=== PATIENT | female | born 1960 | race Caucasian/White ===

== ENCOUNTER 2024-12-13 09:29 | Outpatient (OUT) | payer BC, SELFPAY ==
[2024-12-13 10:12] LABS: Estimated Average Glucose 117 mg/dL; Glycohemoglobin A1C 5.7 % (4.5-6.2)
[2024-12-13 10:33] LABS: Free T3 2.13 pg/mL (2.18-3.98); Glucose 110 mg/dL (74-106)
[2024-12-13 10:48] LABS: Free T4 1.07 ng/dL (0.76-1.46)
[2024-12-14 04:07] LABS: Estradiol 15.8 pg/mL (0.0-54.7)
[2024-12-14 06:08] LABS: Sex Horm Binding Glob, Serum 18.6 nmol/L (17.3-125.0)
[2024-12-14 08:09] LABS: C-Peptide, Serum 5.4 ng/mL (1.1-4.4); DHEA-Sulfate 75.6 ug/dL (29.4-220.5); Insulin 21.4 uIU/mL (2.6-24.9); Progesterone 0.1 ng/mL (.)
[2024-12-15 09:08] LABS: Thyroglobulin Antibody <1.0 IU/mL (0.0-0.9); Thyroid Peroxidase (TPO) Ab <9 IU/mL (0-34)
[2024-12-15 13:09] LABS: Estrone, Serum 38 pg/mL (0-125)
[2024-12-15 18:10] LABS: Reverse T3, Serum 30.5 ng/dL (9.2-24.1)
[2024-12-15 19:07] LABS: Free Testosterone(Direct) 3.1 pg/mL (0.0-4.2); Testosterone 44 ng/dL (3-67)
[2024-12-17 15:17] LABS: Serotonin, Serum 6 ng/mL (8-217)
[2024-12-18 15:09] LABS: Cortisol, Free Dialysis, LCMS 1.69 ug/dL (.)
[2024-12-19 03:07] LABS: Thyroglobulin (TG-RIA) 3.3 ng/mL (.)
== END 2024-12-13 09:30 | disposition home or self-care (01) ==
PROVIDERS: PCP Nurse Practitioner Family; Visit Provider Obstetrics & Gynecology
DX: E34.9 Endocrine disorder, unspecified (principal)
CPT/HCPCS: 36415; 82306; 82530; 82627; 82670; 82679; 82728; 82947; 83036; 83525; 84144; 84260; 84270; 84402; 84403; 84432; 84436; 84439; 84443; 84481; 84482; 84681; 86376; 86800

== ENCOUNTER 2024-12-27 14:19 | Outpatient (OUT) | payer BC, SELFPAY ==
--- NOTE | 2024-12-27 14:25 | ECG_ITS ---
[facility] Test Date: 2024-12-27 Pat Name: LISA MARTINEZ Department: Room: - Gender: Female [employer]: : 1960 Requested By: HELEN MALLORY Order Number: [id number] Reading MD: DOMINGA GUSTAFSON Measurements Intervals [place] Rate: 68 P: 52 CO: 137 QRS: 24 QRSD: 84 T: 27 QT: 388 QTc: 414 Interpretive Statements SINUS RHYTHM Nonspecific ST/T wave changes Compared to ECG 09/17/2021 13:52:16 Electronically Signed On 12-27-2024 20:22:21 EST by DOMINGA GUSTAFSON
--- OUTSIDE RECORDS SUMMARY | 2024-12-27 14:28 | XMS_ITS | CCD ---
Author Organization [facility] Care Team Providers Care Director Of Technology Name Role Phone Jim Astudillo Primary Care Provider [phone] ОЛЕГ Mcclain Attending Provider [phone] LUIS OWENS Consulting Unavailable [facility], [facility] JONES Primary Care Unavailable WILD MCFARLANE Attending Unavailable WILD MCFARLANE Admitting Unavailable Jim Astudillo MD Primary Care Provider Jim Astudillo MD Primary Care Provider JIM ASTUDILLO Referring Unavailabl e JIM ASTUDILLO Primary Care UnavailBRII Toribio Referring Unavailable BRII BRICENO Primary Care Unavailable Brii Briceno MD Primary Care Provider MD Jim Astudillo Primary Care Provider MD Noe Jolly Attending Provider MD [facility] Provider [phone] JUAN DANIEL Dillard Primary Care Provi bienvenido Mojgan Johnson NP Unavailable Noe Jolly Admitting Unavailab Noe Ku Attending Unavailab Jim Parish Primary Care UnavailEstela Diallo Admitting Unavailable [facility] Attending Unavailable Nelly Dillard Primary Care Unavail able ALEXI CUMMINS Attending Unavailable MOJGAN JOHNSON Attending Unavailable NELLY DILLARD Referring Unavailab NELLY Beal Attending Unavailab eliel DILLARD, NELLY Zamora Attending Unavailab eliel DILLARD, NELLY Zamora Attending Unavailab eliel JOHNSON, MOJGAN Attending Unavailable LIONEL, NELLY Zamora Referring Doug Monique, MOJGAN Attending Rip JOHNSON, MOJGAN Attending Unavailable ALEX, MOJGAN Attending Unavailable Allergies Allergy Classification Reported Allergen(s) Allergy Type Date of Onset Reaction(s) Facility (2 sources) Sulfonamides (Antibiotic) Propensity to adverse reactions to drug 07-09-20 13 Rash [facility] Phone: (3 sources) Fd&C Red #40-Fd&C Yellow #10-Propoxyphene Propensity to adverse reactions to drug 07-09-20 13 [facility] Phone: (3 sources) Eggs Or Egg-Derived Products Propensity to adverse reactions to drug 08-21-20 15 Nausea And Vomiting [facility] Phone: (20 sources) Milk-Related Compounds Propensity to adverse reactions to drug 11-13-20 18 [facility] Phone: (2 sources) Tetracyclines & Related Propensity to adverse reactions to drug 07-09-20 13 Nausea And Vomiting [facility] Phone: (3 sources) Doxycycline; Translations: [DOXYCYCLINE] Drug Allergy 09-17-20 21 Hives [facility] Repository (1 source) Sulfonamides (Antibiotic) Drug allergy (disorder) 09-17-20 21 [facility] (3 sources) Tetracycline; Translations: [TETRACYCLINE] Drug Allergy 09-17-20 21 Hives, vomiting [facility] (20 sources) Sulfonamides (Antibiotic) Propensity to adverse reactions to drug 07-09-20 13 Rash, GI intolerance [facility] [employer] [employer] Phone: (1 source) Tetracycline (class of antibiotic) Propensity to adverse reactions to drug 07-09-20 13 [facility] (20 sources) ALPRAZolam; Translations: [ALPRAZOLAM] Drug Allergy 11-12-20 21 Anxiety [facility] Repository (20 sources) hydrOXYzine; Translations: [HYDROXYZINE] Drug Allergy 11-12-20 21 Anxiety [facility] Rep[facility] (10 sources) Tetracycline Drug Allergy 11-12-20 [facility] (20 sources) Tetracycline (class of antibiotic) Drug Intolerance 07-09-20 13 Nausea And Vomiting, Rash [facility] (20 sources) Egg-Derived Products Drug Intolerance 08-21-20 15 Nausea And Vomiting [facility] (2 sources) Sulfonamides (Antibiotic); Translations: [Sulfa (Sulfonamide Antibiotics)] Allergy to substance 08-29-20 Hives [facility] (20 sources) busPIRone Drug Allergy 10-11-20 Other [facility] (20 sources) Doxycycline Drug Allergy 10-11-20 Rash, GI intolerance [facility] (1 source) Doxycycline Drug Allergy 08-29-20 [facility] Repository (1 source) Tetracycline Drug Allergy 08-29-20 [facility] Repository Medications Current Medications Medication Drug Class(es) Dates Sig (Normalized) Sig (Original) aspirin 81 mg chewable tablet (20 sources) Platelet Aggregation Inhibitor, Nonsteroidal Anti-inflammatory Drug Start: 08-29-2024 take 1 tablet by mouth once daily Aspirin Active 1 TAB PO Daily August 29, 2024 12:00am Start: 05-17-2024 End: 08-18-2024 aspirin (Aspirin Low Dose) 8 1 MG chewable tablet Indications: Morbid (severe) obesity due to excess calories (CMS/HCC) CHEW 1 TABLET (81 MG) IN THE MORNING 90 tablet 1 08/18/2024 Active Start: 08-23-2015 take 1 tablet by mekhi th once daily aspirin 325 MG EC tablet Take 1 tablet by mouth daily 30 tablet 3 08/23/2015 Active atorvastatin 10 mg oral tablet (20 sources) HMG-CoA Reductase Inhibitor Start: 09-14-2024 take 1 tablet by mouth once daily atorvastatin (Lipitor) 10 MG tablet Indications: Mixed hyperlipidemia (CMS/HCC) TAKE 1 TABLET (10 MG) BY MOUTH DAILY. 90 tablet 1 09/14/2024 Active Start: 08-29-2024 take 10 mg by mouth once daily Atorvastatin Active 10 MG PO Daily August 29, 2024 12:00am Start: 03-22-2024 take 1 tablet by mekhi th once daily atorvastatin (Lipitor) 10 MG tablet Indications: Mixed hyperlipidemia (CMS/HCC) TAKE 1 TABLET (10 MG) BY MOUTH DAILY. 90 tablet 1 03/22/2024 Active betamethasone 0.5 mg/ml / clotrimazole 10 mg/ml topical cream (2 sources) Azole Antifungal, Corticosteroid Start: 11-15-2019 clotrimazole-betamethasone (LOTRISONE) 1-0.05 % cream Apply to affected area bid externally x 4 days then daily for 3 days 1 Tube 1 11/15/2019 Active DULoxetine 30 mg delayed release oral capsule (20 sources) Serotonin and Norepinephrine Reuptake Inhibitor Start: 10-17-2024 take 1 capsule by mouth in the morning DULoxetine (Cymbalta) [address] capsule Indications: Generalized anxiety disorder (CMS/HCC) Take 1 capsule (30 mg) by mouth in the morning and 1 capsule (30 mg) before bedtime. 90 capsule 10/17/2024 Active Start: 09-28-2024 End: 10-17-2024 take 2 capsules by mouth once daily DULoxetine (Cymbalta) [address] capsule Indications: Generalized anxiety disorder (CMS/HCC) Take 2 capsules (60 mg) by mouth Daily 90 capsule 09/28/2024 10/17/2024 Discontinued (Dose adjustment) Start: 12-27-2021 End: 08-29-2024 take 60 mg by mouth once daily Duloxetine Discontinued 60 MG PO Daily December 27, 2021 1:00am August 29, 2024 6:30pm Start: 11-19-2021 End: 09-28-2024 take 30 mg by mouth once daily at bedtime Duloxetine Active 30 MG PO Daily at bedtime January 02, 2022 1:00am 12 hr fexofenadine hydrochloride 60 mg / pseudoephedrine hydrochloride 120 mg extended release oral tablet (2 sources) alpha-Adrenergic Agonist, Histamine-1 Receptor Antagonist Start: 02-05-2016 take 60-120 mg by mouth once fexofenadine-pseudoephedrine (ABHISHEK-D) 60-120 MG per tablet Take 1 tablet by mouth 2 times daily 20 tablet 0 02/05/2016 Active gabapentin 100 mg oral capsule (20 sources) Anti-epileptic Agent Start: 10-29-2024 End: 01-03-2025 take 2 capsules by mouth in the morning, then take 2 capsules by mouth in the evening, then take 2 capsules by mouth at bedtime gabapentin (Neurontin) 100 MG capsule Indications: Generalized anxiety disorder (CMS/HCC) , Mood disorder (CMS/HCC) Take 2 capsules (200 mg) by mouth in the morning and 2 capsules (200 mg) in the evening and 2 capsules (200 mg) before bedtime. 180 capsule 12/04/2024 01/03/2025 Active Start: 10-15-2024 End: 10-15-2025 take 1 capsule by mouth every eight hours gabapentin (Neurontin) 100 MG capsule Indications: Generalized anxiety disorder (CMS/HCC) Take 1 capsule (100 mg) by mouth every 8 (eight) hours 90 capsule 10/15/2024 10/29/2024 Discontinued (Dose adjustment) Start: 09-28-2024 End: 10-15-2024 take 3 capsules by mouth three times daily, then take 2 capsules by mouth three times daily, then take 1 capsule by mouth three times daily gabapentin (Neurontin) 100 MG capsule Indications: Generalized anxiety disorder (CMS/HCC) Take 3 capsules (300 mg) by mouth 3 (three) times a day for 5 days, THEN 2 capsules (200 mg) 3 (three) times a day for 5 days, THEN 1 capsule (100 mg) 3 (three) times a day for 5 days. 90 capsule 09/28/2024 10/15/2024 Discontinued Start: 01-02-2022 take 200 mg by mouth three times daily Gabapentin Active 200 MG PO Three times daily 90 January 02, 2022 1:00am Start: 11-19-2021 End: 09-28-2024 take 100 mg by mouth twice daily Gabapentin Discontinu ed 100 MG PO Twice daily December 27, 2021 1:00am January 02, 2022 11:19am 9a, 2p Start: 11-19-2021 End: 01-02-2022 take 200 mg by mouth once daily at bedtime Gabapentin Discontinued 200 MG PO Daily at bedtime 30 November 19, 2021 1:00am January 02, 2022 11:19am meclizine hydrochloride 12.5 mg oral tablet (20 sources) Antiemetic Start: 09-24-2024 End: 12-23-2024 take 1 tablet by mouth three times daily as needed for dizziness meclizine (Antivert) 12.5 MG tablet Indications: Vertigo Take 1 tablet (12.5 mg) by mouth 3 (three) times a day as needed for dizziness 60 tablet 12/23/2024 Active Start: 10-05-2021 End: 12-27-2021 take 25 mg by mouth three times daily Meclizine Discontinued 25 MG PO Three times daily October 05, 2021 1:00am December 27, 2021 6:48pm take 1 tablet by mekhi th once daily meclizine (ANTIVERT) 25 MG tablet Take 25 mg by mouth daily 0 Active mirtazapine 7.5 mg oral tablet (3 sources) Start: 12-13-2024 End: 01-12-2025 take 1 tablet by mouth at bedtime mirtazapine (Remeron) 7.5 MG tablet Indications: Generalized anxiety disorder (CMS/HCC) Take 1 tablet (7.5 mg) by mouth at bedtime 30 tablet 1 12/13/2024 01/12/2025 Active [place]-3 Acid Ethyl Esters (ALF) (1 source) [place]-3 Fatty Ac ids (EQL OMEGA 3 FISH OIL) 1200 MG CAPS Take by mouth 0 Active pantoprazole 40 mg delayed release oral tablet (20 sources) Proton Pump Inhibitor Start: 10-20-2024 take 1 tablet by mouth before mealtime pantoprazole (Protonix) 40 MG EC tablet Indications: Gastroesophageal reflux disease without esophagitis Take 1 tablet (40 mg) by mouth in the morning. Take before meals. Do not crush, chew, or split.. 90 tablet 10/20/2024 Active Start: 10-08-2024 take 1 tablet by mekhi th before mealtime pantoprazole (Protonix) 20 MG EC tablet Indications: Gastroesophageal reflux disease without esophagitis Take 1 tablet (20 mg) by mouth in the morning. Take before meals. Do not crush, chew, or split.. 90 tablet 1 10/08/2024 Active propranolol hydrochloride 20 mg oral tablet (20 sources) beta-Adrenergic Citlali Start: 09-24-2024 End: 03-04-2025 take 1 tablet by mouth in the morning propranolol (Inderal) 20 MG tablet Indications: Generalized anxiety disorder (CMS/HCC) Take 1 tablet (20 mg) by mouth in the morning and 1 tablet (20 mg) before bedtime. 180 tablet 12/04/2024 03/04/2025 Active Start: 08-29-2024 take 10 mg by mouth twice brea y Propranolol Active 10 MG PO Twice daily August 29, 2024 12:00am traZODone hydrochloride 50 mg oral tablet (4 sources) Serotonin Reuptake Inhibitor Start: 01-02-2022 take 50 mg by mouth once daily at bedtime Trazodone Active 50 MG PO Daily at bedtime 30 January 02, 2022 1:00am Start: 12-27-2021 End: 12-27-2021 Trazodone Discontinued MG TA BLET December 27, 2021 1:00am December 27, 2021 6:48pm Start: 10-12-2021 End: 12-27-2021 take 50 mg by mouth once daily at bedtime Trazodone Discontinued 50 MG PO Daily at bedtime November 19, 2021 1:00am December 27, 2021 6:48pm Completed/Discontinued Medications Medication Drug Class(es) Dates Sig (Normalized) Sig (Original) [id number] 200 actuat albuterol 0.09 mg/actuat metered dose inhaler (4 sources) beta2-Adrenergic Agonist Start: 12-23-2023 End: 09-28-2024 take 2 puff(s) by inhalation every four hours for wheezing albuterol HFA 90 mcg/act inhaler Indications: Pneumonia of right lower lobe due to infectious organism INHALE 2 PUFFS EVERY 4 HOURS IF NEEDED FOR WHEEZING. 18 g 12/23/2023 09/28/2024 Discontinued busPIRone hydrochloride 7.5 mg oral tablet (15 sources) Start: 09-28-2024 End: 10-04-2024 take 1 tablet by mouth in the morning busPIRone (Buspar) 7.5 MG tablet Indications: Generalized anxiety disorder (CMS/HCC) Take 1 tablet (7.5 mg) by mouth in the morning and 1 tablet (7.5 mg) before bedtime. 180 tablet 09/28/2024 10/04/2024 Discontinued (Therapy completed) Start: 08-04-2024 End: 09-28-2024 take 1 tablet by mouth every eight hours busPIRone (Buspar) 15 MG tablet Indications: Generalized anxiety disorder (CMS/HCC) TAKE 1 TABLET BY MOUTH EVERY 8 HOURS 270 tablet 08/04/2024 09/28/2024 Discontinued Start: 01-02-2022 End: 08-29-2024 take 5 mg by mouth twice daily Buspirone Discontinued 5 MG PO Twice daily January 02, 2022 1:00am August 29, 2024 6:30pm Start: 12-27-2021 take 10 mg by mouth three times daily Buspirone Active 10 MG PO Three times daily December 27, 2021 1:00am Start: 11-20-2021 End: 12-27-2021 take 10 mg by mouth three times daily Buspirone Discontinued 5 MG PO Three times daily November 20, 2021 1:00am December 27, 2021 6:47pm 10MG ON FRIDAY Start: 10-12-2021 End: 11-20-2021 take 20 mg by mouth three times daily Buspirone Discontinued 20 MG PO Three times daily October 12, 2021 1:00am November 20, 2021 11:51am Start: 10-05-2021 End: 10-05-2021 take 5 mg by mouth three times daily Buspirone Discontinued 5 MG PO Three times daily October 05, 2021 1:00am October 06, 2021 12:24am doxepin hydrochloride 10 mg oral capsule (1 source) Tricyclic Antidepressant Start: 10-12-2021 End: 11-12-2021 take 20 mg by mouth once daily at bedtime Doxepin Discontinued 20 MG PO Daily at bedtime 60 October 12, 2021 1:00am November 12, 2021 7:53pm hydrOXYzine pamoate 50 mg oral capsule (1 source) Antihistamine Start: 11-19-2021 End: 12-08-2021 take 50 mg by mouth every six hours Hydroxyzine Pamoate Discontinued 50 MG PO Q6H 30 November 19, 2021 1:00am December 08, 2021 3:04pm LORazepam 0.5 mg oral tablet (9 sources) Benzodiazepine Start: 12-27-2021 End: 08-29-2024 take 1 mg by mouth every eight hours Lorazepam Discontinued 1 MG PO Q8H December 27, 2021 1:00am August 29, 2024 6:31pm Start: 12-08-2021 End: 09-28-2024 take 0.5-1 tablets by mouth every eight hours as needed Lorazepam (Ativan) 1 mg tablet Discontinued 1 MG PO Q8H 9 3 December 08, 2021 1:00am December 27, 2021 6:47pm You can take half to 1 tablet every 8 hours as needed Start: 11-01-2021 End: 12-08-2021 take 1 mg by mouth twice daily Lorazepam Discontinued 1 MG PO Twice daily November 12, 2021 7:54pm December 08, 2021 3:04pm Start: 10-05-2021 End: 11-01-2021 take 0.5 mg by mouth twice daily Lorazepam Discontinued 0.5 MG PO Twice daily October 05, 2021 1:00am November 01, 2021 4:16am OLANZapine 10 mg oral tablet (7 sources) Atypical Antipsychotic Start: 12-27-2021 End: 08-29-2024 take 5 mg by mouth twice daily Olanzapine Discontinued 5 MG PO Twice daily December 27, 2021 1:00am August 29, 2024 6:31pm Start: 11-20-2021 End: 12-08-2021 take 0.5 tablet by mouth twice daily Olanzapine (Zyprexa) 10 mg Tablet Discontinued 10 MG PO Daily 0.5 November 20, 2021 1:00am December 08, 2021 3:04pm take 0.5 tab BID Start: 11-19-2021 End: 12-27-2021 take 5 mg by mouth twice daily Olanzapine Discontinued 5 MG PO Twice daily 30 November 19, 2021 1:00am December 27, 2021 6:48pm End: 09-28-2024 OLANZapine (ZyPREXA) 2.5 MG tablet Take 2.5 mg by mouth in the morning and 2.5 mg at noon and 2.5 mg in the evening. 09/28/2024 Discontinued (Therapy completed) ondansetron 4 mg oral tablet (6 sources) Serotonin-3 Receptor Antagonist Start: 09-28-2024 End: 10-04-2024 take 1 tablet by mouth every eight hours as needed for nausea and vomiting and nausea and nausea ondansetron (Zofran) 4 MG tablet Indications: Nausea Take 1 tablet (4 mg) by mouth every 8 (eight) hours if needed for nausea or vomiting for up to 7 days 20 tablet 09/28/2024 10/04/2024 Discontinued PARoxetine hydrochloride 20 mg oral tablet (1 source) Serotonin Reuptake Inhibitor Start: 11-12-2021 End: 11-20-2021 take 20 mg by mouth once daily Paroxetine Hcl Discontinued 20 MG PO Daily November 12, 2021 1:00am November 20, 2021 11:51am QUEtiapine 25 mg oral tablet (20 sources) Atypical Antipsychotic Start: 10-27-2024 End: 11-22-2024 QUEtiapine (SEROquel) 25 MG tablet Indications: Generalized anxiety disorder (CMS/HCC) Take 1 tablet (25 mg) in the morning and 1 tablet (25 mg) at night 30 tablet 10/27/2024 11/22/2024 Discontinued (Side effects) Start: 09-24-2024 End: 10-27-2024 QUEtiapine (SEROquel) 25 MG tablet Indications: Generalized anxiety disorder (CMS/HCC) Take 2 tablets (50 mg) in the morning and 1 tablet (25 mg) at night 30 tablet 10/21/2024 10/27/2024 Discontinued (Dose adjustment) rOPINIRole 0.25 mg oral tablet (20 sources) Nonergot Dopamine Agonist Start: 11-22-2024 End: 12-13-2024 rOPINIRole (Requip) 0.25 MG tablet Indications: Restless Leg Syndrome Take 3 tablets (0.75 mg) by mouth at bedtime for 2 days, THEN 2 tablets (0.5 mg) at bedtime for 2 days, THEN 1 tablet (0.25 mg) at bedtime for 2 days. Take 3 tablets (0.75 mg) by mouth at bedtime for 2 days, THEN 2 tablets (0.5 mg) at bedtime for 2 days, THEN 1 tablet (0.25 mg) at bedtime for 2 days, then STOP medication.. 12 tablet 11/22/2024 12/13/2024 Discontinued (Other) Start: 09-24-2024 End: 11-22-2024 take 1 tablet by mouth at bedtime rOPINIRole (Requip) 1 MG tablet Indications: RLS (restless legs syndrome) TAKE 1 TABLET BY MOUTH AT BEDTIME 90 tablet 11/01/2024 11/22/2024 Discontinued Problems Active Problems Problem Classification Problem Date Documented Da te Episodic/Chronic Anxiety disorders (20 sources) Anxiety disorder, unspecified; Translations: [Generalized anxiety disorder] Onset: 09-17-2021 Chronic Conditions associated with dizziness or vertigo (20 sources) Vertigo; Translations: [Dizziness and giddiness] Onset: 10-07-2013 10-07-2013 Episodic Menopausal disorders (2 sources) Postmenopausal bleeding; Translations: [Postmenopausal bleeding] 12-08-2024 Chronic Mood disorders (17 sources) Bipolar I disorder; Translations: [Bipolar disorder, unspecified] 10-04-2024 Chronic Other circulatory disease (20 sources) History of transient ischemic attack; Translations: [Personal history of transient ischemic attack (TIA), and cerebral infarction without residual deficits] Onset: 10-17-2024 10-17-2024 Episodic Other endocrine disorders (4 sources) Disorder of endocrine system; Translations: [Endocrine disorder, unspecified] 12-08-2024 Episodic Other gastrointestinal disorders (20 sources) Irritable bowel syndrome; Translations: [Irritable bowel syndrome without diarrhea] Onset: 10-07-2013 10-07-2013 Chronic Other hereditary and degenerative nervous system conditions (5 sources) Restless legs; Translations: [Restless legs syndrome] 09-28-2024 Chronic Other nervous system disorders (2 sources) Impaired cognition; Translations: [Other symptoms and signs involving cognitive functions and awareness] 09-28-2024 Episodic Other nutritional; endocrine; and metabolic disorders (20 sources) Obesity caused by energy imbalance; Translations: [Morbid (severe) obesity due to excess calories] Onset: 09-25-2023 08-18-2024 Chronic Other screening for suspected conditions (not mental disorders or infectious disease) (2 sources) Patient encounter status; Translations: [Encounter for screening mammogram for malignant neoplasm of breast] Onset: 10-21-2022 Episodic Substance-related disorders (2 sources) Benzodiazepine withdrawal 10-01-2024 Chronic Substance-related disorders (2 sources) Benzodiazepine withdrawal; Translations: [Sedative, hypnotic or anxiolytic use, unspecified with withdrawal, uncomplicated] 09-28-2024 Episodic Unclassified (2 sources) Patient encounter status; Translations: [Visit for screening mammogram] Viral infection (1 source) COVID-19; Translations: [COVID-19] Onset: 09-19-2021 Past or Other Problems Problem Classification Problem Date Documented Da te Episodic/Chronic Allergic reactions (20 sources) Solar degeneration; Translations: [Other skin changes due to chronic exposure to nonionizing radiation] Onset: 10-28-2023 10-28-2023 Episodic Headache; including migraine (3 sources) Migraine; Translations: [Migraine, unspecified, not intractable, without status migrainosus] Onset: 10-07-2013 Resolved: 02-01-2021 02-01-2021 Chronic Melanomas of skin (20 sources) H/O Malignant melanoma; Translations: [Personal history of malignant melanoma of skin] Onset: 04-04-2010 10-28-2023 Episodic Miscellaneous mental health disorders (3 sources) psychosis; 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] Onset: 10-07-2013 Resolved: 02-01-2021 02-01-2021 Episodic Mood disorders (20 sources) Mood disorders Onset: 12-01-2023 Resolved: 11-22-2024 12-01-2023 Nausea and vomiting (4 sources) Nausea; Translations: [Nausea] Onset: 08-29-2024 08-29-2024 Episodic Other and unspecified benign neoplasm (20 sources) Benign neoplasm of skin; Translations: [Other benign neoplasm of skin, unspecified] Onset: 01-08-2012 10-28-2023 Episodic Other and unspecified benign neoplasm (20 sources) Hemangioma; Translations: [Hemangioma unspecified site] Onset: 10-28-2023 10-28-2023 Episodic Other circulatory disease (3 sources) Elevated blood pressure; Translations: [Elevated blood-pressure reading, without diagnosis of hypertension] Onset: 10-07-2013 Resolved: 02-01-2021 02-01-2021 Episodic Other female genital disorders (20 sources) Stenosis of cervix; Translations: [Stricture and stenosis of cervix uteri] Onset: 10-07-2013 10-07-2013 Episodic Other female genital disorders (3 sources) Cervical incompetence; Translations: [Incompetence of cervix uteri] Onset: 10-07-2013 Resolved: 02-01-2021 02-01-2021 Episodic Other liver diseases (20 sources) Jaundice; Translations: [Unspecified jaundice] Onset: 09-25-2023 09-25-2023 Episodic Other skin disorders (20 sources) Acne; Translations: [Acne, unspecified] Onset: 01-08-2012 Resolved: 10-11-2024 10-28-2023 Episodic Other skin disorders (20 sources) Actinic keratosis; Translations: [Actinic keratosis] Onset: 08-16-2013 10-28-2023 Episodic Other skin disorders (20 sources) Folliculitis; Translations: [Follicular disorder, unspecified] Onset: 10-28-2023 10-28-2023 Episodic Residual codes; unclassified (20 sources) Family history of malignant neoplasm of ovary; Translations: [Family history of malignant neoplasm of ovary] Onset: 08-14-2017 08-14-2017 Episodic Transient cerebral ischemia (3 sources) Transient global amnesia; Translations: [Transient global amnesia] Onset: 08-21-2015 Resolved: 02-01-2021 02-01-2021 Chronic Results Test Name Value Interpretation Reference Range Facility [facility] HEMOGLOBIN A1Con 025 Glucose [Mass/Vol] 117 mg/dL [facility] HbA1c (Bld) [Mass fraction] 5.7 % 4.5 - 6.2 % [facility] Comment on above: ADA RECOMMENDED LIMI T 4.0 - 6.0 ADA THERAPEUTIC TARGET < 7.0 ACTION SUGGESTED > 7.0 [facility] Healthcar e CBC W Auto Differential pane l (Bld)on 09-29-2024 Basophils (Bld) [#/Vol] 29 10*3/uL N [facility] Basophils/100 WBC (Bld) 0.6 % N [facility] [place] [facility] Eosinophils (Bld) [#/Vol] 0 10*3/uL Low [facility] Eosinophils/100 WBC (Bld) 0 % [facility] Erythrocyte distribution width (RBC) [Ratio] 13.2 % 11.0 - 15.0 % [facility]) [Volume fraction] 44.2 % 35.0 - 45.0 % [facility] Hemoglobin (Bld) [Mass/Vol] 14.5 g/dL 11.7 - 15.5 g/dL [facility] Lymphocytes (Bld) [#/Vol] 994 10*3/uL [facility] Lymphocytes/100 WBC (Bld) 20.7 % [facility] MCH (RBC) [Entitic mass] 32.2 pg 27. 0 - 33.0 pg [facility] MCHC (RBC) [Mass/Vol] 32.8 g/dL 32.0 - 36.0 g/dL [facility] Comment on above: For adults, a slight decrease in the calculated MCHC value (in the range of 30 to 32 g/dL) is most likely not clinically significant; however, it should be interpreted with caution in correlation with other red cell parameters and the patient's clinical condition. MCV (RBC) [Entitic vol] 98.2 fL 80.0 - 100.0 fL [facility] Monocytes (Bld) [#/Vol] 250 10*3/uL [facility] Monocytes/100 WBC (Bld) 5.2 % [facility] Neutrophils (Bld) [#/Vol] 3528 10*3/uL [facility] Neutrophils/100 WBC (Bld) 73.5 % [facility] Platelet mean volume (Bld) [Entitic vol] 11.1 fL 7.5 - 12.5 [facility]L [facility] [#/Vol] 196 10*3/uL [facility] RBC (Bld) [#/Vol] 4.5 10*6/uL [facility] WBC (Bld) [#/Vol] 4.8 10*3/uL [facility] Laboratory - Chemistry and C hemistry - challengeon 09-29-2024 Albumin [Mass/Vol] 3.9 g/dL 3.6 - 5.1 g/dL [facility] Albumin/Globulin [Mass ratio] 2 {ratio} [facility] ALP [Catalytic activity/Vol] 48 U/L 37 - 153 U/L [facility] ALT [Catalytic activity/Vol] 15 U/L 6 - 29 U/L [facility] AST [Catalytic activity/Vol] 16 U/L 10 - 35 U/L [facility] Bilirubin [Mass/Vol] 1.2 mg/dL 0.2 - 1 .2 mg/dL [facility] Calcium [Mass/Vol] 8.6 mg/dL 8.6 - 10. 4 mg/dL [facility] Chloride [Moles/Vol] 106 mmol/L 98 - 11 0 mmol/L [facility] CO2 [Moles/Vol] 28 mmol/L 20 - 32 mmol/L [facility] Creatinine [Mass/Vol] 0.81 mg/dL 0.50 - 1.05 mg/dL [facility] GFR/1.73 sq M.predicted among non-blacks MDRD (S/P/Bld) [Vol rate/Area] 82 mL/min/{1.73_m2} > OR = 60 mL/min/1.73m2 [facility] Globulin (S) [Mass/Vol] 2 g/dL [facility] Glucose [Mass/Vol] 94 mg/dL 65 - 99 mg/dL [facility] Comment on above: Fasting reference interval Potassium [Moles/Vol] 4 mmol/L 3.5 - 5.3 mmol/L [facility] Protein [Mass/Vol] 5.9 g/dL Low 6.1 - 8.1 g/dL [facility] Sodium [Moles/Vol] 142 mmol/L 135 - 146 mmol/L [facility] Urea nitrogen [Mass/Vol] 7 mg/dL 7 - 25 mg/d L [facility] Urea nitrogen/Creatinine [Mass ratio] SEE NOTE: [facility] Comment on above: Not Reported: BUN an d Creatinine are within reference range. No Panel Informationon 09-29 Interpretation and review of laboratory results Abnormal [facility] Performing Organization Information Site ID: QPT Name: [facility] Address: [address] [place] [address], [address] [place] [id number] Director: Adolph Dave MD [facility] Alanine aminotransferase [En zymatic activity/volume] in Serum or PlasmaOrdered By: Estela Heart on 08-29-2024 ALT [Catalytic activity/Vol] 17 U/L Normal 7-52 [facility] Comment on above: Performed By: #### T SH3, MG, HS TROP, CBC, CMP #### [facility] [address] Albumin [Mass/volume] in Ser um or Plasma by Bromocresol green (BCG) dye binding methoOrdered By: Estela Heart on 08-29-2024 Albumin BCG dye [Mass/Vol] 4.4 g/dL 3.5-5.7 [facility] Alkaline phosphatase [Enzyma tic activity/volume] in Serum or PlasmaOrdered By: Estela Heart on 08-29-2024 ALP [Catalytic activity/Vol] 62 U/L Normal 34-104 [facility] Comment on above: Performed By: #### T SH3, MG, HS TROP, CBC, CMP #### [address] Aspartate aminotransferase [ Enzymatic activity/volume] in Serum or PlasmaOrdered By: Estela Heart on 08-29-2024 AST [Catalytic activity/Vol] 17 U/L Normal 13-39 [facility] Comment on above: Performed By: #### T SH3, MG, HS TROP, CBC, CMP #### [address] Automated basophil %Ordered By: Estela Heart on 08-29-2024 Basophils/100 WBC (Bld) 1.4 % Normal . [facility] Comment on above: Performed By: #### T SH3, MG, HS TROP, CBC, CMP #### [address] Automated basophil countOrde red By: Estela Heart on 08-29-2024 Basophils (Bld) [#/Vol] 0.1 10*3/uL Normal 0.0-0.2 [facility] Comment on above: Result Comment: PERF ORMED BY: [place] [address] PATHOLOGIST DISTRIBUTION MANAGER SOM POWERS M.D. Performed By: #### T SH3, MG, HS TROP, CBC, CMP #### [address] Automated blood monocyte cou ntOrdered By: Estela Heart on 08-29-2024 Monocytes (Bld) [#/Vol] 0.5 10*3/uL Normal 0.0-0.8 [facility] Comment on above: Performed By: #### T SH3, MG, HS TROP, CBC, CMP #### [address] Automated eosinophil %Ordere d By: Estela Heart on 08-29-2024 Eosinophils/100 WBC (Bld) 0.0 % Normal . [facility] Comment on above: Performed By: #### T SH3, MG, HS TROP, CBC, CMP #### [place] [address] [place] Automated eosinophil countOr dered By: Estela Heart on 08-29-2024 Eosinophils (Bld) [#/Vol] 0.0 10*3/uL Normal 0.0-0.45 [facility] Comment on above: Performed By: #### T SH3, MG, HS TROP, CBC, CMP #### [facility] [address] Automated monocyte %Ordered By: Estela Heart on 08-29-2024 Monocytes/100 WBC (Bld) 4.8 % Normal . [facility] Comment on above: Performed By: #### T SH3, MG, HS TROP, CBC, CMP #### [facility] [address] Automated neutrophil %Ordere d By: Estela Heart on 08-29-2024 Neutrophils/100 WBC (Bld) 85.9 % Normal . [facility] Comment on above: Performed By: #### T SH3, MG, HS TROP, CBC, CMP #### [address] Bilirubin Test strip Ql (U)O rdered By: Estela Heart on 08-29-2024 Bilirubin Ql (U) Negative Negative [facility] Bilirubin.total [Mass/volume ] in Serum or PlasmaOrdered By: Estela Heart on 08-29-2024 Bilirubin [Mass/Vol] 2.6 mg/dL High 0.3-1.0 [facility] Comment on above: Samples from patient s who have taken Naproxen have shown spurious elevation in Total Bilirubin levels. A metabolite of Naproxen, O-desmethylnaproxen, has been shown to interfere with the Jendrassik-Grof method for measuring Total Bilirubin. Result Comment: Samp les from patients who have taken Naproxen have shown spurious elevation in Total Bilirubin levels. A metabolite of Naproxen, O-desmethylnaproxen, has been shown to interfere with the Jendrassik-Grof method for measuring Total Bilirubin. Performed By: #### T SH3, MG, HS TROP, CBC, CMP #### [address] Calcium [Mass/volume] in Ser um or PlasmaOrdered By: Estela Heart on 08-29-2024 Calcium [Mass/Vol] 9.0 mg/dL Normal 8.6-10.3 [facility] Comment on above: Performed By: #### T SH3, MG, HS TROP, CBC, CMP #### [address] Carbon dioxide, total [Moles /volume] in Serum or PlasmaOrdered By: Estela Heart on 08-29-2024 CO2 [Moles/Vol] 25.3 mmol/L Normal 21.0-31.0 [facility] Comment on above: Performed By: #### T SH3, MG, HS TROP, CBC, CMP #### [address] Chloride [Moles/volume] in S agnieszka or PlasmaOrdered By: Estela Heart on 08-29-2024 Chloride [Moles/Vol] 103 mmol/L Normal 98-107 [facility] Comment on above: Performed By: #### T SH3, MG, HS TROP, CBC, CMP #### [address] Color of Urine by AutoOrdere d By: Estela Heart on 08-29-2024 Color (U) Yellow Normal Yellow [facility] Comment on above: Order Comment: Name Collection Type:: Clean-Voided Midstream Performed By: #### U A #### [address] Complete Blood Count Auto Di ffon 08-29-2024 Mean Corpuscular HGB Conc 34.4 g/dL Normal 32.0-35.0 [facility] Comment on above: Performed By: #### T SH3, MG, HS TROP, CBC, CMP #### [address] Monocytes/100 WBC (Bld) 19.89 % Normal 0.00-20.00 [facility] Comment on above: Performed By: #### T SH3, MG, HS TROP, CBC, CMP #### [place] [address] [place] NRBC% 0.1 /100{WBC} Normal 0-0.5 [facility] Comment on above: Performed By: #### T SH3, MG, HS TROP, CBC, CMP #### [address] Comprehensive Metabolic Pane terrence 08-29-2024 Albumin [Mass/Vol] 4.4 g/dL Normal 3.5-5.7 [facility] Comment on above: Performed By: #### T SH3, MG, HS TROP, CBC, CMP #### [address] GFR/1.73 sq M.predicted MDRD (S/P/Bld) [Vol rate/Area] mL/min/{1.73_m2} Normal [facility] Comment on above: Performed By: #### T SH3, MG, HS TROP, CBC, CMP #### [address] Creatinine [Mass/volume] in Serum or PlasmaOrdered By: Estela Heart on 08-29-2024 Creatinine [Mass/Vol] 1.00 mg/dL Normal 0.60-1.20 [facility] Comment on above: Performed By: #### T SH3, MG, HS TROP, CBC, CMP #### [address] ECG 12 lead ECGon 08-29-2024 ECG 12 lead ECG [facility] [place] [address] [place] [address] Electrocardiograph Report Signed Patient: Luisana Martinez MR#: [id number] : 1960 Acct:[id number] Age/Sex: 64 / F ADM Date: 08/29/24 Loc: ER Room: Type: [facility] ER Attending Dr: Ordering Provider: Estela Heart MD Date of Service: 08/29/24 ECG/ECG 12 lead ECG: Altered Mental Status Copies to: Test Reason : Blood Pressure : 127/71 mmHG Vent. Rate : 79 BPM Atrial Rate : 79 BPM P-R Int : 134 ms QRS Dur : 72 ms QT Int : 392 ms P-R-T Axes : 74 50 39 degrees QTcB Int : 449 ms Poor data quality, interpretation may be adversely affected Normal sinus rhythm Low voltage QRS Nonspecific ST and T wave abnormality Abnormal ECG When compared with ECG of 01-Nov-2021 02:02, QRS voltage has decreased Nonspecific T wave abnormality no longer evident in Anterior leads Nonspecific T wave abnormality, worse in Lateral leads Confirmed by ESTELA HEART MD ([id number]) on 08/30/2024 1:41:08 AM Referred By: Electronically Signed By: ESTELA HEART MD Transcribed By: MUS Signed By Estela Heart MD 08/17 03/10 0141 Normal [facility] Erythrocyte distribution wid th [Ratio] by Automated countOrdered By: Estela Heart on 08-29-2024 Erythrocyte distribution width (RBC) [Ratio] 13.1 % Normal 11.9-15.3 [facility] Comment on above: Performed By: #### T SH3, MG, HS TROP, CBC, CMP #### [facility] [address] [place] [address] [place] Erythrocytes [#/volume] in B lood by Automated countOrdered By: Estela Heart on 08-29-2024 RBC (Bld) [#/Vol] 4.91 10*6/uL Normal 3.60-5.00 [facility] Comment on above: Performed By: #### T SH3, MG, HS TROP, CBC, CMP #### [facility] [address] Glucose [Mass/volume] in Ser um or PlasmaOrdered By: Estela Heart on 08-29-2024 Glucose [Mass/Vol] 102 mg/dL High 70-100 [facility] Comment on above: ADA recommended refe rence rangeRandom Glucose Reference Range is dependent on time and content of last meal. Glucose of more than 200 mg/dL in a nonstressed, ambulatory subject supports the diagnosis of Diabetes Mellitus. Result Comment: [place] om Glucose Reference Range is dependent on time and content of last meal. Glucose of more than 200 mg/dL in a nonstressed, ambulatory subject supports the diagnosis of Diabetes Mellitus. ADA recommended reference range Performed By: #### T SH3, MG, HS TROP, CBC, CMP #### [facility] [address] [place] [address] [place] Glucose [Mass/volume] in Uri ne by Test stripOrdered By: Estela Heart on 08-29-2024 Glucose Test strip (U) [Mass/Vol] Normal mg/dL Normal [facility] Hematocrit [Volume Fraction] of Blood by Automated countOrdered By: Estela Heart on 08-29-2024 Hematocrit (Bld) [Volume fraction] 45.8 % Normal 34.0-46.4 [facility] Comment on above: Performed By: #### T SH3, MG, HS TROP, CBC, CMP #### [facility] [address] [place] [address] Hemoglobin Test strip Ql (U) Ordered By: Estela Heart on 08-29-2024 Hemoglobin Ql (U) Negative Negative [facility] Hemoglobin [Mass/volume] in BloodOrdered By: Estela Heart on 08-29-2024 Hemoglobin (Bld) [Mass/Vol] 15.7 g/dL High 11.8-15.4 [facility] Comment on above: Performed By: #### T SH3, MG, HS TROP, CBC, CMP #### [facility] [address] [place] [address] [place] Ketones [Presence] in Urine by Test stripOrdered By: Estela Heart on 08-29-2024 Ketones Ql (U) 4+ High Negative [facility] Comment on above: Order Comment: Name Collection Type:: Clean-Voided Midstream Performed By: #### U A #### [facility] [address] [place] [address] [place] Leukocyte esterase [Presence ] in Urine by Test stripOrdered By: Estela Heart on 08-29-2024 Leukocyte esterase Test strip Ql (U) Negative Normal Negative [facility] Comment on above: Order Comment: Name Collection Type:: Clean-Voided Midstream Performed By: #### U A #### [place] [address] [place] Leukocytes [#/volume] correc faiza for nucleated erythrocytes in Blood by Automated counOrdered By: Estela Heart on 08-29-2024 WBC corrected for nucl RBC Auto (Bld) [#/Vol] 9.8 10*3/uL 3.8-11.6 [facility] Leukocytes [#/volume] in Blo od by Automated countOrdered By: Estela Heart on 08-29-2024 WBC (Bld) [#/Vol] 9.8 10*3/uL Normal 3.8-11.6 [facility] Comment on above: Performed By: #### T SH3, MG, HS TROP, CBC, CMP #### [facility] [address] Lymphocytes [#/volume] in Bl ood by Automated countOrdered By: Estela Heart on 08-29-2024 Lymphocytes (Bld) [#/Vol] 0.8 10*3/uL Low 1.00-4.8 [facility] Comment on above: Performed By: #### T SH3, MG, HS TROP, CBC, CMP #### [facility] [address] Lymphocytes/100 leukocytes i n Blood by Automated countOrdered By: Estela Heart on 08-29-2024 Lymphocytes/100 WBC (Bld) 7.9 % Normal . [facility] Comment on above: Performed By: #### T SH3, MG, HS TROP, CBC, CMP #### [facility] [address] [place] [address] MCH [Entitic mass] by Automa faiza countOrdered By: Estela Heart on 08-29-2024 MCH (RBC) [Entitic mass] 32.1 pg Normal 24.7-34.3 [facility] Comment on above: Performed By: #### T SH3, MG, HS TROP, CBC, CMP #### [facility] [address] [place] [address] MCHC Auto (RBC) [Mass/Vol]Or dered By: Estela Heart on 08-29-2024 MCHC (RBC) [Mass/Vol] 34.4 g/dL 32.0-35.0 [facility] MCV [Entitic volume] by Auto mated countOrdered By: Estela Heart on 08-29-2024 MCV (RBC) [Entitic vol] 93.3 fL Normal 80-100 [facility] Comment on above: Performed By: #### T SH3, MG, HS TROP, CBC, CMP #### [facility] [address] Magnesium [Mass/volume] in S agnieszka or PlasmaOrdered By: Estela Heart on 08-29-2024 Magnesium [Mass/Vol] 1.9 mg/dL Normal 1.9-2.7 [facility] Comment on above: Performed By: #### T SH3, MG, HS TROP, CBC, CMP #### [facility] [address] Monocyte distribution width [Entitic volume] in Blood by AutomatedOrdered By: Estela Heart on 08-29-2024 Monocyte distribution width Auto (Bld) [Entitic vol] 19.89 % 0.00-20.00 [facility] Neutrophils [#/volume] in Bl ood by Automated countOrdered By: Estela Heart on 08-29-2024 Neutrophils (Bld) [#/Vol] 8.5 10*3/uL High 1.8-7.7 [facility] Comment on above: Performed By: #### T SH3, MG, HS TROP, CBC, CMP #### [facility] [address] [place] [address] Nitrite Test strip Ql (U)Ord ered By: Estela Heart on 08-29-2024 Nitrite Ql (U) Negative Negative [facility] No Panel InformationOrdered By: Estela Heart on 08-29-2024 Estimated GFR (CKD-EPI) > 60.0 mL/Min [facility] Creatinine Clearance (Chem N/A [facility] Nucleated erythrocytes [Pres ence] in Blood by Automated countOrdered By: Estela Heart on 08-29-2024 Nucleated RBC Auto Ql (Bld) 0.1 /100{WBC} 0-0.5 [facility] Platelet mean volume [Entiti c volume] in Blood by Automated countOrdered By: Estela Heart on 08-29-2024 Platelet mean volume (Bld) [Entitic vol] 8.7 fL Normal 6.3-10.7 [facility] Comment on above: Performed By: #### T SH3, MG, HS TROP, CBC, CMP #### [facility] [address] Platelets [#/volume] in Bloo d by Automated countOrdered By: Estela Heart on 08-29-2024 Platelets (Bld) [#/Vol] 217 10*3/uL Normal 150-450 [facility] Comment on above: Performed By: #### T SH3, MG, HS TROP, CBC, CMP #### [address] Potassium [Moles/volume] in Serum or PlasmaOrdered By: Estela Heart on 08-29-2024 Potassium [Moles/Vol] 4.0 mmol/L Normal 3.5-5.1 [facility] Comment on above: Performed By: #### T SH3, MG, HS TROP, CBC, CMP #### [address] Protein Test strip (U) [Mass /Vol]Ordered By: Estela Heart on 08-29-2024 Protein (U) [Mass/Vol] Negative Negative [facility] Protein [Mass/volume] in Ser um or PlasmaOrdered By: Estela Heart on 08-29-2024 Protein [Mass/Vol] 7.2 g/dL Normal 6.4-8.9 [facility] Comment on above: Performed By: #### T SH3, MG, HS TROP, CBC, CMP #### [address] Serum globulin measurement b y calculation (mass/volume)Ordered By: Estela Heart on 08-29-2024 Globulin (S) [Mass/Vol] 2.8 g/dL Normal [facility] Comment on above: Performed By: #### T SH3, MG, HS TROP, CBC, CMP #### [address] Serum or plasma albumin/glob ulin mass ratioOrdered By: Estela Heart on 08-29-2024 Albumin/Globulin [Mass ratio] 1.6 {ratio} Normal [facility] Comment on above: Performed By: #### T SH3, MG, HS TROP, CBC, CMP #### [facility] [address] Serum or plasma anion gap de terminationOrdered By: Estela Heart on 08-29-2024 Anion gap [Moles/Vol] 15.7 mmol/L High 6.0-15.0 [facility] Comment on above: Performed By: #### T SH3, MG, HS TROP, CBC, CMP #### [place] [address] [place] Sodium [Moles/volume] in Ser um or PlasmaOrdered By: Estela Heart on 08-29-2024 Sodium [Moles/Vol] 140 mmol/L Normal 136-145 [facility] Comment on above: Performed By: #### T SH3, MG, HS TROP, CBC, CMP #### [address] Specific gravity Test strip (U) [Rel density]Ordered By: Estela Heart on 08-29-2024 Specific gravity (U) [Rel density] 1.023 1.001-1.030 [facility] Thyrotropin [Units/volume] i n Serum or PlasmaOrdered By: Estela Heart on 08-29-2024 TSH Qn 1.78 m[IU]/L Normal 0.45-5.33 [facility] Comment on above: Result Comment: PERF ORMED BY: [place] [address] PATHOLOGIST DISTRIBUTION MANAGER SOM POWERS M.D. Performed By: #### T SH3, MG, HS TROP, CBC, CMP #### [place] [address] [place] Troponin I High Sensitivityo n 08-29-2024 Troponin I High Sensitivity 3.5 pg/mL Normal 0.0-15.0 [facility] Comment on above: Result Comment: PERF ORMED BY: [place] [address] PATHOLOGIST DISTRIBUTION MANAGER SOM POWERS M.D. Performed By: #### T SH3, MG, HS TROP, CBC, CMP #### [address] [address] [place] Troponin I.cardiac [Mass/vol ume] in Serum or Plasma by Detection limit <= 0.01 ng/Ordered By: Estela Heart on 08-29-2024 Troponin I.cardiac DL <= 0.01 ng/mL [Mass/Vol] 3.5 pg/mL 0.0-15.0 [facility] Urea nitrogen [Mass/volume] in Serum or PlasmaOrdered By: Estela Heart on 08-29-2024 Urea nitrogen [Mass/Vol] 12 mg/dL Normal - [facility] Comment on above: Performed By: #### T SH3, MG, HS TROP, CBC, CMP #### [facility] [address] [place] [address] Urinalysison 08-29-2024 Bilirubin,Urine Negative Normal Negative [facility] Comment on above: Order Comment: Name Collection Type:: Clean-Voided Midstream Performed By: #### U A #### [address] Glucose Ql (U) Normal Normal Normal [facility] Comment on above: Order Comment: Name Collection Type:: Clean-Voided Midstream Performed By: #### U A #### [address] Nitrite,Urine Negative Normal Negative [facility] Comment on above: Order Comment: Name Collection Type:: Clean-Voided Midstream Performed By: #### U A #### [address] Occult Blood,Urine Negative Normal Negative [facility] Comment on above: Order Comment: Name Collection Type:: Clean-Voided Midstream Result Comment: PERF ORMED BY: [place] [address] PATHOLOGIST DISTRIBUTION MANAGER SOM POWERS M.D. Performed By: #### U A #### [address] Protein,Urine Negative Normal Negative [facility] Comment on above: Order Comment: Name Collection Type:: Clean-Voided Midstream Performed By: #### U A #### [address] Specificy [place],Urine 1.023 Normal 1.001-1.030 [facility] Comment on above: Order Comment: Name Collection Type:: Clean-Voided Midstream Performed By: #### U A #### [address] Urobilinogen,Urine 2 mg/dL High Normal [facility] Comment on above: Order Comment: Name Collection Type:: Clean-Voided Midstream Performed By: #### U A #### [address] Urine appearanceOrdered By: Estela Heart on 08-29-2024 Appearance (U) Clear Normal Clear [facility] Comment on above: Order Comment: Name Collection Type:: Clean-Voided Midstream Performed By: #### U A #### [address] Urobilinogen Test strip (U) [Mass/Vol]Ordered By: Estela Heart on 08-29-2024 Urobilinogen (U) [Mass/Vol] 2 mg/dL High Normal [facility] pH of Urine by Test stripOrd ered By: Estela Heart on 08-29-2024 pH (U) 5.5 [pH] Normal 5.0-9.0 [facility] Comment on above: Order Comment: Name Collection Type:: Clean-Voided Midstream Performed By: #### U A #### [address] BI MAMMOGRAM SCREENING TOMOS YNTHESIS BILATERALon 12-26-2023 BI MAMMOGRAM SCREENING TOMOSYNTHESIS BILATERAL This is a summary report. The complete report is available in the patient's medical record. If you cannot access the medical record, please contact the sending organization for a detailed fax or copy. EXAMINATION: BI MAMMOGRAM SCREENING TOMOSYNTHESIS BILATERAL CLINICAL HISTORY: screening mammogram COMPARISON: Priors dating back to 2015. RESULT: 3-D tomosynthesis imaging of the bilateral breasts was performed. Density: Scattered fibroglandular density [2] There are no suspicious masses or asymmetries, areas of architectural distortion or suspicious areas of microcalcification s. Stable asymmetries. Coarse calcifications. IMPRESSION: BIRADS 2 - Benign Recommended follow-up: Routine Screening Mamm Board Certified Radiologists. Accredited by the ACR and FDA. MAMMOGRAPHY IS VERY IMPORTANT TO YOUR HEALTH. THE [employer] GUIDELINES RECOMMEND THAT WOMEN 40 YEARS OF AGE AND OLDER SHOULD HAVE A MAMMOGRAM EVERY YEAR. A REMINDER LETTER WILL BE SENT AT THE APPROPRIATE TIME. THIS FACILITY UTILIZES A REMINDER SYSTEM TO ENSURE ALL PATIENTS RECEIVE REMINDER NOTIFICATIONS AT THE APPROPRIATE TIME BASED ON THE RECOMMENDATIONS OF THIS EXAM. THIS INCLUDES REMINDERS FOR ROUTINE SCREENING MAMMOGRAMS, DIAGNOSTIC MAMMOGRAMS IN WHICH THE PATIENT IS ASKED TO RETURN FOR ADDITIONAL VIEWS, OR OTHER BREAST IMAGING INTERVENTIONS WHEN APPROPRIATE. THE PATIENT WILL BE PLACED IN THE APPROPRIATE REMINDER SYSTEM INCLUDING A REMINDER AT THE APPROPRIATE TIME FOR ANY PENDING ADDITIONAL VIEWS. ELECTRONICALLY SIGNED BY: Nazario Augustine MD Normal Not Available Comment on above: Order Comment: [facility] JOHAN DIGITAL SCREEN SELF REFERRAL W OR WO CAD BILATERALon 10-21-2022 [facility] JOHAN DIGITAL SCREEN SELF REFERRAL W OR WO CAD BILATERAL EXAMINATION: SCREENING DIGITAL BILATERAL MAMMOGRAM WITH TOMOSYNTHESIS, 10/21/2022 TECHNIQUE: Screening mammography of the bilateral breasts was performed with tomosynthesis. 2D standard and 3D tomosynthesis combination imaging performed through both breasts in the MLO and CC projection. Computer aided detection was utilized in the interpretation of this exam. COMPARISON: Multiple prior studies with the most recent bilateral mammogram dated 02/01/2021. HISTORY: Screening. Annual mammogram. FINDINGS: There are scattered fibroglandular breast density. Right breast: No evidence of suspicious clusters of microcalcification s, dominant mass or architectural distortion. Left breast: No evidence of suspicious clusters of microcalcification s, dominant mass or architectural distortion. IMPRESSION: No mammographic evidence of malignancy. BI-RADS 2 BIRADS: BIRADS - CATEGORY 2 Benign Findings. Normal interval follow-up is recommended in 12 months. OVERALL ASSESSMENT - BENIGN A letter of notification will be sent to the patient regarding the results. [employer] recommends annual mammograms for women 40 years and older. Interpreted by: Raisa Cueva MD Signed by: Raisa Cueva MD 10/21/22 Final result Normal [facility] No mammographic evidence of malignancy. BI-RADS 2 BIRADS: BIRADS - CATEGORY 2 Benign Findings. Normal interval follow-up is recommended in 12 months. OVERALL ASSESSMENT - BENIGN A letter of notification will be sent to the patient regarding the results. [employer] recommends annual mammograms for women 40 years and older. [facility] EXAMINATION: SCREENING DIGITAL BILATERAL MAMMOGRAM WITH TOMOSYNTHESIS, 10/21/2022 TECHNIQUE: Screening mammography of the bilateral breasts was performed with tomosynthesis. 2D standard and 3D tomosynthesis combination imaging performed through both breasts in the MLO and CC projection. Computer aided detection was utilized in the interpretation of this exam. COMPARISON: Multiple prior studies with the most recent bilateral mammogram dated 02/01/2021. HISTORY: Screening. Annual mammogram. FINDINGS: There are scattered fibroglandular breast density. Right breast: No evidence of suspicious clusters of microcalcification s, dominant mass or architectural distortion. Left breast: No evidence of suspicious clusters of microcalcification s, dominant mass or architectural distortion. [facility] Radiology Study observation (narrative) [employer] Work Phone: [facility] [employer] DIGITAL SCREEN SELF REFERRAL W OR WO CAD BILATERALOrdered By: Raisa Cueva on 10-21-2022 [email or web address] Phone: CBC AUTO DIFFon 09-17-2021 BASO # 0.0 103/ul Normal 0.0-0.[address] [facility] Comment on above: Performed By: #### C BC #### [facility] [address] [address] [address] Cj Alford Basophils/100 WBC (Bld) 0.2 % Normal 0.2-2.0 [facility] Comment on above: Performed By: #### C BC #### [facility] [address] [address] [address] Cj Alford EO # 0.0 103/ul Normal 0.0-0.[address] [facility] Comment on above: Performed By: #### C BC #### [facility] [address] [address] [address] Cj Alford Eosinophils/100 WBC (Bld) 0.0 % Critically low 0.9-7.[address] [facility] Comment on above: Performed By: #### C BC #### [facility] [address] [place] [address] Dr. Cj Alford Erythrocyte distribution width (RBC) [Ratio] 13.3 % Normal 11.0-15.[address] [facility] Comment on above: Performed By: #### C BC #### [facility] [address] [place] [address] Dr. Cj Alford Hematocrit (Bld) [Volume fraction] 44.3 % Normal 36.0-48.[address] [facility] Comment on above: Performed By: #### C BC #### [facility] [address] [place] [address] Dr. Cj Alford Hemoglobin (Bld) [Mass/Vol] 14.7 g/dL Normal 12.0-16.[address] [facility] Comment on above: Performed By: #### C BC #### [facility] [address] [place] [address] Dr. Cj Alford IG # 0.01 10e3/ul Normal 0.00-0.[address] [facility] Comment on above: Performed By: #### C BC #### [facility] [address] [place] [address] Dr. Cj Alford IG % 0.2 % Normal 0.0-0.[address] [facility] Comment on above: Performed By: #### C BC #### [facility] [address] [place] [address] Dr. Cj Alford LYMPH # 0.8 103/ul Critically low 1.2-3.8 [facility] Comment on above: Performed By: #### C BC #### [facility] [address] [place] [address] Dr. Cj Alford Lymphocytes/100 WBC (Bld) 19.8 % Critically low 20.5-60.[address] [facility] Comment on above: Performed By: #### C BC #### [facility] [address] [place] [address] Dr. Cj Alford MANUAL DIFF REQ NO Normal [facility] Comment on above: Performed By: #### C BC #### [facility] [address] [place] [address] Dr. Cj Alford MCH (RBC) [Entitic mass] 30.9 pg Normal 26.7-34.[address] [facility] Comment on above: Performed By: #### C BC #### [facility] [address] [place] [address] Dr. Cj Alford MCHC (RBC) [Mass/Vol] 33.2 g/dL Normal 29.9-35.[address] [facility] Comment on above: Performed By: #### C BC #### [facility] [address] [place] [address] Dr. Cj Alford MCV (RBC) [Entitic vol] 93.1 fL Normal 81.0-99.0 [facility] Comment on above: Performed By: #### C BC #### [facility] [address] [place] [address] Dr. Cj Alford MONO # 0.3 103/ul Normal 0.3-0.[address] [facility] Comment on above: Performed By: #### C BC #### [facility] [address] [place] [address] Dr. Cj Alford Monocytes/100 WBC (Bld) 7.3 % Normal 1.7-12.0 [facility] Comment on above: Performed By: #### C BC #### [facility] [address] [place] [address] Dr. Cj Alford NEUT # 3.1 103/ul Normal 1.4-6.[address] [facility] Comment on above: Performed By: #### C BC #### [facility] [address] [place] [address] Dr. Cj Alford Neutrophils/100 WBC (Bld) 72.5 % Normal 43.0-75.[address] [facility] Comment on above: Performed By: #### C BC #### [facility] [address] [place] [address] Dr. Cj Alford Platelet mean volume (Bld) [Entitic vol] 10.2 fL Normal 9.5-13.[address] [facility] Comment on above: Performed By: #### C BC #### [facility] [address] [address] [address] Cj Alford PLT 197 103/ul Normal 150-[address] [facility] Comment on above: Performed By: #### C BC #### [facility] [id number] [address] Cj Alford RBC 4.76 106/ul Normal 4.20-5.40 [facility] Comment on above: Performed By: #### C BC #### [facility] [address] [address] [address] Cj Alford WBC 4.2 103/ul Normal 4.0-11.[address] [facility] Comment on above: Performed By: #### C BC #### [facility] [address] [place] [address] Dr. Cj Alford D-DIMERon 09-17-2021 D-DIMER 0.32 mg/L FEU Normal 0.19-0.50 [facility] Comment on above: Performed By: #### D DIM, PT, PTT #### [facility] [address] [place] [address] Dr. Cj Alford D-DIMER COMMENTS SEE BELOW Normal [facility] Comment on above: Result Comment: Incr eases in D-Dimer concentration observed with thromboembolic events can be variable due to localization, size, and age of the thrombus. Therefore, a thromboembolic event cannot be diagnosed with certainty on the basis of the reference range. D-Dimers may also be elevated for a variety of disorders including: advanced age, , coronary disease, cancer, liver disease, infection, inflammation, hematoma, DIC, trauma, post-surgery, diabetes, thrombolytic or anticoagulant therapy, stress, and generalized hospitalization. Performed By: #### D DIM, PT, PTT #### [facility] [address] [place], [place] [id number] Dr. Cj Alford PROF 14(COMP METB)on 021 Albumin [Mass/Vol] 4.3 g/dL Normal 3.5-5.0 [facility] Comment on above: Performed By: #### H STROPN, CMP, TSH #### [facility] [address] [address] [address] Cj Alford Albumin/Globulin [Mass ratio] 1.2 {ratio} Normal [facility] Comment on above: Performed By: #### H STROPN, CMP, TSH #### [facility] [address] [address] [address] Cj Alford ALP [Catalytic activity/Vol] 75 U/L Normal 38-[address] [facility] Comment on above: Performed By: #### H STROPN, CMP, TSH #### [facility] [address] [address] [address] Cj Alford ALT [Catalytic activity/Vol] 29 U/L Normal 9-[address] [facility] Comment on above: Performed By: #### H STROPN, CMP, TSH #### [facility] [address] [address] [address] Cj Alford Anion gap [Moles/Vol] 15.8 mmol/L Normal [facility] Comment on above: Performed By: #### H STROPN, CMP, TSH #### [facility] [address] [address] [address] Cj Alford AST [Catalytic activity/Vol] 23 U/L Normal 14-[address] [facility] Comment on above: Performed By: #### H STROPN, CMP, TSH #### [facility] [address] [address] [address] Cj Alford Bilirubin [Mass/Vol] 1.0 mg/dL Normal 0.2-1.[address] [facility] Comment on above: Performed By: #### H STROPN, CMP, TSH #### [facility] [address] [address] [address] Cj Alford Calcium [Mass/Vol] 8.7 mg/dL Normal 8.4-10.2 [facility] Comment on above: Performed By: #### H STROPN, CMP, TSH #### [facility] [address] [address] [address] Cj Alford Chloride [Moles/Vol] 101 mmol/L Normal 98-[address] [facility] Comment on above: Performed By: #### H STROPN, CMP, TSH #### [facility] [address] [address] [address] Cj Alford CO2 [Moles/Vol] 22.8 mmol/L Normal 22.0-30.0 [facility] Comment on above: Performed By: #### H STROPN, CMP, TSH #### [facility] [address] [address] [address] Cj Alford Creatinine [Mass/Vol] 0.89 mg/dL Normal 0.52-1.[address] [facility] Comment on above: Performed By: #### H STROPN, CMP, TSH #### [facility] [address] [address] [address] Cj Alford EGFR-AF CHADIAN >60 Normal >=60 [facility] Comment on above: Performed By: #### H STROPN, CMP, TSH #### [facility] [address] [address] [address] Cj Alford EGFR-NON AF CHADIAN >60 Normal >=[address] [facility] Comment on above: Performed By: #### H STROPN, CMP, TSH #### [facility] [address] [address] [address] Cj Alford Globulin (S) [Mass/Vol] 3.6 g/dL Normal [facility] Comment on above: Performed By: #### H STROPN, CMP, TSH #### [facility] [address] [address] [address] Cj Alford Glucose [Mass/Vol] 102 mg/dL Normal 74-106 [facility] Comment on above: Performed By: #### H STROPN, CMP, TSH #### [facility] [address] [address] [address] Cj Alford Potassium [Moles/Vol] 3.6 mmol/L Normal 3.4-5.[address] [facility] Comment on above: Performed By: #### H STROPN, CMP, TSH #### [facility] [address] [address] [address] Cj Alford Protein [Mass/Vol] 7.9 g/dL Normal 6.1-8.2 [facility] Comment on above: Performed By: #### H REGAN RUBY, TSH #### [facility] [address] [place] [address] Dr. Cj Alford Sodium [Moles/Vol] 136 mmol/L Critically low 137-145 [facility] Comment on above: Performed By: #### H REGAN RUBY, TSH #### [facility] [address] [address] [address] Cj Alford Urea nitrogen [Mass/Vol] 7.0 mg/dL Normal 7.0-17.[address] [facility] Comment on above: Performed By: #### H REGAN RUBY, TSH #### [facility] [address] [place] [address] Dr. Cj Alford Urea nitrogen/Creatinine [Mass ratio] 7.9 mg/mg Normal [facility] Comment on above: Performed By: #### H REGAN RUBY, TSH #### [facility] [address] [place] [address] Dr. Cj Alford PROTIMEon 09-17-2021 INR Coag (PPP) [Relative time] 1.01 {INR} Normal [facility] Comment on above: Performed By: #### D DIM, PT, PTT #### [facility] [address] [place] [address] Dr. Cj Alford INR GUIDELINES SEE BELOW Normal [facility] Comment on above: Result Comment: JONATHAN RED INR: 2.0 - 3.0 CONDITIONS NOT LISTED BELOW 2.5 - 3.5 FOR PROSTHETIC HEART VALVE REPLACEMENT 2.5 - 3.5 RECURRENT THROMBOSIS Performed By: #### D DIM, PT, PTT #### [facility] [address] [place] [address] Dr. Cj Alford PT Coag (PPP) [Time] 10.9 s Normal 9.0-11.[address] [facility] Comment on above: Performed By: #### D DIM, PT, PTT #### [facility] [address] [place] [address] Dr. Cj Alford PTTon 09-17-2021 aPTT Coag (Bld) [Time] 29.3 s Normal 22.3-36.2 [facility] Comment on above: Performed By: #### D DIM, PT, PTT #### [facility] [address] [address] [address] Cj Alford TROPONIN, HIGH SENSITIVITYon 09-17-2021 HSTROP 6.1 pg/mL Normal 4.0-35.[address] [facility] Comment on above: Result Comment: CUT- OFF POINTS HAVE BEEN ESTABLISHED BASED ON THE FOURTH UNIVERSAL DEFINITIONS OF MYOCARDIAL INFARCTION. THE UPPER REFERENCE LIMIT (URL) OF TROPONIN, DEFINED THE 99TH PERCENTILE OF cTnI DISTRIBUTION IN A REFERENCE POPULATION, HAS BEEN CONFIRMED THE DECISION THRESHOLD FOR NM DIAGNOSIS. Performed By: #### H STROPN, CMP, TSH #### [facility] [address] [address] [address] Cj Alford TSHon 09-17-2021 TSH 0.945 uIU/mL Normal 0.470-4.680 [facility] Comment on above: Performed By: #### H STROPN, CMP, TSH #### [facility] [address] [address] [address] Cj Alford TSH RANGE SEE BELOW Normal [facility] Comment on above: Result Comment: <0.3 4 UIU/ml HYPERTHYROID 0.34-5.60 UIU/ml EUTHYROID >5.60 UIU/ml HYPOTHYROID Performed By: #### H STROPN, CMP, TSH #### [facility] [address] [address] [address] Cj Alford [facility] JOHAN DIGITAL SCREEN SELF REFERRAL W OR WO CAD BILATERALon 02-01-2021 No evidence of malignancy. Advise annual screening mammography. BI-RADS 1 BIRADS: BIRADS - CATEGORY 1 Negative, no evidence of malignancy in either breast. OVERALL ASSESSMENT - NEGATIVE A letter of notification will be sent to the patient regarding the results. RECOMMENDATION: Routine bilateral annual screening mammography is recommended. Follow-up screening mammogram in 1 year is advised. [employer] Phone: EXAMINATION: SCREENING DIGITAL BILATERAL MAMMOGRAM WITH TOMOSYNTHESIS, 02/01/2021 TECHNIQUE: Screening mammography of the bilateral breasts was performed with tomosynthesis. 2D standard and 3D tomosynthesis combination imaging performed through both breasts in the MLO and CC projection. Computer aided detection was utilized in the interpretation of this exam. COMPARISON: 15 November 2019; 13 November 2018; 13 November 2017 HISTORY: Screening. Negative family history of breast cancer. Negative history of hormonal replacement therapy. Prior left surgical breast biopsy in 2003 with benign histology. FINDINGS: The breasts are composed of scattered fibroglandular density. No skin thickening, nipple contour changes, malignant type microcalcification s, areas of architectural distortion or significant interval changes are noted. [employer] Phone: Renaldo, [facility] Incoming Radiant Results From [employer] - 02/01/2021 6:18 PM EDT EXAMINATION: SCREENING DIGITAL BILATERAL MAMMOGRAM WITH TOMOSYNTHESIS, 02/01/2021 TECHNIQUE: Screening mammography of the bilateral breasts was performed with tomosynthesis. 2D standard and 3D tomosynthesis combination imaging performed through both breasts in the MLO and CC projection. Computer aided detection was utilized in the interpretation of this exam. COMPARISON: 15 November 2019; 13 November 2018; 13 November 2017 HISTORY: Screening. Negative family history of breast cancer. Negative history of hormonal replacement therapy. Prior left surgical breast biopsy in 2004 with benign histology. FINDINGS: The breasts are composed of scattered fibroglandular density. No skin thickening, nipple contour changes, malignant type microcalcification s, areas of architectural distortion or significant interval changes are noted. IMPRESSION: No evidence of malignancy. Advise annual screening mammography. BI-RADS 1 BIRADS: BIRADS - CATEGORY 1 Negative, no evidence of malignancy in either breast. OVERALL ASSESSMENT - NEGATIVE A letter of notification will be sent to the patient regarding the results. RECOMMENDATION: Routine bilateral annual screening mammography is recommended. Follow-up screening mammogram in 1 year is advised. [employer] Phone: [facility] DIGITAL SCREEN SELF REFE RRAL W OR WO CAD BILATERALOrdered By: Sobia Browne on 11-15-2019 No mammographic evidence of malignancy. BI-RADS 1 BIRADS: BIRADS - CATEGORY 1 Negative, no evidence of malignancy. Normal interval follow-up is recommended in 12 months. OVERALL ASSESSMENT - NEGATIVE A letter of notification will be sent to the patient regarding the results. [employer] recommends annual mammograms for women 40 years and older. [employer] Phone: EXAMINATION: BILATERAL DIGITAL SCREENING MAMMOGRAM, 11/15/2019 TECHNIQUE: CC and MLO views of the left and right breasts were obtained. Computer aided detection was utilized in the interpretation of this exam. 3D tomosynthesis images were obtained. COMPARISON: November 13, 2018, November 13, 2017 HISTORY: Screening. FINDINGS: The breasts are composed of scattered fibroglandular tissue. There is no suspicious mass, suspicious microcalcification , or area of architectural distortion. [employer] Phone: Renaldo, Shahriar Incoming Radiant Results From [employer] - 11/15/2019 2:07 PM EST EXAMINATION: BILATERAL DIGITAL SCREENING MAMMOGRAM, 11/15/2019 TECHNIQUE: CC and MLO views of the left and right breasts were obtained. Computer aided detection was utilized in the interpretation of this exam. 3D tomosynthesis images were obtained. COMPARISON: November 13, 2018, November 13, 2017 HISTORY: Screening. FINDINGS: The breasts are composed of scattered fibroglandular tissue. There is no suspicious mass, suspicious microcalcification , or area of architectural distortion. IMPRESSION: No mammographic evidence of malignancy. BI-RADS 1 BIRADS: BIRADS - CATEGORY 1 Negative, no evidence of malignancy. Normal interval follow-up is recommended in 12 months. OVERALL ASSESSMENT - NEGATIVE A letter of notification will be sent to the patient regarding the results. [employer] recommends annual mammograms for women 40 years and older. [employer] Phone: Vital Signs Date Time Vital Sign Value Performing Clinician Facility 12-08-2024 13:11-0500 Body mass index (BMI) [Ratio] 37.01 kg/m2 [employer] Work Phone: [facility] 12-08-2024 13:11-0500 Body weight 100.88 kg [employer] Phone: [facility] 11-22-2024 15:31-0500 Body mass index (BMI) [Ratio] 36.94 kg/m2 [facility] [employer] Work Phone: [facility] 11-22-2024 15:31-0500 Body weight 100.7 kg Mojgan Johnson [employer] Work Phone: [facility] 11-22-2024 15:31-0500 Diastolic blood pressure 84 mm[Hg] Mojgan Johnson [employer] Work Phone: [facility] 11-22-2024 15:31-0500 Heart rate 64 /min Mojgan Johnson [employer] Work Phone: [facility] 11-22-2024 15:31-0500 Systolic blood pressure 128 mm[Hg] Mojgan Johnson [employer] REPA[employer]ER [employer] Work Phone: [facility] 10-11-2024 14:59-0500 Body mass index (BMI) [Ratio] 37.28 kg/m2 Mojgan Johnson [employer]AL [employer] Work Phone: [facility] 10-11-2024 14:59-0500 Body weight 101.61 kg Mojgan Johnson [employer]AL OFFICE REPA[employer]ER SUPER[employer]OR Work Phone: [facility] 10-11-2024 14:59-0500 Diastolic blood pressure 74 mm[Hg] Mojgan Johnson CENTRAL OFFICE REPA[employer]ER [employer]PER[employer]OR Work Phone: [facility] 10-11-2024 14:59-0500 Heart rate 66 /min Mojgan Johnson CENTRAL OFFICE REPAIRER SUPER[employer]OR Work Phone: [facility] 10-11-2024 14:59-0500 Systolic blood pressure 108 mm[Hg] Mojgan Johnson CENTRAL OFFICE REPAIRER SUPER[employer]OR Work Phone: [facility] 10-04-2024 13:59-0500 Body height 165.1 cm Nelly Hackenburg CENTRAL OFFICE REPAIRER SUPERVISOR Work Phone: [facility] 10-04-2024 13:59-0500 Body mass index (BMI) [Ratio] 38.14 kg/m2 Nelly Hackenburg CENTRAL OFFICE REPAIRER SUPER[employer]OR Work Phone: [facility] 10-04-2024 13:59-0500 Body weight 103.96 kg Nelly Hackenburg CENTRAL OFFICE REPAIRER SUPERVISOR Work Phone: [facility] 10-04-2024 13:59-0500 Diastolic blood pressure 72 mm[Hg] Nelly Hadebbyenburg CENTRAL OFFICE REPAIRER SUPERVISOR Work Phone: [facility] 10-04-2024 13:59-0500 Heart rate 74 /min Nelly Gordoenburg CENTRAL OFFICE REPAIRER SUPERVISOR Work Phone: [facility] 10-04-2024 13:59-0500 SaO2% (BldA) [Mass fraction] 94 % Nelly Gordoenburg CENTRAL OFFICE REPAIRER SUPER[employer]OR Work Phone: [facility] 10-04-2024 13:59-0500 Systolic blood pressure 110 mm[Hg] Nelly Hadebbyenburg CENTRAL OFFICE REPAIRER SUPER[employer]OR Work Phone: [facility] 09-28-2024 11:23-0500 Body height 165.1 cm Nelly Castellanosburg CENTRAL OFFICE REPAIRER SUPERVISOR Work Phone: [facility] 09-28-2024 11:23-0500 Body mass index (BMI) [Ratio] 38.27 kg/m2 Nelly Watkinsenburg CENTRAL OFFICE REPAIRER SUPERVISOR Work Phone: [facility] 09-28-2024 11:23-0500 Body temperature 96.91 [degF] Nelly Watkinsenburg CENTRAL OFFICE REPAIRER SUPERVISOR Work Phone: [facility] 09-28-2024 11:23-0500 Body weight 104.33 kg Nelly Castellanos[place] CENTRAL OFFICE REPAIRER SUPERVISOR Work Phone: [facility] 09-28-2024 11:23-0500 Diastolic blood pressure 78 mm[Hg] Nelly Hadebbyenburg CENTRAL OFFICE REPAIRER SUPERVISOR Work Phone: [facility] 09-28-2024 11:23-0500 Heart rate 68 /min Nelly Gordoenburg CENTRAL OFFICE REPAIRER SUPERVISOR Work Phone: [facility] 09-28-2024 11:23-0500 SaO2% (BldA) [Mass fraction] 95 % Nelly Gordoenburg CENTRAL OFFICE REPAIRER SUPER[employer]OR Work Phone: [facility] 09-28-2024 11:23-0500 Systolic blood pressure 118 mm[Hg] Nelly Hackenburg CENTRAL OFFICE REPAIRER SUPERVISOR Work Phone: [facility] 08-29-2024 19:13-0400 Body temperature 98.7 [degF] MD Jim Astduillo Work Phone: [facility] 08-29-2024 19:13-0400 Diastolic blood pressure 89 mm[Hg] MD Jim Astudillo Work Phone: [facility] 08-29-2024 19:13-0400 Heart rate 85 /min MD Jim Astudillo Work Phone: [facility] 08-29-2024 19:13-0400 Respiratory rate 18 /min MD Jim Astudillo Work Phone: [facility] 08-29-2024 19:13-0400 SaO2% (BldA) [Mass fraction] 96 % MD Jim Astudillo Work Phone: [facility] 08-29-2024 19:13-0400 Systolic blood pressure 160 mm[Hg] MD Jim Astudillo Work Phone: [facility] Encounters Encounter Date Encounter Type Care Provider Facility Start: 12-23-2024 End: 12-23-2024 Claraill Brii Briceno MD Work Phone: [facility] Comment on above: Vertigo Start: 12-13-2024 End: 12-13-2024 Clinisync Result Encounter Generic External Data Provider [facility] External Department Unsolicited Start: 12-13-2024 End: 12-13-2024 Clinisync Result Encounter Generic External Data Provider [facility] External Department Unsolicited Start: 12-13-2024 End: 12-13-2024 Office outpatient visit 40 minutes Mojgan Johnson CENTRAL OFFICE REPAIRER SUPERVISOR Work Phone: [facility] Comment on above: Generalized anxiety disorder (CMS/HCC); Mood disorder (CMS/HCC) Start: 12-13-2024 End: 12-13-2024 ambulatory MOJGAN JOHNSON Not Available Start: 12-08-2024 End: 12-08-2024 Bamboo flowsheet Alexi Placido DO Work Phone: [facility] Start: 12-08-2024 End: 12-08-2024 Bamboo flowsheet Alexi Placido DO Work Phone: [facility] Start: 12-08-2024 End: 12-08-2024 flow sheet Alexi Placido DO Work Phone: [facility] Comment on above: Hormone imbalance; Postmenopausal bleeding; Hormone disorder Start: 12-08-2024 End: 12-08-2024 ambulatory ALEXI PLACIDO Not Available Start: 12-04-2024 End: 12-06-2024 Orders Only Brii Briceno MD Work Phone: [facility] Comment on above: Generalized anxiety disorder (CMS/HCC); Mood disorder (CMS/HCC); Vertigo Start: 11-22-2024 End: 11-22-2024 Office outpatient visit 25 minutes Mojgan Johnson CENTRAL OFFICE REPAIRER SUPERVISOR Work Phone: [facility] Comment on above: Generalized anxiety disorder (CMS/HCC); Mood disorder (CMS/HCC); Restless leg syndrome Start: 11-22-2024 End: 11-22-2024 ambulatory MOJGAN JOHNSON Not Available Start: 11-22-2024 End: 11-22-2024 Bamboo flowsheet Mojgan Johnson CENTRAL OFFICE REPAIRER SUPERVISOR Work Phone: [facility] Start: 11-22-2024 End: 11-22-2024 Bamboo flowsheet Mojgan Johnson CENTRAL OFFICE REPAIRER SUPERVISOR Work Phone: [facility] Start: 11-15-2024 End: 11-15-2024 Refill Nelly A Hackenburg CENTRAL OFFICE REPAIRER SUPERVISOR Work Phone: [facility] Comment on above: Vertigo Start: 11-02-2024 End: 11-02-2024 Refill Nelly A Hackenburg CENTRAL OFFICE REPAIRER SUPERVISOR Work Phone: [facility] Comment on above: Vertigo Start: 10-30-2024 End: 11-01-2024 Refill Nelly Dillard CENTRAL OFFICE REPAIRER SUPERVISOR Work Phone: [facility] Comment on above: RLS (restless legs s yndrome) Start: 10-29-2024 End: 10-29-2024 Orders Only Mojgan Johnson CENTRAL OFFICE REPAIRER SUPERVISOR Work Phone: [facility] Comment on above: Generalized anxiety disorder (CMS/HCC); Mood disorder (CMS/HCC) Start: 10-27-2024 End: 10-27-2024 Telephone encounter Brii Briceno MD Work Phone: [facility] Start: 10-27-2024 End: 10-27-2024 Office outpatient visit 25 minutes Mojgan Johnson CENTRAL OFFICE REPAIRER SUPERVISOR Work Phone: [facility] Comment on above: Generalized anxiety disorder (CMS/HCC) Start: 10-27-2024 End: 10-27-2024 ambulatory MOJGAN JOHNSON Not Available Start: 10-21-2024 End: 10-21-2024 Office outpatient visit 25 minutes Mojgan Johnson CENTRAL OFFICE REPAIRER SUPERVISOR Work Phone: [facility] Comment on above: Generalized anxiety disorder (CMS/HCC); Mood disorder (CMS/HCC) Start: 10-21-2024 End: 10-21-2024 ambulatory MOJGAN JOHNSON Not Available Start: 10-15-2024 End: 10-15-2024 Orders Only Brii Briceno MD Work Phone: [facility] Comment on above: Generalized anxiety disorder (CMS/HCC) Start: 10-12-2024 End: 10-13-2024 Refill Brii Briceno MD Work Phone: [facility] Comment on above: Generalized anxiety disorder (CMS/HCC) Start: 10-11-2024 End: 10-11-2024 Office outpatient new 60 minutes Mojgan Johnson CENTRAL OFFICE REPAIRER SUPERVISOR Work Phone: [facility] Comment on above: Generalized anxiety disorder (CMS/HCC); Mood disorder (CMS/HCC); History of TIA (transient ischemic attack) Start: 10-11-2024 End: 10-11-2024 ambulatory MOJGAN JOHNSON Not Available Start: 10-11-2024 End: 10-11-2024 Bamboo flowsheet Mojgan Johnson CENTRAL OFFICE REPAIRER SUPERVISOR Work Phone: [facility] Start: 10-11-2024 End: 10-11-2024 Bamboo flowsheet Mojgan Johnson CENTRAL OFFICE REPAIRER SUPERVISOR Work Phone: [facility] Start: 10-08-2024 End: 10-08-2024 Telephone encounter Brii Briceno MD Work Phone: [facility] Start: 10-04-2024 End: 10-04-2024 Office outpatient visit 25 minutes Nelly Dillard CENTRAL OFFICE REPAIRER SUPERVISOR Work Phone: [facility] Comment on above: Generalized anxiety disorder (CMS/HCC) (Primary Dx); Bipolar 1 disorder (CMS/HCC) Start: 10-04-2024 End: 10-04-2024 ambulatory NELLY A GORDOENBURG Not Available Start: 09-30-2024 End: 10-01-2024 Refill Brii Briceno MD Work Phone: [facility] Comment on above: Vertigo Start: 09-29-2024 End: 09-29-2024 Refill Brii Briceno MD Work Phone: [facility] Comment on above: Vertigo Start: 09-28-2024 End: 09-28-2024 Bamboo flowsheet Nelly A Hackenburg CENTRAL OFFICE REPAIRER SUPERVISOR Work Phone: [facility] Start: 09-28-2024 End: 09-28-2024 Bamboo flowsheet Nelly A Hackenburg CENTRAL OFFICE REPAIRER SUPERVISOR Work Phone: [facility] Start: 09-28-2024 End: 09-28-2024 Transitional care manage srvc 14 day discharge Nelly Dillard CENTRAL OFFICE REPAIRER SUPERVISOR Work Phone: [facility] Comment on above: Vertigo (Primary Dx) ; Generalized anxiety disorder (CMS/HCC); Benzodiazepine withdrawal without complication (CMS/HCC); Nausea; RLS (restless legs syndrome); Cognitive decline; Depressive disorder (CMS/HCC) Start: 09-28-2024 End: 09-28-2024 ambulatory NELLY A HACKENBURG Not Available Start: 08-29-2024 End: 08-29-2024 Emergency department patient visit MD Jim Astudillo Work Phone: [facility] Work Phone: Start: 08-18-2024 End: 08-18-2024 Refill Brii Briceno MD Work Phone: [facility] Comment on above: Morbid (severe) obes ity due to excess calories (CMS/HCC) Start: 08-05-2024 Registered Recurring MD Maurilio Astudillo Work Phone: [facility] Start: 08-05-2024 ambulatory Noe Lopez acility:[facility] Start: 03-01-2024 End: 03-01-2024 ambulatory ALEXI PLACIDO Not Available Start: 02-24-2024 End: 02-24-2024 ambulatory NELLY A HACKENBURG Not Available Start: 12-26-2023 End: 12-26-2023 ambulatory NELLY A HACKENBURG Not Available Start: 11-20-2023 End: 11-20-2023 ambulatory BRII BRICENO [facility] Start: 10-21-2022 End: 10-24-2022 ambulatory JIM ASTUDILLO [facility] Start: 10-21-2022 End: 10-23-2022 Subsequent hospital visit by physician [employer] [facility] Comment on above: Visit for screening mammogram Start: 09-17-2021 End: 09-17-2021 ambulatory LUIS OWENS Facility:[facility] Start: 05-31-2021 End: 05-31-2021 Departed Referred CENTRAL OFFICE REPAIRER SUPERVISOR Rosaura Mcclain Work Phone: [facility] [place] Start: 02-01-2021 End: 02-03-2021 Subsequent hospital visit by physician [facility] Comment on above: Visit for screening mammogram Start: 11-15-2019 End: 11-17-2019 Subsequent hospital visit by physician [facility] Comment on above: Encounter for screen ing Procedures Date Procedure Procedure Detail Performing Clinician Start: 12-13-2024 MLR HEMOGLOBIN A1C Core y Placido DO Work Phone: Start: 09-28-2024 Complete blood count with white cell differential, automated Nelly Dillard CENTRAL OFFICE REPAIRER SUPERVISOR Work Phone: Start: 09-28-2024 Comprehensive metabo lic panel Nelly Dillard CENTRAL OFFICE REPAIRER SUPERVISOR Work Phone: Start: 12-26-2023 Mammography Brii madrigal MD Work Phone: Start: 10-21-2022 Screening mammograph y bi 2-view breast inc cad Jim Astudillo MD Work Phone: Start: 02-06-2021 Microscopic observat ion [Identifier] in Cervix by Cyto stain [facility] Start: 02-01-2021 Screening mammograph y bi 2-view breast inc cad Jim Astudillo Work Phone: Start: 11-15-2019 Screening digital br east tomosynthesis bi Sobia A 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 Work Phone: Start: 11-13-2018 Microscopic observat ion [Identifier] in Cervix by Cyto stain Brii Briceno MD Work Phone: Plan of Treatment Date Care Activity Detail Author Start: 11-12-2026 Screening for malign ant neoplasm of colon [facility] Start: 01-03-2025 End: 01-03-2025 Patient encounter procedure 01/03/2025 2:00 PM EST Office Visit [facility] [address] [place] [address] Mojgan Johnson NP [address] [place] [id number] [facility] Start: 12-29-2024 End: 12-29-2024 Professional / ancillary services management 12/29/2024 11:30 AM EST Ancillary Procedure [facility] [address] [place] [id number] [facility] Start: 12-26-2024 Screening for malign ant neoplasm of breast Mammogram [facility] Start: 12-13-2024 End: 12-13-2024 Patient encounter procedure 12/13/2024 2:00 PM EST Office Visit [facility] [address] [facility] [address] [place] [address] Mojgan Johnson NP [address] [facility] [address] [place] [address] [facility] Start: 12-08-2024 End: 12-08-2025 C-peptide C-peptide Lab Routine Hormone disorder Expected: 12/08/2024 (Approximate), Expires: 12/08/2025 [facility] Comment on above: Expected: 12/08/2024 (Approximate), Expires: 12/08/2025 Start: 12-08-2024 End: 12-08-2025 Cortisol free Cortisol, free Lab Routine Hormone disorder Expected: 12/08/2024 (Approximate), Expires: 12/08/2025 [facility] Healthcare Comment on above: Expected: 12/08/2024 (Approximate), Expires: 12/08/2025 Start: 12-08-2024 End: 12-08-2025 Glucose [Mass/volume] in Serum or Plasma Glucose, random Lab Routine Hormone disorder Expected: 12/08/2024 (Approximate), Expires: 12/08/2025 [facility] Healthcare Comment on above: Expected: 12/08/2024 (Approximate), Expires: 12/08/2025 Start: 12-08-2024 End: 12-08-2025 Insulin, total Insulin, total Lab Routine Hormone disorder Expected: 12/08/2024 (Approximate), Expires: 12/08/2025 [facility] Comment on above: Expected: 12/08/2024 (Approximate), Expires: 12/08/2025 Start: 12-08-2024 End: 12-08-2025 Serotonin serum Serotonin serum Lab Routine Hormone disorder Expected: 12/08/2024 (Approximate), Expires: 12/08/2025 [facility] Comment on above: Expected: 12/08/2024 (Approximate), Expires: 12/08/2025 Start: 12-08-2024 End: 12-08-2025 Thyroglobulin Thyroglobulin Lab Routine Hormone disorder Expected: 12/08/2024 (Approximate), Expires: 12/08/2025 [facility] Comment on above: Expected: 12/08/2024 (Approximate), Expires: 12/08/2025 Start: 12-08-2024 End: 12-08-2025 Thyroglobulin Antibody Thyroglobulin Antibody Lab Routine Hormone disorder Expected: 12/08/2024 (Approximate), Expires: 12/08/2025 [facility] Comment on above: Expected: 12/08/2024 (Approximate), Expires: 12/08/2025 Start: 12-08-2024 End: 12-08-2025 Thyrotropin [Units/volume] in Serum or Plasma [facility] Comment on above: Ordered: 12/08/2024 Expected: 12/08/2024 (Approximate), Expires: 12/08/2025 Start: 12-08-2024 End: 12-08-2025 US Pelvis US Pelvis w/ TV Imaging Routine Postmenopausal bleeding Expected: 12/08/2024, Expires: 12/08/2025 [facility] Work Phone: Comment on above: Expected: 12/08/2024 , Expires: 12/08/2025 Start: 12-08-2024 End: 12-08-2024 Patient encounter procedure [facility] Comment on above: Arrived Start: 11-23-2024 Influenza vaccination Influenza Vacc ine (#1) [facility] Comment on above: Postponed from 07/18 (Patient Refused) Start: 11-22-2024 End: 11-22-2024 Patient encounter procedure [facility] Comment on above: Generalized anxiety disorder (CMS/HCC); Mood disorder (CMS/HCC) Start: 10-27-2024 End: 10-27-2024 Telemedicine consultation with patient 10/27/2024 11:30 AM EST Telemedicine [facility] [address] [place] [address] Mojgan Johnson, ОЛЕГ [address] [facility] [address] [place] [phone] [facility] Start: 10-26-2024 End: 10-26-2024 Patient encounter procedure 10/26/2024 11:00 AM EST Office Visit [facility] [address] [place] [phone] Nelly Dillard NP [address] [place] [address] [facility] Start: 10-21-2024 End: 10-21-2024 Telemedicine consultation with patient 10/21/2024 3:30 PM EST Telemedicine [facility] [address] [facility] [address] [place] [address] Mojgan Johnson NP [address] [facility] [address] [place] [phone] [facility] Start: 10-21-2024 Screening for malign ant neoplasm of breast Breast cancer screen [facility] Start: 10-11-2024 End: 10-11-2024 Patient encounter procedure [facility] Comment on above: Generalized anxiety disorder (CMS/HCC); Benzodiazepine withdrawal without complication (CMS/HCC); Depressive disorder (CMS/HCC) Start: 09-28-2024 End: 09-28-2025 CBC W Auto Differential panel - Blood CBC and differential Lab Routine Benzodiazepine withdrawal without complication (CMS/HCC) Expected: 09/28/2024 (Approximate), Expires: 09/28/2025 [facility] Work Phone: Comment on above: Expected: 09/28/2024 (Approximate), Expires: 09/28/2025 Start: 07-18-2024 Influenza vaccination Influenza Vacc ine (#1) [facility] Start: 02-07-2024 Screening for malign ant neoplasm of cervix [facility] Start: 11-13-2023 Cervical cancer screen Cervical canc er screen [facility] Phone: Start: 11-13-2023 Screening for malign ant neoplasm of cervix [facility] Start: 02-01-2023 Screening for malign ant neoplasm of breast Breast cancer screen [facility] Phone: Start: 10-21-2022 Annual Wellness Visi t (AWV) Annual Wellness Visit (AWV) [facility] Start: 10-03-2022 Depression Screen Depression Screen [facility] Start: 06-17-2022 Influenza vaccination Flu vaccine (# 1) [facility] Start: 11-15-2021 Breast cancer screen Breast cancer s creen [facility] Phone: Start: 11-13-2021 Screening for malign ant neoplasm of cervix Pap Smear [facility] Start: 08-22-2020 Lipid panel [facility] Start: 08-22-2020 Lipid screen Lipid screen 9+ Work Phone: Start: 07-18-2020 Influenza vaccination Flu vaccine (# 1) [facility] Phone: Start: 07-18-2019 Influenza vaccination Flu vaccine (# 1) [facility] Phone: Start: 2012 Colon cancer screen colonoscopy Colon cancer screen colonoscopy [facility] Phone: Start: 2012 Screening for malign ant neoplasm of colon Colon cancer screen colonoscopy [facility] Phone: Start: 2012 Shingles Vaccine (1 of 2) Gonzalez gles Vaccine (1 of 2) [facility] Start: 2007 Screening for malign ant neoplasm of colon [facility] Start: 2002 Diabetes screen Diabetes screen [facility] Phone: Start: 1981 DTaP/Tdap/Td vaccine (1 - Tdap) DTaP/Tdap/Td vaccine (1 - Tdap) [facility] Start: 1980 Hepatitis C screening Hepatitis C ney mcgill [facility] Start: 1978 COVID-19 Vaccine (1) COVID-19 Vaccin e (1) [facility] Work Phone: Start: 1977 HIV screen HIV screen [facility] Work Phone: Start: 1977 HIV screening HIV screen [facility] Start: 1973 DTaP/Tdap/Td vaccine (1 - Tdap) DTaP/Tdap/Td vaccine (1 - Tdap) [facility] Work Phone: Start: 1962 COVID-19 Vaccine (#1) COVID-19 Vacci ne (#1) [facility] Start: 1962 Hepatitis C screen Hepatitis C scree n [facility] Work Phone: Start: 1962 Hepatitis C screening Hepatitis C ney mcgill [facility] Work Phone: Start: 1962 [facility] malign [facility] DHEA-sulfate DHEA-sulfate Lab Routine Hormone disorder Ordered: 12/08/2024 [facility] Comment on above: Ordered: 12/08/2024 Estradiol Estradiol Lab Ro utine Hormone disorder Ordered: 12/08/2024 [facility] Comment on above: Ordered: 12/08/2024 Estrone Estrone Lab Rout ine Hormone disorder Ordered: 12/08/2024 [facility] Comment on above: Ordered: 12/08/2024 Ferritin [Mass/volum e] in Serum or Plasma Ferritin Lab Routine Hormone disorder Ordered: 12/08/2024 [facility] Comment on above: Ordered: 12/08/2024 Hemoglobin A1c/Hemoglobin.total in Blood Hemoglobin A1c Lab Routine Hormone disorder Ordered: 12/08/2024 [facility] Comment on above: Ordered: 12/08/2024 Patient Education Nausea and Vom iting, Adult Dizziness, Nonvertigo, (DC) [facility] Work Phone: Patient referral [facility] Work Phone: Progesterone Progesterone Lab Routine Hormone disorder Ordered: 12/08/2024 [facility] Comment on above: Ordered: 12/08/2024 Sex hormone binding globulin Sex hormone binding globulin Lab Routine Hormone disorder Ordered: 12/08/2024 [facility] Comment on above: Ordered: 12/08/2024 T3, reverse T3, reverse Lab Routine Hormone disorder Ordered: 12/08/2024 [facility] Comment on above: Ordered: 12/08/2024 TESTOSTERONE, FREE TESTOSTERONE, FREE Lab Routine Hormone disorder Ordered: 12/08/2024 [facility] Comment on above: Ordered: 12/08/2024 Testosterone, free, total Testos terone, free, total Lab Routine Hormone disorder Ordered: 12/08/2024 [facility] Comment on above: Ordered: 12/08/2024 Thyroid peroxidase antibody Thyroid peroxidase antibody Lab Routine Hormone disorder Ordered: 12/08/2024 [facility] Comment on above: Ordered: 12/08/2024 Thyroxine (T4) free [Mass/volume] in Serum or Plasma T4, free Lab Routine Hormone disorder Ordered: 12/08/2024 [facility] Comment on above: Ordered: 12/08/2024 Triiodothyronine (T3 ) Free [Mass/volume] in Serum or Plasma T3, free Lab Routine Hormone disorder Ordered: 12/08/2024 [facility] Comment on above: Ordered: 12/08/2024 Vitamin D 1,25 dihydroxy Vitamin D 1,25 dihydroxy Lab Routine Hormone disorder Ordered: 12/08/2024 [facility] Comment on above: Ordered: 12/08/2024 Payers Date Payer Category Payer Self-pay [id number] [id number] 2021 Unknown BCBS BCBS xxxxxx [id number] 2021-Present [phone] [address] [place] [address] [id number] 2019 Unknown BCBS [place] - [place] P PO xxxxxxxxxxxx 2019-Present [address] [place] [address] xxxxxxxxxxxx [id number] 2014 Medicare [id number]. [id number] 1962 Unknown [id number] 2.16.840.1.934861.3.579.2. 593 1962 Unknown [id number] 2.16.840.1.941906.3.579.2. 176 1962 Unknown [id number] 2.16.840.1.216625.3.579.2. 1286 1962 Unknown [id number] 2.16.840.1.798817.3.579.2. 1259 1962 Unknown [id number] 2.16.840.1.942954.3.579.2. 1259 1962 Unknown [id number] 2.16.840.1.436406.3.579.2. 1259 1962 Unknown [id number] 2.16.840.1.719684.3.579.2. 1259 1962 Unknown [id number] 2.16.840.1.297166.3.579.2. 1259 1962 Unknown [id number] 2.16.840.1.626281.3.579.2. 1259 1962 Unknown [id number] 2.16.840.1.544485.3.579.2. 9 1962 Unknown [id number] 2.16.840.1.900121.3.579.2. 1259 1962 Unknown [id number] 2.16.840.1.606341.3.579.2. 9 1962 Unknown [id number] 2.16.840.1.763712.3.579.2. 9 1962 Unknown [id number] 2.16.840.1.382118.3.579.2. 1259 1959 Unknown [id number] [id number]. [id number] Unknown [id number] 2.16.840.1.263327.3.579.2. 531 Unknown [id number] 2.16.840.1.170888.3.579.2. 531 Social History Date Type Detail Facility Start: 02-01-2021 End: 10-28-2023 Tobacco smoking status [facility] Never smoker [facility] Start: 02-01-2021 End: 10-28-2023 Tobacco use and exposure Never used [facility] Phone: Start: 02-01-2021 End: 10-21-2022 Alcohol intake Current non-drinker of alcohol (finding) [facility] Phone: Start: 1960 Sex Assigned At Not on file M [facility] Phone: Start: 1960 Sex Assigned At Female F [facility] Start: 10-21-2022 End: 11-22-2024 Alcohol intake [facility] Phone: Start: 02-24-2024 End: 11-22-2024 Alcoholic beverage intake Ex-drinker (finding) [facility] Start: 02-24-2024 End: 11-22-2024 Tobacco use panel [facility] Start: 09-28-2024 Alcohol Comment Caffine: 0 [facility] Start: 10-11-2024 Education 21 [facility] Clinical Notes 09-28-2024 to 12-23-2024 Telephone Encounter - Brii Briceno MD - 12/23/2024 3:19 PM ESTTelephone Encounter - Brii Briceno MD - 12/23/2024 3:19 PM Juan Pablo Johnson NP - 12/13/2024 2:00 PM EST Note Date & Type Note Facility 12-23-2024 Telephone encounter Note Approving, but needs appt for additional refills. [facility] 12-23-2024 Miscellaneous Notes Approving, but needs appt for additional refills. documented in this encounter [facility] 12-13-2024 History of Presen t illness Narrative Luisana Martinez is a 64 y.o. female with a history of IBS and anxiety who presents for psychiatric medication follow-up. Her daughter, Spring, is present at today's visit. Location of patient: Home; located in [place] Location of provider: Office; located in [place], [place] Patient seen via: [employer]; audio and video utilized Reason for televisit: Transportation issues Total time spent with patient: 49 minutes Did patient gave verbal consent for today's visit? Yes HPI: Patient is here today for follow-up. She was last seen on 11/22/24. At that visit, her Ropinirole was titrated off due to concerns for it causing more nausea. She states she has been off this medication for a couple of weeks. She continues to complain of nausea that occurs daily. She states that she has to force herself to eat because of she is nauseous most of the day. She states that she has not noticed any increased restlessness during the day or at night since stopping the Ropinirole. She states that she has not had any new or ongoing VH since last visit. Her daughter states that her has noticed her talking in her sleep. Patient states she is not sleeping as much during the day, which she feels is a good thing. She states she saw her Clerical Office Worker last week for vaginal bleeding. She states he did blood work and is scheduled to get US on December 29 and D&C the week of January 03. She continues to see her counselor. Her daughter notes that at their last visit, she felt more calm and at ease. She has appointment with multiple specialist to further discuss symptoms she has been experiencing. She has appointment with Neurology on January 06 and GI (Dr. Jovel) on January 26 to discuss nausea. SUBJECTIVE: PAST MEDICAL HISTORY: Past Medical History: Diagnosis Date KLAUDIA (generalized anxiety disorder) ([facility]) History of psychiatric hospitalization 2020 [facility] x2 History of psychiatric hospitalization 2021 [facility] x3 ALLERGIES: Allergies Allergen Reactions Milk-Related Compounds Alprazolam Buspar [Buspirone] Other Increased anxiety Hydroxyzine Tremors, fidgety Doxycycline Rash and GI intolerance Egg-Derived Products Nausea And Vomiting Sulfa Antibiotics Rash and GI intolerance Tetracyclines & Related Nausea And Vomiting and Rash SURGICAL HISTORY: Past Surgical History: Procedure Laterality Date BREAST BIOPSY Left 1999 CT GUIDED TRANSVAGINAL TRANSRECTAL FLUID DRAIN 10/22/2023 CT GUIDED TRANSVAGINAL TRANSRECTAL FLUID DRAIN 10/22/2023 Current Outpatient Medications: aspirin (Aspirin Low Dose) 81 MG chewable tablet, CHEW 1 TABLET (81 MG) IN THE MORNING, Disp: 90 tablet, Rfl: 1 atorvastatin (Lipitor) 10 MG tablet, TAKE 1 TABLET (10 MG) BY MOUTH DAILY., Disp: 90 tablet, Rfl: 1 DULoxetine (Cymbalta) [address] capsule, Take 1 capsule (30 mg) by mouth in the morning and 1 capsule (30 mg) before bedtime., Disp: 90 capsule, Rfl: 0 gabapentin (Neurontin) 100 MG capsule, Take 2 capsules (200 mg) by mouth in the morning and 2 capsules (200 mg) in the evening and 2 capsules (200 mg) before bedtime., Disp: 180 capsule, Rfl: 0 meclizine (Antivert) 12.5 MG tablet, Take 1 tablet (12.5 mg) by mouth 3 (three) times a day as needed for dizziness, Disp: 60 tablet, Rfl: 0 mirtazapine (Remeron) 7.5 MG tablet, Take 1 tablet (7.5 mg) by mouth at bedtime, Disp: 30 tablet, Rfl: 1 pantoprazole (Protonix) 40 MG EC tablet, Take 1 tablet (40 mg) by mouth in the morning. Take before meals. Do not crush, chew, or split.., Disp: 90 tablet, Rfl: 0 propranolol (Inderal) 20 MG tablet, Take 1 tablet (20 mg) by mouth in the morning and 1 tablet (20 mg) before bedtime., Disp: 180 tablet, Rfl: 0 FAMILY HISTORY: Family History Problem Relation Name Age of Onset Heart disease Mother Stroke Mother Dementia Father [place] SOCIAL HISTORY: Social History Tobacco Use Smoking status: Never Smokeless tobacco: Never Vaping Use Vaping status: Never Used Substance Use Topics Alcohol use: Not Currently Comment: Caffine: 0 Drug use: Never Depression: At risk (11/22/2024) PHQ-2 PHQ-2 Score: 3 Patient Care Team: Brii Briceno MD as PCP - General (Family Medicine) Mojgan Johnson NP as Nurse Practitioner (Behavioral Health) PSYCHIATRIC REVIEW OF SYMPTOMS AND MENTAL STATUS EXAM ROS: Patient denies fatigue, malaise, night sweats, weight loss, weight gain, cough, SOB, palpitations, chest pain, dysphagia, vomiting, diarrhea, abdominal pain, pruritus, rash, headache, dizziness, seizures, tremors, headache. Appearance Appearance: Casual dress, normal grooming and hygiene Behavior Cooperative, conversant, engaged, and with good eye contact. Speech Normal, clear, regular rate, rhythm and volume Affect Anxious Mood Anxious Thought Process Organized and Clear Thought Content: Denies suicidal and homicidal ideation. Perception: Denies visual, auditory, and tactile hallucinations. Orientation Appropriate to age Memory/Concentration Short term intact and assisted intact Insight/Judgement Fair OBJECTIVE: Visit Vitals Smoking Status Never Lab Results Component Value Date GLU 110 (H) 12/13/2024 CALCIUM 9.1 11/05/2024 NA 142 11/05/2024 K 4.2 11/05/2024 CO2 25 11/05/2024 CL 106 11/05/2024 BUN 9 11/05/2024 CREATININE 0.87 11/05/2024 Lab Results Component Value Date WBC 6.3 11/05/2024 HGB 15.3 11/05/2024 HCT 45.8 (H) 11/05/2024 MCV 95.8 11/05/2024 PLT 235 11/05/2024 Lab Results Component Value Date CHOL 212 (H) 02/24/2024 Lab Results Component Value Date HDL 37 (L) 02/24/2024 Lab Results Component Value Date LDLCALC 135 (H) 02/24/2024 Lab Results Component Value Date TRIG 247 (H) 02/24/2024 10/22/23 - TSH 3.35, T4 0.85 ASSESSMENT AND PLAN: Impression: Patient continues to report high anxiety. She and her report no improvement in her anxiety despite being on many medications in her past. She had increased depression with Sertraline, tremors with Hydroxyzine, and increased anxiety with Buspar. She has shown improvement in gait, responsiveness, tremors, and affect since weaning of SGA, which supports likely diagnosis of Parkinsonism. No evidence of movements associated with TD have been noted. Discussed treatment options with patient and daughter. Due to her side effects from previous SGAs, will avoid these at this time. Discussed treatment with Remeron or TCA like Amitriptyline. Patient states she was treated with a TCA during one of her hospitalizations and had an adverse side effect. She is unable to recall what specific medication this was. Will avoid for now until we can get records release signed at next visit. Patient and daughter agreeable to try Remeron. Discussed patient's plan of care with Dr. Restrepo (psychiatrist) who recommended titrating down on propranolol next month if tremors continue to be resolved. MRI showed microvascular changes, which is consistent with her TIA history. Need to rule out any other underlying dementia process that could be impacting her mental status, especially with her father having history of Lewy Body dementia. Informed family that I would appreciate Neurology's opinion on this matter when she sees them next month. Assessment/Plan Diagnoses and all orders for this visit: Generalized anxiety disorder (CMS/HCC) - mirtazapine (Remeron) 7.5 MG tablet; Take 1 tablet (7.5 mg) by mouth at bedtime Mood disorder (CMS/HCC) Treatment Plan/Recommendations: - Continue Duloxetine 30 mg BID for anxiety, depression. - Continue Propranolol for tremors. Consider weaning off medication at next visit if tremors remain absent. - Continue Gabapentin 200 mg three times a day for anxiety. Consider stopping medication at future visit due to ineffectiveness in improving anxiety. - Start Mirtazapine 7.5 mg for depression, anxiety. - Get SUAD at next visit signed to review records from hospitalizations at [facility]. - Continue counseling for additional mental health support and treatment. - RTC in 3 weeks. Discussed any medication changes and follow-up plan with patient. Encouraged patient to call office sooner if symptoms worsen or if any questions/concerns arise. Patient was seen Face to Face, Total time spent with patient was 55 minutes, which includes reviewing chart documents, previous notes/records, counseling and discussion with patient and/or coordination of care as described above. documented in this encounter [facility] 12-08-2024 History of Presen t illness Narrative Reason for Appointment: Patient ID: Luisana Martinez is a 64 y.o. female who presents for hormone imbalance Patient presents today for Acute Visit. and Consult appointment. MEDICATIONS Current Outpatient Medications Medication Instructions aspirin (Aspirin Low Dose) 81 MG chewable tablet CHEW 1 TABLET (81 MG) IN THE MORNING atorvastatin (LIPITOR) 10 mg, Oral, Daily DULoxetine (CYMBALTA) 30 mg, Oral, 2 times daily gabapentin (NEURONTIN) 200 mg, Oral, 3 times daily meclizine (ANTIVERT) 12.5 mg, Oral, 3 times daily PRN pantoprazole (PROTONIX) 40 mg, Oral, Daily before breakfast, Do not crush, chew, or split. propranolol (INDERAL) 20 mg, Oral, 2 times daily rOPINIRole (Requip) 0.25 MG tablet Take 3 tablets (0.75 mg) by mouth at bedtime for 2 days, THEN 2 tablets (0.5 mg) at bedtime for 2 days, THEN 1 tablet (0.25 mg) at bedtime for 2 days. Take 3 tablets (0.75 mg) by mouth at bedtime for 2 days, THEN 2 tablets (0.5 mg) at bedtime for 2 days, THEN 1 tablet (0.25 mg) at bedtime for 2 days, then STOP medication.. ALLERGIES Allergies Allergen Reactions Milk-Related Compounds Alprazolam Buspar [Buspirone] Other Increased anxiety Hydroxyzine Tremors, fidgety Doxycycline Rash and GI intolerance Egg-Derived Products Nausea And Vomiting Sulfa Antibiotics Rash and GI intolerance Tetracyclines & Related Nausea And Vomiting and Rash PROBLEMS Active Ambulatory Problems Diagnosis Date Noted Generalized anxiety disorder ([facility]) 09/25/2023 Jaundice 09/25/2023 Morbid (severe) obesity due to excess calories ([facility]) 09/25/2023 Cervical stenosis (uterine cervix) 10/07/2013 Family history of ovarian cancer 08/14/2017 IBS (irritable bowel syndrome) 10/07/2013 Vertigo 10/07/2013 Actinic keratosis 08/16/2013 Benign neoplasm of skin 01/08/2012 Folliculitis 10/28/2023 Hemangioma 10/28/2023 History of malignant melanoma 04/04/2010 Solar degeneration 10/28/2023 History of TIA (transient ischemic attack) 10/17/2024 Resolved Ambulatory Problems Diagnosis Date Noted Acne 01/08/2012 Past Medical History: Diagnosis Date KLAUDIA (generalized anxiety disorder) ([facility]) History of psychiatric hospitalization 2020 History of psychiatric hospitalization 2021 HISTORY PAST MEDICAL HISTORY SOCIAL HISTORY Past Medical History: Diagnosis Date KLAUDIA (generalized anxiety disorder) ([facility]) History of psychiatric hospitalization 2020 [facility] x2 History of psychiatric hospitalization 2021 [facility] x3 Social History Tobacco Use Smoking status: Never Smokeless tobacco: Never Vaping Use Vaping status: Never Used Substance Use Topics Alcohol use: Not Currently Comment: Caffine: 0 Drug use: Never FAMILY HISTORY Family History Problem Relation Name Age of Onset Heart disease Mother Stroke Mother Dementia Father [place] SURGICAL HISTORY Past Surgical History: Procedure Laterality Date BREAST BIOPSY Left 1999 CT GUIDED TRANSVAGINAL TRANSRECTAL FLUID DRAIN 10/22/2023 CT GUIDED TRANSVAGINAL TRANSRECTAL FLUID DRAIN 10/22/2023 REVIEW OF SYSTEMS Review of Systems: Review of Systems Constitutional: Negative. HENT: Negative. Eyes: Negative. Respiratory: Negative. Cardiovascular: Negative. Gastrointestinal: Positive for nausea. Genitourinary: Positive for menstrual problem. Musculoskeletal: Negative. Skin: Negative. Neurological: Negative. All other systems reviewed and are negative. Hematological: Negative. Endocrine: Negative. Allergic/Immunologic: Negative. OBJECTIVE Objective: Physical Exam Constitutional: Appearance: Normal appearance. She is well-developed. Cardiovascular: Rate and Rhythm: Normal rate and regular rhythm. Pulmonary: Effort: Pulmonary effort is normal. Breath sounds: Normal breath sounds. Abdominal: General: Bowel sounds are normal. There is no distension. Palpations: Abdomen is soft. Tenderness: There is no abdominal tenderness. There is no guarding or rebound. Musculoskeletal: General: No swelling. Normal range of motion. Right lower leg: No edema. Left lower leg: No edema. Neurological: Mental Status: She is alert and oriented to person, place, and time. Skin: General: Skin is warm and dry. Psychiatric: Mood and Affect: Mood normal. Behavior: Behavior normal. Vitals and nursing note reviewed. Exam conducted with a power transformer assembler present. Vitals: Estimated body mass index is 37.01 kg/m as calculated from the following: Height as of 10/04/24: 5' 5 . Weight as of this encounter: 222 lb 6.4 oz. BP: No LMP recorded. ASSESSMENT & PLAN ICD-10-CM 1. Hormone imbalance E34.9 2. Postmenopausal bleeding N95.0 Pt presents with hormone imbalance and postmenopausal bleeding. Pt has been bleeding on and off for 3 weeks. Pt given an ultrasound to have obtained. Discussed D&C hysteroscopy with poss myosure. Pt went through menopause about 10 years ago. Pt was hospitalized after her daughter was born for anxiety. Three years ago anxiety returned. Discussed hormone labs are going to be low d/t menopause. Given Buderer labs to have obtained. Pre Op: Patient is doing well but has complaints of bleeding. I have discussed conservative management vs. surgical management with the patient in detail and patient desires surgical management at this time. Patient will undergo D&C Hysteroscopy, possible Myosure on 01/07/25. Surgical consents were signed, mmc was reviewed, and patient is to proceed to [facility] OR. Follow Up: Patient is to follow up between 1-2 weeks post operative to assess proper healing and recovery from procedure. Documented by Ana Mckinnon LPN on behalf of: Alexi Cummins DO Answers submitted by the patient for this visit: Female Genital Questionnaire (Submitted on 12/05/2024) Chief Complaint: Female genitourinary complaint vaginal bleeding: Yes Chronicity: new Onset: 1 to 4 weeks ago Frequency: every several days Progression since onset: waxing and waning Pain severity: no pain now?: No Aggravated by: nothing Sexual activity: sexually active Partner with STD symptoms: no control: vasectomy Menstrual history: postmenopausal Vaginal bleeding: glass selector than menses Passing clots?: No Passing tissue?: No documented in this encounter [facility] 11-22-2024 History of Presen t illness Narrative Images from the original note were not included. Luisana Martinez is a 64 y.o. female with a history of IBS and anxiety who presents for psychiatric medication follow-up. She is here today with her , Deandre. HPI: Patient was seen for initial intake on 10/11/24. Since patient's last visit, she has been off of her Seroquel due to concerns for side effects related to this medication. She states she has been off Seroquel since 11/10. Since weaning off her Seroquel, I have noted improvement in her responsiveness in conversation and shuffling gait. She no longer has visible hand tremors at today's visit. Her Gabapentin was increased to 200 mg three times a day on 10/29/24. She states that she has not noticed any improvement in any symptoms, especially her anxiety. She reports seeing her counselor recently for further anxiety treatment. She continues to report daily nausea, which impacts her ability to eat regularly. She has lost 9 lbs since 10/04/24. Her provides further information at today's visit. He states that she has been having anxiety for the past 3 years. He states that every medication that she has tried has never relieved her anxiety. He states that about 6 months ago, she began having a very flattened affect. He states that she was no longer motivated to do anything and didn't find pleasure in things she used to love. He states that patient's father had Lewy body dementia and that patient's mother has told him that she is presenting the same way he did when he was diagnosed. He also mentions that she has had several sporadic episodes where she will mention seeing little people or other things in the middle of the conversation. Patient states that this has only happened a few times and has only occurred when she is about to fall asleep. states that she sleeps until 10-11 AM every day, and then spends 70% of her time in a recliner. He states that she will close her eyes frequently throughout the day as if she is sleeping. Her PCP ordered CBC, CMP, Amylase and Lipase. These were completed on 11/05/24 and were unremarkable. She has appointment with multiple specialist to further discuss symptoms she has been experiencing. She is seeing BATTERY TESTER AND REPAIRER on December 11 to discuss hormone testing; Neurology on January 06; and GI (Dr. Jovel) on January 26 to discuss nausea. SUBJECTIVE: PAST MEDICAL HISTORY: Past Medical History: Diagnosis Date KLAUDIA (generalized anxiety disorder) ([facility]) History of psychiatric hospitalization 2020 [facility] x2 History of psychiatric hospitalization 2021 [facility] x3 ALLERGIES: Allergies Allergen Reactions Milk-Related Compounds Alprazolam Buspar [Buspirone] Other Increased anxiety Hydroxyzine Tremors, fidgety Doxycycline Rash and GI intolerance Egg-Derived Products Nausea And Vomiting Sulfa Antibiotics Rash and GI intolerance Tetracyclines & Related Nausea And Vomiting and Rash SURGICAL HISTORY: Past Surgical History: Procedure Laterality Date BREAST BIOPSY Left 1999 CT GUIDED TRANSVAGINAL TRANSRECTAL FLUID DRAIN 10/22/2023 CT GUIDED TRANSVAGINAL TRANSRECTAL FLUID DRAIN 10/22/2023 FAMILY HISTORY: Family History Problem Relation Name Age of Onset Heart disease Mother Stroke Mother Dementia Father [facility] SOCIAL HISTORY: Social History Tobacco Use Smoking status: Never Smokeless tobacco: Never Vaping Use Vaping status: Never Used Substance Use Topics Alcohol use: Not Currently Comment: Caffine: 0 Drug use: Never Depression: At risk (11/22/2024) PHQ-2 PHQ-2 Score: 3 Patient Care Team: Brii Briceno MD as PCP - General (Family Medicine) Mojgan Johnson NP as Nurse Practitioner (Behavioral Health) PSYCHIATRIC REVIEW OF SYMPTOMS AND MENTAL STATUS EXAM ROS: Patient denies malaise, night sweats, weight gain, cough, SOB, palpitations, chest pain, dysphagia, abdominal pain, vomiting, diarrhea, pruritus, rash, headache, seizures, tremors, headache. Appearance Appearance: Casual dress, normal grooming and hygiene Behavior Cooperative, conversant, engaged, and with good eye contact. Moving feet up and down intermittently throughout visit. Anxious appearing. Speech Normal, clear, regular rate, rhythm and volume Affect Flat Mood Anxious Thought Process Organized and Clear, Goal directed Thought Content: Denies suicidal and homicidal ideation. Perception: Denies auditory and tactile hallucinations. Denies derealization and depersonalization. Orientation Appropriate to age Memory/Concentration Short term intact and programmer or analyst intact. Denies any issues. denies any concerns with memory. Insight/Judgement Fair OBJECTIVE: Visit Vitals BP 128/84 (BP Location: Right arm, Patient Position: Sitting) Pulse 64 Wt 222 lb BMI 36.94 kg/m Smoking Status Never BSA 2.15 m Lab Results Component Value Date GLU 102 (H) 11/05/2024 CALCIUM 9.1 11/05/2024 NA 142 11/05/2024 K 4.2 11/05/2024 CO2 25 11/05/2024 CL 106 11/05/2024 BUN 9 11/05/2024 CREATININE 0.87 11/05/2024 Lab Results Component Value Date WBC 6.3 11/05/2024 HGB 15.3 11/05/2024 HCT 45.8 (H) 11/05/2024 MCV 95.8 11/05/2024 PLT 235 11/05/2024 Lab Results Component Value Date CHOL 212 (H) 02/24/2024 Lab Results Component Value Date HDL 37 (L) 02/24/2024 Lab Results Component Value Date LDLCALC 135 (H) 02/24/2024 Lab Results Component Value Date TRIG 247 (H) 02/24/2024 10/22/23 - TSH 3.35, T4 0.85 ASSESSMENT AND PLAN: Impression: Patient continues to report high anxiety. She and her report no improvement in her anxiety despite being on many medications in her past. She had increased depression with Sertraline, tremors with Hydroxyzine, and increased anxiety with Buspar. She has shown improvement in gait, cognition, and less flat affect since weaning of SGA, which supports likely diagnosis of Parkinsonism. No evidence of movements associated with TD were noted today. Discussed treatment plan and how it can be difficult to differentiate what medications may be causing symptoms that she is experiencing. Discussed treatment options of continuing to target anxiety, versus weaning off medications to assess true symptoms versus ones that may be exacerbated by current medication regimen. Patient and agree with plan. Will start with weaning off of Requip due to its high potential for nausea. Informed patient and of importance of keeping other appointments, especially neurology to further investigate her symptoms and to rule out possible dementia as a cause. Would also like to get records from [facility] during her hospitalizations, as well as [place] to help further investigate what was going on at those times and reason for medication choices. Rule out PTSD. Assessment/Plan Diagnoses and all orders for this visit: Generalized anxiety disorder (CMS/HCC) Mood disorder (CMS/HCC) Restless leg syndrome - rOPINIRole (Requip) 0.25 MG tablet; Take 3 tablets (0.75 mg) by mouth at bedtime for 2 days, THEN 2 tablets (0.5 mg) at bedtime for 2 days, THEN 1 tablet (0.25 mg) at bedtime for 2 days. Take 3 tablets (0.75 mg) by mouth at bedtime for 2 days, THEN 2 tablets (0.5 mg) at bedtime for 2 days, THEN 1 tablet (0.25 mg) at bedtime for 2 days, then STOP medication.. Treatment Plan/Recommendations: - Continue Duloxetine 30 mg BID for anxiety, depression. - Continue Propranolol for tremors. Patient to continue management through PCP until she sees neuro in December. - Titrate off Requip by 0.25 mg every 2 days then stop medication due to nausea. - Continue Gabapentin 200 mg three times a day for anxiety. Consider stopping medication at future visit due to ineffectiveness in improving anxiety. - Get records from hospitalizations at [facility], as well as recovery stay at [place]. - Continue counseling for additional mental health support and treatment. - RTC in 2 weeks. Discussed any medication changes and follow-up plan with patient. Encouraged patient to call office sooner if symptoms worsen or if any questions/concerns arise. Patient was seen Face to Face, Total time spent with patient and was 40 minutes, which includes reviewing chart documents, previous notes/records, counseling and discussion with patient and/or coordination of care as described above. documented in this encounter [facility] 11-15-2024 Telephone encounter Note christie Horne left this vm about 2 pm: My name is Luisana martinez my date is 04 19 1960, my phone number [phone] I just called [facility] because I am going to need my Meclizine refilled on and they said they would ask my prescriber and that it was denied I want to know what I should do? All right, thank you, bye. [facility] 11-15-2024 Miscellaneous Notes christie Horne left this vm about 2 pm: My name is Luisana martinez my date is 04 19 1960, my phone number [phone] I just called [facility] because I am going to need my Meclizine refilled on and they said they would ask my prescriber and that it was denied I want to know what I should do? All right, thank you, bye. documented in this encounter [facility] 10-29-2024 History of Presen t illness Narrative Rx for gabapentin dose increase sent. documented in this encounter [facility] 10-27-2024 Telephone encounter Note Daughter Spring Broderick (on HIPAA) Is requesting referrals, Gastroentologist- nausa is unbearable, upholstery covers inspector- Concern of possible Hormone inbalance, its been years since she has seen one. Would prefer not a change control analyst. She would like to have the referrals all thru [facility]oms Please, [facility] 10-27-2024 Miscellaneous Notes Daughter Spring Broderick (on HIPAA) Is requesting referrals, Gastroentologist- nausa is unbearable, upholstery covers inspector- Concern of possible Hormone inbalance, its been years since she has seen one. Would prefer not a change control analyst. She would like to have the referrals all thru noms DRS. Gonzales, documented in this encounter [facility] 10-27-2024 History of Presen t illness Narrative Images from the original note were not included. Luisana Martinez is a 64 y.o. female with a history of IBS and anxiety who presents for psychiatric medication follow-up via telehealth. Patient is accompanied by daughter, Spring. Location of patient: Home; located in [place] Location of provider: Office; located in [place], [place] Patient seen via: [employer] Telehealth; audio and video utilized Reason for televisit: Transportation issues Total time spent with patient: 24 minutes Did patient gave verbal consent for today's visit? Yes HPI: Patient was seen for initial intake on 10/11/24. At patient's last visit, her night time dose of Seroquel was decreased to 25 mg. Patient feels that sleep is continuing to go well and denies any problems with this. She continues to have problems with nausea despite being on the Protonix 40 mg since last Friday. Patient and daughter have reported improvement in her ability to care for herself. Daughter states she put on make-up today and has been showering more regularly, both of which have happened without any encouragement from family. She continues to have episodes of excessive sweating that occur only in the evening hours. SUBJECTIVE: PAST MEDICAL HISTORY: Past Medical History: Diagnosis Date KLAUDIA (generalized anxiety disorder) ([facility]) History of psychiatric hospitalization 2020 [facility] x2 History of psychiatric hospitalization 2021 [facility] x3 ALLERGIES: Allergies Allergen Reactions Milk-Related Compounds Alprazolam Buspar [Buspirone] Other Increased anxiety Hydroxyzine Doxycycline Rash and GI intolerance Egg-Derived Products Nausea And Vomiting Sulfa Antibiotics Rash and GI intolerance Tetracyclines & Related Nausea And Vomiting and Rash SURGICAL HISTORY: Past Surgical History: Procedure Laterality Date BREAST BIOPSY Left 1999 CT GUIDED TRANSVAGINAL TRANSRECTAL FLUID DRAIN 10/22/2023 CT GUIDED TRANSVAGINAL TRANSRECTAL FLUID DRAIN 10/22/2023 FAMILY HISTORY: Family History Problem Relation Name Age of Onset Heart disease Mother Stroke Mother Dementia Father SOCIAL HISTORY: Social History Tobacco Use Smoking status: Never Smokeless tobacco: Never Vaping Use Vaping status: Never Used Substance Use Topics Alcohol use: Not Currently Comment: Caffine: 0 Drug use: Never Depression: Not at risk (10/04/2024) PHQ-2 PHQ-2 Score: 2 Recent Concern: Depression - At risk (09/28/2024) PHQ-2 PHQ-2 Score: 4 Patient Care Team: Brii Briceno MD as PCP - General (Family Medicine) Mojgan Johnson NP as Nurse Practitioner (Behavioral Health) PSYCHIATRIC REVIEW OF SYMPTOMS AND MENTAL STATUS EXAM ROS: Patient denies weight loss, weight gain, cough, SOB, palpitations, chest pain, insomnia, dysphagia, abdominal pain, vomiting, diarrhea, pruritus, rash, headache, seizures, tremors, headache. Appearance Appearance: Casual dress, normal grooming and hygiene Behavior Cooperative, easily distracted. Gets up once throughout visit. Speech Normal, clear, regular rate, rhythm and volume. Response time to questions is normal. Affect Blunted and Anxious Mood Anxious Thought Process Organized and Clear Thought Content: Denies suicidal and homicidal ideation. Perception: Denies visual, auditory, and tactile hallucinations. Denies derealization and depersonalization. Orientation Appropriate to age Memory/Concentration Short term intact and assisted intact Insight/Judgement Poor OBJECTIVE: Visit Vitals Smoking Status Never Lab Results Component Value Date GLU 94 09/28/2024 CALCIUM 8.6 09/28/2024 NA 142 09/28/2024 K 4.0 09/28/2024 CO2 28 09/28/2024 CL 106 09/28/2024 BUN 7 09/28/2024 CREATININE 0.81 09/28/2024 Lab Results Component Value Date WBC 4.8 09/28/2024 HGB 14.5 09/28/2024 HCT 44.2 09/28/2024 MCV 98.2 09/28/2024 PLT 196 09/28/2024 Lab Results Component Value Date CHOL 212 (H) 02/24/2024 Lab Results Component Value Date HDL 37 (L) 02/24/2024 Lab Results Component Value Date LDLCALC 135 (H) 02/24/2024 Lab Results Component Value Date TRIG 247 (H) 02/24/2024 10/22/23 - TSH 3.35, T4 0.85 ASSESSMENT AND PLAN: Impression: Patient continues to report high anxiety. She continues to show improvement in gait, cognition, and affect since weaning off of her antipsychotic. Will continue with previous treatment plan of weaning her off of Seroquel. Rule out PTSD Assessment/Plan Diagnoses and all orders for this visit: Generalized anxiety disorder (CMS/HCC) - QUEtiapine (SEROquel) 25 MG tablet; Take 2 tablets (50 mg) in the morning and 1 tablet (25 mg) at night Mood disorder (CMS/HCC) Treatment Plan/Recommendations: - Continue to decrease Seroquel by 25 mg every week due to side effects. - Continue Duloxetine 30 mg BID for anxiety, depression. - Continue Propranolol for tremors. Patient to continue management through PCP until she sees neuro in December. - Continue Requip 1 mg at night for RLS. Consider titrating at future visit to every other day for 1 week then stopping medication due to being possible contributor to anxiety. - Continue Gabapentin 100 mg three times a day for anxiety. Consider stopping medication at future visit due to ineffectiveness in improving anxiety. - Discuss with PCP about possible GI referral for nausea and life support technician referral for hx of hormone imbalance. - Continue counseling for additional mental health support and treatment. Recommend to follow-up on 11/22/24 to re-evaluate symptoms. Discussed follow-up plan with patient, and encouraged patient to call office sooner if symptoms worsen or if any questions/concerns arise. Patient was seen Televisit - Audio and Visual, Total time spent with patient was 24 minutes, which includes reviewing chart documents, previous notes/records, counseling and discussion with patient and/or coordination of care as described above. documented in this encounter [facility] 10-21-2024 History of Presen t illness Narrative Images from the original note were not included. Luisana Martinez is a 64 y.o. female with a history of IBS and anxiety who presents for psychiatric medication follow-up via telehealth. Patient is accompanied by daughter, Spring. Location of patient: Home; located in [place] Location of provider: Office; located in [place], [place] Patient seen via: [employer]; audio and video utilized Reason for televisit: Transportation issues Total time spent with patient: 30 minutes Did patient gave verbal consent for today's visit? Yes HPI: Patient was seen for initial intake on 10/11/24. At patient's last visit, her 3 PM dose of Seroquel was stopped due to concerns for medication causing shuffling gait and tremors. Her Duloxetine was also changed to 30 mg BID due to complaints of nausea with taking 60 mg once a day. Patient states she has been compliant with medication regimen. Patient reports that nausea has not improved since last week. She states that she believes it may have become worse. Daughter states that she did reach out to PCP who increased her Pantoprazole to 40 mg daily. Previously, daughter states that she was just taking 20 mg as needed, but not she will be taking 40 mg every day to see if this helps. Patient reports sweating excessively since being out of rehab for the past month. Daughter states she has a history of a hormonal imbalance and they are going to be looking into following up with patient's life support technician for further assessment. Patient states that she is still very anxious and it is occurring most of the day. She states she is sleeping well. SUBJECTIVE: PAST MEDICAL HISTORY: Past Medical History: Diagnosis Date KLAUDIA (generalized anxiety disorder) ([facility]) History of psychiatric hospitalization 2020 [facility] x2 History of psychiatric hospitalization 2021 [facility] x3 ALLERGIES: Allergies Allergen Reactions Milk-Related Compounds Alprazolam Buspar [Buspirone] Other Increased anxiety Hydroxyzine Doxycycline Rash and GI intolerance Egg-Derived Products Nausea And Vomiting Sulfa Antibiotics Rash and GI intolerance Tetracyclines & Related Nausea And Vomiting and Rash SURGICAL HISTORY: Past Surgical History: Procedure Laterality Date BREAST BIOPSY Left 1999 CT GUIDED TRANSVAGINAL TRANSRECTAL FLUID DRAIN 10/22/2023 CT GUIDED TRANSVAGINAL TRANSRECTAL FLUID DRAIN 10/22/2023 FAMILY HISTORY: Family History Problem Relation Name Age of Onset Heart disease Mother Stroke Mother Dementia Father SOCIAL HISTORY: Social History Tobacco Use Smoking status: Never Smokeless tobacco: Never Vaping Use Vaping status: Never Used Substance Use Topics Alcohol use: Not Currently Comment: Caffine: 0 Drug use: Never Depression: Not at risk (10/04/2024) PHQ-2 PHQ-2 Score: 2 Recent Concern: Depression - At risk (09/28/2024) PHQ-2 PHQ-2 Score: 4 Patient Care Team: Brii Briceno MD as PCP - General (Family Medicine) Mojgan Johnson NP as Nurse Practitioner (Behavioral Health) PSYCHIATRIC REVIEW OF SYMPTOMS AND MENTAL STATUS EXAM ROS: Patient denies weight loss, weight gain, cough, SOB, palpitations, chest pain, insomnia, dysphagia, abdominal pain, vomiting, diarrhea, pruritus, rash, headache, dizziness, seizures, tremors, headache. Appearance Appearance: Casual dress, normal grooming and hygiene Behavior Cooperative, easily distracted. Gets up frequently throughout visit and tells daughter that she has a hard time sitting still. Speech Normal, clear, regular rate, rhythm and volume. Response time to my questions also appears normal, which is improved from last visit. Affect Blunted and Anxious Mood Anxious Thought Process Organized and Clear Thought Content: Denies suicidal and homicidal ideation. Perception: Denies visual, auditory, and tactile hallucinations. Denies derealization and depersonalization. Orientation Appropriate to age Memory/Concentration Short term intact and assisted intact Insight/Judgement Poor OBJECTIVE: Visit Vitals Smoking Status Never Lab Results Component Value Date GLU 94 09/28/2024 CALCIUM 8.6 09/28/2024 NA 142 09/28/2024 K 4.0 09/28/2024 CO2 28 09/28/2024 CL 106 09/28/2024 BUN 7 09/28/2024 CREATININE 0.81 09/28/2024 Lab Results Component Value Date WBC 4.8 09/28/2024 HGB 14.5 09/28/2024 HCT 44.2 09/28/2024 MCV 98.2 09/28/2024 PLT 196 09/28/2024 Lab Results Component Value Date CHOL 212 (H) 02/24/2024 Lab Results Component Value Date HDL 37 (L) 02/24/2024 Lab Results Component Value Date LDLCALC 135 (H) 02/24/2024 Lab Results Component Value Date TRIG 247 (H) 02/24/2024 10/22/23 - TSH 3.35, T4 0.85 ASSESSMENT AND PLAN: Impression: Patient continues to report high anxiety. She continues to show improvement in gait, cognition, and affect since weaning off of her antipsychotic. Due to this improvement, will keep treatment plan the same and continue to wean off Seroquel. Patient and daughter agree to treatment plan. Discussed treatment plan with Dr. Restrepo (collaborating psychiatrist). Rule out PTSD Assessment/Plan Diagnoses and all orders for this visit: Generalized anxiety disorder (CMS/HCC) - QUEtiapine (SEROquel) 25 MG tablet; Take 2 tablets (50 mg) in the morning and 1 tablet (25 mg) at night Mood disorder ([facility]) Treatment Plan/Recommendations: - Continue Seroquel 50 mg every morning, and decrease night time dose to 25 mg. - Continue Duloxetine 30 mg BID for anxiety, depression. - Continue Propranolol for tremors. Patient to continue management through PCP until she sees neuro in December. - Continue Requip 1 mg at night for RLS. Consider titrating at future visit to every other day for 1 week then stopping medication due to being possible contributor to anxiety. - Continue Gabapentin 100 mg three times a day for anxiety. Consider stopping medication at future visit due to ineffectiveness in improving anxiety. - Continue counseling for additional mental health support and treatment. Reviewed the risks, benefits, and potential side effects from the medications. The patient agrees the benefits outweigh the risks and agrees to treat their symptoms. Discussed treatment plan, the patient was allowed time to ask questions, and the patient agreed with the plan moving forward. Instructed patient to call office with any complications or potential side effects. Patient instructed to present to the local ER or call Suicide Hotline (730) for any psychosis, suicidal or homicidal ideation, or with any risk of harm to self or others. Recommend to follow-up in 1 week to re-evaluate symptoms. Discussed follow-up plan with patient, and encouraged patient to call office sooner if symptoms worsen or if any questions/concerns arise. Patient was seen Televisit - Audio and Visual, Total time spent with patient was 30 minutes, which includes reviewing chart documents, previous notes/records, counseling and discussion with patient and/or coordination of care as described above. documented in this encounter [facility] 10-13-2024 Telephone encounter Note Patient will be out of medication by Friday and wondered if it could be calledin soon. Daughter was not aware of the 72 hour notice. [facility] 10-13-2024 Miscellaneous Notes Patient will be out of medication by Friday and wondered if it could be calledin soon. Daughter was not aware of the 72 hour notice. documented in this encounter [facility] 10-11-2024 History of Presen t illness Narrative Images from the original note were not included. Luisana Martinez is a 64 y.o. female with a history of IBS and anxiety who presents as a new patient for psychiatric evaluation and medication management. Patient is accompanied by her daughter, Venus. HPI: Reason for visit: Luisana Martinez is here today to discuss her anxiety. She reports first dealing with anxiety roughly 30 years ago after one of her daughter's were born. She reports being on Ativan for a couple of years after this and then weaned herself off. She states she went without any issue or need for medication for many years. She reports that her sister (who is 5 years younger than her) from Ovarian Cancer in December of 2020. She then had experienced the loss of her [id number] that same year in August. She states she developed Covid and on day 6 of having this acute illness, she began having increased anxiety and panic attacks. She states her anxiety got so bad that she went to [facility], where she was admitted and eventually discharged on Ativan and Zyprexa. Daughter and patient report that she was on these two medications, along with Duloxetine for 2-3 years. Daughter reports that mother was on 1 mg of Ativan and was taking it three times a day consistently for 3 years. They state that they had requested to wean off the Ativan as they knew possibilities of addiction, risk for falls, and other possible bad side effects. Patient states that despite requesting this, it was never done. Daughter states that they felt that their only option in August was to get her into a facility where she could be supervised to wean off of the Ativan. She went to [facility] on 08/19/24 and was discharged from there on on September 24. While she was in [place], daughter states that they switched her from Zyprexa to Seroquel due to problems with agitation and to help with her shuffling gait. Daughter states that the shuffling gait began within a few months after starting her medications 3 years ago. Daughter states that she also developed hand tremors about 6 months ago. They state that the shuffling feet has slightly improved since switching to Seroquel, but that is the only difference they noticed with this change. Patient reports that despite changes to medications, including adding Propranolol, she has not seen any improvement in her anxiety. She recently saw PCP since being out of [place] and was referred to [facility] due to her gait, tremors, and cognitive decline. Patient reports history of 2 TIAs in her past (first one in and the second one in December 2022). Daughter reports this appointment is not until December 2024. Past Psychiatric History: Previous diagnoses: Generalized anxiety Previous psychiatric treatment: Has seen counseling in the past. Was following with a cab driver through [facility] when she was getting Ativan and SGA. Currently doing EMDR for the past year. States she has not been back since being out of [place] but does plan to reschedule appointment. Previous medications: Ativan - Reports being on 1 mg three times a day for 3 years before being weaned off during recent stay at [place]. Zoloft - Reports she tried this for a short time 2 years ago but stopped it due to increased depression. Buspar - Reports being on in this in the past. Tried to start it again after leaving [place] but states it caused her to have increased anxiety so she stopped it. Current medications: Cymbalta 60 mg daily - States she has been on medication for 3 years. States dose was changed from 30 mg BID to 60 mg daily while she was in [place]. Reports increased nausea and GI upset since changing dose to 60 mg daily. Propranolol 20 mg BID Seroquel 25 mg daily - Reports taking 2 tabs in the AM, 1 at 3 PM, and 2 tabs at bedtime. Reports being switched from Zyprexa to Seroquel while in [place] due to agitation and to help with shuffling feet. Gabapentin 100 mg TID - Reports starting this medication when in [place]. Was on 400 mg three times a day while in [place] but has tapered down dose to 100 mg TID per PCP recommendations. Previous psychiatric hospitalizations: Reports being hospitalized 3 times over the past 3 years for her anxiety. Was recently at [facility]) from 08/19/24 to 09/24/24 to wean off Ativan. Previous suicide attempts or self harm: Denies History of violence: Denies History of trauma: Reports that she lost her first baby boy 2.5 hours he was born. Daughter reports things were not handled respectfully back then. Reports that she had a bad marriage with ex-. Reports sister 3 years ago due to ovarian cancer and [id number] passed way that same year in August. Legal history: Denies Family history of mental health conditions: Unknown PHQ-9 score: 5 KLAUDIA-7 score: 14 Substance Abuse History: Recreational drugs: Denies Use of alcohol: Denies Tobacco or vaping use: Denies Patient Care Team: Brii Briceno MD as PCP - General (Family Medicine) Mojgan Johnson NP as Nurse Practitioner (Behavioral Health) SUBJECTIVE: PAST MEDICAL HISTORY: Past Medical History: Diagnosis Date KLAUDIA (generalized anxiety disorder) ([facility]) History of psychiatric hospitalization 2020 [facility] x2 History of psychiatric hospitalization 2021 [facility] x3 Patient denies any history of heart problems, head trauma, seizures, infectious disorders (e.g., meningitis), lung disorders, tics/tourette s, eating disorders. MEDICATIONS: Current Outpatient Medications Medication Instructions aspirin (Aspirin Low Dose) 81 MG chewable tablet CHEW 1 TABLET (81 MG) IN THE MORNING atorvastatin (LIPITOR) 10 mg, Oral, Daily DULoxetine (CYMBALTA) 60 mg, Oral, Daily gabapentin (NEURONTIN) 100 mg, Oral, Every 8 hours scheduled meclizine (ANTIVERT) 12.5 mg, Oral, 3 times daily PRN pantoprazole (PROTONIX) 20 mg, Oral, Daily before breakfast, Do not crush, chew, or split. propranolol (INDERAL) 20 mg, 2 times daily QUEtiapine (SEROQUEL) 25 mg rOPINIRole (REQUIP) 1 mg, Oral, Nightly ALLERGIES: Allergies Allergen Reactions Milk-Related Compounds Alprazolam Buspar [Buspirone] Other Increased anxiety Hydroxyzine Doxycycline Rash and GI intolerance Egg-Derived Products Nausea And Vomiting Sulfa Antibiotics Rash and GI intolerance Tetracyclines & Related Nausea And Vomiting and Rash SURGICAL HISTORY: Past Surgical History: Procedure Laterality Date BREAST BIOPSY Left 1999 CT GUIDED TRANSVAGINAL TRANSRECTAL FLUID DRAIN 10/22/2023 CT GUIDED TRANSVAGINAL TRANSRECTAL FLUID DRAIN 10/22/2023 FAMILY HISTORY: Family History Problem Relation Name Age of Onset Heart disease Mother Stroke Mother Dementia Father SOCIAL HISTORY: Social History Tobacco Use Smoking status: Never Smokeless tobacco: Never Vaping Use Vaping status: Never Used Substance Use Topics Alcohol use: Not Currently Comment: Caffine: 0 Drug use: Never Depression: Not at risk (10/04/2024) PHQ-2 PHQ-2 Score: 2 Recent Concern: Depression - At risk (09/28/2024) PHQ-2 PHQ-2 Score: 4 Relationship/marital status: to , Deandre, for the past 25 years. Reports Deandre is a svp business development at their [employer] Children: Has 2 step children and 2 biological children. Reports having a good relationship with all of her children except her youngest son. 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 PSYCHIATRIC REVIEW OF SYMPTOMS AND MENTAL STATUS EXAM Psychiatric Review Of Systems: Sleep: Patient reports that sleeping is okay . Appetite changes: Admits to decreased appetite due to nausea. Weight changes: Has lost 13 lbs since November 2023. Energy: Reports being tired most days. Interest/pleasure/anhedonia: Admits to not being interested in things she used to enjoy. Daughter reports that she doesn't text message or check Facebook as much as she used to. 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 Daughter states that she used to be emotionless other than having anxiety prior to going to [facility]. Patient states she is starting to feel sadness and states that she just wants my life back. She feels she is more aware of this and what used to be. Daughter has noticed her mood affecting her ability to shower. Impulsivity: Patient denies any problems with extreme impulsivity without regard for consequences. Grandiosity: Patient denies any feelings of inflated self esteem or self image. Flight of ideas: Patient denies. Somatic symptoms: Admits to feeling like there are butterflies in her stomach due to anxiety. Reports that she finds herself sitting with a heating pad on her stomach most days to help with the butterflies. States that her deep breathing and meditation no longer helps with her anxiety. Reports heart palpitations when she is anxious. Daughter states they did monitoring (vital signs, EKG) when she was at [place], and everything was normal. She also reports hot flashes and sweating when she is anxious. Anxiety/panic: Admits to daily anxiety that begins shortly after waking up and lasts most of the day. She is not able to identify any triggers or things that cause her anxiety. Guilty/hopeless: Admits Self-injurious behavior/risky behavior: Denies Suicidal ideation: Denies Suicidal plan: Denies Any current drug use?: Denies Any current alcohol use?: Denies Appearance Appearance: Casual dress, normal grooming and hygiene Attitude Cooperative, engaged Behavior Cooperative, engaged, intense eye contact during visit. Observed shaking right leg int he middle of the visit and patient then reporting that she does this when she is anxious. Patient asked to walk and noticed to have slight shuffle in gait. Has BUE tremors with upper arm extension. Speech Speech is normal. It does take her several seconds to answer my questions. Patient reports her having problems with having to think about her answers longer before responding. Affect Anxious Mood Anxious Thought Process Organized and Clear Thought Content: Denies suicidal and homicidal ideation. Perception: Denies visual, auditory, and tactile hallucinations. Denies derealization and depersonalization. Orientation Appropriate to age Memory/Concentration Short term intact and assisted intact Insight/Judgement Fair OBJECTIVE: Visit Vitals BP 108/74 (BP Location: Right arm, Patient Position: Sitting) Pulse 66 Wt 224 lb BMI 37.28 kg/m Smoking Status Never BSA 2.16 m Lab results: Lab Results Component Value Date GLU 94 09/28/2024 CALCIUM 8.6 09/28/2024 NA 142 09/28/2024 K 4.0 09/28/2024 CO2 28 09/28/2024 CL 106 09/28/2024 BUN 7 09/28/2024 CREATININE 0.81 09/28/2024 Lab Results Component Value Date WBC 4.8 09/28/2024 HGB 14.5 09/28/2024 HCT 44.2 09/28/2024 MCV 98.2 09/28/2024 PLT 196 09/28/2024 Lab Results Component Value Date CHOL 212 (H) 02/24/2024 Lab Results Component Value Date HDL 37 (L) 02/24/2024 Lab Results Component Value Date LDLCALC 135 (H) 02/24/2024 Lab Results Component Value Date TRIG 247 (H) 02/24/2024 ASSESSMENT AND PLAN: Impression: Patient continues to report high anxiety despite medication changes that have occurred over the past month. Discussed treatment plan with Dr. Restrepo (collaborating psychiatrist). Discussed possible diagnosis (catatonia versus new onset depression). Will wean off Seroquel due to concerns for possible EPS associated with antipsychotic use. Spoke to patient's daughter, Spring, on the phone around 5:15 PM regarding treatment plan. All questions were answered and Spring verbalized understanding of treatment plan. Rule out PTSD. Assessment/Plan Diagnoses and all orders for this visit: Generalized anxiety disorder (CMS/HCC) - Ambulatory referral to Psychiatry - DULoxetine (Cymbalta) [address] capsule; Take 1 capsule (30 mg) by mouth in the morning and 1 capsule (30 mg) before bedtime. - QUEtiapine (SEROquel) 25 MG tablet; Take 2 tablets (50 mg) by mouth in the morning and 2 tablets (50 mg) before bedtime. Mood disorder (CMS/HCC) - Ambulatory referral to Psychiatry History of TIA (transient ischemic attack) Treatment Plan/Recommendations: - Change Duloxetine to 30 mg BID due having nausea and GI complaints when she was taking 60 mg all at once. - Stop 3 PM (25 mg) Seroquel dose. - Encouraged to reschedule missed counseling appointment for additional mental health support and treatment. Reviewed the risks, benefits, and potential side effects from the medications. The patient and daughters agree that the benefits outweigh the risks and agrees to treat their symptoms. Discussed treatment plan, the patient and daughters were allowed time to ask questions, and all agreed with the plan moving forward. Instructed patient to call office with any complications or potential side effects. Patient instructed to present to the local ER or call Suicide Hotline (824) for any psychosis, suicidal or homicidal ideation, or with any risk of harm to self or others. Recommend to follow-up in 1 week to re-evaluate symptoms. Discussed follow-up plan with patient, and encouraged patient to call office sooner if symptoms worsen or if any questions/concerns arise. Patient was seen Face to Face, Total time spent with patient was 90 minutes, which includes reviewing chart documents, previous notes/records, counseling and discussion with patient and/or coordination of care as described above. documented in this encounter [facility] 10-08-2024 Telephone encounter Note Rx by valerie randalloprazole- 20 mg 1 daily [facility] 10-08-2024 Miscellaneous Notes Rx by gold giron, pantoprazole- 20 mg 1 daily documented in this encounter [facility] 10-04-2024 History of Presen t illness Narrative Images from the original note were not included. Luisana Martinez is a 64 y.o. female presents with chief complaint of discussing meds HPI: Stopped buspar. Serqueol dosage was reported wrong last time. Patient actually taking 5 pills a day. Tid. Zofran doesn't work for nausea Meclizine is out and can't be refilled until the . History of Present Illness The patient presents for evaluation of anxiety. She is accompanied by her daughter. Since her last appointment, her daughter has been managing her medications. She was previously taking quetiapine 50 mg three times a day, but the dosage was increased to two tablets in the morning, one in the afternoon, and two in the evening. After consulting with Dr. Anna, they decided to revert to the original dose of Seroquel. She has been taking two tablets at night, two in the morning, and one in the afternoon since Friday evening. Her daughter reports a noticeable improvement in her anxiety, although she still experiences it. She had stopped taking buspirone, but after one dose post-appointment, she felt worse and decided to discontinue it. She is currently on a tapering schedule for gabapentin and has started taking propranolol twice a day. Her anxiety has been severe, which her daughter attributes to the gabapentin taper. She continues to struggle with nausea and dizziness, which have worsened since increasing the Seroquel dosage. She has a history of vertigo, which has also worsened. She no longer has a refill for meclizine, which she was taking three times a day as prescribed by Gold. She took Bonine 100 mg this morning, which seems to help with the dizziness. She tried Zofran last week for nausea, but it was ineffective. A homeopathic remedy was also tried, but it made her feel worse. Her daughter notes that her anxiety is exacerbated by her nausea, making it difficult for her to walk or stand up. She is currently taking Seroquel at 8 AM, 3 PM, and 10 PM. She is on aspirin and atorvastatin. Her blood work came back normal. SUBJECTIVE: MEDICATIONS: Current Outpatient Medications Medication Instructions aspirin (Aspirin Low Dose) 81 MG chewable tablet CHEW 1 TABLET (81 MG) IN THE MORNING atorvastatin (LIPITOR) 10 mg, Oral, Daily DULoxetine (CYMBALTA) 60 mg, Oral, Daily gabapentin (Neurontin) 100 MG capsule Take 3 capsules (300 mg) by mouth 3 (three) times a day for 5 days, THEN 2 capsules (200 mg) 3 (three) times a day for 5 days, THEN 1 capsule (100 mg) 3 (three) times a day for 5 days. meclizine (ANTIVERT) 12.5 mg, Oral, 3 times daily PRN ondansetron (ZOFRAN) 4 mg, Oral, Every 8 hours PRN propranolol (INDERAL) 20 mg, 2 times daily QUEtiapine (SEROQUEL) 25 mg rOPINIRole (REQUIP) 1 mg, Oral, Nightly I have reviewed and reconciled the history and medication list with the patient today. REVIEW OF SYMPTOMS: Review of Systems Gastrointestinal: Positive for nausea. Neurological: Positive for dizziness. Psychiatric/Behavioral: The patient is nervous/anxious. OBJECTIVE: Visit Vitals BP 110/72 Pulse 74 Ht 5' 5 Wt 229 lb 3.2 oz SpO2 94% BMI 38.14 kg/m Smoking Status Never BSA 2.18 m Physical Exam Vitals and nursing note reviewed. Constitutional: Appearance: Normal appearance. HENT: Head: Normocephalic and atraumatic. Right Ear: Tympanic membrane normal. Left Ear: Tympanic membrane normal. Nose: Nose normal. Eyes: Extraocular Movements: Extraocular movements intact. Conjunctiva/sclera: Conjunctivae normal. Pupils: Pupils are equal, round, and reactive to light. Cardiovascular: Rate and Rhythm: Normal rate and regular rhythm. Heart sounds: Normal heart sounds. Pulmonary: Effort: Pulmonary effort is normal. Breath sounds: Normal breath sounds. Musculoskeletal: Cervical back: Normal range of motion and neck supple. Skin: General: Skin is warm and dry. Capillary Refill: Capillary refill takes less than 2 seconds. Neurological: Mental Status: She is alert and oriented to person, place, and time. ASSESSMENT AND PLAN: Assessment/Plan Diagnoses and all orders for this visit: Generalized anxiety disorder (CMS/HCC) Continue seroquel at 2 tabs AM, 1 tab at 3 pm, and 2 tabs PM until appointment with psych on Friday. Encouraged that it will take time to get to a regimen that works for her. She is understanding of this. Daughter is helping with med management at home currently and is with her during the day to help with her needs. Bipolar 1 disorder (CMS/HCC) documented in this encounter [facility] 09-29-2024 Telephone encounter Note This sent was just sent yesterday per Nelly [facility] Work Phone: 09-29-2024 Miscellaneous Notes This sent was just sent yesterday per Nelly documented in this encounter [facility] 09-28-2024 History of Presen t illness Narrative Images from the original note were not included. Luisana Martinez is a 64 y.o. female presents with chief complaint of Establish Care HPI: Patient is here for hospital follow up on nausea, and excessively sweating. She was diagnosed with dehydration and was given fluids. Patient's daughter wants to make sure all her medication is right and would like a referral to medication management. She just got out of the [facility] September 24 (August 19-September 24) to ween her off of ativan. They want some insight on medication of seroquel, buspirone, rOPINIRole and propranolol. Over the past 2 weeks, how often have you been bothered by any of the following problems? Little interest or pleasure in doing things: More than half the days Feeling down, depressed, or hopeless: More than half the days Trouble falling or staying asleep, or sleeping too much: Not at all Feeling tired or having little energy: More than half the days Poor appetite or overeating: Several days Feeling bad about yourself - or that you are a failure or have let yourself or your family down: Several days Trouble concentrating on things, such as reading the newspaper or watching television: Several days Moving or speaking so slowly that other people could have noticed? Or the opposite - being so fidgety or restless that you have been moving around a lot more than usual.: Several days Thoughts that you would be better off or hurting yourself in some way: Not at all Patient Health Questionnaire-9 Score: 10 Over the last 2 weeks, how often have you been bothered by any of the following problems? Feeling nervous, anxious, or on edge: Nearly every day Not being able to stop or control worrying: Several days Worrying too much about different things: Several days Trouble relaxing: Several days Being so restless that it is hard to sit still: Nearly every day Becoming easily annoyed or irritable: Not at all Feeling afraid as if something awful might happen: Several days KLAUDIA-7 Total Score: 10 Flowsheet Row Office Visit from 09/28/2024 in [facility] with Nelly Dillard NP Hospital Information ED, Hospital or [facility] Discharge? ED Patient has been contacted within 1 week of being seen in the ED Yes Diagnosis Dehydrated Discharge Date 08/29/24 Discharged To: [facility] (specify SNF in comments) Discharge [facility] Engagement Admission Date 08/29/24 Medications Discharge medications reviewed and reconciled from hospital? Yes Is the patient having any side effects they believe may be caused by any medication additions or changes? No Does the patient have all medications ordered at discharge? Yes Appointments Does the patient have a primary care provider? Yes Self Management Patient Teaching Does the patient have access to their discharge instructions? Yes What is the patient's perception of their health status since discharge? Improving Wrap Up History of Present Illness The patient presents for evaluation of multiple medical concerns. She is accompanied by an adult female. She has been taking Ativan 1 mg three times a day for the past 3 years. On 08/19/2024, she sought inpatient care to discontinue Ativan use. The rehab facility expressed concern about her lack of emotional affect and potential cognitive deficits after weaning off Ativan. They recommended further testing at the [facility], but the appointment is not until the end of 12/2024. Her anxiety has worsened since stopping Ativan. She describes her anxiety as feeling like electricity in her body. She is currently on BuSpar 7.5 mg three times a day, down from 15 mg three times a day. She is also taking gabapentin 400 mg three times a day, up from 100 mg three times a day. She has a therapist and is considering returning to [facility] for psychiatric care. She is currently on Cymbalta 60 mg once a day and propranolol. Since starting this new medication regimen, she has experienced increased nausea and loss of appetite. She also has vertigo and hand tremors, which have improved with propranolol. She is taking meclizine for nausea, but it has not been effective. She has been experiencing nausea and an upset stomach, which have worsened recently. She has been unable to drive due to these symptoms. She has attended physical therapy twice for vertigo, which has improved her dizziness. She is also taking ropinirole for restless leg syndrome, which has helped her sit for longer periods. She is on Seroquel 25 mg, two tablets in the morning, one in the afternoon, and one at night. She has noticed an improvement in her shuffling feet and gait since starting Seroquel. She has also noticed an improvement in her symptoms after taking BuSpar, gabapentin, and meclizine at 3:00. She is also taking aspirin. She has been struggling with daily tasks and has noticed a delay in her response time. SUBJECTIVE: MEDICATIONS: ALLERGIES Current Outpatient Medications Medication Instructions albuterol HFA 90 mcg/act inhaler INHALE 2 PUFFS EVERY 4 HOURS IF NEEDED FOR WHEEZING. aspirin (Aspirin Low Dose) 81 MG chewable tablet CHEW 1 TABLET (81 MG) IN THE MORNING atorvastatin (LIPITOR) 10 mg, Oral, Daily busPIRone (BUSPAR) 15 mg, Oral, Every 8 hours DULoxetine (CYMBALTA) 30 mg, 2 times daily gabapentin (NEURONTIN) 100 mg, 3 times daily meclizine (Antivert) 12.5 MG tablet TAKE 1 TABLET BY MOUTH 3 TIMES A DAY SCHEDULE NEEDED AT 9:00 PM, 9:00 AM, AND 3:00 PM FOR 14 DAYS propranolol (INDERAL) 20 mg, 2 times daily QUEtiapine (SEROquel) 25 MG tablet TAKE 2 TABLETS IN THE MORNING, 1 TABLET AT 3:00PM AND TAKE 2 TABLET AT BEDTIME FOR 30 DAYS rOPINIRole (Requip) 1 MG tablet TAKE 2 TABLET BY MOUTH TWICE DAILY (9AM AND 9PM) Allergies Allergen Reactions Milk-Related Compounds Alprazolam Hydroxyzine Tetracycline Egg-Derived Products Nausea And Vomiting Sulfa Antibiotics Rash and GI intolerance Tetracyclines & Related Nausea And Vomiting and Rash PAST MEDICAL HISTORY: SOCIAL HISTORY SURGICAL HISTORY: Past Medical History: Diagnosis Date KLAUDIA (generalized anxiety disorder) ([facility]) History of psychiatric hospitalization 2020 [facility] x2 History of psychiatric hospitalization 2021 [facility] x3 Social History Tobacco Use Smoking status: Never Smokeless tobacco: Never Substance Use Topics Alcohol use: Not Currently Comment: Caffine: 0 Drug use: Never Past Surgical History: Procedure Laterality Date BREAST BIOPSY Left 1999 CT GUIDED TRANSVAGINAL TRANSRECTAL FLUID DRAIN 10/22/2023 CT GUIDED TRANSVAGINAL TRANSRECTAL FLUID DRAIN 10/22/2023 REVIEW OF SYMPTOMS: Review of Systems Constitutional: Negative. HENT: Negative. Respiratory: Negative for cough, shortness of breath and wheezing. Cardiovascular: Negative for chest pain. Gastrointestinal: Positive for nausea. Negative for abdominal pain. Genitourinary: Negative. Musculoskeletal: Negative. Skin: Negative. Neurological: Negative. OBJECTIVE: Vitals: 09/28/24 1123 BP: 118/78 Pulse: 68 Temp: 96.9 F SpO2: 95% Physical Exam Vitals and nursing note reviewed. Constitutional: Appearance: Normal appearance. HENT: Head: Normocephalic and atraumatic. Right Ear: Tympanic membrane normal. Left Ear: Tympanic membrane normal. Nose: Nose normal. Eyes: Extraocular Movements: Extraocular movements intact. Conjunctiva/sclera: Conjunctivae normal. Pupils: Pupils are equal, round, and reactive to light. Cardiovascular: Rate and Rhythm: Normal rate and regular rhythm. Heart sounds: Normal heart sounds. Pulmonary: Effort: Pulmonary effort is normal. Breath sounds: Normal breath sounds. Musculoskeletal: Cervical back: Normal range of motion and neck supple. Skin: General: Skin is warm and dry. Neurological: Mental Status: She is alert and oriented to person, place, and time. Motor: Tremor present. ASSESSMENT AND PLAN: Assessment/Plan Diagnoses and all orders for this visit: Vertigo - meclizine (Antivert) 12.5 MG tablet; Take 1 tablet (12.5 mg) by mouth 3 (three) times a day as needed for dizziness Generalized anxiety disorder (CMS/HCC) - DULoxetine (Cymbalta) [address] capsule; Take 2 capsules (60 mg) by mouth Daily - busPIRone (Buspar) 7.5 MG tablet; Take 1 tablet (7.5 mg) by mouth in the morning and 1 tablet (7.5 mg) before bedtime. - gabapentin (Neurontin) 100 MG capsule; Take 3 capsules (300 mg) by mouth 3 (three) times a day for 5 days, THEN 2 capsules (200 mg) 3 (three) times a day for 5 days, THEN 1 capsule (100 mg) 3 (three) times a day for 5 days. Is on too much gabapentin at this point; work on weaning this down over the next few weeks. Will also cut the ropinerole down to 1 mg daily at . Patient and daughter are agreeable to this. Encouraged patient and daughter that psych would be the most appropriate route for medication management at this time. They are agreeable. Referral placed to [facility] in [place]. Benzodiazepine withdrawal without complication (CMS/HCC) - Comprehensive metabolic panel; Future - CBC and differential; Future - CBC and differential; Future Nausea - ondansetron (Zofran) 4 MG tablet; Take 1 tablet (4 mg) by mouth every 8 (eight) hours if needed for nausea or vomiting for up to 7 days RLS (restless legs syndrome) - rOPINIRole (Requip) 1 MG tablet; Take 1 tablet (1 mg) by mouth at bedtime Cognitive decline Patient does have an appointment set up for neurology in December. She is encouraged to keep this appointment and is currently on the cancellation list. No follow-ups on file. documented in this encounter [facility] Evaluation note No assessment inform ation available [facility] Evaluation note Diagnosis Encounter for screening Screening for unspecified condition documented in this encounter [facility] Phone: evaluation note* Diagnosis Visit for screening mammogram Other screening mammogram documented in this encounter [facility] DE [facility]ESUS [facility] Phone: evaluation note* Diagnosis Morbid (severe) obesity due to excess calories (CMS/HCC) [facility] Diagnosis Generalized anxiety disorder (CMS/HCC)- Primary Generalized anxiety disorder Bipolar 1 disorder (CMS/HCC) [facility] Diagnosis Vertigo- Primary Dizziness and giddiness Generalized anxiety disorder (CMS/HCC) Generalized anxiety disorder Benzodiazepine withdrawal without complication (CMS/HCC) Nausea Nausea alone RLS (restless legs syndrome) Restless legs syndrome (RLS) Cognitive decline Depressive disorder (CMS/HCC) Depressive disorder, not elsewhere classified [facility] Diagnosis Vertigo Dizziness and giddiness [facility]* Diagnosis Vertigo Dizziness and giddiness [facility]* Diagnosis Generalized anxiety disorder (CMS/HCC) Generalized anxiety disorder [facility] Diagnosis Generalized anxiety disorder (CMS/HCC) Generalized anxiety disorder [facility] Diagnosis Generalized anxiety disorder (CMS/HCC) Generalized anxiety disorder Mood disorder (CMS/HCC) Unspecified episodic mood disorder History of TIA (transient ischemic attack) [facility] Diagnosis Generalized anxiety disorder (CMS/HCC) Generalized anxiety disorder Mood disorder (CMS/HCC) Unspecified episodic mood disorder [facility] Diagnosis Generalized anxiety disorder (CMS/HCC) Generalized anxiety disorder [facility] Diagnosis Generalized anxiety disorder (CMS/HCC) Generalized anxiety disorder Mood disorder (CMS/HCC) Unspecified episodic mood disorder [facility]* Diagnosis RLS (restless legs syndrome) Restless legs syndrome (RLS) [facility]* Diagnosis Vertigo Dizziness and giddiness [facility]* Diagnosis Vertigo Dizziness and giddiness [facility]* Diagnosis Generalized anxiety disorder (CMS/HCC) Generalized anxiety disorder Mood disorder (CMS/HCC) Unspecified episodic mood disorder Restless leg syndrome Restless legs syndrome (RLS) [facility]* Diagnosis Generalized anxiety disorder (CMS/HCC) Generalized anxiety disorder Mood disorder (CMS/HCC) Unspecified episodic mood disorder Vertigo Dizziness and giddiness [facility] Diagnosis Generalized anxiety disorder (CMS/HCC) Generalized anxiety disorder Mood disorder (CMS/HCC) Unspecified episodic mood disorder Vertigo Dizziness and giddiness [facility]* Diagnosis Hormone imbalance Postmenopausal bleeding Hormone disorder Unspecified endocrine disorder Generalized anxiety disorder (CMS/HCC) Generalized anxiety disorder Mood disorder (CMS/HCC) Unspecified episodic mood disorder Restless leg syndrome Restless legs syndrome (RLS) [facility]* Diagnosis Vertigo Dizziness and giddiness documented in this encounter [facility] Reason for Referral Status Reason Specialty Diagnoses / Procedures Referre d By Contact Referred To Contact Closed Radiology Diagnoses Visit for screening mammogram Procedures DELMI JOHAN DIGITAL SCREEN SELF REFERRAL W OR WO CAD BILATERAL Jim Astudillo MD [address] [place] [id number] Status Reason Specialty Diagnoses / Procedures Referred By Contact Referred To Contact Pending Review Radiology Diagnoses Encounter for screening Procedures DELMI DIGITAL SCREEN SELF REFERRAL W OR WO CAD BILATERAL Sobia Browne, 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 [address] [address] Specialty Diagnoses / Procedures Referred By Contabena t Referred To Contact Radiology Diagnoses Visit for screening mammogram Procedures DELMI JHOAN DIGITAL SCREEN SELF REFERRAL W OR WO CAD BILATERAL Jim Astudillo MD [address] [place] [id number] Referral ID Status Reason Start Date Expiration Date Visits Re quested Visits Authorized [id number] Closed 10/21/2022 10/21/2023 1 1 Assessments Diagnosis Visit for screening mammogram Other screening mammogram Advance Directives Documents on File Type Date Recorded Patient Motor Racer Expl anation ACP-Advance Directive ACP-Power of Application Helper Latest Code Status on File Code Status Date Activated Date Inactivated Comments Full Code 08/21/2015 6:55 PM 08/23/2015 4:44 PM Documents on File Type Date Recorded Patient Motor Racer Expl anation Advance Directives and Living Will Power of Application Helper Advance Directive Response Recorded Date/ Time Advance Directives No June 02 2:35pm Summary Purpose Family History Relationship Condition Age at Onset Recorded Date/T carissa sister Malignant neoplasm of ovary Unknown mother History of open heart surgery Unknown father Heart disease Unknown family member Unknown mother Heart disease Unknown Chief Complaint and Reason for Visit Chief Complaint BH slow to respond Additional Source Comments Reason for Visit (unrecogniz ed section and content) Status Reason Specialty Diagnoses / Procedures Referre d By Contact Referred To Contact Closed Radiology Diagnoses Visit for screening mammogram Procedures DELMI JOHAN DIGITAL SCREEN SELF REFERRAL W OR WO CAD BILATERAL Jim Astudillo MD [address] [place] [address] Status Reason Specialty Diagnoses / Procedures Referred By Contact Referred To Contact Pending Review Radiology Diagnoses Encounter for screening Procedures DELMI DIGITAL SCREEN SELF REFERRAL W OR WO CAD BILATERAL Sobia Browne, 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 [address] [facility] [address] [place] [address] Specialty Diagnoses / Procedures Referred By Sam t Referred To Contact Radiology Diagnoses Visit for screening mammogram Procedures DELMI JOHAN DIGITAL SCREEN SELF REFERRAL W OR WO CAD BILATERAL Jim Astudillo MD [address] [place] [address] Referral ID Status Reason Start Date Expiration Date Visits Re quested Visits Authorized [id number] Closed 10/21/2022 10/21/2023 1 1 Reason Comments Med Refill Reason Comments Establish Care Reason Onset Date Comments Med Refill 10/13/2024 Reason Comments Psychiatric Evaluation Specialty Diagnoses / Procedures Referred By Sam amor Referred To Contact Psychiatry / Behavioral Health Diagnoses Generalized anxiety disorder (CMS/HCC) Benzodiazepine withdrawal without complication (CMS/HCC) Depressive disorder (CMS/HCC) Procedures [place] OFFICE/OUTPATIENT [facility] 60 MINUTES Nelly Dillard NP [address] [place] [address] Phone: tel: fax: Mojgan Johnson NP [address] [facility] [address] [place] [address] Phone: tel: fax: Referral ID Status Reason Start Date Expiration Date V isits Requested Visits Authorized [id number] Closed Specialty Services Required 09/28/2024 03/27/2025 1 1 Reason Comments Med Change Request Reason Comments Med Management Follow-up Reason Comments hormone imbalance Goals (unrecognized section and content) Goals may be documented in a n alternate sectionGoals may be documented in an alternate section INFORMATION SOURCE (unrecogn ized section and content) DATE CREATED AUTHOR 09/20/2021 [facility] DATE CREATED AUTHOR AUTHOR'S ORGANIZ ATION 10/24/2022 [facility] DATE CREATED AUTHOR AUTHOR'S ORGANIZ ATION 11/23/2023 [facility] DATE CREATED AUTHOR AUTHOR'S ORGANIZ ATION 12/14/2024 [facility] DATE CREATED AUTHOR AUTHOR'S ORGANIZ ATION 12/14/2024 [facility] [employer] Teams (unrecognized sec tion and content) Director Of Technology Relationship Specialty Start Date End Date Jim Astudillo MD [address] [place] [id number] PCP - General Family Medicine 07/09/13 Director Of Technology Relationship Specialty Start Date End Date Brii Briceno MD [address] [place] [address] PCP - General Family Medicine 03/25/23 Team Status: Active Member Role Status Dates Nelly Dillard APRN CENTRAL OFFICE REPAIRER SUPERVISOR-C Primary Care Provi bienvenido Active Team Status: Active Member Role Status Dates Jim Astudillo MD Primary Care Provider Active Start: August 05, 2024 Noe Jolly MD Attending Provider Active Start: August 05, 2024 Team Status: Inactive Member Role Status Dates Estela Heart MD Emergency Provider Active St art: August 29, 2024 End: August 29, 2024 MEREDITH Rain RN CENTRAL OFFICE REPAIRER SUPERVISOR-C Primary Care Provider Active Start: August End: August 29, 2024 Director Of Technology Relationship Specialty Start Date End Date Brii Briceno MD [address] [place] [address] PCP - General Family Medicine 03/25/23 Director Of Technology Relationship Specialty Start Date End Date Brii Briceno MD [address] [place] [address] PCP - General Family Medicine 03/25/23 Director Of Technology Relationship Specialty Start Date End Date Brii Briceno MD [address] [place] [address] PCP - General Family Medicine 03/25/23 Director Of Technology Relationship Specialty Start Date End Date Brii Briceno MD [address] [place] [address] PCP - General Family Medicine 03/25/23 Director Of Technology Relationship Specialty Start Date End Date Brii Briceno MD [address] [place] [address] PCP - General Family Medicine 03/25/23 Director Of Technology Relationship Specialty Start Date End Date Brii Briceno MD [address] [place] [address] PCP - General Family Medicine 03/25/23 Mojgan Johnson NP [address] [place] [address] [place] [address] Nurse Practitioner Behavioral Health 10/12/24 Director Of Technology Relationship Specialty Start Date End Date Brii Briceno MD [address] [place] [address] PCP - General Family Medicine 03/25/23 Mojgan Johnson, ОЛЕГ [address] [facility] [address] [place] [address] Nurse Practitioner Behavioral Health 10/12/24 Director Of Technology Relationship Specialty Start Date End Date Brii Briceno MD [address] [place] [facility] [place] [address] PCP - General Family Medicine 03/25/23 Director Of Technology Relationship Specialty Start Date End Date Brii Briceno MD [address] [facility] [place] [address] PCP - General Family Medicine 03/25/23 Mojgan Johnson NP [address] [facility] [address] [place] [address] Nurse Practitioner Behavioral Health 10/12/24 Director Of Technology Relationship Specialty Start Date End Date Brii Briceno MD [address] [place] [facility] [place] [address] PCP - General Family Medicine 03/25/23 Mojgan Johnson, ОЛЕГ [address] [facility] [address] [place] [address] Nurse Practitioner Behavioral Health 10/12/24 Director Of Technology Relationship Specialty Start Date End Date Brii Briceno MD [address] [place] [address] PCP - General Family Medicine 03/25/23 Mojgan Johnson, ОЛЕГ [address] [facility] [address] [place] [phone] Nurse Practitioner Behavioral Health 10/12/24 Director Of Technology Relationship Specialty Start Date End Date Brii Briceno MD [address] [place] [address] PCP - General Family Medicine 03/25/23 Mojgan Johnson NP [address] [facility] [address] [place] [address] Nurse Practitioner Behavioral Health 10/12/24 Director Of Technology Relationship Specialty Start Date End Date Brii Briceno MD [address] [place] [address] PCP - General Family Medicine 03/25/23 Mojgan Johnson NP [address] [phone] Nurse Practitioner Behavioral Health 10/12/24 Director Of Technology Relationship Specialty Start Date End Date Brii Briceno MD [address] [facility] [place] [address] PCP - General Family Medicine 03/25/23 Mojgan Johnson, ОЛЕГ [address] [facility] [address] [place] [address] Nurse Practitioner Behavioral Health 10/12/24 Director Of Technology Relationship Specialty Start Date End Date Brii Briceno MD [address] [facility] [place] [address] PCP - General Family Medicine 03/25/23 Mojgan Johnson NP [address] [facility] [address] [place] [address] Nurse Practitioner Behavioral Health 10/12/24 Director Of Technology Relationship Specialty Start Date End Date Brii Briceno MD [address] [facility] [place] [address] PCP - General Family Medicine 03/25/23 Mojgan Johnson NP [address] [address] Nurse Practitioner Behavioral Health 10/12/24 FOR RECORDS PERTAINING TO PATIENTS WHO ARE OR HAVE BEEN ENROLLED IN A CHEMICAL DEPENDENCY/SUBSTANCEABUSE PROGRAM, SOME INFORMATION MAY BE OMITTED. This clinical summary was aggregated from multiple sources. Caution should be exercised in using it in the provision of clinical care. This summary normalizes information from multiple sources, and as a consequence, information in this document may materially change the coding, format and clinical context of patient data. In addition, data may be omitted in some cases. CLINICAL DECISIONS SHOULD BE BASED ON THE PRIMARY CLINICAL RECORDS. [facility]. provides no warranty or guarantee of the accuracy or completeness of information in this document.
== END 2024-12-27 14:20 | disposition home or self-care (01) ==
LOC: PST 14:20
PROVIDERS: PCP Nurse Practitioner Family; Visit Provider Obstetrics & Gynecology
DX: Z01.810 Encounter for preprocedural cardiovascular examination (principal); N95.0 Postmenopausal bleeding
CPT/HCPCS: 93005

== ENCOUNTER 2025-01-07 08:49 | Day surgery (SDC) | payer BC, SELFPAY ==
[2024-12-27 15:02] VITALS: BP 127/85; PULSE 71; TEMP 36.2; O2SAT 97; BMI 37.5
[2025-01-07] VITALS (9 sets, daily range): BP systolic 104–140; BP diastolic 68–84; PULSE 67–81; TEMP 36.2–36.7; O2SAT 89–98; BMI 37.4; BMI 37.6
[2025-01-07 09:01] LABS: Basophils Percent Auto 0.7 % (0.2-2.0); Eosinophils Absolute Auto 0.1 10^3/uL (0.0-0.7); Eosinophils Percent Auto 1.2 % (0.9-7.0); Hematocrit 42.4 % (36.0-48.0); Immature Granulocytes Abs Auto 0.01 10^3/uL (0.00-0.03); Immature Granulocytes Pct Auto 0.2 % (0.0-0.5); Lymphocytes Absolute Auto 1.8 10^3/uL (1.2-3.8); Lymphocytes Percent Auto 30.7 % (20.5-60.0); Mean Corpuscular Hemoglobin 32.3 pg (26.7-34.0); Mean Corpuscular Volume 97.9 fL (81.0-99.0); Monocytes Absolute Auto 0.3 10^3/uL (0.3-0.8); Monocytes Percent Auto 5.7 % (1.7-12.0); Neutrophils Absolute Auto 3.6 10^3/uL (1.4-6.5); Neutrophils Percent Auto 61.5 % (43.0-75.0); Platelet Count 224 10^3/uL (150-450); Red Blood Count 4.33 10^6/uL (4.20-5.40); Red Cell Distribution Width 13.2 % (11.0-15.0); White Blood Count 5.8 10^3/uL (4.0-11.0)
--- OUTSIDE RECORDS SUMMARY | 2025-01-07 09:05 | XMS_ITS | CCD ---
Author Organization [facility] Care Team Providers Care City Planner Name Role Phone Jim Astudillo Primary Care Provider [phone] ОЛЕГ Mcclain Attending Provider [phone] LUIS OWENS Consulting Unavailable [facility], DR JONES Primary Care Unavailable WILD [place]LANE [...] Attending Provider MD Estela Heart Emergency Provider [phone] JUAN DANIEL Dillard Primary Care Provi bienvenido Mojgan Johnson NP Unavailable Noe Jolly Admitting Unavailab Noe Ku Attending Unavailab Jim Parish Primary Care UnavailEstela Diallo Admitting Unavailable Estela Heart Attending Unavailable Nelly Dillard Primary Care Unavail able ALEXI CUMMINS Attending Unavailable MOJGAN JOHNSON Attending Unavailable NELLY DILLARD Attending Unavailab MOJGAN Monique Attending Unavailable NELLY DILLARD Attending NELLY Ozuna Attending Unavailab MOJGAN Monique Attending Unavailable NELLY DILLARD Referring MOJGAN Francisco Attending MOJGAN Briseno Attending MOJGAN Briseno Attending Unavailable Allergies Allergy Classification Reported Allergen(s) Allergy Type Date of Onset Reaction(s) Facility (2 sources) Sulfonamides (Antibiotic) Propensity to adverse reactions to drug 07-09-20 13 Rash [facility] Phone: (3 sources) Fd&C Red #40-Fd&C Yellow #10-Propoxyphene Propensity to adverse reactions to drug 07-09-20 13 [facility] Phone: (3 sources) Eggs Or Egg-Derived Products Propensity to adverse reactions to drug 08-21-20 15 Nausea And Vomiting [facility] Phone: (20 sources) Milk-Related Compounds Propensity to adverse reactions to drug 11-13-20 18 [facility] Phone: (2 sources) Tetracyclines & Related Propensity to adverse reactions to drug 07-09-20 13 Nausea And Vomiting [facility] Phone: (3 sources) Doxycycline; Translations: [DOXYCYCLINE] Drug Allergy 09-17-20 21 Hives [facility] Repository (1 source) Sulfonamides (Antibiotic) Drug allergy (disorder) 09-17-20 21 [facility] Repository (3 sources) Tetracycline; Translations: [TETRACYCLINE] Drug Allergy 09-17-20 21 Hives, vomiting [facility] (20 sources) Sulfonamides (Antibiotic) Propensity to adverse reactions to drug 07-09-20 13 Rash, GI intolerance [facility] [employer] [employer] Phone: (1 source) Tetracycline (class of antibiotic) Propensity to adverse reactions to drug 07-09-20 13 Nausea And Vomiting [facility] Phone: (20 sources) ALPRAZolam; Translations: [ALPRAZOLAM] Drug Allergy 11-12-20 21 Anxiety [facility] Repository (20 sources) hydrOXYzine; Translations: [HYDROXYZINE] Drug Allergy 11-12-20 21 Anxiety [facility] Repository (10 sources) Tetracycline Drug Allergy 11-12-20 [facility] (20 sources) Tetracycline (class of antibiotic) Drug Intolerance 07-09-20 13 Nausea And Vomiting, Rash [facility] (20 sources) Egg-Derived Products Drug Intolerance 08-21-20 15 Nausea And Vomiting [facility] (2 sources) Sulfonamides (Antibiotic); Translations: [Sulfa (Sulfonamide Antibiotics)] Allergy to substance 08-29-20 Hives [facility] (20 sources) busPIRone Drug Allergy 10-11-20 Other [facility] (20 sources) Doxycycline Drug Allergy 10-11-20 Rash, GI intolerance [facility] (1 source) Doxycycline Drug Allergy 08-29-20 [facility] Repository (1 source) Tetracycline Drug Allergy 08-29-20 [facility] Medications Current Medications Medication Drug Class(es) [...] sources) Serotonin and Norepinephrine Reuptake Inhibitor Start: 12-29-2024 End: 03-29-2025 take 1 capsule by mouth in the morning DULoxetine (Cymbalta) [address] capsule Indications: Generalized anxiety disorder (CMS/HCC) Take 1 capsule (30 mg) by mouth in the morning and 1 capsule (30 mg) before bedtime. 180 capsule 12/29/2024 03/29/2025 Active Start: 10-17-2024 take 1 capsule by mo [facility] in the morning DULoxetine (Cymbalta) 30 MG [...] (200 mg) before bedtime. 180 capsule 12/04/2024 Active Start: 10-15-2024 End: 10-15-2025 take 1 [...] Discontinued 200 MG PO Daily at bedtime November 19, 2021 1:00am January 02, 2022 [...] 0 Active mirtazapine 7.5 mg oral tablet (7 sources) Start: 12-13-2024 End: 01-12-2025 take 1 tablet by mouth at bedtime mirtazapine (Remeron) 7.5 MG tablet Indications: Generalized anxiety disorder (CMS/HCC) Take 1 tablet (7.5 mg) by mouth at bedtime 30 tablet 1 12/13/2024 01/12/2025 Active [place]-3 Acid Ethyl Esters (CORRECTION) (1 source) [place]-3 Fatty Ac ids (EQL OMEGA 3 FISH [...] 90 tablet 1 10/08/2024 Active propranolol hydrochloride 10 mg oral tablet (20 sources) beta-Adrenergic Citlali Start: 01-03-2025 End: 02-02-2025 take 1 tablet by mouth in the morning propranolol (Inderal) 10 MG tablet Indications: Generalized anxiety disorder (CMS/HCC) Take 1 tablet (10 mg) by mouth in the morning and 1 tablet (10 mg) before bedtime. 60 tablet 01/03/2025 02/02/2025 Active Start: 09-24-2024 End: 03-04-2025 take 1 tablet by mouth in the morning propranolol (Inderal) 20 MG tablet Indications: Generalized anxiety disorder (CMS/HCC) Take 1 tablet (20 mg) by mouth in the morning and 1 tablet (20 mg) before bedtime. 180 tablet 12/04/2024 01/03/2025 Discontinued (Dose adjustment) Start: 08-29-2024 take 10 mg by mouth [...] Discontinued 50 MG PO Daily at bedtime 15 November 19, 2021 1:00am December 27, 2021 6:48pm Completed/Discontinued Medications Medication Drug Class(es) Dates Sig (Normalized) Sig (Original) [id number] 200 actuat albuterol 0.09 mg/actuat metered dose [...] Buspirone Discontinued 5 MG PO Twice daily 30 January 02, 2022 1:00am August 29, 2024 [...] Discontinued 20 MG PO Three times daily 180 October 12, 2021 1:00am November 20, 2021 [...] tablet Discontinued 1 MG PO Q8H 9 December 08, 2021 1:00am December 27, 2021 [...] Olanzapine Discontinued 5 MG PO Twice daily November 19, 2021 1:00am December 27, 2021 [...] Translations: [Generalized anxiety disorder] Onset: 09-17-2021 Chronic Menopausal disorders (2 sources) Postmenopausal bleeding; Translations: [Postmenopausal bleeding] 12-08-2024 Chronic Mood disorders (19 sources) Bipolar I disorder; Translations: [Bipolar disorder, [...] to nonionizing radiation] Onset: 10-28-2023 10-28-2023 Episodic Conditions associated with dizziness or vertigo (20 sources) Vertigo; Translations: [Dizziness and giddiness] Onset: 10-07-2013 10-07-2013 Episodic Headache; including migraine (3 sources) Migraine; [...] Test Name Value Interpretation Reference Range Facility US PELVIC COMPLETE W/ TVon 0 12-29-2024 US PELVIC COMPLETE W/ TV EXAM: US PELVIC COMPLETE W/ TV HISTORY: Postmenopausal bleeding x 1 month. COMPARISON: None available. TECHNIQUE: Two-dimensional transabdominal grayscale ultrasound imaging of the pelvis was performed. Color flow Doppler imaging of the ovaries was also performed. Transvaginal was performed. FINDINGS: UTERUS 9.2 x 4.1 x 5.3 cm The uterus is anteverted in position and demonstrates a mildly heterogeneous echotexture. Multiple nabothian cysts are visualized within the cervix. ENDOMETRIUM 0.9 cm The endometrium demonstrates a heterogeneous echotexture. There is a 0.5 cm hyperechoic lesion within the endometrial canal. RIGHT OVARY 1.8 x 1.2 x 1.7 cm The right ovary demonstrates a normal echotexture. There is normal color Doppler flow. LEFT OVARY The left ovary is not visualized due to overlying bowel gas. No fluid is present within the cul-de-sac. IMPRESSION: 1. Mildly heterogeneous uterine echotexture. 2. Thickened and heterogeneous postmenopausal endometrium. There is also a hyperechoic lesion visualized that most likely represents an endometrial polyp. Gynecological consultation is recommended. 3. Normal color Doppler flow within the right ovary, the left ovary was not visualized. Electronically Signed:Alan marshall signed by SAIDA CARRILLO II, MD, PHD at 31-Dec-2024 08:38:13 AM [facility] Normal Not Available Comment on above: Order Comment: US PE LVIS-TRANSVAG IF INDICATED No LMP recorded. ECG 12-LEADon 12-27-2024 [place] [address] Electrocardiograph Report Signed Patient: LUISANA MARTINEZ MR#: [id number] : 1960 Acct:[id number] Age/Sex: 64 / F ADM Date: 12/27/24 Loc: [facility] Attending Dr: Alexi Cummins D.O. Ordering Physician: Alexi Cummins D.O. Date of Service: 12/27/24 Procedure(s): ECG 12 lead Accession Number(s): [id number] cc: [facility] Test Date: 2024-12-27 Pat Name: LUISANA MARTINEZ Department: Room: - Gender: Female Liquid Sugar Melter: : 1960 Requested By: ALEXI CUMMINS Order Number: [id number] Reading MD: YAIR BUTCHER Measurements Intervals [place] Rate: 68 P: 52 VT: 137 QRS: 24 QRSD: 84 T: 27 QT: 388 QTc: 414 Interpretive Statements SINUS RHYTHM Nonspecific ST/T wave changes Compared to ECG 09/17/2021 13:52:16 Electronically Signed On 12-27-2024 20:22:21 EST by YAIR BUTCHER Dictated By: Yair Butcher D.O. Signed By: 12/27/242021 DD/ 1501 TD/TT: Hydrogeologist: [facility] Radiology, Radiologist, - 12/27/2024 [place] [address] Electrocardiograph Report Signed Patient: LUISANA MARTINEZ MR#: [id number] : 1960 Acct:[id number] Age/Sex: 64 / F ADM Date: 12/27/24 Loc: [facility] Attending Dr: Alexi Cummins D.O. Ordering Physician: Alexi Cummins D.O. Date of Service: 12/27/24 Procedure(s): ECG 12 lead Accession Number(s): [id number] cc: [facility] Test Date: 2024-12-27 Pat Name: LUISANA MARTINEZ Department: Room: - Gender: Female Liquid Sugar Melter: : 1960 Requested By: ALEXI CUMMINS Order Number: [id number] Reading MD: YAIR BUTCHER Measurements Intervals [place] Rate: 68 P: 52 VT: 137 QRS: 24 QRSD: 84 T: 27 QT: 388 QTc: 414 Interpretive Statements SINUS RHYTHM Nonspecific ST/T wave changes Compared to ECG 09/17/2021 13:52:16 Electronically Signed On 12-27-2024 20:22:21 EST by YAIR BUTCHER Dictated By: Yair Butcher D.O. Signed By: 12/27/242021 DD/ 1501 TD/TT: Hydrogeologist: [facility] Radiology Study observation (narrative) [facility] ECG 12-LEADOrdered By: Radio logist Radiology on 12-27-2024 [facility] e Work Phone: MLR HEMOGLOBIN A1Con 025 Glucose [Mass/Vol] 117 mg/dL [facility] HbA1c (Bld) [Mass fraction] 5.7 % 4.5 - 6.2 % [facility] Comment on above: ADA RECOMMENDED LIMI T 4.0 - 6.0 ADA THERAPEUTIC TARGET < 7.0 ACTION SUGGESTED > 7.0 [facility] W Auto Differential pane l (Bld)on 09-29-2024 Basophils (Bld) [#/Vol] 29 10*3/uL [facility] Basophils/100 WBC (Bld) 0.6 % [facility] Eosinophils (Bld) [#/Vol] 0 10*3/uL Low [facility] Eosinophils/100 WBC (Bld) 0 % [facility] Erythrocyte distribution width (RBC) [Ratio] 13.2 % 11.0 - 15.0 % [facility] are Hematocrit (Bld) [Volume fraction] 44.2 % 35.0 - 45.0 % [facility] Hemoglobin (Bld) [Mass/Vol] 14.5 g/dL 11.7 - 15.5 g/dL [facility] Lymphocytes (Bld) [#/Vol] 994 10*3/uL [facility] Lymphocytes/100 WBC (Bld) 20.7 % [facility] MCH (RBC) [Entitic mass] 32.2 pg 27. 0 - 33.0 pg [facility] MCHC (RBC) [Mass/Vol] 32.8 g/dL 32.0 - 36.0 g/dL [facility] Comment on above: For adults, a slight decrease in the calculated MCHC value (in the range of 30 to 32 g/dL) is most likely not clinically significant; however, it should be interpreted with caution in correlation with other red cell parameters and the patient's clinical condition. MCV (RBC) [Entitic vol] 98.2 fL 80.0 - 100.0 fL [facility] Monocytes (Bld) [#/Vol] 250 10*3/uL [facility] Monocytes/100 WBC (Bld) 5.2 % [facility] Neutrophils (Bld) [#/Vol] 3528 10*3/uL [facility] Neutrophils/100 WBC (Bld) 73.5 % [facility] Platelet mean volume (Bld) [Entitic vol] 11.1 fL 7.5 - 12.5 fL [facility] are Platelets (Bld) [#/Vol] 196 10*3/uL [facility] RBC (Bld) [#/Vol] 4.5 10*6/uL [facility] WBC (Bld) [#/Vol] 4.8 10*3/uL [facility] Laboratory - Chemistry and C hemistry - challengeon 09-29-2024 Albumin [Mass/Vol] 3.9 g/dL 3.6 - 5.1 g/dL [facility] Albumin/Globulin [Mass ratio] 2 {ratio} [facility] ALP [Catalytic activity/Vol] 48 U/L 37 - 153 U/L [facility] ALT [Catalytic activity/Vol] 15 U/L 6 - 29 U/L [facility] AST [Catalytic activity/Vol] 16 U/L 10 - 35 U/L [facility] Bilirubin [Mass/Vol] 1.2 mg/dL 0.2 - 1 .2 mg/dL [facility] Calcium [Mass/Vol] 8.6 mg/dL 8.6 - 10. 4 mg/dL [facility] Chloride [Moles/Vol] 106 mmol/L 98 - 11 0 mmol/L [facility] CO2 [Moles/Vol] 28 mmol/L 20 - 32 mmol/L [facility] Creatinine [Mass/Vol] 0.81 mg/dL 0.50 - 1.05 mg/dL [facility] GFR/1.73 sq M.predicted among non-blacks MDRD (S/P/Bld) [Vol rate/Area] 82 mL/min/{1.73_m2} > OR = 60 mL/min/1.73m2 [facility] Globulin (S) [Mass/Vol] 2 g/dL [facility] Glucose [Mass/Vol] 94 mg/dL 65 - 99 mg/dL [facility] Comment on above: Fasting reference interval Potassium [Moles/Vol] 4 mmol/L 3.5 - 5.3 mmol/L [facility] Protein [Mass/Vol] 5.9 g/dL Low 6.1 - 8.1 g/dL [facility] Sodium [Moles/Vol] 142 mmol/L 135 - 146 mmol/L [facility] Urea nitrogen [Mass/Vol] 7 mg/dL 7 - 25 mg/d L [facility] Urea nitrogen/Creatinine [Mass ratio] SEE NOTE: [facility] Comment on above: Not Reported: BUN an d Creatinine are within reference range. No Panel Informationon 09-29 Interpretation and review of laboratory results Abnormal [facility] Performing Organization Information Site ID: QPT Name: [facility] Address: [address] [place] [address], [address] [place] [phone] Director: Adolph Dave MD [facility] Alanine aminotransferase [En zymatic activity/volume] in Serum or PlasmaOrdered By: Estela Heart on 08-29-2024 ALT [Catalytic activity/Vol] 17 U/L Normal 7-52 [facility] Comment on above: Performed By: #### T SH3, MG, HS TROP, CBC, CMP #### [address] Albumin [Mass/volume] in Ser um or Plasma by Bromocresol green (BCG) dye binding methoOrdered By: Estela Heart on 08-29-2024 Albumin BCG dye [Mass/Vol] 4.4 g/dL 3.5-5.7 [facility] Alkaline phosphatase [Enzyma tic activity/volume] in Serum or PlasmaOrdered By: Estela Heart on 08-29-2024 ALP [Catalytic activity/Vol] 62 U/L Normal 34-104 [facility] Comment on above: Performed By: #### T SH3, MG, HS TROP, CBC, CMP #### [address] Aspartate aminotransferase [ Enzymatic activity/volume] in Serum or PlasmaOrdered By: Estela Heart on 08-29-2024 AST [Catalytic activity/Vol] 17 U/L Normal 13-39 [facility] Comment on above: Performed By: #### T SH3, MG, HS TROP, CBC, CMP #### [address] Automated basophil %Ordered By: Estela Heart on 08-29-2024 Basophils/100 WBC (Bld) 1.4 % Normal . [facility] Comment on above: Performed By: #### T SH3, MG, HS TROP, CBC, CMP #### [address] Automated basophil countOrde red By: Estela Heart on 08-29-2024 Basophils (Bld) [#/Vol] 0.1 10*3/uL Normal 0.0-0.2 [facility] Comment on above: Result Comment: PERF ORMED BY: [place] [address] PATHOLOGIST CCU NURSE SOM POWERS M.D. Performed By: #### T SH3, MG, HS TROP, CBC, CMP #### [address] Automated blood monocyte cou ntOrdered By: Estela Heart on 08-29-2024 Monocytes (Bld) [#/Vol] 0.5 10*3/uL Normal 0.0-0.8 [facility] Comment on above: Performed By: #### T SH3, MG, HS TROP, CBC, CMP #### [address] Automated eosinophil %Ordere d By: Estela Heart on 08-29-2024 Eosinophils/100 WBC (Bld) 0.0 % Normal . [facility] Comment on above: Performed By: #### T SH3, MG, HS TROP, CBC, CMP #### [address] Automated eosinophil countOr dered By: Estela Heart on 08-29-2024 Eosinophils (Bld) [#/Vol] 0.0 10*3/uL Normal 0.0-0.45 [facility] Comment on above: Performed By: #### T SH3, MG, HS TROP, CBC, CMP #### [address] Automated monocyte %Ordered By: Estela Heart on 08-29-2024 Monocytes/100 WBC (Bld) 4.8 % Normal . [facility] Comment on above: Performed By: #### T SH3, MG, HS TROP, CBC, CMP #### [address] Automated neutrophil %Ordere d By: Estela Heart on 08-29-2024 Neutrophils/100 WBC (Bld) 85.9 % Normal . [facility] Comment on above: Performed By: #### T SH3, MG, HS TROP, CBC, CMP #### [address] Bilirubin Test strip Ql (U)O rdered By: Estela Heart on 08-29-2024 Bilirubin Ql (U) Negative Negative [facility] Bilirubin.total [Mass/volume ] in Serum or PlasmaOrdered By: Estela Heart on 08-29-2024 Bilirubin [Mass/Vol] 2.6 mg/dL High 0.3-1.0 [facility] Comment on above: Samples from patient s [...] SH3, MG, HS TROP, CBC, CMP #### [facility] [address] [place] [address] [place] Calcium [Mass/volume] in Ser um or PlasmaOrdered By: Estela Heart on 08-29-2024 Calcium [Mass/Vol] 9.0 mg/dL Normal 8.6-10.3 [facility] Comment on above: Performed By: #### T SH3, MG, HS TROP, CBC, CMP #### [facility] [address] [place] [id number] [place] Carbon dioxide, total [Moles /volume] in Serum or PlasmaOrdered By: Estela Heart on 08-29-2024 CO2 [Moles/Vol] 25.3 mmol/L Normal 21.0-31.0 [facility] Comment on above: Performed By: #### T SH3, MG, HS TROP, CBC, CMP #### [facility] [address] [place] [address] [place] Chloride [Moles/volume] in S agnieszka or PlasmaOrdered By: Estela Heart on 08-29-2024 Chloride [Moles/Vol] 103 mmol/L Normal 98-107 [facility] Comment on above: Performed By: #### T SH3, MG, HS TROP, CBC, CMP #### [facility] [address] [place] [id number] [place] Color of Urine by AutoOrdere d By: Estela Heart on 08-29-2024 Color (U) Yellow Normal Yellow [facility] Comment on above: Order Comment: Name Collection Type:: Clean-Voided Midstream Performed By: #### U A #### [address] Complete Blood Count Auto Di ffon 08-29-2024 Mean Corpuscular HGB Conc 34.4 g/dL Normal 32.0-35.0 [facility] Comment on above: Performed By: #### T SH3, MG, HS TROP, CBC, CMP #### [address] Monocytes/100 WBC (Bld) 19.89 % Normal 0.00-20.00 [facility] Comment on above: Performed By: #### T SH3, MG, HS TROP, CBC, CMP #### [address] NRBC% 0.1 /100{WBC} Normal 0-0.5 [facility] Comment on above: Performed By: #### T SH3, MG, HS TROP, CBC, CMP #### [address] Comprehensive Metabolic Pane terrence 08-29-2024 Albumin [Mass/Vol] 4.4 g/dL Normal 3.5-5.7 [facility] Comment on above: Performed By: #### T SH3, MG, HS TROP, CBC, CMP #### [address] GFR/1.73 sq M.predicted MDRD (S/P/Bld) [Vol rate/Area] mL/min/{1.73_m2} Normal [facility] Comment on above: Performed By: #### T SH3, MG, HS TROP, CBC, CMP #### [address] Creatinine [Mass/volume] in Serum or PlasmaOrdered By: Estela Heart on 08-29-2024 Creatinine [Mass/Vol] 1.00 mg/dL Normal 0.60-1.20 [facility] Comment on above: Performed By: #### T SH3, MG, HS TROP, CBC, CMP #### [address] [place] [address] [facility] ECG 12 lead ECGon 08-29-2024 [address] [facility] [place] [address] [place] [address] Electrocardiograph Report Signed Patient: Luisana Martinez MR#: [id number] : 1960 Acct:[id number] Age/Sex: 64 / F ADM Date: 08/29/24 Loc: ER Room: Type: [facility] ER Attending Dr: Ordering Provider: Estela Heart [...] Heart MD 08/17 03/10 0141 Normal [facility] Erythrocyte distribution wid th [Ratio] by Automated countOrdered By: Estela Heart on 08-29-2024 Erythrocyte distribution width (RBC) [Ratio] 13.1 % Normal 11.9-15.3 [facility] Comment on above: Performed By: #### T SH3, MG, HS TROP, CBC, CMP #### [facility] [address] [place] [id number] [facility] Erythrocytes [#/volume] in B lood by Automated countOrdered By: Estela Heart on 08-29-2024 RBC (Bld) [#/Vol] 4.91 10*6/uL Normal 3.60-5.00 [facility] Comment on above: Performed By: #### T SH3, MG, HS TROP, CBC, CMP #### [facility] [address] [place] [address] [place] Glucose [Mass/volume] in Ser um or PlasmaOrdered By: Estela Heart on 08-29-2024 Glucose [Mass/Vol] 102 mg/dL High 70-100 [facility] Comment on above: ADA recommended refe rence rangeRandom Glucose Reference Range is dependent on time and content of last meal. Glucose of more than 200 mg/dL in a nonstressed, ambulatory subject supports the diagnosis of Diabetes Mellitus. Result Comment: [place] om Glucose Reference Range is dependent on time and content of last meal. Glucose of more than 200 mg/dL in a nonstressed, ambulatory subject supports the diagnosis of Diabetes Mellitus. ADA recommended reference range Performed By: #### T SH3, MG, HS TROP, CBC, CMP #### [facility] [address] Glucose [Mass/volume] in Uri ne by Test stripOrdered By: Estela Heart on 08-29-2024 Glucose Test strip (U) [Mass/Vol] Normal mg/dL Normal [facility] Hematocrit [Volume Fraction] of Blood by Automated countOrdered By: Estela Heart on 08-29-2024 Hematocrit (Bld) [Volume fraction] 45.8 % Normal 34.0-46.4 [facility] Comment on above: Performed By: #### T SH3, MG, HS TROP, CBC, CMP #### [facility] [address] [place] [address] Hemoglobin Test strip Ql (U) Ordered By: Estela Heart on 08-29-2024 Hemoglobin Ql (U) Negative Negative [facility] Hemoglobin [Mass/volume] in BloodOrdered By: Estela Heart on 08-29-2024 Hemoglobin (Bld) [Mass/Vol] 15.7 g/dL High 11.8-15.4 [facility] Comment on above: Performed By: #### T SH3, MG, HS TROP, CBC, CMP #### [facility] [address] [place] [address] Ketones [Presence] in Urine by Test stripOrdered By: Estela Heart on 08-29-2024 Ketones Ql (U) 4+ High Negative [facility] Comment on above: Order Comment: Name Collection Type:: Clean-Voided Midstream Performed By: #### U A #### [address] Leukocyte esterase [Presence ] in Urine by Test stripOrdered By: Estela Heart on 08-29-2024 Leukocyte esterase Test strip Ql (U) Negative Normal Negative [facility] Comment on above: Order Comment: Name Collection Type:: Clean-Voided Midstream Performed By: #### U A #### [address] Leukocytes [#/volume] correc faiza for nucleated erythrocytes in Blood by Automated counOrdered By: Estela Heart on 08-29-2024 WBC corrected for nucl RBC Auto (Bld) [#/Vol] 9.8 10*3/uL 3.8-11.6 [facility] Leukocytes [#/volume] in Blo od by Automated countOrdered By: Estela Heart on 08-29-2024 WBC (Bld) [#/Vol] 9.8 10*3/uL Normal 3.8-11.6 [facility] Comment on above: Performed By: #### T SH3, MG, HS TROP, CBC, CMP #### [place], [place] [address] [place] Lymphocytes [#/volume] in Bl ood by Automated countOrdered By: Estela Heart on 08-29-2024 Lymphocytes (Bld) [#/Vol] 0.8 10*3/uL Low 1.00-4.8 [facility] Comment on above: Performed By: #### T SH3, MG, HS TROP, CBC, CMP #### [place] [address] [place] Lymphocytes/100 leukocytes i n Blood by Automated countOrdered By: Estela Heart on 08-29-2024 Lymphocytes/100 WBC (Bld) 7.9 % Normal . [facility] Comment on above: Performed By: #### T SH3, MG, HS TROP, CBC, CMP #### [place] [address] [place] MCH [Entitic mass] by Automa faiza countOrdered By: Estela Heart on 08-29-2024 MCH (RBC) [Entitic mass] 32.1 pg Normal 24.7-34.3 [facility] Comment on above: Performed By: #### T SH3, MG, HS TROP, CBC, CMP #### [address] MCHC Auto (RBC) [Mass/Vol]Or dered By: Estela Heart on 08-29-2024 MCHC (RBC) [Mass/Vol] 34.4 g/dL 32.0-35.0 [facility] MCV [Entitic volume] by Auto mated countOrdered By: Estela Heart on 08-29-2024 MCV (RBC) [Entitic vol] 93.3 fL Normal 80-100 F [facility] Comment on above: Performed By: #### T SH3, MG, HS TROP, CBC, CMP #### [address] Magnesium [Mass/volume] in S agnieszka or PlasmaOrdered By: Estela Heart on 08-29-2024 Magnesium [Mass/Vol] 1.9 mg/dL Normal 1.9-2.7 [facility] Comment on above: Performed By: #### T SH3, MG, HS TROP, CBC, CMP #### [address] Monocyte distribution width [Entitic volume] in Blood by AutomatedOrdered By: Estela Heart on 08-29-2024 Monocyte distribution width Auto (Bld) [Entitic vol] 19.89 % 0.00-20.00 [facility] Neutrophils [#/volume] in Bl ood by Automated countOrdered By: Estela Heart on 08-29-2024 Neutrophils (Bld) [#/Vol] 8.5 10*3/uL High 1.8-7.7 [facility] Comment on above: Performed By: #### T SH3, MG, HS TROP, CBC, CMP #### [address] Nitrite Test strip Ql (U)Ord ered By: Estela Heart on 08-29-2024 Nitrite Ql (U) Negative Negative [facility] No Panel InformationOrdered By: Estela Heart on 08-29-2024 Estimated GFR (CKD-EPI) > 60.0 mL/Min [facility] Creatinine Clearance (Chem N/A [facility] Nucleated erythrocytes [Pres ence] in Blood by Automated countOrdered By: Estela Heart on 08-29-2024 Nucleated RBC Auto Ql (Bld) 0.1 /100{WBC} 0-0.5 [facility] Platelet mean volume [Entiti c volume] in Blood by Automated countOrdered By: Estela Heart on 08-29-2024 Platelet mean volume (Bld) [Entitic vol] 8.7 fL Normal 6.3-10.7 [facility] Comment on above: Performed By: #### T SH3, MG, HS TROP, CBC, CMP #### [facility] [address] Platelets [#/volume] in Bloo d by Automated countOrdered By: Estela Heart on 08-29-2024 Platelets (Bld) [#/Vol] 217 10*3/uL Normal 150-450 [facility] Comment on above: Performed By: #### T SH3, MG, HS TROP, CBC, CMP #### [facility] [address] Potassium [Moles/volume] in Serum or PlasmaOrdered By: Estela Heart on 08-29-2024 Potassium [Moles/Vol] 4.0 mmol/L Normal 3.5-5.1 [facility] Comment on above: Performed By: #### T SH3, MG, HS TROP, CBC, CMP #### [facility] [address] [place] [address] [place] Protein Test strip (U) [Mass /Vol]Ordered By: Estela Heart on 08-29-2024 Protein (U) [Mass/Vol] Negative Negative [facility] Protein [Mass/volume] in Ser um or PlasmaOrdered By: Estela Heart on 08-29-2024 Protein [Mass/Vol] 7.2 g/dL Normal 6.4-8.9 [facility] Comment on above: Performed By: #### T SH3, MG, HS TROP, CBC, CMP #### [facility] [address] [place] [address] Serum globulin measurement b y calculation (mass/volume)Ordered By: Estela Heart on 08-29-2024 Globulin (S) [Mass/Vol] 2.8 g/dL Normal F [facility] Comment on above: Performed By: #### T SH3, MG, HS TROP, CBC, CMP #### [facility] [address] [place] [address] Serum or plasma albumin/glob ulin mass ratioOrdered By: Estela Heart on 08-29-2024 Albumin/Globulin [Mass ratio] 1.6 {ratio} Normal [facility] Comment on above: Performed By: #### T SH3, MG, HS TROP, CBC, CMP #### [address] Serum or plasma anion gap de terminationOrdered By: Estela Heart on 08-29-2024 Anion gap [Moles/Vol] 15.7 mmol/L High 6.0-15.0 [facility] Comment on above: Performed By: #### T SH3, MG, HS TROP, CBC, CMP #### [facility] [address] [place] [address] Sodium [Moles/volume] in Ser um or PlasmaOrdered By: Estela Heart on 08-29-2024 Sodium [Moles/Vol] 140 mmol/L Normal 136-145 [facility] Comment on above: Performed By: #### T SH3, MG, HS TROP, CBC, CMP #### [address] Specific gravity Test strip (U) [Rel density]Ordered By: Estela Heart on 08-29-2024 Specific gravity (U) [Rel density] 1.023 1.001-1.030 [facility] Thyrotropin [Units/volume] i n Serum or PlasmaOrdered By: Estela Heart on 08-29-2024 TSH Qn 1.78 m[IU]/L Normal 0.45-5.33 [facility] Comment on above: Result Comment: PERF ORMED BY: [place] [address] PATHOLOGIST CCU NURSE SOM POWERS M.D. Performed By: #### T SH3, MG, HS TROP, CBC, CMP #### [address] Troponin I High Sensitivityo n 08-29-2024 Troponin I High Sensitivity 3.5 pg/mL Normal 0.0-15.0 [facility] Comment on above: Result Comment: PERF ORMED BY: [place] [address] PATHOLOGIST CCU NURSE SOM POWERS M.D. Performed By: #### T SH3, MG, HS TROP, CBC, CMP #### [address] Troponin I.cardiac [Mass/vol ume] in Serum or Plasma by Detection limit <= 0.01 ng/Ordered By: Estela Heart on 08-29-2024 Troponin I.cardiac DL <= 0.01 ng/mL [Mass/Vol] 3.5 pg/mL 0.0-15.0 [facility] Urea nitrogen [Mass/volume] in Serum or PlasmaOrdered By: Estela Heart on 08-29-2024 Urea nitrogen [Mass/Vol] 12 mg/dL Normal 7-25 [facility] Comment on above: Performed By: #### T SH3, MG, HS TROP, CBC, CMP #### [address] Urinalysison 08-29-2024 Bilirubin,Urine Negative Normal Negative [facility] Comment on above: Order Comment: Name Collection Type:: Clean-Voided Midstream Performed By: #### U A #### [place] [address] [place] Glucose Ql (U) Normal Normal Normal [facility] Comment on above: Order Comment: Name Collection Type:: Clean-Voided Midstream Performed By: #### U A #### [place] [address] [place] Nitrite,Urine Negative Normal Negative [facility] Comment on above: Order Comment: Name Collection Type:: Clean-Voided Midstream Performed By: #### U A #### [address] Occult Blood,Urine Negative Normal Negative [facility] Comment on above: Order Comment: Name Collection Type:: Clean-Voided Midstream Result Comment: PERF ORMED BY: [place] [address] PATHOLOGIST CCU NURSE SOM POWERS M.D. Performed By: #### U A #### [address] Protein,Urine Negative Normal Negative [facility] Comment on above: Order Comment: Name Collection Type:: Clean-Voided Midstream Performed By: #### U A #### [address] Specificy [place],Urine 1.023 Normal 1.001-1.030 [facility] Comment on above: Order Comment: Name Collection Type:: Clean-Voided Midstream Performed By: #### U A #### [address] Urobilinogen,Urine 2 mg/dL High Normal [facility] Comment on above: Order Comment: Name Collection Type:: Clean-Voided Midstream Performed By: #### U A #### [address] Urine appearanceOrdered By: Estela Heart on 08-29-2024 Appearance (U) Clear Normal Clear [facility] Comment on above: Order Comment: Name Collection Type:: Clean-Voided Midstream Performed By: #### U A #### [address] Urobilinogen Test strip (U) [Mass/Vol]Ordered By: Estela Heart on 08-29-2024 Urobilinogen (U) [Mass/Vol] 2 mg/dL High Normal [facility] pH of Urine by Test stripOrd ered By: Estela Heart on 08-29-2024 pH (U) 5.5 [pH] Normal 5.0-9.0 [facility] Comment on above: Order Comment: Name Collection Type:: Clean-Voided Midstream Performed By: #### U A #### [facility] [address] [id number] [facility] JOHAN DIGITAL SCREEN SELF REFERRAL W OR WO CAD BILATERALon 10-21-2022 [facility] JOHAN DIGITAL SCREEN SELF REFERRAL W OR [...] to the patient regarding the results. [employer] recommends annual mammograms for women 40 years and older. Interpreted by: Raisa Cueva MD Signed by: Raisa Cueva MD 10/21/22 Final result Normal [facility] No mammographic evidence of malignancy. BI-RADS 2 BIRADS: BIRADS - CATEGORY 2 Benign Findings. Normal interval follow-up is recommended in 12 months. OVERALL ASSESSMENT - BENIGN A letter of notification will be sent to the patient regarding the results. [employer] recommends annual mammograms for women 40 years and older. [facility] RIS CONSOLIDATED EXAMINATION: SCREENING DIGITAL BILATERAL MAMMOGRAM WITH [...] microcalcification s, dominant mass or architectural distortion. [facility] RIS CONSOLIDATED Radiology Study observation (narrative) JOSE DE JESUS [employer] Phone: [facility] JOHAN DIGITAL SCREEN SELF REFERRAL W OR WO CAD BILATERALOrdered By: Raisa Cueva on 10-21-2022 JOSE DE JESUS [employer] Phone: CBC AUTO DIFFon 09-17-2021 BASO # 0.0 103/ul Normal 0.0-0.1 [facility] Comment on above: Performed By: #### C BC #### [facility] [address] [place] [address] Dr. Cj Alford Basophils/100 WBC (Bld) 0.2 % Normal 0.2-2.0 [facility] Comment on above: Performed By: #### C BC #### [facility] [address] [address] [address] Cj Alford EO # 0.0 103/ul Normal 0.0-0.7 [facility] Comment on above: Performed By: #### C BC #### [facility] [address] [address] [address] Cj Alford Eosinophils/100 WBC (Bld) 0.0 % Critically low 0.9-7.0 [facility] Comment on above: Performed By: #### C BC #### [facility] [address] [address] [address] Cj Alford Erythrocyte distribution width (RBC) [Ratio] 13.3 % Normal 11.0-15.0 [facility] Comment on above: Performed By: #### C BC #### [facility] [address] [address] [address] Cj Alford Hematocrit (Bld) [Volume fraction] 44.3 % Normal 36.0-48.0 [facility] Comment on above: Performed By: #### C BC #### [facility] [address] [place] [address] Dr. Cj Alford Hemoglobin (Bld) [Mass/Vol] 14.7 g/dL Normal 12.0-16.0 [facility] Comment on above: Performed By: #### C BC #### [facility] [address] [place] [address] Dr. Cj Alford IG # 0.01 10e3/ul Normal 0.00-0.03 [facility] Comment on above: Performed By: #### C BC #### [facility] [address] [place] [address] Dr. Cj Alford IG % 0.2 % Normal 0.0-0.5 [facility] Comment on above: Performed By: #### C BC #### [facility] [address] [place] [address] Dr. Cj Alford LYMPH # 0.8 103/ul Critically low 1.2-3.8 [facility] Comment on above: Performed By: #### C BC #### [facility] [address] [place] [address] Dr. Cj Alford Lymphocytes/100 WBC (Bld) 19.8 % Critically low 20.5-60.0 [facility] Comment on above: Performed By: #### C BC #### [facility] [address] [place] [address] Dr. Cj Alford MANUAL DIFF REQ NO Normal [facility] Comment on above: Performed By: #### C BC #### [facility] [address] [place] [address] Dr. Cj Alford MCH (RBC) [Entitic mass] 30.9 pg Normal 26.7-34.0 [facility] Comment on above: Performed By: #### C BC #### [facility] [address] [place] [address] Dr. Cj Alford MCHC (RBC) [Mass/Vol] 33.2 g/dL Normal 29.9-35.2 [facility] Comment on above: Performed By: #### C BC #### [facility] [address] [address] [address] Cj Alford MCV (RBC) [Entitic vol] 93.1 fL Normal 81.0-99.0 [facility] Comment on above: Performed By: #### C BC #### [facility] [address] [address] [address] Cj Alford MONO # 0.3 103/ul Normal 0.3-0.8 [facility] Comment on above: Performed By: #### C BC #### [facility] [address] [place] [address] Dr. Cj Alford Monocytes/100 WBC (Bld) 7.3 % Normal 1.7-12.0 [facility] Comment on above: Performed By: #### C BC #### [facility] [address] [place] [address] Dr. Cj Alford NEUT # 3.1 103/ul Normal 1.4-6.5 [facility] Comment on above: Performed By: #### C BC #### [facility] [address] [place] [address] Dr. Cj Alford Neutrophils/100 WBC (Bld) 72.5 % Normal 43.0-75.0 [facility] Comment on above: Performed By: #### C BC #### [facility] [address] [place] [address] Dr. Cj Alford Platelet mean volume (Bld) [Entitic vol] 10.2 fL Normal 9.5-13.5 [facility] Comment on above: Performed By: #### C BC #### [facility] [address] [place] [address] Dr. Cj Alford PLT 197 103/ul Normal 150-450 [facility] Comment on above: Performed By: #### C BC #### [facility] [address] [place] [address] Dr. Cj Alford RBC 4.76 106/ul Normal 4.20-5.40 [facility] Comment on above: Performed By: #### C BC #### [facility] [address] [place] [address] Dr. Cj Alford WBC 4.2 103/ul Normal 4.0-11.0 [facility] Comment on above: Performed By: #### C BC #### [facility] [address] [place] [address] Dr. Cj Alford D-DIMERon 09-17-2021 D-DIMER 0.32 mg/L FEU Normal 0.19-0.50 [facility] Comment on above: Performed By: #### D DIM, PT, PTT #### [facility] [address] [place] [address] Dr. Cj Alford D-DIMER COMMENTS SEE BELOW Normal [facility] Comment on above: Result Comment: Incr eases [...] By: #### D DIM, PT, PTT #### [facility] [address] [place] [address] Dr. Cj Alford PROF 14(COMP METB)on 021 Albumin [Mass/Vol] 4.3 g/dL Normal 3.5-5.0 [facility] Comment on above: Performed By: #### H BOBBYPN, CMP, TSH #### [facility] [address] [place] [address] Dr. Cj Alford Albumin/Globulin [Mass ratio] 1.2 {ratio} Normal [facility] Comment on above: Performed By: #### H FLORI, CMP, TSH #### [facility] [address] [place] [address] Dr. Cj Alford ALP [Catalytic activity/Vol] 75 U/L Normal 38-126 [facility] Comment on above: Performed By: #### H FLORI, CMP, TSH #### [facility] [address] [address] [address] Cj Alford ALT [Catalytic activity/Vol] 29 U/L Normal 9-52 [facility] Comment on above: Performed By: #### H STROPN, CMP, TSH #### [facility] [address] [address] [address] Cj Alford Anion gap [Moles/Vol] 15.8 mmol/L Normal Th e [facility] Comment on above: Performed By: #### H STROPN, CMP, TSH #### [facility] [address] [place] [address] Dr. Cj Alford AST [Catalytic activity/Vol] 23 U/L Normal 14-36 [facility] Comment on above: Performed By: #### H STROPN, CMP, TSH #### [facility] [address] [place] [address] Dr. Cj Alford Bilirubin [Mass/Vol] 1.0 mg/dL Normal 0.2-1.3 [facility] Comment on above: Performed By: #### H STROPN, CMP, TSH #### [facility] [address] [place] [address] Dr. Cj Alford Calcium [Mass/Vol] 8.7 mg/dL Normal 8.4-10.2 [facility] Comment on above: Performed By: #### H STROPN, CMP, TSH #### [facility] [address] [place] [address] Dr. Cj Alford Chloride [Moles/Vol] 101 mmol/L Normal 98-107 [facility] Comment on above: Performed By: #### H STROPN, CMP, TSH #### [facility] [address] [place] [address] Dr. Cj Alford CO2 [Moles/Vol] 22.8 mmol/L Normal 22.0-30.0 [facility] Comment on above: Performed By: #### H STROPN, CMP, TSH #### [facility] [address] [address] [address] Cj Alford Creatinine [Mass/Vol] 0.89 mg/dL Normal 0.52-1.04 [facility] Comment on above: Performed By: #### H STROPN, CMP, TSH #### [facility] [address] [address] [address] Cj Alford EGFR-AF [place] >60 Normal >=60 [facility] Comment on above: Performed By: #### H STROPN, CMP, TSH #### [facility] [address] [address] [address] Cj Alford EGFR-NON AF [place] >60 Normal >=60 [facility] Comment on above: Performed By: #### H STROPN, CMP, TSH #### [facility] [address] [address] [address] Cj Alford Globulin (S) [Mass/Vol] 3.6 g/dL Normal [facility] Comment on above: Performed By: #### H STROPN, CMP, TSH #### [facility] [address] [address] [address] Cj Alford Glucose [Mass/Vol] 102 mg/dL Normal 74-106 [facility] Comment on above: Performed By: #### H STROPN, CMP, TSH #### [facility] [address] [address] [address] Cj Alford Potassium [Moles/Vol] 3.6 mmol/L Normal 3.4-5.0 [facility] Comment on above: Performed By: #### H STROPN, CMP, TSH #### [facility] [address] [address] [address] Cj Alford Protein [Mass/Vol] 7.9 g/dL Normal 6.1-8.2 [facility] Comment on above: Performed By: #### H STROPN, CMP, TSH #### [facility] [address] [address] [address] Cj Alford Sodium [Moles/Vol] 136 mmol/L Critically low 137-145 [facility] Comment on above: Performed By: #### H STROPN, CMP, TSH #### [facility] [address] [address] [address] Cj Alford Urea nitrogen [Mass/Vol] 7.0 mg/dL Normal 7.0-17.0 [facility] Comment on above: Performed By: #### H STROPN, CMP, TSH #### [facility] [address] [place] [address] Dr. Cj Alford Urea nitrogen/Creatinine [Mass ratio] 7.9 mg/mg Normal [facility] Comment on above: Performed By: #### H STROPN, CMP, TSH #### [facility] [address] [address] [address] Cj Alford PROTIMEon 09-17-2021 INR Coag (PPP) [Relative time] 1.01 {INR} Normal [facility] Comment on above: Performed By: #### D DIM, PT, PTT #### [facility] [address] [place] [address] Dr. Cj Alford INR GUIDELINES SEE BELOW Normal [facility] Comment on above: Result Comment: JONATHAN RED INR: 2.0 - 3.0 CONDITIONS NOT LISTED BELOW 2.5 - 3.5 FOR PROSTHETIC HEART VALVE REPLACEMENT 2.5 - 3.5 RECURRENT THROMBOSIS Performed By: #### D DIM, PT, PTT #### [facility] [address] [place] [address] Dr. Cj Alford PT Coag (PPP) [Time] 10.9 s Normal 9.0-11.6 [facility] Comment on above: Performed By: #### D DIM, PT, PTT #### [facility] [address] [place] [address] Dr. Cj Alford PTTon 09-17-2021 aPTT Coag (Bld) [Time] 29.3 s Normal 22.3-36.2 [facility] Comment on above: Performed By: #### D DIM, PT, PTT #### [facility] [address] [place] [address] Dr. Cj Alford TROPONIN, HIGH SENSITIVITYon 09-17-2021 HSTROP 6.1 pg/mL Normal 4.0-35.5 [facility] Comment on above: Result Comment: CUT- OFF POINTS HAVE BEEN ESTABLISHED BASED ON THE FOURTH UNIVERSAL DEFINITIONS OF MYOCARDIAL INFARCTION. THE UPPER REFERENCE LIMIT (URL) OF TROPONIN, DEFINED THE 99TH PERCENTILE OF cTnI DISTRIBUTION IN A REFERENCE POPULATION, HAS BEEN CONFIRMED THE DECISION THRESHOLD FOR HI DIAGNOSIS. Performed By: #### H STROPN, CMP, TSH #### [facility] [address] [place], [place] [address] Dr. Cj Alford TSHon 09-17-2021 TSH 0.945 uIU/mL Normal 0.470-4.680 [facility] Comment on above: Performed By: #### H STROPN, CMP, TSH #### [facility] [address] [address] [address] Cj Alford TSH RANGE SEE BELOW Normal [facility] Comment on above: Result Comment: <0.3 4 UIU/ml HYPERTHYROID 0.34-5.60 UIU/ml EUTHYROID >5.60 UIU/ml HYPOTHYROID Performed By: #### H STROPN, CMP, TSH #### [facility] [address] [address] [address] Cj Alford [facility] JOHAN DIGITAL SCREEN SELF REFERRAL W OR [...] screening mammogram in 1 year is advised. [employer] Phone: EXAMINATION: SCREENING DIGITAL BILATERAL MAMMOGRAM WITH [...] distortion or significant interval changes are noted. [employer] Phone: Renaldo, Shahriar Incoming Radiant Results From [employer] - 02/01/2021 6:18 PM EDT EXAMINATION: SCREENING [...] screening mammogram in 1 year is advised. [employer] Phone: [facility] DIGITAL SCREEN SELF REFE RRAL W OR WO CAD BILATERALOrdered By: Sobia Browne on 11-15-2019 No mammographic evidence of malignancy. BI-RADS 1 BIRADS: BIRADS - CATEGORY 1 Negative, no evidence of malignancy. Normal interval follow-up is recommended in 12 months. OVERALL ASSESSMENT - NEGATIVE A letter of notification will be sent to the patient regarding the results. [employer] recommends annual mammograms for women 40 years and older. [employer] Phone: EXAMINATION: BILATERAL DIGITAL SCREENING MAMMOGRAM, 11/15/2019 [...] microcalcification , or area of architectural distortion. [employer] Phone: Renaldo, Mhpn Incoming Radiant Results From [employer] - 11/15/2019 2:07 PM EST EXAMINATION: BILATERAL [...] to the patient regarding the results. [employer] recommends annual mammograms for women 40 years and older. [employer] Phone: Vital Signs Date Time Vital Sign Value Performing Clinician Facility 01-03-2025 13:46-0500 Body mass index (BMI) [Ratio] 37.77 kg/m2 Mojgan Johnson [employer] Work Phone: [facility] 01-03-2025 13:46-0500 Body weight 102.97 kg Mojgan Johnson [employer] Work Phone: [facility] 01-03-2025 13:46-0500 Diastolic blood pressure 80 mm[Hg] Mojgan Jimenezton [employer] Work Phone: [facility] 01-03-2025 13:46-0500 Heart rate 74 /min Mojgan Johnson [employer] Work Phone: [facility] 01-03-2025 13:46-0500 Systolic blood pressure 114 mm[Hg] Mojgan Jimenezton [employer] Work Phone: [facility] 12-08-2024 13:11-0500 Body mass index (BMI) [Ratio] 37.01 kg/m2 Alexi Cummins DO Work Phone: [facility] 12-08-2024 13:11-0500 Body weight 100.88 kg Alexi Cummins DO Work Phone: [facility] 11-22-2024 15:31-0500 Body mass index (BMI) [Ratio] 36.94 kg/m2 Mojgan Johnson [employer] Work Phone: [facility] [facility] 11-22-2024 15:31-0500 Body weight 100.7 kg Mojgan Johnson CROWN ATT[employer]ER Work Phone: [facility] 11-22-2024 15:31-0500 Diastolic blood pressure 84 mm[Hg] Mojgan Johnson CROWN ATT[employer]ER Work Phone: [facility] 11-22-2024 15:31-0500 Heart rate 64 /min Mojgan Johnson [employer]OWN ATT[employer]ER Work Phone: [facility] 11-22-2024 15:31-0500 Systolic blood pressure 128 mm[Hg] Mojgan Johnson CROWN ATT[employer]ER Work Phone: [facility] 10-11-2024 14:59-0500 Body mass index (BMI) [Ratio] 37.28 kg/m2 Mojgan Johnson CROWN ATT[employer]ER Work Phone: [facility] 10-11-2024 14:59-0500 Body weight 101.61 kg Mojgan Johnson CROWN ATT[employer]ER Work Phone: [facility] 10-11-2024 14:59-0500 Diastolic blood pressure 74 mm[Hg] Mojgan Johnson CROWN ATT[employer]ER Work Phone: [facility] 10-11-2024 14:59-0500 Heart rate 66 /min Mojgan Johnson [employer]OWN ATT[employer]ER Work Phone: [facility] 10-11-2024 14:59-0500 Systolic blood pressure 108 mm[Hg] Mojgan Johnson CR[employer] ATT[employer]ER Work Phone: [facility] 10-04-2024 13:59-0500 Body height 165.1 cm Nelly Hatrina CROWN ATTACHER Work Phone: [facility] 10-04-2024 13:59-0500 Body mass index (BMI) [Ratio] 38.14 kg/m2 Nelly Castellanosburg CROWN ATTACHER Work Phone: [facility] 10-04-2024 13:59-0500 Body weight 103.96 kg Nelly Castellanosburg CROWN ATTACHER Work Phone: [facility] 10-04-2024 13:59-0500 Diastolic blood pressure 72 mm[Hg] Nelly Castellanosburg CROWN ATTACHER Work Phone: [facility] 10-04-2024 13:59-0500 Heart rate 74 /min Nelly Castellanosburg CROWN ATT[employer]ER Work Phone: [facility] 10-04-2024 13:59-0500 SaO2% (BldA) [Mass fraction] 94 % Nelly Castellanosburg CROWN ATTACHER Work Phone: [facility] 10-04-2024 13:59-0500 Systolic blood pressure 110 mm[Hg] Nelly Castellanosburg CROWN ATT[employer]ER Work Phone: [facility] 09-28-2024 11:23-0500 Body height 165.1 cm Nelly Castellanosburg CROWN ATTACHER Work Phone: [facility] 09-28-2024 11:23-0500 Body mass index (BMI) [Ratio] 38.27 kg/m2 Nelly Castellanosburg CROWN ATT[employer]ER Work Phone: [facility] 09-28-2024 11:23-0500 Body temperature 96.91 [degF] Nelly Castellanosburg CROWN ATT[employer]ER Work Phone: [facility] 09-28-2024 11:23-0500 Body weight 104.33 kg Nelly Castellanosburg CROWN ATT[employer]ER Work Phone: [facility] 09-28-2024 11:23-0500 Diastolic blood pressure 78 mm[Hg] Nelly Juneenburg CROWN ATT[employer]ER Work Phone: [facility] 09-28-2024 11:23-0500 Heart rate 68 /min Nelly Juneenburg CROWN ATTACHER Work Phone: [facility] 09-28-2024 11:23-0500 SaO2% (BldA) [Mass fraction] 95 % Nelly Dillard CROWN ATT[employer]ER Work Phone: [facility] 09-28-2024 11:23-0500 Systolic blood pressure 118 mm[Hg] Nelly Dillard CROWN ATT[employer]ER Work Phone: [facility] 08-29-2024 19:13-0400 Body temperature 98.7 [degF] MD Jim Astudillo Work Phone: [facility] 08-29-2024 19:13-0400 Diastolic blood pressure 89 mm[Hg] MD Jim Astudillo Work Phone: [facility] 08-29-2024 19:13-0400 Heart rate 85 /min MD Jim Astudillo Work Phone: [facility] 08-29-2024 19:13-0400 Respiratory rate 18 /min MD Jim Astudillo Work Phone: [facility] 08-29-2024 19:13-0400 SaO2% (BldA) [Mass fraction] 96 % MD Jim Astudillo Work Phone: [facility] 08-29-2024 19:13-0400 Systolic blood pressure 160 mm[Hg] MD Jim Astudillo Work Phone: [facility] Encounters Encounter Date Encounter Type Care Provider Facility Start: 01-03-2025 End: 01-03-2025 Bamboo flowsheet Mojganmichael Johnson CR[employer] ATT[employer]ER Work Phone: [facility] Start: 01-03-2025 End: 01-03-2025 Bamboo flowsheet Mojgan Johnson CROWN ATT[employer]ER Work Phone: [facility] Start: 01-03-2025 End: 01-03-2025 Office outpatient visit 25 minutes Mojgan Johnson CROWN ATT[employer]ER Work Phone: [facility] Comment on above: Generalized anxiety disorder (CMS/HCC); Mood disorder (CMS/HCC); History of TIA (transient ischemic attack) Start: 01-03-2025 End: 01-03-2025 ambulatory MOJGAN JOHNSON Not Available Start: 12-29-2024 End: 12-29-2024 ambulatory ALEXI PLACIDO Not Available Start: 12-27-2024 End: 12-27-2024 Clinisync Result Encounter Alexi Placido DO Work Phone: [facility] Unsolicited Start: 12-27-2024 End: 12-27-2024 Clinisync Result Encounter Alexi Placido DO Work Phone: [facility] Unsolicited Start: 12-23-2024 End: 12-23-2024 Amado Briceno MD Work Phone: [facility] Comment on above: Vertigo Start: 12-13-2024 End: 12-13-2024 Clinisync Result Encounter Generic External Data Provider [facility] External [facility] Unsolicited Start: 12-13-2024 End: 12-13-2024 Clinisync Result Encounter Generic External Data Provider [facility] External Department Unsolicited Start: 12-13-2024 End: 12-13-2024 Office outpatient visit 40 minutes Mojgan Johnson [employer] ATT[employer]ER Work Phone: [facility] Comment on above: [...] Office outpatient visit 25 minutes Mojgan Johnson CR[employer] ATT[employer]ER Work Phone: [facility] Comment on above: Generalized anxiety disorder (CMS/HCC); Mood disorder (CMS/HCC); Restless leg syndrome Start: 11-22-2024 End: 11-22-2024 ambulatory MOJGAN JOHNSON Not Available Start: 11-22-2024 End: 11-22-2024 Bamboo flowsheet Mojgan Johnson CROWN ATTACHER Work Phone: [facility] Start: 11-22-2024 End: 11-22-2024 Bamboo flowsheet Mojgan Johnson CROWN ATTACHER Work Phone: [facility] Start: 11-15-2024 End: 11-15-2024 Refill Nelly A Hackenburg CROWN ATTACHER Work Phone: [facility] Comment on above: Vertigo Start: 11-02-2024 End: 11-02-2024 Refill Nelly A Hackenburg CROWN ATTACHER Work Phone: [facility] Comment on above: Vertigo Start: 10-30-2024 End: 11-01-2024 Refill Nelly A Hackenburg CROWN ATTACHER Work Phone: [facility] Comment on above: RLS (restless legs s yndrome) Start: 10-29-2024 End: 10-29-2024 Orders Only Mojgan Johnson CROWN ATT[employer]ER Work Phone: [facility] Comment on above: Generalized anxiety disorder (CMS/HCC); Mood disorder (CMS/HCC) Start: 10-27-2024 End: 10-27-2024 Telephone encounter Brii Briceno MD Work Phone: [facility] Start: 10-27-2024 End: 10-27-2024 Office outpatient visit 25 minutes Mojgan Johnson CROWN ATTACHER Work Phone: [facility] Comment on above: Generalized anxiety disorder (CMS/HCC) Start: 10-27-2024 End: 10-27-2024 ambulatory MOJGAN JOHNSON Not Available Start: 10-21-2024 End: 10-21-2024 Office outpatient visit 25 minutes Mojgan Johnson CR[employer] ATT[employer]ER Work Phone: [facility] Comment on [...] Office outpatient new 60 minutes Mojgan Johnson CR[employer] ATT[employer]ER Work Phone: [facility] Comment on above: Generalized anxiety disorder (CMS/HCC); Mood disorder (CMS/HCC); History of TIA (transient ischemic attack) Start: 10-11-2024 End: 10-11-2024 ambulatory MOJGAN JOHNSON Not Available Start: 10-11-2024 End: 10-11-2024 Bamboo flowsheet Mojgan Johnson CROWN ATTACHER Work Phone: [facility] Start: 10-11-2024 End: 10-11-2024 Bamboo flowsheet Mojgan Johnson CROWN ATTACHER Work Phone: [facility] Start: 10-08-2024 End: 10-08-2024 Telephone encounter Brii Briceno MD Work Phone: [facility] Start: 10-04-2024 End: 10-04-2024 Office outpatient visit 25 minutes Nelly A Juneenburg CROWN ATTACHER Work Phone: [facility] Comment on above: Generalized anxiety disorder (CMS/HCC) (Primary Dx); Bipolar 1 disorder (CMS/HCC) Start: 10-04-2024 End: 10-04-2024 ambulatory NELLY A HACKENBURG Not Available Start: 09-30-2024 End: 10-01-2024 Refill Brii Briceno MD Work Phone: [facility] Comment on above: Vertigo Start: 09-29-2024 End: 09-29-2024 Refill Brii Briceno MD Work Phone: [facility] Comment on above: Vertigo Start: 09-28-2024 End: 09-28-2024 Bamboo flowsheet Nelly A Hackenburg CROWN ATTACHER Work Phone: [facility] Start: 09-28-2024 End: 09-28-2024 Bamboo flowsheet Nelly A Hackenburg CROWN ATTACHER Work Phone: [facility] Start: 09-28-2024 End: 09-28-2024 Transitional care manage srvc 14 day discharge Nelly Noah Watkins[place] CROWN ATTACHER Work Phone: [facility] Comment on above: Vertigo (Primary Dx) ; Generalized anxiety disorder (CMS/HCC); Benzodiazepine withdrawal without complication (CMS/HCC); Nausea; RLS (restless legs syndrome); Cognitive decline; Depressive disorder (CMS/HCC) Start: 09-28-2024 End: 09-28-2024 ambulatory NELLY A HACKENBURG Not Available Start: 08-29-2024 End: 08-29-2024 Emergency department patient visit MD Jim Astudillo Work Phone: [facility] Work Phone: Start: 08-18-2024 End: 08-18-2024 Refill Brii Briceno MD Work Phone: [facility] Comment on above: Morbid (severe) obes ity due to excess calories (CMS/HCC) Start: 08-05-2024 Registered Recurring MD Maurilio Astudillo Work Phone: [facility] Start: 08-05-2024 ambulatory Noe Rik John acility:[facility] Start: 03-01-2024 End: 03-01-2024 ambulatory ALEXI PLACIDO Not Available Start: 02-24-2024 End: 02-24-2024 ambulatory NELLY DILLARD Not Available Start: 11-20-2023 End: 11-20-2023 ambulatory [facility] Start: 10-21-2022 End: 10-24-2022 ambulatory JIM Benson [facility] Start: 10-21-2022 End: 10-23-2022 Subsequent hospital visit by physician [facility] Digital [facility] Comment on above: Visit for screening mammogram Start: 09-17-2021 End: 09-17-2021 ambulatory LUIS OWENS Facility:[facility] Start: 05-31-2021 End: 05-31-2021 Departed Referred CROWN ATTACHER Rosaura Mcclain Work Phone: [facility] [place] Start: 02-01-2021 End: 02-03-2021 Subsequent hospital visit by physician [facility] Vinayak Mammo [facility] Comment on above: Visit for screening mammogram Start: 11-15-2019 End: 11-17-2019 Subsequent hospital visit by physician [facility] Mammography Comment on above: Encounter for screen ing Procedures Date Procedure Procedure Detail Performing Clinician Start: 12-27-2024 ECG 12-LEAD Alexi Fazi o DO Work Phone: Start: 12-13-2024 MLR HEMOGLOBIN A1C Core y Placido DO Work Phone: Start: 09-28-2024 Complete blood count with white cell differential, automated Nelly Dillard CROWN ATTACHER Work Phone: Start: 11-12-2024 Comprehensive metabo lic panel Nelly Dillard CROWN ATTACHER Work Phone: Start: 12-26-2023 Mammography Brii madrigal MD Work Phone: Start: 10-21-2022 Screening mammograph y bi 2-view breast inc cad Jim Astudillo MD Work Phone: Start: 02-06-2021 Microscopic observat ion [Identifier] in Cervix by Cyto stain [facility] Start: 02-01-2021 Screening mammograph y bi 2-view breast inc cad Jim Astudillo Work Phone: Start: 11-15-2019 Screening digital br east tomosynthesis bi Sobia [employer] LEARNING DISABILITIES RESOURCE TEACHER - COGENERATION OPERATOR Work Phone: Start: 11-13-2018 Microscopic observat ion [Identifier] in Cervix by Cyto stain Brii Briceno MD Work Phone: Plan of Treatment Date Care Activity Detail Author Start: 11-12-2026 Screening for malign ant neoplasm of colon [facility] Start: 01-24-2025 End: 01-24-2025 Patient encounter procedure 01/24/2025 11:30 AM EDT [facility] [address] [facility] [address] [place] [phone] Mojgan Johnson NP [address] [facility] [address] [place] [phone] [facility] Start: 01-03-2025 End: 01-03-2025 Patient encounter procedure [facility] Comment on above: Generalized anxiety disorder (CMS/HCC); Mood disorder (CMS/HCC); Restless leg syndrome; History of TIA (transient ischemic attack) Start: 12-29-2024 End: 12-29-2024 Professional / ancillary services management 12/29/2024 11:30 AM EST Ancillary Procedure [facility] [address] [place] [id number] [facility] Start: 12-26-2024 Screening for malign ant neoplasm of breast Mammogram [facility] Start: 12-13-2024 End: 12-13-2024 Patient encounter procedure 12/13/2024 2:00 PM EST Office Visit [facility] [address] [facility] [address] [place] [phone] Mojgan Johnson NP [address] [facility] [address] [place] [id number] [facility] Start: 12-08-2024 End: 12-08-2025 [...] End: 11-22-2024 Patient encounter procedure [facility] Comment on above: Generalized anxiety disorder (CMS/HCC); Mood disorder (CMS/HCC) Start: 10-27-2024 End: 10-27-2024 Telemedicine consultation with patient 10/27/2024 11:30 AM EST Telemedicine [facility] [address] [facility] [address] [place] [phone] Mojgan Johnson NP [address] [facility] [address] [place] [phone] [facility] Start: 10-26-2024 End: 10-26-2024 Patient encounter procedure 10/26/2024 11:00 AM EST Office Visit [facility] [address] [place] [address] Nelly Dillard NP [address] [place], [place] [phone] [facility] Start: 10-21-2024 End: 10-21-2024 Telemedicine consultation with patient 10/21/2024 3:30 PM EST Telemedicine [facility] [address] [place] [address] Mojgan Johnson NP [address] [place] [address] [facility] Start: 10-21-2024 Screening for malign ant neoplasm of breast Breast cancer screen [facility] Start: 10-11-2024 End: 10-11-2024 Patient encounter procedure [facility] Comment on above: Generalized anxiety disorder (CMS/HCC); Benzodiazepine withdrawal without complication (CMS/HCC); Depressive disorder (CMS/HCC) Start: 09-28-2024 End: 09-28-2025 CBC W Auto Differential panel - Blood CBC and differential Lab Routine Benzodiazepine withdrawal without complication (CMS/HCC) Expected: 09/28/2024 (Approximate), Expires: 09/28/2025 [facility] Work Phone: Comment on above: Expected: 09/28/2024 (Approximate), Expires: 09/28/2025 Start: 07-18-2024 Influenza vaccination Influenza Vacc ine (#1) [facility] Start: 02-07-2024 Screening for malign ant neoplasm of cervix [facility] Start: 11-13-2023 Cervical cancer screen Cervical canc er screen [facility] Phone: Start: 11-13-2023 Screening for malign ant neoplasm of cervix [facility] Start: 02-01-2023 Screening for malign ant neoplasm of breast Breast cancer screen [facility] Phone: Start: 10-21-2022 Annual Wellness Visi t (AWV) Annual Wellness Visit (AWV) [facility] Start: 10-03-2022 Depression Screen Depression Screen [facility] Start: 06-17-2022 Influenza vaccination Flu vaccine (# 1) [facility] Start: 11-15-2021 Breast cancer screen Breast cancer s creen [facility] Phone: Start: 11-13-2021 Screening for malign ant neoplasm of cervix Pap Smear [facility] Start: 08-22-2020 Lipid panel [employer] Start: 08-22-2020 Lipid screen Lipid screen [employer] Work Phone: Start: 07-18-2020 Influenza vaccination Flu vaccine (# 1) [facility] Phone: Start: 07-18-2019 Influenza vaccination Flu vaccine (# 1) [facility] Phone: Start: 2012 Colon cancer screen colonoscopy Colon cancer screen colonoscopy [facility] Phone: Start: 2012 Screening for malign ant neoplasm of colon Colon cancer screen colonoscopy [facility] Phone: Start: 2012 Shingles Vaccine (1 of 2) Gonzalez gles Vaccine (1 of 2) [facility] Start: 2007 Screening for malign ant neoplasm of colon [facility] Start: 2002 Diabetes screen Diabetes screen [employer] Phone: Start: 1981 DTaP/Tdap/Td vaccine (1 - Tdap) DTaP/Tdap/Td vaccine (1 - Tdap) [facility] Start: 1980 Hepatitis C screening Hepatitis C sc reen [facility] Start: 1978 COVID-19 Vaccine (1) COVID-19 Vaccin e (1) [facility] Phone: Start: 1977 HIV screen HIV screen [employer] Work Phone: Start: 1977 HIV screening HIV screen JOSE DE JESUS MARK [employer] Start: 1973 DTaP/Tdap/Td vaccine (1 - Tdap) DTaP/Tdap/Td vaccine (1 - Tdap) [facility] Phone: Start: 1962 COVID-19 Vaccine (#1) COVID-19 Vacci ne (#1) JOSE DE JESUS HERBERT [employer] Start: 1962 Hepatitis C screen Hepatitis C scree n [employer] Work Phone: Start: 1962 Hepatitis C screening Hepatitis C sc nano [employer] Work Phone: Start: 1962 [facility] DHEA-sulfate Lab Routine Hormone disorder Ordered: 12/08/2024 [facility] Comment on above: Ordered: 12/08/2024 Estradiol Estradiol Lab Ro utine Hormone disorder Ordered: 12/08/2024 [facility] Comment on above: Ordered: 12/08/2024 Estrone Estrone Lab Rout ine Hormone disorder Ordered: 12/08/2024 [facility] Comment on above: Ordered: 12/08/2024 Ferritin [Mass/volum e] in Serum or Plasma Ferritin Lab Routine Hormone disorder Ordered: 12/08/2024 [facility] Comment on above: Ordered: 12/08/2024 Hemoglobin A1c/Hemoglobin.total in Blood Hemoglobin A1c Lab Routine Hormone disorder Ordered: 12/08/2024 [facility] Comment on above: Ordered: 12/08/2024 Patient Education Nausea and Vom iting, Adult Dizziness, Nonvertigo, (DC) [facility] Work Phone: Patient referral [facility] Work Phone: Progesterone Progesterone Lab Routine Hormone disorder Ordered: 12/08/2024 [facility] Comment on above: Ordered: 12/08/2024 Sex hormone binding globulin Sex hormone binding globulin Lab Routine Hormone disorder Ordered: 12/08/2024 [facility] Comment on above: Ordered: 12/08/2024 T3, reverse T3, reverse Lab Routine Hormone disorder Ordered: 12/08/2024 [facility] Comment on above: Ordered: 12/08/2024 TESTOSTERONE, FREE TESTOSTERONE, FREE Lab Routine Hormone disorder Ordered: 12/08/2024 [facility] Comment on above: Ordered: 12/08/2024 Testosterone, free, total Testos terone, free, total Lab Routine Hormone disorder Ordered: 12/08/2024 [facility] Comment on above: Ordered: 12/08/2024 Thyroid peroxidase antibody Thyroid peroxidase antibody Lab Routine Hormone disorder Ordered: 12/08/2024 [facility] Comment on above: Ordered: 12/08/2024 Thyroxine (T4) free [Mass/volume] in Serum or Plasma T4, free Lab Routine Hormone disorder Ordered: 12/08/2024 [facility] Comment on above: Ordered: 12/08/2024 Triiodothyronine (T3 ) Free [Mass/volume] in Serum or Plasma T3, free Lab Routine Hormone disorder Ordered: 12/08/2024 [facility] Comment on above: Ordered: 12/08/2024 Vitamin D 1,25 dihydroxy Vitamin D 1,25 dihydroxy Lab Routine Hormone disorder Ordered: 12/08/2024 [facility] Comment on above: Ordered: 12/08/2024 Payers Date Payer Category Payer Self-pay [id number] 2021 [employer] [place] [employer] [id number] 2021 Unknown BCBS BCBS [id number] [id number] 2021-Present [phone] [address] [place] [address] [id number] 2019 Unknown BCBS BCBS - [place] P PO xxxxxxxxxxxx 2019-Present [address] [place] [address] xxxxxxxxxxxx [id number] 2014 Medicare [id number]. [id number] 1962 Unknown [id number] 2.16.840.1.084143.3.579.2. 593 1962 Unknown [id number] 2.16.840.1.521432.3.579.2. 176 1962 Unknown [id number] 2.16.840.1.322648.3.579.2. 1286 1962 Unknown [id number] 2.16.840.1.620635.3.579.2. 1259 1962 Unknown [id number] 2.16.840.1.452343.3.579.2. 1259 1962 Unknown [id number] 2.16.840.1.284802.3.579.2. 1259 1962 Unknown [id number] 2.16.840.1.222466.3.579.2. 1259 1962 Unknown [id number] 2.16.840.1.095821.3.579.2. 1259 1962 Unknown [id number] 2.16.840.1.883689.3.579.2. 1259 1962 Unknown [id number] 2.16.840.1.266595.3.579.2. 1259 1962 Unknown [id number] 2.16.840.1.085808.3.579.2. 1259 1962 Unknown [id number] 2.16.840.1.414616.3.579.2. 9 1962 Unknown [id number] 2.16.840.1.939978.3.579.2. 9 1962 Unknown [id number] 2.16.840.1.654705.3.579.2. 9 1962 Unknown [id number] 2.16.840.1.482680.3.579.2. 1259 1959 Unknown [id number] 1.2.840.486151.1.13.239.2. [id number] Unknown [id number] 2.16.840.1.933040.3.579.2. 531 Unknown [id number] 2.16.840.1.373889.3.579.2. 531 Social History Date Type Detail Facility Start: 02-01-2021 End: 10-28-2023 Tobacco smoking status [facility] Never smoker [facility] Start: 02-01-2021 End: 10-28-2023 Tobacco use and exposure Never used [facility] Phone: Start: 02-01-2021 End: 10-21-2022 Alcohol intake Current non-drinker of alcohol (finding) [facility] Phone: Start: 1960 Sex Assigned At Not on file M [employer] Phone: Start: 1960 Sex Assigned At Female F [facility] Start: 10-21-2022 End: 01-03-2025 Alcohol intake [facility] Phone: Start: 02-24-2024 End: 01-03-2025 Alcoholic beverage intake Ex-drinker (finding) [facility] Start: 02-24-2024 End: 01-03-2025 Tobacco use panel [facility] Start: 09-28-2024 Alcohol Comment Caffine: 0 [facility] Start: 10-11-2024 Education 21 [facility] Clinical Notes 09-28-2024 to 01-03-2025 Mojgan Johnson NP - 01/03/2025 2:00 PM ESTTelephone Encounter - Brii Briceno MD - 12/23/2024 3:19 PM ESTTelephone Encounter - Brii Briceno MD - 12/23/2024 3:19 PM EST Note Date & Type Note Facility 01-03-2025 History of Presen t illness Narrative Images from the original note were not included. HPI: Luisana Martinez is a 64 y.o. female with a history of IBS and anxiety. Patient is here today for follow-up. She is here by herself. At patient's last visit on 12/13/24, she was started on Mirtazapine. She had then called the office on 12/17 reporting worsening nausea and anxiety since starting the medication. She was encouraged to take medication with food and continue this as there will likely be an adjustment period for her. She is not having issues with tremors. She states she is doing okay today. She states that she has less nausea and her appetite has improved. Weight has been stable since last visit. She states she still has some down days and anxious days. She reports she continues to have vaginal bleeding and is scheduled to have her D&C on Friday. She reports that she has not heard from Research Study Assistant (Dr. Cummins) about labs that were collected last month. She continues to see her counselor every 2 weeks. She states they are working on her trauma from [facility] and is doing EMDR to help with this. She has appointment with multiple specialist to further discuss symptoms she has been experiencing. She has appointment with Neurology this (01/06) and GI (Dr. Jovel) on January 26 to discuss nausea. SUBJECTIVE: PAST MEDICAL HISTORY: Past Medical History: Diagnosis Date KLAUDIA (generalized anxiety disorder) ([facility]/HCC) History of psychiatric hospitalization 2020 [facility] x2 History of psychiatric hospitalization 2021 [facility] Panic attack ([facility]) 09/08 x3 MEDICATIONS: Current Outpatient Medications Medication Instructions aspirin (Aspirin Low Dose) 81 MG chewable tablet CHEW 1 TABLET (81 MG) IN THE MORNING atorvastatin (LIPITOR) 10 mg, Oral, Daily DULoxetine (CYMBALTA) 30 mg, Oral, 2 times daily gabapentin (NEURONTIN) 200 mg, Oral, 3 times daily meclizine (ANTIVERT) 12.5 mg, Oral, 3 times daily PRN mirtazapine (REMERON) 7.5 mg, Oral, Nightly pantoprazole (PROTONIX) 40 mg, Oral, Daily before breakfast, Do not crush, chew, or split. propranolol (INDERAL) 10 mg, Oral, 2 times daily ALLERGIES: Allergies Allergen Reactions Milk-Related Compounds Alprazolam [...] Heart disease Mother Stroke Mother Dementia Father [facility] SOCIAL HISTORY: Social History Tobacco Use Smoking status: Never Smokeless tobacco: Never Vaping Use Vaping status: Never Used Substance Use Topics Alcohol use: Not Currently Comment: Caffine: 0 Drug use: Never Depression: Not at risk (01/03/2025) PHQ-2 PHQ-2 Score: 2 Recent Concern: Depression - At risk (11/22/2024) PHQ-2 PHQ-2 Score: 3 [...] headache, dizziness, seizures, tremors, headache. Appearance Appearance: Normal grooming and hygiene. Appears stated age. Dressed appropriately for weather. Behavior Calm, cooperative, pleasant. Good posture. Psychomotor Activity Restless. Patient continuously rubbing both of her thighs with her hands throughout visit. Eye contact Good Speech Normal, clear, regular rate, rhythm and volume Affect Blunted Mood Anxious and Depressed Thought Process Organized, logical, and goal directed Thought Content: Denies suicidal and homicidal ideation. Perception: Denies auditory or visual hallucinations. No evidence of delusions. Cognition Alert and attentive during visit Memory Immediate, recent and remote memory intact Insight Good. Acknowledges predominant symptoms of illness and need for treatment Judgement Good. Able to make reasonable life decisions. OBJECTIVE: Visit Vitals BP 114/80 (BP Location: Right arm, Patient Position: Sitting) Pulse 74 Wt 227 lb BMI 37.77 kg/m Smoking Status Never BSA 2.17 m Lab Results Component Value Date GLU 110 [...] (H) 02/24/2024 ASSESSMENT AND PLAN: Impression: Patient reports slight improvement in anxiety since last visit. Her nausea and appetite has also improved. SLUMS examination finished today and noted to have a score of 29, which indicates normal cognition functioning. Discussed expectations of medication in helping with situational anxiety. Encouraged continuing counseling as part of her treatment given her history of side effects with medications. Discussed titrating medications slowly given her history of side effects. She is agreeable to this. Will continue Mirtazapine at current dose as she has only been on this for 3 weeks. Will slowly wean off Propranolol given tremors being absent the past 2 visits. Patient with notable low vitamin D noted on 12/13/24. Will reach out to hydraulic jack mechanic who ordered lab testing about future follow-up. Assessment/Plan Diagnoses and all orders for this visit: Generalized anxiety disorder (CMS/HCC) - propranolol (Inderal) 10 MG tablet; Take 1 tablet (10 mg) by mouth in the morning and 1 tablet (10 mg) before bedtime. Mood disorder (CMS/HCC) History of TIA (transient ischemic attack) Treatment Plan/Recommendations: - Continue Duloxetine 30 mg BID for anxiety, depression. - Decrease Propranolol to 10 mg BID for tremors. Continue wean off medication in future if tremors remain absent. - Continue Gabapentin 200 mg three times a day for anxiety. Consider stopping medication at future visit due to questionable effectiveness in improving patient's anxiety. - Continue Mirtazapine 7.5 mg for depression and anxiety. - Reach out to Research Study Assistant (Dr. Cummins) about lab results. - SUAD signed at this visit to review records from hospitalizations at [facility]. - Continue counseling for additional mental health support and treatment. - RTC in 3-4 weeks. Discussed any medication changes and follow-up plan with patient. Encouraged patient to call office sooner if symptoms worsen or if any questions/concerns arise. Patient was seen Face to Face, Total time spent with patient was 25 minutes, which includes reviewing chart documents, previous notes/records, counseling and discussion with patient and/or coordination of care as described above. documented in this encounter [facility] 12-23-2024 Telephone encounter Note Approving, but needs appt for additional refills. [facility] 12-23-2024 Miscellaneous Notes Approving, but needs appt for additional refills. documented in this encounter [facility] 12-13-2024 History of Presen t illness Narrative Luisana Martinez is a 64 y.o. female with a history of IBS and anxiety who presents for psychiatric medication follow-up. Her daughter, Spring, is present at today's visit. Location of patient: Home; located in [place] Location of provider: Office; located in [place], [place] Patient seen via: [employer]; audio and video utilized Reason for televisit: [...] good thing. She states she saw her Cane Flume Watchman last week for vaginal bleeding. She states [...] History: Diagnosis Date KLAUDIA (generalized anxiety disorder) ([facility]) History of psychiatric hospitalization 2020 [facility] x2 History of psychiatric hospitalization 2021 [facility] x3 ALLERGIES: Allergies Allergen Reactions Milk-Related Compounds [...] Heart disease Mother Stroke Mother Dementia Father [facility] SOCIAL HISTORY: Social History Tobacco Use [...] to age Memory/Concentration Short term intact and superintendent container terminal intact Insight/Judgement Fair OBJECTIVE: Visit Vitals Smoking [...] signed to review records from hospitalizations at [facility]. - Continue counseling for additional mental health [...] as described above. documented in this encounter [facility] 12-08-2024 History of Presen t illness Narrative [...] Problems Diagnosis Date Noted Generalized anxiety disorder ([facility]) 09/25/2023 Jaundice 09/25/2023 Morbid (severe) obesity due to excess calories ([facility]) 09/25/2023 Cervical stenosis (uterine cervix) 10/07/2013 [...] History: Diagnosis Date KLAUDIA (generalized anxiety disorder) ([facility]/HCC) History of psychiatric hospitalization 2020 History of psychiatric hospitalization 2021 HISTORY PAST MEDICAL HISTORY SOCIAL HISTORY Past Medical History: Diagnosis Date KLAUDIA (generalized anxiety disorder) ([facility]) History of psychiatric hospitalization 2020 [facility] x2 History of psychiatric hospitalization 2021 [facility] x[facility] Social History Tobacco Use Smoking status: [...] nursing note reviewed. Exam conducted with a color card maker present. Vitals: Estimated body mass index is [...] reviewed, and patient is to proceed to [facility]. 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 She is seeing OPERATING COST CLERK on December 11 to discuss hormone testing; Neurology on January 06; and GI (Dr. Jovel) on January 26 to discuss nausea. SUBJECTIVE: PAST MEDICAL HISTORY: Past Medical History: Diagnosis Date KLAUDIA (generalized anxiety disorder) ([facility]) History of psychiatric hospitalization 2020 [facility] x2 History of psychiatric hospitalization 2021 [facility] x3 ALLERGIES: Allergies Allergen Reactions Milk-Related Compounds [...] disease Mother Stroke Mother Dementia Father [place] SOCIAL HISTORY: Social History Tobacco Use Smoking [...] to age Memory/Concentration Short term intact and superintendent container terminal intact. Denies any issues. denies any concerns [...] Would also like to get records from [facility] during her hospitalizations, as well as [place] to help further investigate what was going [...] anxiety. - Get records from hospitalizations at [facility], as well as recovery stay at [place]. - Continue counseling for additional mental health [...] as described above. documented in this encounter [facility] 11-15-2024 Telephone encounter Note christie Horne left this vm about 2 pm: My name is Luisana martinez my date is 04 19 1960, my phone number [phone] I just called [facility] because I am going to need my Meclizine refilled on and they said they would ask my prescriber and that it was denied I want to know what I should do? All right, thank you, bye. [facility] 11-15-2024 Miscellaneous Notes christie Horne left this vm about 2 pm: My name is Luisana martinez my date is 04 19 1960, my phone number [phone] I just called [facility] because I am going to need my Meclizine refilled on and they said they would ask my prescriber and that it was denied I want to know what I should do? All right, thank you, bye. documented in this encounter [facility] 10-29-2024 History of Presen t illness Narrative Rx for gabapentin dose increase sent. documented in this encounter [facility] 10-27-2024 Telephone encounter Note Daughter Spring Broderick (on HIPAA) Is requesting referrals, Gastroentologist- nausa is unbearable, binder lockstitch- Concern of possible Hormone inbalance, its been years since she has seen one. Would prefer not a materials technician. She would like to have the referrals all thru [facility]. Gonzales, [facility] 10-27-2024 Miscellaneous Notes Daughter Spring Broderick (on HIPAA) Is requesting referrals, Gastroentologist- nausa is unbearable, binder lockstitch- Concern of possible Hormone inbalance, its been years since she has seen one. Would prefer not a materials technician. She would like to have the referrals all thru [facility] Please, documented in this encounter [facility] 10-27-2024 History of Presen t illness Narrative Images from the original note were not included. Luisana Martinez is a 64 y.o. female with a history of IBS and anxiety who presents for psychiatric medication follow-up via telehealth. Patient is accompanied by daughterSpring. Location of patient: Home; located in [place] Location of provider: Office; located in [place], [place] Patient seen via: [employer] Telehealth; audio and video utilized Reason for [...] History: Diagnosis Date KLAUDIA (generalized anxiety disorder) ([facility]) History of psychiatric hospitalization 2020 [facility] x2 History of psychiatric hospitalization 2021 [facility] x3 ALLERGIES: Allergies Allergen Reactions Milk-Related Compounds [...] to age Memory/Concentration Short term intact and usp intact Insight/Judgement Poor OBJECTIVE: Visit Vitals Smoking [...] about possible GI referral for nausea and hydraulic jack mechanic referral for hx of hormone imbalance. - [...] as described above. documented in this encounter [facility] 10-21-2024 History of Presen t illness Narrative Images from the original note were not included. Luisana Martinez is a 64 y.o. female with a history of IBS and anxiety who presents for psychiatric medication follow-up via telehealth. Patient is accompanied by daughter, Spring. Location of patient: Home; located in [place] Location of provider: Office; located in [place], [place] Patient seen via: [employer] Telehealth; audio and video utilized Reason for [...] be looking into following up with patient's hydraulic jack mechanic for further assessment. Patient states that she is still very anxious and it is occurring most of the day. She states she is sleeping well. SUBJECTIVE: PAST MEDICAL HISTORY: Past Medical History: Diagnosis Date KLAUDIA (generalized anxiety disorder) ([facility]) History of psychiatric hospitalization 2020 [facility] x2 History of psychiatric hospitalization 2021 [facility] x[facility] ALLERGIES: Allergies Allergen Reactions Milk-Related Compounds [...] to age Memory/Concentration Short term intact and usp intact Insight/Judgement Poor OBJECTIVE: Visit Vitals Smoking [...] Mood disorder (CMS/HCC) Treatment Plan/Recommendations: - Continue Seroquel 50 mg [...] the local ER or call Suicide Hotline (962) for any psychosis, suicidal or homicidal ideation, [...] as described above. documented in this encounter [facility] 10-13-2024 Telephone encounter Note Patient will be out of medication by Friday and wondered if it could be calledin soon. Daughter was not aware of the 72 hour notice. [facility] 10-13-2024 Miscellaneous Notes Patient will be out of medication by Friday and wondered if it could be calledin soon. Daughter was not aware of the 72 hour notice. documented in this encounter [facility] 10-11-2024 History of Presen t illness Narrative [...] then had experienced the loss of her [id number] that same year in August. She states she developed Covid and on day 6 of having this acute illness, she began having increased anxiety and panic attacks. She states her anxiety got so bad that she went to [facility], where she was admitted and eventually discharged [...] off of the Ativan. She went to [facility] on 08/19/24 and was discharged from there on on September 24. While she was in [place], daughter states that they switched her from [...] recently saw PCP since being out of [place] and was referred to [facility] Neurology due to her gait, tremors, and cognitive decline. Patient reports history of 2 TIAs in her past (first one in and the second one in December 2022). Daughter reports this appointment is not until December 2024. Past Psychiatric History: Previous diagnoses: Generalized anxiety Previous psychiatric treatment: Has seen counseling in the past. Was following with a bank secrecy act officer through [facility] when she was getting Ativan and SGA. Currently doing EMDR for the past year. States she has not been back since being out of [place] but does plan to reschedule appointment. Previous medications: Ativan - Reports being on 1 mg three times a day for 3 years before being weaned off during recent stay at [place]. Zoloft - Reports she tried this for a short time 2 years ago but stopped it due to increased depression. Buspar - Reports being on in this in the past. Tried to start it again after leaving [place] but states it caused her to have increased anxiety so she stopped it. Current medications: Cymbalta 60 mg daily - States she has been on medication for 3 years. States dose was changed from 30 mg BID to 60 mg daily while she was in [place]. Reports increased nausea and GI upset since changing dose to 60 mg daily. Propranolol 20 mg BID Seroquel 25 mg daily - Reports taking 2 tabs in the AM, 1 at 3 PM, and 2 tabs at bedtime. Reports being switched from Zyprexa to Seroquel while in [place] due to agitation and to help with shuffling feet. Gabapentin 100 mg TID - Reports starting this medication when in [place]. Was on 400 mg three times a day while in [place] but has tapered down dose to 100 mg TID per PCP recommendations. Previous psychiatric hospitalizations: Reports being hospitalized 3 times over the past 3 years for her anxiety. Was recently at [facility] ([place]) from 08/19/24 to 09/24/24 to wean off Ativan. Previous suicide attempts or self harm: Denies History of violence: Denies History of trauma: Reports that she lost her first baby boy 2.5 hours he was born. Daughter reports things were not handled respectfully back then. Reports that she had a bad marriage with ex-. Reports sister 3 years ago due to ovarian cancer and [id number] passed way that same year in August. [...] History: Diagnosis Date KLAUDIA (generalized anxiety disorder) ([facility]) History of psychiatric hospitalization 2020 [facility] x2 History of psychiatric hospitalization 2021 [facility] x[facility] Patient denies any history of heart [...] past 25 years. 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 Reports having a good relationship with all of her children except her youngest son. 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 PSYCHIATRIC REVIEW [...] than having anxiety prior to going to [facility]. Patient states she is starting to feel [...] (vital signs, EKG) when she was at [facility], and everything was normal. She also reports [...] to age Memory/Concentration Short term intact and usp intact Insight/Judgement Fair OBJECTIVE: Visit Vitals BP [...] the local ER or call Suicide Hotline (685) for any psychosis, suicidal or homicidal ideation, [...] as described above. documented in this encounter [facility] 10-08-2024 Telephone encounter Note Rx by adelfo giron pantoprazole- 20 mg 1 daily [facility] 10-08-2024 Miscellaneous Notes Rx by adelfo giron, pantoprazole- 20 mg 1 daily documented in this encounter [facility] 10-04-2024 History of Presen t illness Narrative [...] three times a day as prescribed by Recovery. She took Bonine 100 mg this morning, [...] 1 disorder (CMS/HCC) documented in this encounter [facility] 09-29-2024 Telephone encounter Note This sent was just sent yesterday per Nelly [facility] Work Phone: 09-29-2024 Miscellaneous Notes This sent was just sent yesterday per Nelly documented in this encounter [facility] 09-28-2024 History of Presen t illness Narrative [...] management. She just got out of the [facility] September 24 (August 19-September 24) to [...] Flowsheet Row Office Visit from 09/28/2024 in [facility] with Nelly Dillard NP Hospital Information ED, Hospital or Fdc Facility Discharge? ED Patient has been contacted within 1 week of being seen in the ED Yes Diagnosis Dehydrated Discharge Date 08/29/24 Discharged To: Fdc Facility (specify SNF in comments) Discharge [facility] Engagement Admission Date 08/29/24 Medications Discharge [...] Ativan. They recommended further testing at the [facility], but the appointment is not until [...] a therapist and is considering returning to [facility] for psychiatric care. She is currently on [...] History: Diagnosis Date KLAUDIA (generalized anxiety disorder) ([facility]) History of psychiatric hospitalization 2020 [facility] x2 History of psychiatric hospitalization 2021 [facility] Social History Tobacco Use Smoking status: [...] as needed for dizziness Generalized anxiety disorder ([facility]) - DULoxetine (Cymbalta) [address] capsule; [...] agreeable. Referral placed to [facility] Johnson in [place]. Benzodiazepine withdrawal without complication (CMS/[facility]) - Comprehensive metabolic panel; Future - CBC [...] Evaluation note No assessment inform ation available [facility] Evaluation note Diagnosis Encounter for screening Screening for unspecified condition documented in this encounter [employer] Phone: evaluation note* Diagnosis Visit for screening mammogram Other screening mammogram documented in this encounter [facility] [employer] Phone: [id number] note* Diagnosis Morbid (severe) obesity due to [...] ischemic attack) documented in this encounter [facility] Reason for Referral Status Reason Specialty Diagnoses / Procedures Referre d By Contact Referred To Contact Closed Radiology Diagnoses Visit for screening mammogram Procedures [facility] JOHAN DIGITAL SCREEN SELF REFERRAL W OR WO CAD BILATERAL Jim Astudillo MD [address] [place] [address] Status Reason Specialty Diagnoses / Procedures Referred By Contact Referred To Contact Pending Review Radiology Diagnoses Encounter for screening Procedures [facility] DIGITAL SCREEN SELF REFERRAL W OR WO CAD BILATERAL Sobia Browne APRN - COGENERATION OPERATOR [address] [place] [address] Specialty Diagnoses / Procedures Referred By Contac t Referred To Contact Radiology Diagnoses Visit for screening mammogram Procedures [facility] JOHAN DIGITAL SCREEN SELF REFERRAL W OR WO CAD BILATERAL Jim Astudillo MD [address] [place] [id number] Referral ID Status Reason Start Date Expiration Date Visits Re quested Visits Authorized [id number] Closed 10/21/2022 10/21/2023 1 1 Assessments Diagnosis Visit for screening mammogram Other screening mammogram Advance Directives Documents on File Type Date Recorded Patient Television Specialist Expl anation ACP-Advance Directive ACP-Power of Application Chemist Latest Code Status on File Code Status Date Activated Date Inactivated Comments Full Code 08/21/2015 6:55 PM 08/23/2015 4:44 PM Documents on File Type Date Recorded Patient Television Specialist Expl anation Advance Directives and Living Will Power of Application Chemist Advance Directive Response Recorded Date/ Time Advance [...] OR WO CAD BILATERAL Jim Astudillo MD [address] [place] [id number] Status Reason Specialty Diagnoses / Procedures Referred By Contact Referred To Contact Pending Review Radiology Diagnoses Encounter for screening Procedures [facility] DIGITAL SCREEN SELF REFERRAL W OR WO CAD BILATERAL Sobia Browne, LEARNING DISABILITIES RESOURCE TEACHER - [facility] [address] [facility] [address] [place] [address] Specialty Diagnoses / Procedures Referred By Contac t Referred To Contact Radiology Diagnoses Visit for screening mammogram Procedures [facility] JOHAN DIGITAL SCREEN SELF REFERRAL W OR WO CAD BILATERAL Jim Astudillo MD [address] [place] [id number] Referral ID Status Reason Start Date Expiration Date Visits Re quested Visits Authorized [id number] Closed 10/21/2022 10/21/2023 1 1 Reason Comments Med Refill Reason Comments Establish Care Reason Onset Date Comments Med Refill 10/13/2024 Reason Comments Psychiatric Evaluation Specialty Diagnoses / Procedures Referred By Contac t Referred To Contact Psychiatry / Behavioral Health Diagnoses Generalized anxiety disorder (CMS/HCC) Benzodiazepine withdrawal without complication (CMS/HCC) Depressive disorder (CMS/HCC) Procedures [place] OFFICE/OUTPATIENT NEW HIGH MDM 60 MINUTES Nelly Dillard NP [address] [place] [address] Phone: tel: fax: Mojgan Johnson NP [address] [facility] [address] [place] [address] Phone: tel: fax: Referral ID Status Reason Start Date Expiration Date V isits Requested Visits Authorized [id number] Closed Specialty Services Required 09/28/2024 03/27/2025 1 1 Reason Comments Med Change Request Reason Comments Med Management Follow-up Reason Comments hormone imbalance Goals (unrecognized section and content) Goals may be documented in a n alternate sectionGoals may be documented in an alternate section INFORMATION SOURCE (unrecogn ized section and content) DATE CREATED AUTHOR 09/20/2021 [facility] DATE CREATED AUTHOR AUTHOR'S ORGANIZ ATION 10/24/2022 [facility] DATE CREATED AUTHOR AUTHOR'S ORGANIZ ATION 11/23/2023 [facility] DATE CREATED AUTHOR AUTHOR'S ORGANIZ ATION 12/14/2024 [facility] DATE CREATED AUTHOR AUTHOR'S ORGANIZ ATION 01/04/[address] [facility] dical Specialists [employer] Care Teams (unrecognized sec tion and content) City Planner Relationship Specialty Start Date End Date Jim Astudillo MD [address] [place] [address] PCP - General Family Medicine 07/09/13 City [employer]anner Relationship Specialty Start Date End Date Brii Briceno MD [address] [place] [address] PCP - General Family Medicine 03/25/23 Team Status: Active Member Role Status Dates Nelly Dillard APRN [employer]ER-C Primary Care Provi bienvenido Active Team Status: Active Member Role Status Dates Jim Astudillo MD Primary Care Provider Active Start: August 05, 2024 Noe Jolly MD Attending Provider Active Start: August 05, 2024 Team Status: Inactive Member Role Status Dates Estela Heart MD Emergency Provider Active St art: August 29, 2024 End: August 29, 2024 MEREDITH Rain RN CROWN ATT[employer]ER-C Primary Care Provider Active Start: August End: August 29, 2024 City Planner Relationship Specialty Start Date End Date Brii Briceno MD [address] [facility] [place] [address] PCP - General Family Medicine 03/25/23 City Planner Relationship Specialty Start Date End Date Brii Briceno MD [address] [facility] [place] [address] PCP - General Family Medicine 03/25/23 City Planner Relationship Specialty Start Date End Date Brii Briceno MD [address] [place] [address] PCP - General Family Medicine 03/25/23 City Planner Relationship Specialty Start Date End Date Brii Briceno MD [address] [place] [address] PCP - General Family Medicine 03/25/23 City Planner Relationship Specialty Start Date End Date Brii Briceno MD [address] [place] [address] PCP - General Family Medicine 03/25/23 City Planner Relationship Specialty Start Date End Date Brii Briceno MD [address] [place] [address] PCP - General Family Medicine 03/25/23 Mojgan Johnson, ОЛЕГ [address] [facility] [address] [place] [address] Nurse Practitioner Behavioral Health 10/12/24 City Planner Relationship Specialty Start Date End Date Brii Briceno MD [address] [place] [address] PCP - General Family Medicine 03/25/23 Mojgan Johnson NP [address] [facility] [address] [place] [address] Nurse Practitioner Behavioral Health 10/12/24 City Planner Relationship Specialty Start Date End Date Brii Briceno MD [address] [place] [address] PCP - General Family Medicine 03/25/23 City Planner Relationship Specialty Start Date End Date Brii Briceno MD [address] [place] [address] PCP - General Family Medicine 03/25/23 Mojgan Johnson NP [address] [facility] [address] [place] [address] Nurse Practitioner Behavioral Health 10/12/24 City Planner Relationship Specialty Start Date End Date Brii Briceno MD [address] [place] [address] PCP - General Family Medicine 03/25/23 Mojgan Johnson, ОЛЕГ [address] [facility] [address] [place] [address] Nurse Practitioner Behavioral Health 10/12/24 City Planner Relationship Specialty Start Date End Date Brii Briceno MD [address] [place] [address] PCP - General Family Medicine 03/25/23 Mojgan Johnson, ОЛЕГ [address] [facility] [address] [place] [address] Nurse Practitioner Behavioral Health 10/12/24 City Planner Relationship Specialty Start Date End Date Brii Briceno MD [address] [place] [address] PCP - General Family Medicine 03/25/23 Mojgan Johnson NP [address] [address] [place] [address] Nurse Practitioner Behavioral Health 10/12/24 City Planner Relationship Specialty Start Date End Date Brii Briceno MD [address] [place] [address] PCP - General Family Medicine 03/25/23 Mojgan Johnson, ОЛЕГ [address] [facility] [address] [place] [phone] Nurse Practitioner Behavioral Health 10/12/24 City Planner Relationship Specialty Start Date End Date Brii Briceno MD [address] [place] [address] PCP - General Family Medicine 03/25/23 Mojgan Johnson NP [address] [facility] [address] [place] [address] Nurse Practitioner Behavioral Health 10/12/24 City Planner Relationship Specialty Start Date End Date Brii Briceno MD [address] [place] [address] PCP - General Family Medicine 03/25/23 Mojgan Johnson NP [address] [facility] [address] [place] [address] Nurse Practitioner Behavioral Health 10/12/24 City Planner Relationship Specialty Start Date End Date Brii Briceno MD [address] [place] [address] PCP - General Family Medicine 03/25/23 Mojgan Johnson NP [address] [address] Nurse Practitioner Behavioral Health 10/12/24 City Planner Relationship Specialty Start Date End Date Brii Briceno MD [address] [place] [address] PCP - General Family Medicine 03/25/23 Mojgan Johnson NP [address] [phone] Nurse Practitioner Behavioral Health 10/12/24 FOR RECORDS [...] BE BASED ON THE PRIMARY CLINICAL RECORDS. [employer] [facility]. provides no warranty or guarantee of the accuracy or completeness of information in this document.
[2025-01-07] MEDS: LACTATED RINGER'S SOLUTION 1,000 ML 50 ML IV (09:21)
[2025-01-07] MEDS: FAMOTIDINE/PF 20 MG/2 ML VIAL IV (09:22)
[2025-01-07] MEDS: SCOPOLAMINE 1 MG/3 DAYS TRANSDERM PATCH 1 PATCH TD (09:22)
--- NOTE | 2025-01-07 10:36 | PM.ONB ---
Brief Operative Note Date of procedure: 01/07/25 Pre-op diagnosis general: thickend endometrium Post-op diagnosis: same as pre-op Procedure: NAME OF PROCEDURE: [ D&c hysteroscopy with myosure with polypectomy PROCEDURE: The patient was taken back to the Operating Room where she was prepped and draped in normal sterile fashion after being placed under general anesthesia without difficulty. She was also placed in the dorsal lithotomy position. A weighted speculum was placed in the patient?s vagina. The anterior lip of the cervix was identified and grasped with a single tooth tenaculum. The patient?s uterus was then sounded roughly to [? 8] cm. The patient was then gently dilated using Hegar dilators. The hysteroscope was passed through the patient?s cervix into the uterus. Both ostia were identified. fluffy appearing endometrium. No gross evidence of malignancy, no gross evidence of polyps or fibroids. The myosure apparatus was placed through the scope, The myosure was engaged and endometrial curretting were removed along with endometrial polyp, The hysteroscope was then removed from the uterus. The endometrial curettings were sent out to pathology. The single tooth tenaculum was then removed from the patient's anterior lip of the cervix where excellent hemostasis was noted. All instruments were removed from the patient?s vagina. The patient tolerated the procedure well. Sponge, lap and needle counts were correct times two. The patient was taken to the Recovery Room in stable condition.Room in stable condition. Anesthesia: MAC Surgeon: Alexi Cummins Estimated blood loss (mL): 5 Pathology: other (polyp and endometrial currettings) Condition: stable Disposition: PACU Urinary Catheter Management Urinary Catheter Management Straight: Cath placed during this visit: no
== END 2025-01-07 12:36 | disposition home or self-care (01) ==
PROVIDERS: PCP Nurse Practitioner Family; Visit Provider Obstetrics & Gynecology
PROC: (CPT 952; principal; 2025-01-07 10:05)
DX: R93.89 Abnormal findings on diagnostic imaging of other specified body structures (principal); N95.0 Postmenopausal bleeding; E78.5 Hyperlipidemia, unspecified; Z86.73 Personal history of transient ischemic attack (TIA), and cerebral infarction without residual deficits; K21.9 Gastro-esophageal reflux disease without esophagitis
CPT/HCPCS: 58558; 36415; 85025; 88305; J1100; J1885; J2250; J2405; J2704; J3010; J3490

== ENCOUNTER 2025-05-18 11:05 | Outpatient (OUT) | payer MEDICARE, SELFPAY ==
--- OUTSIDE RECORDS SUMMARY | 2025-05-18 11:14 | XMS_ITS | Clinical Summary ---
Author Organization [facility] Address [address] [place] [address] Care Team Providers Care Conservation Officer Name Role Phone Brii Warren MD Primary Care Provider [phone] Alexandra Brewster PMHNP-BC Unavailable [phone] Alexandra Brewster PMHNP-BC Unavailable Allergies Active Allergy Reactions Criticality Noted Date Comments Alprazolam 11/12/2021 Buspirone Other 10/11/2024 Increased anxiety Doxycycline Rash,GI intolerance Low 10/11/2024 Egg-Derived Products Nausea And Vomiting Low 2014 Hydroxyzine 11/12/2021 Tremors, fidgety Milk-Related Compounds Medium 11/13/2018 Sulfa Antibiotics Rash,GI intolerance Low 3 Tetracyclines & Related Nausea And Vomiting,Rash Low 07/09/2013 Medications meclizine (Antivert) 12.5 MG tabletIndications :Vertigo Take 1 tablet (12.5 mg) by mouth 3 (three) times a day as needed for dizziness 60 tablet 01/18/20 25 Active cholecalciferol (Vitamin D-3) 50 MCG (1999) tabletIndications :Low serum vitamin D Take 1 tablet (50 mcg) by mouth Daily 30 tablet 11 01/20/20 25 2025 Active Aspirin Low Dose 81 MG chewable tabletIndications :Morbid (severe) obesity due to excess calories ([facility]) CHEW 1 TABLET (81 MG) IN THE MORNING 90 tablet 1 03/21/20 25 Active propranolol (Inderal) 10 MG tabletIndications :Generalized anxiety disorder Take 2 tablets (20 mg) by mouth in the morning and 2 tablets (20 mg) before bedtime. 360 tablet 03/28/20 25 2024 Active gabapentin (Neurontin) 100 MG capsuleIndication s:Generalized anxiety disorder Take 2 capsules (200 mg) by mouth in the morning and 2 capsules (200 mg) in the evening and 2 capsules (200 mg) before bedtime. 540 capsule 03/28/20 25 2024 Active DULoxetine (Cymbalta) [address] capsuleIndication s:Generalized anxiety disorder Take 1 capsule (30 mg) by mouth in the morning and 1 capsule (30 mg) before bedtime. 180 capsule 03/28/20 25 2024 Active pantoprazole (ProtoNix) 40 MG EC tabletIndications :Gastroesophageal reflux disease without esophagitis TAKE 1 TABLET (40 MG) BY MOUTH IN THE MORNING. TAKE BEFORE MEALS. DO NOT CRUSH, CHEW, OR SPLIT.. 90 tablet 04/04/20 25 Active mirtazapine (Remeron) 15 MG tabletIndications :Generalized anxiety disorder Take 1 tablet (15 mg) by mouth at bedtime 30 tablet 04/27/20 25 2024 Active atorvastatin (Lipitor) 10 MG tabletIndications :Mixed hyperlipidemia Take 1 tablet (10 mg) by mouth Daily 90 tablet 05/11/20 25 Active atorvastatin (Lipitor) 10 MG tabletIndications :Mixed hyperlipidemia TAKE 1 TABLET (10 MG) BY MOUTH DAILY. 90 tablet 1 09/14/20 24 2024 Discontinued(R eorder) mirtazapine (Remeron) 7.5 MG tabletIndications :Generalized anxiety disorder Take 1 tablet (7.5 mg) by mouth at bedtime 90 tablet 03/28/20 25 2024 Discontinued Active Problems Problem Noted Date Diagnosed Date Vitamin D deficiency 03/28/2025 History of TIA (transient ischemic attack) 10/17 Overview (10/17/2024): and 12/2022 Generalized anxiety disorder 09/25/2023 Morbid (severe) obesity due to excess calories 1 11/25/2022 Family history of ovarian cancer 08/14/2017 Overview (10/28/2023): Patient's sister with ovarian cancer- patient sister had genetic testing and was negative. Cervical stenosis (uterine cervix) 10/07/2013 IBS (irritable bowel syndrome) 10/07/2013 Actinic keratosis 08/16/2013 Overview (10/28/2023): QUIESCENT History of malignant melanoma 04/04/2010 Overview (10/28/2023): IN SITU NEAR L KNEE Resolved Problems Problem Noted Date Diagnosed Date Resolved Date Folliculitis 10/28/2023 03/28/2025 Hemangioma 10/28/2023 03/28/2025 Solar degeneration 10/28/2023 Jaundice 09/25/2023 03/28/2025 Vertigo 10/07/2013 03/28/2025 Overview (10/28/2023): NO Neurontin Acne 01/08/2012 10/11/2024 Benign neoplasm of skin 01/08/201203/17 Overview (10/28/2023): ANGIOMA, UPPER BACK Encounters Date Type Department Care Team Description 05/17/2025 Travel 05/16/2025 Travel 05/11/2025 Refill [facility] [address] [place] [address] Deb Camacho MA Mixed hyperlipidemia 04/27/2025 3:30 PM EDT Office Visit [facility] [address] [facility] [address] [place] [address] Alexandra Brewster PMHNP-BC Generalized anxiety disorder ; History of TIA (transient ischemic attack) 04/27/2025 Bamboo flowsheet [facility] [address] [place] [address] [place] [address] Alexandra Brewster [facility] 04/27/2025 Travel 04/24/2025 Travel 04/22/2025 Telephone [facility] [address] [facility] [address] [place] [phone] Alexandra Brewster [facility] Advice Only 04/03/2025 Refill [facility] [address] [facility] [place] [phone] Rachele Dillard NP Gastroesophageal reflux disease without esophagitis 03/28/2025 2:00 PM EDT Office Visit [facility] [address] [place] [address] [place] [phone] Alexandra Brewster, [facility] Generalized anxiety disorder ; History of TIA (transient ischemic attack) 03/28/2025 Bamboo flowsheet [facility] [address] [facility] [address] [place] [phone] Alexandra Brewster [facility] 03/28/2025 Travel 03/21/2025 Travel 03/20/2025 Refill [facility] [address] [place] [phone] Maura Brito NP Morbid (severe) obesity due to excess calories ([facility]) 02/17/2025 Telephone [facility] [address] [place] [phone] Kimberli Maldonado MA 02/16/2025 12:15 PM EDT Ancillary Procedure [facility] [address] [facility] [address] [place] [phone] Screening mammogram for breast cancer 02/16/2025 Travel from Last 3 Months Family History Medical History Relation Name Comments Dementia Father Eilford Heart failure Maternal Grandfather Hassel Case Heart failure Maternal Grandmother Shelby Case Heart disease Mother Reeda Case Stroke Mother Reeda Case Cancer Sister Sabine Cline Ovarian cancer Sister Sabine Cline Relation Name Status Comments Father Eilford Alive Maternal Grandfather Hassel Case Alive Maternal Grandmother Shelby Case Alive Mother Reeda Case Alive Sister Sabine Cline Alive Social History Tobacco Use Types Packs/Day Years Used Date Smoking Tobacco: Never Smokeless Tobacco: Never Tobacco Cessation:Counseling Given: Not Answered Alcohol Use Standard Drinks/Week Comments Not Currently 0 (1 standard drink = 0.6 oz pur e alcohol) Caffine: 0 B1300 Health Literacy Answer Date Recor ded How often do you need to hav e someone help you when you read instructions, pamphlets, or other written material from your doctor or pharmacy? Never 05/17/2025 Humiliation, Afraid, Rape, and Kick questionnair e Answer Date Recorded Within the last year, have y ou been afraid of your partner or ex-partner? No 05/17/2025 Within the last year, have y ou been humiliated or emotionally abused in other ways by your partner or ex-partner? No Within the last year, have y ou been kicked, hit, slapped, or otherwise physically hurt by your partner or ex-partner? No 05/17/2025 Within the last year, have y ou been raped or forced to have any kind of sexual activity by your partner or ex-partner? No 05/17/2025 Social Connection and Isolat ion Panel [NHANES] Answer Date Recorded In a typical week, how many times do you talk on the phone with family, friends, or neighbors? More than three times a week 05/17/2025 How often do you get togethe r with friends or relatives? Three times a week 05/17/2025 How often do you attend [facility] or sikh services? More than 4 times per year 05/17/2025 Do you belong to any clubs o r organizations such as zoroastrian groups, unions, fraternal or athletic groups, or school groups? Patient declined 05/17/2025 How often do you attend meet ings of the clubs or organizations you belong to? Patient declined 05/17/2025 Are you , , di vorced, , never , or living with a partner? 05/17/2025 AUDIT-C Answer Date Recorded Q1: How often do you have a drink containing alcohol? Never 05/17/2025 Q2: How many drinks containi ng alcohol do you have on a typical day when you are drinking? Patient does not drink Q3: How often do you have si x or more drinks on one occasion? Never 05/17/2025 Overall Financial Resource Strain (CARDIA) Answe r Date Recorded How hard is it for you to pa y for the very basics like food, housing, medical care, and heating? Not hard at all 05/17/2025 PHQ-2 Answer Date Recorded Patient Health Questionnaire-2 Score 0 01/24/2025 [facility] - Occupational Stress Questionnaire Answer Date Recorded Do you feel stress - tense, restless, nervous, or anxious, or unable to sleep at night because your mind is troubled all the time - these days? To some extent 05/17/2025 Exercise Vital Sign Answer Date Recorde d On average, how many days pe r week do you engage in moderate to strenuous exercise (like a brisk walk)? Patient declined On average, how many minutes do you engage in exercise at this level? Patient declined 05/17/2025 Hunger Vital Sign Answer Date Recorded Within the past 12 months, y ou worried that your food would run out before you got the money to buy more. Never true 05/17/20 Within the past 12 months, t he food you bought just didn't last and you didn't have money to get more. Never true 05/17/2025 PRAPARE - Transportation Answer Date Re corded In the past 12 months, has l ack of transportation kept you from medical appointments or from getting medications? No 11/2024 In the past 12 months, has l ack of transportation kept you from meetings, work, or from getting things needed for daily living? No 05/17/2025 Housing Stability Vital Sign Answer Tenzin e Recorded In the last 12 months, was t here a time when you were not able to pay the mortgage or rent on time? No 05/17/2025 In the past 12 months, how m any times have you moved where you were living? 0 05/17/2025 At any time in the past 12 m [facility] [place], were you homeless or living in a senior care (including now)? No 05/17/2025 Education Answer Date Recorded What is the highest level of school you have completed or the highest degree you have received? Some college, no degree 10/11/2024 Comments No Sex and Gender Information Value Date Recorded Sex Assigned at Female 02/09/2025 12:58 PM EDT Legal Sex Female 12:16 PM EDT Gender Identity Female 02/09/2025 12:58 PM EDT Sexual Orientation Not on file Occupation Industry Job Start Date Job End Date Not on file Not on file Not on file Not on file Last Filed Vital Signs Vital Sign Reading Time Taken Comments Blood Pressure 118/72 04/27/2025 3:25 PM EDT Pulse 76 04/27/2025 3:25 PM EDT Temperature 36.1 C (96.9 F) 09/28/2024 11:23 AM EST Respiratory Rate - - Oxygen Saturation 94% 10/04/2024 1:59 PM EST Inhaled Oxygen Concentration - - Weight 104 kg (230 lb) 04/27/2025 3:25 PM EDT Height 165.1 cm (5' 5 ) 10/04/2024 1:59 PM EST Body Mass Index 38.27 10/04/2024 1:59 PM EST Plan of Treatment Upcoming Encounters Date Type Department Care Team (Late st Contact Info) Description 05/23/2025 2:30 PM EDT Office Visit [facility] [address] [facility] [address] [place] [address] Alexandra Brewster PMHNP- [address] [facility] [address] [place] [address] 05/24/2025 1:30 PM EDT Office Visit [facility] [address] [place] [phone] Rachele Dillard NP [address] [place] [address] 05/25/2025 3:20 PM EDT Office Visit [facility] [address] [place] [address] Alexi Cummins DO [address] [facility] [address] [place] [address] 07/04/2025 1:00 PM EDT Office Visit [facility] [address] [facility] [address] [place] [address] Alexandra Brewster, PMHNP-BC [address] [facility] [address] [place] [address] Health Maintenance Due Date Last Done Comments CT Colonography 1962 Colonoscopy 1962 FIT 1962 FOBT 1962 Sigmoidoscopy 1962 Pap Smear 11/13/2021 11/13/2018, 11/13/2018 Cervical Cancer Screening 11/13/2023 HPV/Cotest 11/13/2023 11/13/2018, 11/13/2018 Influenza Vaccine (#1) 2025 Mammogram 02/16/2026 02/16/2025, 020 07/2024, 10/21/2022, Additional history exists Colorectal Cancer Screening 11/12/2026 FIT-DNA 11/12/2026 11/12/2023 Procedures Procedure Name Priority Date/Time Associated Diagnosis Comments BI MAMMOGRAM SCREENING TOMOSYNTHESIS BILATERAL Routine 02/16/2025 12:32 PM EDT Screening mammogram for breast cancer LAB COLOGUARD COLON CANCER SCREEN Routine 11/12/2023 10:15 AM EST Screening for colon cancer from Last 3 Months or Most Recently Relevant to Health Maintenance Results * Bilateral screening mammogram with tomosynthesis (02/16/2025 12:32 PM EDT) Anatomical Region Laterality Modality Breast Bilateral Mammography 02/17/2025 9:12 AM EDT Impressions 02/17/2025 9:25 AM EDT BI-RADS 1- NEGATIVE. ROUTINE FOLLOW-UP MAMMOGRAPHY IS SUGGESTED IN ONE YEAR. DENSITY: There are scattered areas of fibroglandular density. Board Certified Radiologists. Accredited by the ACR and FDA. MAMMOGRAPHY IS VERY IMPORTANT TO YOUR HEALTH. THE CITIZ[place] [employer] GUIDELINES RECOMMEND THAT WOMEN 40 YEARS OF AGE AND OLDER SHOULD HAVE A MAMMOGRAM EVERY YEAR. A REMINDER LETTER WILL BE SENT AT THE APPROPRIATE TIME. A REMINDER LETTER WILL BE SENT AT [...] ANY PENDING ADDITIONAL VIEWS. ELECTRONICALLY SIGNED BY: DO Jazzmine Alston 02/17/2025 9:25 AM EDT BI MAMMOGRAM SCREENING TOMOSYNTHESIS BILATERAL:02/16/2025 12:11 PM CLINICAL HISTORY:screenng. COMPARISONS: November 13, 2018 through December 26, 2023. TECHNIQUE: Routine full field 3D breast tomosynthesis was performed bilaterally. CAD analysis was performed and used in the interpretation. FINDINGS: Scattered fibroglandular densities are noted with stable asymmetry. Benign calcifications are seen bilaterally. There are no developing masses, suspicious microcalcifications, or areas of architectural distortion identified on today's examination. There is no significant change when compared to the prior examinations identified, given differences in technique and positioning. Procedure Note David Fajardo DO - 02/17/2025 BI MAMMOGRAM SCREENING TOMOSYNTHESIS BILATERAL:02/16/2025 12:11 PM CLINICAL HISTORY:screenng. COMPARISONS: November 13, 2018 through December 26, 2023. TECHNIQUE: Routine full field 3D breast tomosynthesis was performedbilaterally. CAD analysis was performed and used in the interpretation. FINDINGS: Scattered fibroglandular densities are noted with stable asymmetry. Benigncalcifications are seen bilaterally. There are no developing masses, suspicious microcalcifications, or areasof architectural distortion identified on today's examination. There is no significant change when compared to the prior examinationsidentified, given differences in technique and positioning. IMPRESSION: BI-RADS 1- NEGATIVE. ROUTINE FOLLOW-UP MAMMOGRAPHY IS SUGGESTED IN ONE YEAR. DENSITY: There are scattered areas of fibroglandular density. Board Certified Radiologists. Accredited by the ACR and FDA. MAMMOGRAPHY IS VERY IMPORTANT TO YOUR HEALTH. THE CITIZ[place] [employer] SOCI[employer]Y[place]UID[place]INES RECOMMEND THAT WOMEN 40 YEARS OF AGE AND OLDER SHOULD HAVE AMAMMOGRAM EVERY YEAR. A REMINDER LETTER WILL BE SENT AT THE APPROPRIATE TIME. A REMINDER LETTER WILL BE SENT AT THE APPROPRIATE TIME. THIS FACILITYUTILIZES A REMINDER SYSTEM TO ENSURE ALL PATIENTS RECEIVE REMINDERNOTIFICATIONS AT THE APPROPRIATE TIME BASED ON THE RECOMMENDATIONS OF THISEXAM. THIS INCLUDES REMINDERS FOR ROUTINE SCREENING MAMMOGRAMS, DIAGNOSTICMAMMOGRAMS IN WHICH THE PATIENT IS ASKED TO RETURN FOR ADDITIONAL VIEWS,OR OTHER BREAST IMAGING INTERVENTIONS WHEN APPROPRIATE. THE PATIENT WILLBE PLACED IN THE APPROPRIATE REMINDER SYSTEM INCLUDING A REMINDER AT THEAPPROPRIATE TIME FOR ANY PENDING ADDITIONAL VIEWS. ELECTRONICALLY SIGNED BY: David Fajardo DO Rachele Dillard STAMPING DIE MAKER BENCH IMG BI PROCEDURES Final Result * Cologuard® colon cancer screening (11/12/2023 10:15 AM EST) NONINV COLON CA DNA+OCC BLD SCRN STL-IMP Negative Negative 11/15/2023 11:19 AM EST Product[employer] (CLIA #:[id number]) Comment: NEGATIVE TEST RESULT. A negative Cologuard result indicates a low likelihood that a colorectal cancer (CRC) or advanced adenoma (adenomatous polyps with more advanced pre-malignant features) is present. The chance that a person with a negative Cologuard test has a colorectal cancer is less than 1 in 1500 (negative predictive value >99.9%) or has an advanced adenoma is less than 5.3% (negative predictive value 94.7%). These data are based on a prospective cross-sectional study of 10,000 individuals at average risk for colorectal cancer who were screened with both Cologuard and colonoscopy. (Margo Portillo. et al, N Engl J Med 2014;370(14):5606-6061) The normal value (reference range) for this assay is negative. COLOGUARD RE-SCREENING RECOMMENDATION: Periodic colorectal cancer screening is an important part of preventive healthcare for asymptomatic individuals at average risk for colorectal cancer. Following a negative Cologuard result, the [place] [employer] and U.S. Multi-Society Task Force screening guidelines recommend a Cologuard re-screening interval of 3 years. References: [place] [employer] Guideline for Colorectal Cancer Screening: https://www.cancer.org/cancer/bfedr-auevqs-hwcdrg/pqxynihmz-seuhcpngy-liqdbap/ac s-rec ommendations.html.; Stewart CHEUNG, Kirit MOTTA, Kellie OCONNELL, Colorectal Cancer Screening: Recommendations for Physicians and Patients from the U.S. Multi-Society Task Force on Colorectal Cancer Screening , Am J Gastroenterology 2017; 112:3093-9344. TEST DESCRIPTION: Composite algorithmic analysis of stool DNA-biomarkers with hemoglobin immunoassay. Quantitative values of individual biomarkers are not reportable and are not associated with individual biomarker result reference ranges. Cologuard is intended for colorectal cancer screening of adults of either sex, 45 years or older, who are at average-risk for colorectal cancer (CRC). Cologuard has been approved for use by the U.S. FDA. The performance of Cologuard was established in a cross sectional study of average-risk adults aged 50-84. Cologuard performance in patients ages 45 to 49 years was estimated by sub-group analysis of near-age groups. Colonoscopies performed for a positive result may find as the most clinically significant lesion: colorectal cancer [4.0%], advanced adenoma (including sessile serrated polyps greater than or equal to 1cm diameter) [20%] or non- advanced adenoma [31%]; or no colorectal neoplasia [45%]. These estimates are derived from a prospective cross-sectional screening study of 10,000 individuals at average risk for colorectal cancer who were screened with both Cologuard and colonoscopy. (Margo Mason et al, N Engl J Med 2014;370(14):2289-1647.) Cologuard may produce a false negative or false positive result (no colorectal cancer or precancerous polyp present at colonoscopy follow up). A negative Cologuard test result does not guarantee the absence of CRC or advanced adenoma (pre-cancer). The current Cologuard screening interval is every 3 years. ([place] [employer] Society and U.S. Multi-Society Task Force). Cologuard performance data in a 10,000 patient pivotal study using colonoscopy as the reference method can be accessed at the following location: www.[employer]/results. Additional description of the Cologuard test process, warnings and precautions can be found at www.cologuard.com. Stool specimen (specimen) 11/12/2023 10:15 AM EST 11/13/2023 8:08 AM EST us Rachele Dillard STAMPING DIE MAKER [facility]ENCH LAB MOLECULAR DIAGNOSTI CS ORDERABLES Final Result [employer] (CLIA #:[id number]) [place] [address], [place] [phone] from Last 3 Months or Most Recently Relevant to Health Maintenance Insurance [facility] Care Teams Conservation Officer Relationship Specialty Start Date End Date Brii Warren MD [address] [place] [address] PCP - General Family Medicine 03/25/23 [facility] [address] [facility] [address] [place] [address] PCP - [place] [employer] 03/17/25 [facility] [address] [facility] [address] [place] [address] Nurse Practitioner Behavioral Health 10/12/24
--- OUTSIDE RECORDS SUMMARY | 2025-05-18 11:14 | XMS_ITS | Encounter Summary ---
Author Organization [facility] Address [address] [place] [address] Care Team Providers Care Lead Front Desk Agent Name Role Phone Brii Warren MD Primary Care Provider Alexandra Brewster PMHNP-BC Unavailable Rachele Dillard FINANCIAL SECRETARY Unavailable [phone] Alexandra Brewster PMHNP-BC Unavailable Reason for Visit * Reason Onset Date Comments Other 12/04/2024 score caller Encounter Details Date Type Department Care Team (Late st Contact Info) Description 12/04/2024 Telephone [facility] [address] [place] [address] Brii Warren MD [address] [place] [address] Other (score caller) Social History Tobacco Use Types Packs/Day Years Used Date Smoking Tobacco: Never Smokeless Tobacco: Never Alcohol Use Standard Drinks/Week Comments Not Currently 0 (1 standard drink = 0.6 oz pur e alcohol) Caffine: 0 PHQ-2 Answer Date Recorded Patient Health Questionnaire-2 Score 3 11/22/2024 Education Answer Date Recorded What is the highest level of school you have completed or the highest degree you have received? Some college, no degree 10/11/2024 Comments Unknown Sex and Gender Information Value Date Recorded Sex Assigned at Female 02/09/2025 12:58 PM EDT Legal Sex Female 12:16 PM EDT Gender Identity Female 02/09/2025 12:58 PM EDT Sexual Orientation Not on file Occupation Industry Job Start Date Job End Date Not on file Not on file Not on file Not on file documented as of this encounter Miscellaneous Notes * Telephone Encounter - Ayesha Al - 12/04/2024 11:46 AM EST Subjective Patient ID: Luisana De La Torre is a 64 y.o. female pt is requesting a refill for Gabapentin 100 mg, Propranolol 20 mg, and meclizine 12.5 mg to be sent to the [facility] in [place] as she is completely out of all these meds as of yesterday. documented in this encounter Plan of Treatment Upcoming Encounters Date Type Department Care Team (Late st Contact Info) Description 05/23/2025 2:30 PM EDT Office Visit [facility] [address] [facility] [address] [place] [address] Alexandra Brewster, PMHNP- [address] [facility] [address] [place] [address] 05/24/2025 1:30 PM EDT Office Visit [facility] [address] [place] [phone] Rachele Dillard FINANCIAL SECRETARY [address] [place] [address] 05/25/2025 3:20 PM EDT Office Visit [facility] [address] [facility] [place] [address] Alexi Cummins DO [address] [place] [address] 07/04/2025 1:00 PM EDT Office Visit [facility] [address] [facility] [address] [place] [address] Alexandra Brewster, [facility]- [address] [facility] [address] [place] [address] documented as of this encounter Visit Diagnoses Not on filedocumented in this encounter Additional Health Concerns Assessment Noted Time PHQ-9 Depression Total Score: 20 025 3:37 PM EST documented as of this encounter Care Teams Lead Front Desk Agent Relationship Specialty Start Date End Date Brii Warren MD [address] [facility] [place] [address] PCP - General Family Medicine 03/25/23 Rachele Dillard NP [address] [facility] [place] [address] PCP - [place] [employer] 02/15/25 Alexandra Brewster [facility]- [address] [facility] [address] [place] [address] PCP - [place] [employer] 03/17/25 Alexandra Brewster [facility]- [address] [facility] [address] [place] [address] Nurse Practitioner Behavioral Health 10/12/24 documented as of this encounter
--- OUTSIDE RECORDS SUMMARY | 2025-05-18 11:14 | XMS_ITS | Encounter Summary ---
Author Organization [facility] Address [address] [place] [address] Care Team Providers Care Wildlife Ecology Professor Name Role Phone Brii Warren MD Primary Care Provider [phone] Alexandra Brewster PMHNP-BC Unavailable Rachele Dillard VALVE INSERTER Unavailable [phone] Alexandra Brewster PMHNP-BC Unavailable Reason for Visit * Reason Comments Med Refill Encounter Details Date Type Department Care Team (Late st Contact Info) Description 02/13/2024 Refill [facility] [address] [place] [address] Rachele Dillard VALVE INSERTER [address] [place], [place] [id number] Morbid (severe) obesity due to excess calories ([facility]) Social History Tobacco Use Types Packs/Day Years Used Date Smoking Tobacco: Never Smokeless Tobacco: Never Alcohol Use Standard Drinks/Week Comments Not Currently 0 (1 standard drink = 0.6 oz pur e alcohol) PHQ-2 Answer Date Recorded Patient Health Questionnaire-2 Score 0 12/01/2023 Comments Unknown Sex and Gender Information Value Date Recorded Sex Assigned at Female 02/09/2025 12:58 PM EDT Legal Sex Female 12:16 PM EDT Gender Identity Female 02/09/2025 12:58 PM EDT Sexual Orientation Not on file documented as of this encounter Miscellaneous Notes * Telephone Encounter - Gina Funez - 02/27/2024 2:57 PM EDT Pt does not recall ever taking a statin but will come in for A1C * Telephone Encounter - Gina Funez - 02/27/2024 1:11 PM EDT Pt calling she was confused about rx, said no one called her, but she had eaten both breakfast and lunch when did these labs asking if she should redo fasting? Is statin still necessary? * Telephone Encounter - Betty Cruz MA - 02/13/2024 9:33 AM EDT Approving, but needs appt for additional refills. documented in this encounter Plan of Treatment Upcoming Encounters Date Type Department Care Team (Late st Contact Info) Description 05/23/2025 2:30 PM EDT Office Visit [facility] [address] [facility] [address] [place] [address] Alexandra Brewster, PMHNP- [address] [facility] [address] [place] [address] 05/24/2025 1:30 PM EDT Office Visit [facility] [address] [place] [address] Rachele Dillard NP [address] [place] [address] 05/25/2025 3:20 PM EDT Office Visit [facility] [address] [facility] [place] [address] Alexi Cummins, [address] [facility] [place] [address] 07/04/2025 1:00 PM EDT Office Visit [facility] TY 112 [facility] [address] [place] [address] Alexandra Brewster PMHNP-BC 112 [facility] [address] [place] [address] documented as of this encounter Visit Diagnoses Diagnosis Morbid (severe) obesity due to excess calories ([facility]) Generalized anxiety disorder Generalized anxiety disorder History of TIA (transient ischemic attack) documented in this encounter Additional Health Concerns Assessment Noted Time PHQ-9 Depression Total Score: 0 12/01/19 24 3:18 PM EST documented as of this encounter Care Teams Wildlife Ecology Professor Relationship Specialty Start Date End Date Brii Warren MD [address] [facility] [place] [address] PCP - General Family Medicine 03/25/23 Rachele Dillard NP [address] [facility] [place] [address] PCP - [place] [employer] 02/15/25 Alexandra Brewster [facility]- 112 [facility] [address] [place] [phone] PCP - [place] [employer] 03/17/25 Alexandra Brewster [facility]- 112 [facility] [address] [place] [phone] Nurse Practitioner Behavioral Health 10/12/24 documented as of this encounter
--- OUTSIDE RECORDS SUMMARY | 2025-05-18 11:14 | XMS_ITS | Encounter Summary ---
Author Organization [facility] Address [address] [place] [address] Care Team Providers Care Multimedia Instructional Designer Name Role Phone Brii Warren MD Primary Care Provider Alexandra Brewster PMHNP-BC Unavailable Rachele Dillard LAUNDRY PRESSER Unavailable Alexandra Brewster PMHNP-BC Unavailable Encounter Details Date Type Department Care Team (Late st Contact Info) Description 11/20/2023 Abstract [facility] [address] [place] [address] Rachele Dillard LAUNDRY PRESSER [address] [place] [address] Social History Tobacco Use Types Packs/Day Years Used Date Smoking Tobacco: Never Smokeless Tobacco: Never Alcohol Use Standard Drinks/Week Comments Not Currently 0 (1 standard drink = 0.6 oz pur e alcohol) PHQ-2 Answer Date Recorded Patient Health Questionnaire-2 Score 0 10/28/2023 Comments Unknown Sex and Gender Information Value Date Recorded Sex Assigned at Female 02/09/2025 12:58 PM EDT Legal Sex Female 12:16 PM EDT Gender Identity Female 02/09/2025 12:58 PM EDT Sexual Orientation Not on file documented as of this encounter Plan of Treatment Upcoming Encounters Date Type Department Care Team (Late st Contact Info) Description 05/23/2025 2:30 PM EDT Office Visit [facility] [address] [facility] [address] [place] [address] Alexandra Brewster, HNP-BC [address] [facility] [address] [place] [address] 05/24/2025 1:30 PM EDT Office Visit [facility] [address] [facility] [place] [address] Rachele Dillard NP 1479 [facility] [place] [address] 05/25/2025 3:20 PM EDT Office Visit [facility] OB [address] [place] [address] Alexi Cummins, DO [address] [address] 07/04/2025 1:00 PM EDT Office Visit [facility] [address] [facility] [address] [place] [address] Alexandra Brewster, [facility] [address] [facility] [address] [place] [address] documented as of this encounter Visit Diagnoses Not on filedocumented in this encounter Additional Health Concerns Assessment Noted Time PHQ-9 Depression Total Score: 4 10/28/20 23 2:45 PM EST documented as of this encounter Care Teams Multimedia Instructional Designer Relationship Specialty Start Date End Date Brii Warren MD 1479 [facility] [place] [address] PCP - General Family Medicine 03/25/23 Rachele Dillard NP [address] [place] [address] PCP - [place] [employer] 02/15/25 [facility] [address] [place] [address] PCP - [place] [employer] 03/17/25 [facility] [address] [address] Nurse Practitioner Behavioral Health 10/12/24 documented as of this encounter
--- OUTSIDE RECORDS SUMMARY | 2025-05-18 11:14 | XMS_ITS | Encounter Summary ---
Author Organization [facility] Address [address] [place] [address] Care Team Providers Care Video Game Developer Name Role Phone Brii Warren MD Primary Care Provider [phone] Alexandra Brewster PMHNP-BC Unavailable [phone] Alexandra Brewster HNP-BC Unavailable [phone] Encounter Details Date Type Department Care Team (Latest Contact Info) Description 05/17/2025 Travel Social History Tobacco Use Types Packs/Day Years [...] week 05/17/2025 How often do you attend [facility] or buddhism services? More than 4 times per year 05/17/2025 Do you belong to any clubs o r organizations such as protestant groups, unions, fraternal or athletic groups, or [...] Recorded Patient Health Questionnaire-2 Score 0 01/24/2025 [facility] of Occupat ional Health - Occupational Stress Questionnaire Answer Date Recorded [...] were you homeless or living in a fpc (including now)? No 05/17/2025 Education Answer Date [...] on file documented as of this encounter Functional Status * Audit-C Score Answer Date of Assessment Author 0 05/17/2025 11:09 PM EDT Heron Arce * Q1: How often do you have a drink containing alcohol? Answer Date of Assessment Author Never 05/17/2025 11:09 PM EDT Claude Generic * Q2: How many drinks containing alcohol do you have on a typical day when you are drinking? Answer Date of Assessment Author Patient does not drink 05/17/2025 11:09 PM EDT Kelley harvey Generic * Q3: How often do you have six or more drinks on one occasion? Answer Date of Assessment Author Never 05/17/2025 11:09 PM EDT Mychart, Generic documented as of this encounter Plan of Treatment Upcoming Encounters Date Type Department Care Team (Late st Contact Info) Description 05/23/2025 2:30 PM EDT Office Visit [facility] 112 [facility] [address] [place] [address] Alexandra Brewster PMHNP-BC 112 [facility] [address] [place] [address] 05/24/2025 1:30 PM EDT Office Visit [facility] [address] [facility] [address] Rachele Dillard NP [address] [place] [facility] [place] [address] 05/25/2025 3:20 PM EDT Office Visit [facility] OB [address] [place] [address] Alexi Cummins, DO [address] [address] 07/04/2025 1:00 PM EDT Office Visit [facility] 112 [facility] [address] [place] [address] Alexandra Brewster RACHIDP- 112 [facility] [address] [place] [address] documented as of this encounter Visit Diagnoses Not on filedocumented in this encounter Additional Health Concerns Assessment Noted Time PHQ-9 Depression Total Score: 2 01/25/20 25 11:30 AM EDT documented as of this encounter Care Teams Video Game Developer Relationship Specialty Start Date End Date Brii Wraren MD [address] [facility] [place] [address] PCP - General Family Medicine 03/25/23 Alexandra Brewster [facility] 112 [facility] [address] [place] [address] PCP - Mike Underwood 03/17/25 Alexandra Brewster, SO[facility]- 112 [facility] [address] [place] [address] Nurse Practitioner Behavioral Health 10/12/24 documented as of this encounter
--- OUTSIDE RECORDS SUMMARY | 2025-05-18 11:14 | XMS_ITS | Encounter Summary ---
Author Organization [facility] Address [address] [place] [address] Care Team Providers Care Desulfurizer Hand Name Role Phone Jim Haro MD Primary Care Provider + Encounter Details Date Type Department Care Team (Late st Contact Info) Description 08/28/2015 FollowUp Telephone Encounter [facility] Case Management [address] [place] [address] Ayesha Lee RN Social History Tobacco Use Types Packs/Day Years Used Date Smoking Tobacco: Never Smokeless Tobacco: Never Alcohol Use Standard Drinks/Week Comments No 0 (1 standard drink = 0.6 oz pur e alcohol) Comments No Sex and Gender Information Value Date Recorded Sex Assigned at Not on file Legal Sex Female 11:34 AM EST Gender Identity Not on file Sexual Orientation Not on file documented as of this encounter Progress Notes * Ayesha Lee RN - 08/28/2015 4:12 PM EDT Follow up phone call, message left documented in this encounter Plan of Treatment Not on file documented as of this encounter Visit Diagnoses Not on filedocumented in this encounter Care Teams Desulfurizer Hand Relationship Specialty Start Date End Date Jim Haro MD [address] [place] [address] [place] [address] PCP - General Family Medicine 07/09/13 02/17/23 documented as of this encounter
--- OUTSIDE RECORDS SUMMARY | 2025-05-18 11:14 | XMS_ITS | Encounter Summary ---
Author Organization [facility] Address [address] [place] [address] Care Team Providers Care Quality Control Chemist Name Role Phone Brii Warren MD Primary Care Provider [phone] Alexandra Brewster PMHNP-BC Unavailable Rachele Dillard NOZZLE AND SLEEVE WORKER Unavailable Alexandra Brewster PMHNP-BC Unavailable [phone] Reason for Visit * Reason Comments Med Refill Encounter Details Date Type Department Care Team (Late st Contact Info) Description 08/04/2024 Refill [facility] [address] [place] [address] Brii Warren MD [address] [place] [address] Generalized anxiety disorder Social History Tobacco Use Types Packs/Day Years [...] encounter Miscellaneous Notes * Telephone Encounter - Betty Cruz MA - 08/04/2024 9:57 AM EDT Approving, but needs appt for additional refills. documented in this encounter Plan of Treatment Upcoming Encounters Date Type Department Care Team (Late st Contact Info) Description 05/23/2025 2:30 PM EDT Office Visit [facility] [address] [facility] [address] [place] [address] Alexandra Brewster, PMHNP-BC [address] [facility] [address] [place] [address] 05/24/2025 1:30 PM EDT Office Visit [facility] FM [address] [place] [address] Rachele Dillard NOZZLE AND SLEEVE WORKER [address] [place] [address] 05/25/2025 3:20 PM EDT Office Visit [facility] OB [address] [place] [address] Alexi Cummins, DO [address] [place] [address] 07/04/2025 1:00 PM EDT Office Visit [facility] [address] [facility] [address] [place] [address] Alexandra Brewster, PMHNP-BC [address] [facility] [address] [place] [address] documented as of this encounter Visit Diagnoses Diagnosis Generalized anxiety disorder Generalized anxiety disorder Generalized anxiety disorder Generalized anxiety disorder History of TIA (transient ischemic attack) documented in this encounter Additional Health Concerns Assessment Noted Time PHQ-9 Depression Total Score: 0 12/01/19 24 3:18 PM EST documented as of this encounter Care Teams Quality Control Chemist Relationship Specialty Start Date End Date Brii Warren MD [address] [facility] [place], [place] [address] PCP - General Family Medicine 03/25/23 Rachele Dillard NP [address] [place], [place] [address] PCP - [place] [employer] 02/15/25 Alexandra Brewster [facility] 112 [facility] 160 [place] [address] PCP - [place] [employer] 03/17/25 [facility] [address] [address] Nurse Practitioner Behavioral Health 10/12/24 documented as of this encounter
--- OUTSIDE RECORDS SUMMARY | 2025-05-18 11:14 | XMS_ITS | Encounter Summary ---
Author Organization [facility] Address [address] [place] [address] Care Team Providers Care Veneer Lathe Operator Name Role Phone Brii Warren MD Primary Care Provider Alexandra Brewster PMHNP-BC Unavailable [phone] Rachele Dillard COMMERCIAL FISHER Unavailable [phone] Alexandra Brewster PMHNP-BC Unavailable Reason for Visit * Reason Comments Med Refill Encounter Details Date Type Department Care Team (Late st Contact Info) Description 05/16/2024 Refill [facility] [address] [place] [address] Brii Warren MD [address] [place] [address] Morbid (severe) obesity due to excess calories ([facility]) Social History Tobacco Use Types Packs/Day Years [...] Telephone Encounter - Betty Cruz MA - 05/17/2024 8:24 AM EDT Approving, but needs appt for additional refills. documented in this encounter Plan of Treatment Upcoming Encounters Date Type Department Care Team (Late st Contact Info) Description 05/23/2025 2:30 PM EDT Office Visit [facility] [address] [facility] [address] [place] [address] Alexandra Brewster, ADRIÁNHNP-BC [address] [facility] [address] [place] [address] 05/24/2025 1:30 PM EDT Office Visit [facility] FM [address] [place] [address] Rachele Dillard NP [address] [place] [address] 05/25/2025 3:20 PM EDT Office Visit [facility] OB [address] [place] [address] Alexi Cummins, DO [address] [place] [address] 07/04/2025 1:00 PM EDT Office Visit [facility] [address] [facility] [address] [place] [address] Alexandra Brewster, PMHNP-BC [address] [facility] [address] [place] [address] documented as of this encounter Visit Diagnoses Diagnosis Morbid (severe) obesity due to excess calories ([facility]) Generalized anxiety disorder Generalized anxiety disorder History of TIA (transient ischemic attack) documented in this encounter Additional Health Concerns Assessment Noted Time PHQ-9 Depression Total Score: 0 01/15/20 24 3:18 PM EST documented as of this encounter Care Teams Veneer Lathe Operator Relationship Specialty Start Date End Date Brii Warren MD 14[address] [facility] [place] [address] PCP - General Family Medicine 03/25/23 Rachele Dillard NP 1479 [facility], [place] [address] PCP - [place] [employer] 02/15/25 Alexandra Brewster PMHNP-BC [address] [address] PCP - [place] [employer] 03/17/25 Alexandra Brewster PMHNP-BC [address] [address] Nurse Practitioner Behavioral Health 10/12/24 documented as of this encounter
--- OUTSIDE RECORDS SUMMARY | 2025-05-18 11:14 | XMS_ITS | Encounter Summary ---
Author Organization [facility] Address [address] [place] [address] Care Team Providers Care Lens Inspector Name Role Phone Brii Warren MD Primary Care Provider [phone] Alexandra Brewster PMHNP-BC Unavailable [phone] Alexandra Brewster PMHNP-BC Unavailable [phone] Encounter Details Date Type Department Care Team (Latest Contact Info) Description 05/16/2025 Travel Social History Tobacco Use Types Packs/Day [...] week 05/17/2025 How often do you attend [facility] or caodaism services? More than 4 times per year 05/17/2025 Do you belong to any clubs o r organizations such as anglican groups, unions, fraternal or athletic groups, or [...] Recorded Patient Health Questionnaire-2 Score 0 01/24/2025 [facility] of Occupat ional Health - Occupational Stress [...] money to buy more. Never true 05/17/20 25 Within the past 12 months, t he [...] any time in the past [address] [facility], were you homeless or living in a group home (including now)? No 05/17/2025 Education Answer Date [...] 05/23/2025 2:30 PM EDT Office Visit [facility] [address] [email or web address] [address] [place] [address] [facility]andra [facility] [address] [email or web address] [address] [place] [address] 05/24/2025 1:30 PM EDT Office Visit [facility] [address] [place] [address] Rachele Dillard NP [address] [place] [address] 05/25/2025 3:20 PM EDT Office Visit [facility] [address] [facility] [place] [address] Alexi Cummins, DO [address] [facility] [place] [address] 07/04/2025 1:00 PM EDT Office Visit [facility] [address] [email or web address] [address] [place] [address] Alexandra Brewster PMHNP-BC [address] [email or web address] [address] [place] [address] documented as of this encounter Visit Diagnoses Not on filedocumented in this encounter Additional Health Concerns Assessment Noted Time PHQ-9 Depression Total Score: 2 01/25/20 25 11:30 AM EDT documented as of this encounter Care Teams Lens Inspector Relationship Specialty Start Date End Date Brii Warren MD 14[address] [facility] [place] [address] PCP - General Family Medicine 03/25/23 Alexandra Brewster PMHNP-BC [address] [email or web address] [address] [place] [address] PCP - [place] [employer] 03/17/25 Alexandra Brewster PMHNP-BC [address] [email or web address] [address] [place] [address] Nurse Practitioner Behavioral Health 10/12/24 documented as of this encounter
--- OUTSIDE RECORDS SUMMARY | 2025-05-18 11:14 | XMS_ITS | Encounter Summary ---
Author Organization [facility] Address [address] [place] [address] Care Team Providers Care Spares Scheduler Name Role Phone Brii Warren MD Primary Care Provider Alexandra Brewster PMHNP-BC Unavailable Rachele Dillard JERSEY KNITTER Unavailable [phone] Alexandra Brewster PMHNP-BC Unavailable Reason for Visit * Reason Comments Med Refill Encounter Details Date Type Department Care Team (Late st Contact Info) Description 02/12/2024 Refill [facility] [address] [place] [address] Rachele Dillard JERSEY KNITTER [address] [place], [place] [phone] Generalized anxiety disorder Social History Tobacco Use [...] encounter Miscellaneous Notes * Telephone Encounter - Brii Warren MD - 02/12/2024 11:38 PM EDT Approving, but needs appt for additional refills. documented in this encounter Plan of Treatment Upcoming Encounters Date Type Department Care Team (Late st Contact Info) Description 05/23/2025 2:30 PM EDT Office Visit [facility] [address] [facility] [address] [place] [address] Alexandra Brewster, PMHNP-BC [address] [facility] [address] [place] [address] 05/24/2025 1:30 PM EDT Office Visit [facility] [address] [place] [address] Rachele Dillard JERSEY KNITTER [address] [place] [address] 05/25/2025 3:20 PM EDT Office Visit [facility] OB [address] [place] [address] Alexi Cummins, DO [address] [address] 07/04/2025 1:00 PM EDT Office Visit [facility] [address] [facility] [address] [place] [address] Alexandra Brewster, PMHNP-BC [address] [facility] [address] [place] [address] documented as of this encounter Visit Diagnoses Diagnosis Generalized anxiety disorder Generalized anxiety disorder Generalized anxiety disorder Generalized anxiety disorder History of TIA (transient ischemic attack) documented in this encounter Additional Health Concerns Assessment Noted Time PHQ-9 Depression Total Score: 0 12/01/19 3:18 PM EST documented as of this encounter Care Teams Spares Scheduler Relationship Specialty Start Date End Date Brii Warren MD [address] [place], [place] [phone] PCP - General Family Medicine 03/25/23 Rachele Dillard NP [address] [place], [place] [address] PCP - [place] [employer] 02/15/25 Alexandra Brewster PMHNP-BC [address] [address] PCP - [place] [employer] 03/17/25 Alexandra Brewster PMHNP-BC [address] [address] Nurse Practitioner Behavioral Health 10/12/24 documented as of this encounter
--- OUTSIDE RECORDS SUMMARY | 2025-05-18 11:14 | XMS_ITS | Clinical Summary ---
Author Organization [facility] Address [address] [place] [address] Care Team Providers Care Coal Grader Name Role Phone Unavailable Primary Care Provider Unavailabl e Social History Tobacco Use Types Packs/Day Years Used Date Smoking Tobacco: Never Assessed Comments Unknown Sex and Gender Information Value Date Recorded Sex Assigned at Not on file Legal Sex Female 2:59 PM EDT Gender Identity Not on file Sexual Orientation Not on file Plan of Treatment Health Maintenance Due Date Last Done Comments Anxiety Screening 1980 Depression Screening 1980 HIV Screening 1980 Hepatitis C Screening 1980 DTaP,Tdap,Td Vaccine (1 - Tdap) 1981 Cervical Cancer Screening [address] Colonography 2007 Cologuard (FIT-DNA) 2007 Colonoscopy 2007 Colorectal Cancer Screening 2007 Diabetes Screening 2007 Fecal Occult Blood 2007 Lipid Screening 2007 Sigmoidoscopy 2007 Pneumococcal Vaccine: 50+ (1 of 1 - PCV) 2012 Shingrix Vaccine (1 of 2) 2012 Covid-19 Vaccine ( - 2023-25 season) 2024 Influenza Vaccine (#1) 2025 RSV Vaccine (1 - 1-dose 75+ series) 2037 Insurance BLUE CARD PPO OOS
--- OUTSIDE RECORDS SUMMARY | 2025-05-18 11:14 | XMS_ITS | Clinical Summary ---
Author Organization [facility] Address [address] [place] [address] Care Team Providers Care Carton Waxing Machine Operator Name Role Phone Unavailable Primary Care Provider Unavailabl e Allergies Active Allergy Reactions Criticality Noted Date Comments Fd&C Red #40-Fd&C Yellow #10-Propoxyphene 07/09/2013 Egg-Derived Products Nausea And Vomiting Low 2014 Milk-Related Compounds Medium 11/13/2018 Sulfa Antibiotics Rash Low 07/09/2013 Tetracyclines & Related Nausea And Vomiting Low Medications meclizine (ANTIVERT) 25 MG tablet Take 25 mg by mouth daily Active aspirin 81 MG EC tablet Take 1 tablet by mouth daily 30 tablet 1 10/03/2021 Active Active Problems Problem Noted Date Diagnosed Date Family history of ovarian cancer 08/14/2017 Overview (08/14/2017): Patient's sister with ovarian cancer- patient sister had genetic testing and was negative. 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 3lb 3oz. During delivery, breech presentation with head entrapment and Drusen procedure. Bladder injury during delivery Migraines 10/07/2013 02/01/2021 psychosis 10/07/2013 021 Overview (10/07/2013): Admitted for 1 month Elevated blood pressure reading 10/07/2013 02/01/2021 Overview (06/14/2017): No symptoms - will follow with PCP Updating deleted diagnoses Family History Medical History Relation Name Comments Heart Disease Mother Cancer Paternal Grandmother unsure type of cancer Ovarian Cancer Sister Asthma Neg Hx Breast Cancer Neg Hx Diabetes Neg Hx Heart Failure Neg Hx High Cholesterol Neg Hx Hypertension Neg Hx Migraines Neg Hx Osteoarthritis Neg Hx Rashes/Skin Problems Neg Hx Rheum Arthritis Neg Hx Seizures Neg Hx Stroke Neg Hx Thyroid Disease Neg Hx Relation Name Status Comments Brother Alive Father Alive Mother Alive Paternal Grandmother Sister Alive Social History Tobacco Use Types Packs/Day Years Used Date Smoking Tobacco: Never Smokeless Tobacco: Never Tobacco Cessation:Counseling Given: Not Answered Alcohol Use Standard Drinks/Week Comments No 0 (1 standard drink = 0.6 oz pur e alcohol) PHQ-2 Answer Date Recorded PHQ-9 Total Score 0 10/03/2021 Comments No Sex and Gender Information Value Date Recorded Sex Assigned at Not on file Legal Sex Female 11:34 AM EST Gender Identity Not on file Sexual Orientation Not on file Last Filed Vital Signs Vital Sign Reading Time Taken Comments Blood Pressure 112/75 10/03/2021 11:18 AM EST Pulse 82 10/03/2021 11:18 AM EST Temperature 36.9 C (98.5 F) 10/03/2021 11:18 AM EST Respiratory Rate 18 10/03/2021 11:18 AM EST Oxygen Saturation 98% 10/03/2021 11:18 AM EST Inhaled Oxygen Concentration - - Weight 102.5 kg (226 lb) 10/03/2021 11:18 AM EST Height 165.1 cm (5' 5 ) 10/03/2021 11:18 AM EST Body Mass Index 37.61 10/03/2021 11:18 AM EST Plan of Treatment Health Maintenance Due Date Last Done Comments Depression Screen 1974 HIV screen 1977 Hepatitis C screen 1980 DTaP/Tdap/Td vaccine (1 - Tdap) 1981 Colonoscopy 2007 Colorectal Cancer Screen 2007 FIT/FOBT: Average risk 2007 Fecal-DNA (Cologuard): Average risk 2007 Sigmoidoscopy/CT colonography 2007 Pneumococcal 50+ years Vaccine (1 of 1 - PCV) 2012 Shingles vaccine (1 of 2) 2012 Lipids 08/22/2020 08/22/2015, 06/17, 06/23/2014, Additional history exists HPV (without or with Pap) 11/13/2023 11/13/2018, Cervical cancer screen 02/07/2024 Pap smear 02/07/2024 02/06/2021, 10/18, 11/13/2018, Additional history exists COVID-19 Vaccine ( - 2023- season) 2024 Breast cancer screen 10/21/2024 10/21/2022, 02/01/2021, 11/15/2019, Additional history exists Flu vaccine (#1) 06/17/2025 Respiratory Syncytial Virus (RSV) or age 60 yrs+ (1 - 1-dose 75+ series) 2037 Hepatitis A vaccine Aged Out No longe r eligible based on patient's age to complete this topic Hepatitis B vaccine Aged Out No longe r eligible based on patient's age to complete this topic Hib vaccine Aged Out No longer eligi ble based on patient's age to complete this topic Meningococcal (ACWY) vaccine Aged Out No longer eligible based on patient's age to complete this topic Meningococcal B vaccine Aged Out No l onger eligible based on patient's age to complete this topic Polio vaccine Aged Out No longer elig ible based on patient's age to complete this topic Procedures Procedure Name Priority Date/Time Associated Diagnosis Comments DELMI JOHAN DIGITAL SCREEN SELF REFERRAL W OR WO CAD BILATERAL Routine 10/21/2022 1:20 PM EST Visit for screening mammogram PAP SMEAR Routine 02/06/2021 Women's annual routine gynecological examination HUMAN PAPILLOMAVIRUS (HPV) DNA PROBE THIN PREP HIGH RISK Routine 11/13/2018 9:45 AM EST LIPID PANEL Routine 08/22/2015 5:46 AM EDT from Last 3 Months or Most Recently Relevant to Health Maintenance Results * DELMI JOHAN DIGITAL SCREEN SELF REFERRAL W OR WO CAD BILATERAL (10/21/2022 1:20 PM EST) Anatomical Region Laterality Modality Breast Bilateral Mammography 10/21/2022 1:24 PM EST Impressions 10/21/2022 2:34 PM EST No mammographic evidence of malignancy. BI-RADS 2 BIRADS: BIRADS - CATEGORY 2 Benign Findings. Normal interval follow-up is recommended in 12 months. OVERALL ASSESSMENT - BENIGN A letter of notification will be sent to the patient regarding the results. [employer] recommends annual mammograms for women 40 years and older. Narrative 10/21/2022 2:34 PM EST EXAMINATION: SCREENING DIGITAL BILATERAL MAMMOGRAM WITH TOMOSYNTHESIS, [...] breast: No evidence of suspicious clusters of microcalcifications, dominant mass or architectural distortion. Left breast: No evidence of suspicious clusters of microcalcifications, dominant mass or architectural distortion. Jim Haro MD IMG MAMMOGRAPHY ORDERABL ES Final Result * PAP SMEAR (02/06/2021) CERVICAL SWAB / Unknown Chrissy Biggs ROBOTICS APPLICATION ENGINEER - PING PONG TABLE ASSEMBLER PATHOLOGY/CYTOLOGY ORDKarena DAVIDSON Final Result * Human papillomavirus (HPV) DNA probe thin prep high risk (11/13/2018 9:45 AM EST) Pathologist [facility] [place] HPV SOURCE CERVICAL MATERIAL 11/16/2018 9:46 AM EST [facility] HPV Sample .THIN PREP 11/16/2018 9:46 AM EST [facility] HPV, Genotype 16 Not Detected NOTDET 11/16/2018 3:11 PM EST [facility] HPV, Genotype 18 Not Detected NOTDET 11/16/2018 3:11 PM EST [facility] HPV, High Risk Other Not Detected NOTDET 11/16/2018 3:11 PM EST [facility] HPV, Interpretation 11/16/2018 3:11 PM EST [facility] Comment: This test amplifies and detects DNA of 14 high-risk HPV types associated with cervical cancer and its precursor lesions (HPV types 16,18, 31, 33, 35, 39, 45, 51, 52, 56, 58, 59, 66, and 68). Sensitivity may be affected by specimen collection methods, stage of infection, and the presence of interfering substances. Results should be interpreted in conjunction with other available laboratory and clinical data. A negative high-risk HPV result does not exclude the possibility of future cytologic HSIL or underlying CIN2-3 or cancer. This test is intended for medical purposes only and is not valid for the evaluation of suspected sexual abuse or for other forensic purposes. 11/13/2018 9:45 AM EST 11/16/2018 9:45 AM EST Sobia Browne ROBOTICS APPLICATION ENGINEER - ELECTRICAL EXPERIMENTAL MECHANIC HEMATOLOGY ORDERABLES Fi nal Result [facility] [address] [place] [address], [facility] [phone] [facility] [address] [place], [place] [address] [phone] * (ABNORMAL) Lipid panel - fasting (08/22/2015 5:46 AM EDT) Pathologist [facility] [place] Cholesterol 190 <200 mg/dL 08/22/2015 6:59 AM EDT [facility] Comment: Cholesterol Guidelines: <200 Desirable 200-240 Borderline >240 Undesirable HDL 28(L) >40 mg/dL 08/22/2015 6:59 AM EDT [facility] Comment: HDL Guidelines: <40 Undesirable 40-59 Borderline >59 Desirable LDL Cholesterol 113 0 - 130 mg/dL 08/22/2015 6:59 AM EDT [facility] Comment: LDL Guidelines: <100 Desirable 100-129 Near to/above Desirable 130-159 Borderline >159 Undesirable Direct (measured) LDL and calculated LDL are not interchangeable tests. Chol/HDL Ratio 6.8(H) <5 08/22/2015 6:59 AM EDT [facility] Comment: Triglycerides 246(H) <150 mg/dL 08/22/2015 6:59 AM EDT [facility] Comment: Triglyceride Guidelines: <150 Desirable 150-199 Borderline 200-499 High >499 Very high Based on AHA Guidelines for fasting triglyceride, August 2012. Performed at [facility] [address] [place] [address] ([phone] VLDL NOT REPORTED 1 - 30 mg/dL [facility] BLOOD SPECIMEN / Unknown 08/22/2015 5:46 AM EDT 08/22/2015 6:03 AM EDT Jim Haro MD CHEMISTRY ORDERABLES Fin al Result [facility] [address] [place], [place] [address] [phone] [facility] from Last 3 Months or Most Recently Relevant to Health Maintenance Insurance [facility] Advance Directives * Full Code (Latest Code Status on File) Date Activated Date Inactivated Comments 08/21/2015 6:55 PM 08/23/2015 4:44 PM
--- OUTSIDE RECORDS SUMMARY | 2025-05-18 11:14 | XMS_ITS | Encounter Summary ---
Author Organization [facility] Address [address] [place] [address] Care Team Providers Care Sailboat Captain Name Role Phone Brii Warren MD Primary Care Provider [phone] Alexandra Brewster PMHNP-BC Unavailable Rachele Dillard POWER SAW OPERATOR Unavailable [phone] Alexandra Brewster PMHNP-BC Unavailable Encounter Details Date Type Department Care Team (Late st Contact Info) Description 12/28/2024 Abstract [facility] [address] [place] [address] Alexi Cummins DO [address] [facility] [address] [place], [place] [id number] Social History Tobacco Use Types Packs/Day Years [...] EDT Office Visit [facility] [address] [facility] [address] [place] [address] Alexandra Brewster, HNP-BC [address] [facility] [address] [place] [address] 05/24/2025 1:30 PM EDT Office Visit [facility] FM [address] [place] [phone] Rachele Dillard NP [address] [place] [address] 05/25/2025 3:20 PM EDT Office Visit [facility] [address] [place] [address] Alexi Cummins DO [address] [place] [place] [address] 07/04/2025 1:00 PM EDT Office Visit [facility] [address] [facility] [address] [place] [address] Alexandra Brewster, HNP-BC [address] [facility] [address] [place] [address] documented as of this encounter Visit Diagnoses Not on filedocumented in this encounter Additional Health Concerns Assessment Noted Time PHQ-9 Depression Total Score: 20 025 3:37 PM EST documented as of this encounter Care Teams Sailboat Captain Relationship Specialty Start Date End Date Brii Warren MD [address] [place] [address] PCP - General Family Medicine 03/25/23 Rachele Dillard NP [address] [facility] [place] [address] PCP - [place] [employer] 02/15/25 [facility]andra Brewster [facility] [address] [phone] PCP - [place] [employer] 03/17/25 [facility] [address] [phone] Nurse Practitioner Behavioral Health 10/12/24 documented as of this encounter
--- OUTSIDE RECORDS SUMMARY | 2025-05-18 11:14 | XMS_ITS | Encounter Summary ---
Author Organization [facility] Address [address] [place] [address] Care Team Providers Care Social Worker Palliative Care Name Role Phone Brii Warren MD Primary Care Provider Alexandra Brewster PMHNP-BC Unavailable Rachele Dillard BOILER SETTER Unavailable Alexandra Brewster PMHNP-BC Unavailable [phone] Reason for Visit * Reason Comments Med Refill Encounter Details Date Type Department Care Team (Late st Contact Info) Description 05/09/2024 Refill [facility] [address] [place] [address] Brii Warren MD [address] [place] [address] Generalized anxiety disorder Social History [...] Telephone Encounter - Betty Cruz MA - 05/10/2024 8:09 AM EDT Approving, but needs appt for additional refills. documented in this encounter Plan of Treatment Upcoming Encounters Date Type Department Care Team (Late st Contact Info) Description 05/23/2025 2:30 PM EDT Office Visit [facility] [address] [facility] [address] [place] [address] Alexandra Brewster, PMHNP-BC [address] [facility] [address] [place] [address] 05/24/2025 1:30 PM EDT Office Visit [facility] [address] [place] [phone] Rachele Dillard BOILER SETTER [address] [place] [address] 05/25/2025 3:20 PM EDT Office Visit [facility] [address] [place] [phone] lAexi Cummins, DO [address] [place] [address] 07/04/2025 1:00 PM EDT Office Visit [facility] [address] [facility] [address] [place] [address] Alexandra Brewster, PMHNP-BC [address] [facility] [address] [place] [address] documented as of this encounter Visit Diagnoses Diagnosis Generalized anxiety disorder Generalized anxiety disorder Generalized anxiety disorder Generalized anxiety disorder History of TIA (transient ischemic attack) documented in this encounter Additional Health Concerns Assessment Noted Time PHQ-9 Depression Total Score: 0 12/01/19 3:18 PM EST documented as of this encounter Care Teams Social Worker Palliative Care Relationship Specialty Start Date End Date Brii Warren MD [address] [facility] [place] [phone] PCP - General Family Medicine 03/25/23 Rachele Dillard NP [address] [place] [phone] PCP - [place] [employer] 02/15/25 [facility] [address] [facility] [address] [place] [phone] PCP - [place] [employer] 03/17/25 [facility] Brew[facility] [address] [phone] Nurse Practitioner Behavioral Health 10/12/24 documented as of this encounter
--- OUTSIDE RECORDS SUMMARY | 2025-05-18 11:14 | XMS_ITS | Clinical Summary ---
Author Organization [employer] Address [id number] [place] [address] Care Team Providers Care Asp Net Mvc Developer Name Role Phone Brii Warren MD Primary Care Provider Allergies Active Allergy Reactions Criticality Noted Date Comments Doxycycline 11/12/2021 Hydroxyzine 11/12/2021 Tetracycline 11/12/2021 Alprazolam 11/12/2021 Medications busPIRone (BUSPAR) 10 mg tablet Take 1.5 tablets (15 mg total) by mouth 3 (three) times a day. Active PARoxetine (PAXIL) 20 mg tablet Take 20 mg by mouth every morning. Active LORazepam (ATIVAN) 1 mg tablet Take 1 tablet (1 mg total) by mouth in the morning and 1 tablet (1 mg total) at noon and 1 tablet (1 mg total) in the evening. Active meclizine (ANTIVERT) 25 mg tablet Chew 1 tablet (25 mg total) and swallow 3 (three) times a day as needed for dizziness. Active trazodone HCl (TRAZODONE ORAL) Take by mouth. Active DULoxetine (CYMBALTA) 30 mg capsule Take 1 capsule (30 mg total) by mouth in the morning. Active gabapentin (NEURONTIN) 100 mg capsule Take 1 capsule (100 mg total) by mouth 3 (three) times a day. Active OLANZapine (ZyPREXA) 2.5 mg tablet Take 1 tablet (2.5 mg total) by mouth in the morning and 1 tablet (2.5 mg total) at noon and 1 tablet (2.5 mg total) in the evening. Active aspirin 81 mg chewable tablet Chew 1 tablet (81 mg total) and swallow in the morning. 30 tablet 10/22/2023 Active Social History Tobacco Use Types Packs/Day Years Used Date Smoking Tobacco: Never Smokeless Tobacco: Never Tobacco Cessation:Counseling Given: Not Answered Alcohol Use Standard Drinks/Week Comments Never 0 (1 standard drink = 0.6 oz pur e alcohol) PHQ-2 Answer Date Recorded Total Score 0 11/20/2023 Childcare Answer Date Recorded Childcare Unknown 04/28/2019 Employment Answer Date Recorded Employment Unknown 04/28/2019 Hunger Screening Answer Date Recorded Within the past 12 months we worried whether our food would run out before we got money to buy more. Never True 11/20/2023 Within the past 12 months th e food we bought just didn't last and we didn't have money to get more. Never True 11/20/2023 Comments No Sex and Gender Information Value Date Recorded Sex Assigned at Not on file Legal Sex Female 11:38 AM EDT Gender Identity Female 10/23/2023 12:41 PM EST Sexual Orientation Straight 10/23/2023 12 :41 PM EST Last Filed Vital Signs Vital Sign Reading Time Taken Comments Blood Pressure 118/59 11/20/2023 10:13 AM EST Pulse 90 11/20/2023 10:13 AM EST Temperature 36.7 C (98.1 F) 10/22/2023 11:15 AM EST Respiratory Rate 18 10/22/2023 12:0 0 PM EST Oxygen Saturation 94% 10/22/2023 12: 00 PM EST Inhaled Oxygen Concentration - - Weight 107.4 kg (236 lb 11.2 oz) 2023 10:13 AM EST Height 165.1 cm (5' 5 ) 11/20/2023 10:1 3 AM EST Body Mass Index 39.39 11/20/2023 10:13 AM EST Plan of Treatment Health Maintenance Due Date Last Done Comments DTaP,Tdap and Td Vaccines (1 - Tdap) 1981 Pap Smear 1983 Zoster (Shingles) Vaccine (1 of 2) 2012 Adult BMI Screening 11/20/2024 11/20/2023 Depression Screening 11/20/2024 11/20/2023 Tobacco Screening 11/20/2024 11/20/2023 Influenza Vaccine 07/18/2025 Medical Devices Not on file Insurance [employer] Care Teams Asp Net Mvc Developer Relationship Specialty Start Date End Date Brii Warren MD [address] [place] [address] PCP - General Family Medicine 10/22/23
[2025-05-23 12:08] LABS: Calcitriol(1,25 di-OH Vit D) 31.5 pg/mL (24.8-81.5)
== END 2025-05-18 11:06 | disposition home or self-care (01) ==
LOC: LAB 11:12
PROVIDERS: PCP Nurse Practitioner Family; Visit Provider Obstetrics & Gynecology
DX: R79.89 Other specified abnormal findings of blood chemistry (principal)
CPT/HCPCS: 36415; 82652

== ENCOUNTER 2025-05-25 20:16 | Outpatient (REF) | payer MEDICARE, SELFPAY ==
--- OUTSIDE RECORDS SUMMARY | 2025-05-23 14:30 | XMS_ITS | Encounter Summary ---
Author Organization [facility] Address [address] [place] [address] Care Team Providers Care Dietary Aide Cook Name Role Phone Brii Warren MD Primary Care Provider [phone] Alexandra Brewster PMHNP-BC Unavailable [phone] Alexandra Brewster PMHNP-BC Unavailable [phone] Reason for Visit * Reason Comments Med Management Follow-up Encounter Details Date Type Department Care Team (Late st Contact Info) Description 05/23/2025 2:30 PM EDT Office Visit [facility] [address] [place] [address] Alexandra Brewster PMHNP-BC [address] [place] [address] Generalized anxiety disorder ; History [...] week 05/17/2025 How often do you attend [facility] or methodist services? More than 4 times per year 05/17/2025 Do you belong to any clubs o r organizations such as christian groups, unions, fraternal or athletic groups, or [...] Recorded Patient Health Questionnaire-2 Score 0 05/24/2025 [facility] [place] of Occupat ional Health - Occupational Stress [...] Diagnosis Date Cervical insufficiency in , antepartum ([facility]) 1982 Fibrocystic breast 1992 KLAUDIA (generalized anxiety disorder) [facility] of psychiatric [facility] of [facility] Irregular menses 11/09 Menopause ovarian failure 2015 Obesity Panic attack 09/08 ([facility]) x3 TIA (transient ischemic attack) 2016 Vitamin [...] (Family Medicine) ROSSY Choi as PCP - [place] ROSSY Adkins as Nurse Practitioner (Behavioral Health) [...] Pulse 76 Wt 246 lb BMI 40.94 kg/m?? OB Status No Periods Smoking Status Never BSA 2.27 m?? Lab Results Component Value Date GLU 110 [...] Care Team (Late st Contact Info) Description 06/27/2025 1:30 PM EDT Office Visit [facility] [address] [facility] [address] [place] [address] Alexandra Brewster PMHNP-BC [address] [facility] [address] [place] [address] 11/22/2025 1:30 PM EST Office Visit [facility] [address] [place] [phone] Rachel Chang NP [address] [place] [address] 05/29/2026 11:00 AM EDT Office Visit [facility] [address] [facility] [phone] Alexi Cummins DO [address] [place] [address] documented as of this encounter Visit Diagnoses Diagnosis Generalized anxiety disorder Generalized anxiety disorder History of TIA (transient ischemic attack) documented in this encounter Additional Health Concerns Assessment Noted Time PHQ-9 Depression Total Score: 2 01/25/20 25 11:30 AM EDT documented as of this encounter Care Teams Dietary Aide Cook Relationship Specialty Start Date End Date Brii Warren MD [facility] [facility] [place] [address] PCP - General Family Medicine 03/25/23 Alexandra Brewster [facility] [address] [place] [address] PCP - [facility] 03/17/25 [facility] Brew[facility] [address] [phone] Nurse Practitioner Behavioral Health 10/12/24 documented as of this encounter
--- OUTSIDE RECORDS SUMMARY | 2025-05-24 13:30 | XMS_ITS | Encounter Summary ---
Author Organization [facility] Address [address] [place] [address] Care Team Providers Care Piling Cutter Name Role Phone Brii Warren MD Primary Care Provider [phone] Alexandra Brewster PMHNP-BC Unavailable [phone] Alexandra Brewster PMHNP-BC Unavailable Reason for Visit * Reason Comments Annual Exam Encounter Details Date Type Department Care Team (Late st Contact Info) Description 05/24/2025 1:30 PM EDT Office Visit [facility] [address] [place] [phone] Rachele Dillard PUG MILL OPERATOR [address] [facility] 1 [place] [phone] Irritable bowel syndrome, unspecified type (Primary Dx); Morbid (severe) obesity due to excess calories (CMS-HCC); Vitamin D deficiency; Actinic keratosis; Family history of ovarian cancer; Generalized anxiety disorder ; History of malignant melanoma; History of TIA (transient ischemic attack); Gastroesophageal reflux disease without esophagitis; Medicare annual wellness visit, subsequent; Elevated LFTs; On statin therapy; Mixed hyperlipidemia ; Elevated glucose Social History Tobacco Use Types Packs/Day Years [...] week 05/17/2025 How often do you attend chur or adventism services? More than 4 times per year 05/17/2025 Do you belong to any clubs o r organizations such as moravian groups, unions, fraternal or athletic groups, or [...] Recorded Patient Health Questionnaire-2 Score 0 05/24/2025 [facility] Occupat ional [facility] - Occupational Stress Questionnaire Answer Date [...] [facility] the [facility] were you homeless or living in a [facility] (including now)? No 05/17/2025 Education Answer Date [...] Sign Reading Time Taken Comments Blood Pressure 130/78 05/24/2025 1:15 PM EDT Pulse 80 05/24/2025 1:15 PM EDT Temperature - - Respiratory Rate 18 05/24/2025 1:15 PM EDT Oxygen Saturation 98% 05/24/2025 1:15 PM EDT Inhaled Oxygen Concentration - - Weight 112 kg (246 lb) 05/24/2025 1:15 PM EDT Height 165.1 cm (5' 5 ) 05/24/2025 1:15 PM EDT Body Mass Index 40.94 05/24/2025 1:15 PM EDT documented in this encounter Functional Status * Over the past 2 weeks, how often have you been bothered by any of the following problems? Question Answer Date of Assessment Author Little interest or pleasure in doing things Not at all 05/24/2025 1:00 PM EDT Rachele Dillard NP Feeling down, depressed, or hopeless Not at all 05/24/2025 1:00 PM EDT Vijay Dillard cia, NP Patient Health Questionnaire-2 Score 0 05/24/2025 1:00 PM EDT Rosanna Dillard NP * Question Answer Date of Assessment Author Trouble falling or staying asleep, or sleeping too much Not at all 05/24/2025 1:00 PM EDT Rachele Huerta NP Feeling tired or having little energy Not at all 05/24/2025 1:00 PM EDT Vijay Dillard cia, NP Poor appetite or overeating Not at all 05/24/2025 1: 00 PM DANAYT Rachele Dillard NP Feeling bad about yourself - or that you are a failure or have let yourself or your family down Not at all 05/24/2025 1:00 PM DANAYT Vijay Dillard cia, NP Trouble concentrating on things, such as reading the newspaper or watching television Not at all 05/24/2025 1:00 PM EDT Vijay Dillard cia, NP Moving or speaking so slowly that other people could have noticed? Or the opposite - being so fidgety or restless that you have been moving around a lot more than usual. Not at all 05/24/2025 1:00 PM EDT Vijay Dillard cia, NP Thoughts that you would be better off or hurting yourself in some way Not at all 05/24/2025 1:00 PM DANAYT Phil Dillard NP Patient Health Questionnaire-9 Score 0 05/24/2025 1:00 PM EDT Rosanna Dillard NP documented as of this encounter Progress Notes * Rachele Dillard NP - 05/24/2025 1:30 PM EDT Images from the original note were not included. Luisana De La Torre is a 65 y.o. female presents with chief complaint of Annual Exam HPI: HPI Presents for well adult visit. She is doing great. Continues to see Alexandra Brewster and is doing well from an anxiety perspective. Over the past 2 weeks, how often have you been bothered by any of the following problems? Little interest or pleasure in doing things: Not at all Feeling down, depressed, or hopeless: Not at all Patient Health Questionnaire-2 Score: 0 Over the past 2 weeks, how often have you been bothered by any of the following problems? Trouble falling or staying asleep, or sleeping too much: Not at all Feeling tired or having little energy: Not at all Poor appetite or overeating: Not at all Feeling bad about yourself - or that you are a failure or have let yourself or your family down: Not at all Trouble concentrating on things, such as reading the newspaper or watching television: Not at all Moving or speaking so slowly that other people could have noticed? Or the opposite - being so fidgety or restless that you have been moving around a lot more than usual.: Not at all Thoughts that you would be better off or hurting yourself in some way: Not at all Patient Health Questionnaire-9 Score: 0 Ni Fall Risk History of Falling, Immediate or Within 3 Months: No Secondary Diagnosis: No Ambulatory Aid: Walks without aid/bedrest/nurse assist Intravenous Therapy/Heparin Lock: No Gait/Transferring: Normal/bedrest/immobile Mental Status: Oriented to own ability Ni Fall Risk Score: 0 Health Risk Assessment Form Do you need help eating, bathing, using the toilet, dressing, or getting around your home?: No Can you prepare your own meals?: Yes Can you do your own housework without help?: Yes Can you shop for groceries or clothes without help?: Yes Do you exercise for about 20 minutes 3 or more days a week?: No How confident are you that you can control and manage most of your health problems?: Somewhat confident Can you mange your money, credit cards and accounts, pay bills and taxes?: Yes Cognitive Screening Self Assessment: No overt cognitive deficiency is apparent by direct observation Three Word Registration: Apple, Watch, Karina Clock Drawing: Normal Clock - 2 Three Word Recall: All 3 words correct - 3 Total Score (0-5 Points): 5 SUBJECTIVE: MEDICATIONS: Current Outpatient Medications Medication Instructions Aspirin [...] (INDERAL) 20 mg, Oral, 2 times daily I have reviewed and reconciled the history and medication list with the patient today. REVIEW OF SYMPTOMS: Review of Systems Constitutional: Negative. HENT: Negative. Respiratory: Negative for cough, shortness of breath and wheezing. Cardiovascular: Negative for chest pain. Gastrointestinal: Negative for abdominal pain. Genitourinary: Negative. Musculoskeletal: Negative. Skin: Negative. Neurological: Negative. OBJECTIVE: Visit Vitals BP 130/78 Pulse 80 Resp 18 Ht 5' 5 Wt 246 lb SpO2 98% BMI 40.94 kg/m?? OB Status No Periods Smoking Status Never BSA 2.27 m?? Physical Exam Vitals and nursing note reviewed. Constitutional: Appearance: Normal appearance. HENT: Head: Normocephalic and atraumatic. Right Ear: Hearing and tympanic membrane normal. Left Ear: Hearing and tympanic membrane normal. Nose: Nose normal. Right Turbinates: Not enlarged. Left Turbinates: Not enlarged. Right Sinus: No maxillary sinus tenderness or frontal sinus tenderness. Left Sinus: No maxillary sinus tenderness or frontal sinus tenderness. Mouth/Throat: Lips: Samson. Mouth: Mucous membranes are moist. Pharynx: Oropharynx is clear. Uvula midline. Tonsils: No tonsillar exudate. Eyes: General: Lids are normal. Vision grossly intact. Gaze aligned appropriately. Extraocular Movements: Extraocular movements intact. Conjunctiva/sclera: Conjunctivae normal. Neck: Thyroid: No thyroid mass or thyromegaly. Vascular: No carotid bruit. Trachea: Trachea normal. Cardiovascular: Rate and Rhythm: Normal rate and regular rhythm. Pulses: Normal pulses. Heart sounds: Normal heart sounds. Pulmonary: Effort: Pulmonary effort is normal. Breath sounds: Normal breath sounds and air entry. Abdominal: General: Abdomen is flat. Bowel sounds are normal. Palpations: Abdomen is soft. Musculoskeletal: Cervical back: Full passive range of motion without pain, normal range of motion and neck supple. Lymphadenopathy: Cervical: No cervical adenopathy. Skin: General: Skin is warm. Capillary Refill: Capillary refill takes less than 2 seconds. Neurological: Mental Status: She is alert and oriented to person, place, and time. Sensory: Sensation is intact. Motor: Motor function is intact. Coordination: Coordination is intact. Psychiatric: Attention and Perception: Attention and perception normal. Mood and Affect: Mood and affect normal. Speech: Speech normal. Behavior: Behavior is cooperative. Thought Content: Thought content normal. ASSESSMENT AND PLAN: Assessment/Plan Diagnoses and all orders for this visit: Irritable bowel syndrome, unspecified type Stable. Morbid (severe) obesity due to excess calories (CMS-HCC) Check labs to r/o underlying cause. Reviewed BMI with patient today. Encouraged weight reduction. Discussed healthy eating habits. Limit caloric intake <1500kcal/day. Reviewed different diet options with patient including low calorie, reduced carbohydrate. Advised to investigate Weight Watchers as a possible diet plan. Recommended journaling food intake and exercise performance either using a simple paper/calendar system or downloading the [employer] Fitness Plan application to track calorie consumption, food intake, exercise performance. Recommended starting with at least 150 minutes of exercise weekly and increase to a goal of 60 minutes per day. Discussed barriers to following treatment plan. Will consider medication options if lifestyle modifications fail. Vitamin D deficiency Most recent labs a week ago were in normal range. Managed by Dr. Cummins. Actinic keratosis Family history of ovarian cancer Seeing Dr. Cummins tomorrow for yearly. Generalized anxiety disorder History of malignant melanoma History of TIA (transient ischemic attack) Gastroesophageal reflux disease without esophagitis - pantoprazole (ProtoNix) 40 MG EC tablet; Take 1 tablet (40 mg) by mouth in the morning. Take before meals. Do not crush, chew, or split. Medicare annual wellness visit, subsequent Discussed height, weight and BMI. Encouraged healthy diet and regular exercise. Discussed vaccines and encouraged yearly flu shot. Annual eye and dental exam. Vaccines and cancer screens reviewed forcompleteness. Screen labs as needed. Assessed needs for tools in the home for independence. Living will and durable power of assistant refinery operator reviewed. Updated patient problem list and reviewed all current medications with patient. Given time to ask questions. Elevated LFTs - Comprehensive metabolic panel; Future On statin therapy Mixed hyperlipidemia - Lipid panel; Future Elevated glucose - Hemoglobin A1c; Future documented in this encounter Plan of Treatment Upcoming Encounters Date Type Department Care Team (Late st Contact Info) Description 06/27/2025 1:30 PM EDT Office Visit [facility] [address] [facility] [address] [place] [address] Alexandra Brewster PMHNP- [address] [facility] [address] [place] [phone] 11/22/2025 1:30 PM EST Office Visit [facility] [address] [place] [address] Rachel Chang NP [address] [place] [address] 05/29/2026 11:00 AM EDT Office Visit [facility] [address] [facility] [place] [place] [address] Alexi Cummins, DO [address] [facility] [place] [address] documented as of this encounter Procedures Procedure Name Priority Date/Time Associated Diagnosis Comments HEMOGLOBIN A1C Routine 05/24/2025 1:59 PM EDT Elevated glucose LIPID PANEL Routine 05/24/2025 1:59 PM EDT Mixed hyperlipidemia COMPREHENSIVE METABOLIC PANEL Routine 05/24/2025 1:59 PM EDT Elevated LFTs documented in this encounter Results * (ABNORMAL) Hemoglobin A1c (05/24/2025 1:59 PM EDT) Hemoglobin A1C 5.7(H) <5.7 % [facility] Comment: For someone without known diabetes, a hemoglobin A1c value between 5.7% and 6.4% is consistent with prediabetes and should be confirmed with a follow-up test. For someone with known diabetes, a value <7% indicates that their diabetes is well controlled. A1c targets should be individualized based on duration of diabetes, age, comorbid conditions, and other considerations. This assay result is consistent with an increased risk of diabetes. Currently, no consensus exists regarding use of hemoglobin A1c for diagnosis of diabetes for children. Blood Venous blood specimen / Unknown 05/24/2025 1:59 PM EDT 05/24/2025 1:59 PM EDT Narrative Resulting Agency Comment Performing Organization Information Site ID: QPT Name: [facility] Address: [address] [place] [address], [address] [place] [phone] Director: Adolph Dave MD us Rachele Dillard PUG MILL OPERATOR LAB BLOOD ORDERABLES Fi nal Result [facility] * (ABNORMAL) Lipid panel (05/24/2025 1:59 PM EDT) CHOLESTEROL, TOTAL 135 <200 mg/dL [facility] HDL CHOLESTEROL 44(L) > OR = 50 mg/dL [facility] TRIGLYCERIDES 110 <150 mg/dL [facility] LDL CHOLESTEROL 71 mg/dL (calc) [facility] Comment: Reference range: <100 Desirable range <100 mg/dL for primary prevention; <70 mg/dL for patients with CHD or diabetic patients with > or = 2 CHD risk factors. LDL-C is now calculated using the Pao calculation, which is a validated novel method providing better accuracy than the Friedewald equation in the estimation of LDL-C. Gautam SS et al. KAILA. 2013;310(19): 3224-5552 (http://education.Localist/faq/JPA380) CHOL/HDLC RATIO 3.1 <5.0 (calc) [facility] NON HDL CHOLESTEROL 91 <130 mg/dL (calc) [facility] Comment: For patients with diabetes plus 1 major ASCVD risk factor, treating to a non-HDL-C goal of <100 mg/dL (LDL-C of <70 mg/dL) is considered a therapeutic option. Blood Venous blood specimen / Unknown 05/24/2025 1:59 PM EDT 05/24/2025 1:59 PM EDT Narrative Resulting Agency Comment Performing Organization Information Site ID: QPT Name: [facility] Address: [address] [place] [address], [address] [place] [phone] Director: Adolph Dave MD Rachele Dillard PUG MILL OPERATOR LAB BLOOD ORDERABLES Fi nal Result [facility] * (ABNORMAL) Comprehensive metabolic panel (05/24/2025 1:59 PM EDT) [facility] Glucose 75 65 - 99 mg/dL [facility] Comment: Fasting reference interval BUN 10 7 - 25 mg/dL [facility] Creatinine 0.86 0.50 - 1.05 mg/dL [facility] EGFR 76 > OR = 60 mL/min/1. 73m2 [facility] BUN/CREATININE RATIO SEE NOTE: 6 - 22 (calc) [facility] Comment: Not Reported: BUN and Creatinine are within reference range. Sodium 142 135 - 146 mmol/L [facility] Potassium, Bld 4.4 3.5 - 5.3 mmol/L [facility] Chloride 106 98 - 110 mmol/L [facility] Carbon Dioxide 24 20 - 32 mmol/L [facility] Calcium 8.9 8.6 - 10.4 mg/dL [facility] PROTEIN, TOTAL 6.3 6.1 - 8.1 g/dL [facility] ALBUMIN 4.1 3.6 - 5.1 g/dL [facility] GLOBULIN 2.2 1.9 - 3.7 g/dL (calc) [facility] ALBUMIN/GLOBULIN RATIO 1.9 1.0 - 2.5 (calc) [facility] BILIRUBIN, TOTAL 1.4(H) 0.2 - 1.2 mg/dL [facility] ALKALINE PHOSPHATASE 64 37 - 153 U/L [facility] AST 15 10 - 35 U/L [facility] ALT 14 6 - 29 U/L [facility] Blood Venous blood specimen / Unknown 05/24/2025 1:59 PM EDT 05/24/2025 1:59 PM EDT Narrative Resulting Agency Comment Performing Organization Information Site ID: QPT Name: [facility] Address: [address] [place] [address], [address] [place] [phone] Director: Adolph Dave MD Rachele Dillard PUG MILL OPERATOR LAB BLOOD ORDERABLES Fi nal Result [facility] documented in this encounter Visit Diagnoses Diagnosis Irritable bowel syndrome, unspecified type- Primary Morbid (severe) obesity due to excess calories ([facility]-HCC) Vitamin D deficiency Actinic keratosis Family history of ovarian cancer Family history of malignant neoplasm of ovary Generalized anxiety disorder Generalized anxiety disorder History of malignant melanoma Personal history of malignant melanoma of skin History of TIA (transient ischemic attack) Gastroesophageal reflux disease without esophagitis Esophageal reflux Medicare annual wellness visit, subsequent Elevated LFTs Other abnormal blood chemistry On statin therapy Mixed hyperlipidemia Mixed hyperlipidemia Elevated glucose Other abnormal glucose documented in this encounter Additional Health Concerns Assessment Noted Time PHQ-9 Depression Total Score: 0 05/24/20 25 1:00 PM EDT documented as of this encounter Care Teams Piling Cutter Relationship Specialty Start Date End Date Brii Warren MD [address] [place] [address] PCP - General Family Medicine 03/25/23 Alexandra Brewster PMHNP- [address] [facility] [address] [place] [address] PCP - Mike Underwood 03/17/25 Alexandra Brewster, [facility] [address] [facility] [address] [place] [address] Nurse Practitioner Behavioral Health 10/12/24 documented as of this encounter
--- OUTSIDE RECORDS SUMMARY | 2025-05-25 15:20 | XMS_ITS | Encounter Summary ---
Author Organization [facility] Address [address] [place] [address] Care Team Providers Care Jeweler Apprentice Name Role Phone Brii Warren MD Primary Care Provider [phone] Alexandra Brewster PMHNP-BC Unavailable [phone] Alexandra Brewster PMHNP-BC Unavailable [phone] Reason for Visit * Reason Comments Well Women Visit Encounter Details Date Type Department Care Team (Late st Contact Info) Description 05/25/2025 3:20 PM EDT Office Visit [facility] [address] [place] [phone] Alexi Cummins, DO [address] [facility] [address] [place], [place] [phone] Well woman exam with routine gynecological exam; [...] How often do you attend chur or pentecostal services? More than 4 times per year 05/17/2025 Do you belong to any clubs o r organizations such as hindu groups, unions, fraternal or athletic groups, or [...] Recorded Patient Health Questionnaire-2 Score 0 05/24/2025 [facility] - [...] any time in the past 12 m [facility], were you homeless or living in a care home (including now)? No 05/17/2025 Education Answer [...] 1:15 PM EDT documented in this encounter Plan of Treatment Upcoming Encounters Date Type Department Care Team (Late st Contact Info) Description 06/27/2025 1:30 PM EDT Office Visit [facility] [address] [facility] [address] [place] [address] Alexandra Brewster PMHNP-BC [address] [facility] [address] [place] [address] 11/22/2025 1:30 PM EST Office Visit [facility] [address] [place] [phone] Rachel Chang NP [address] [place], [place] [phone] 05/29/2026 11:00 AM EDT Office Visit [facility] [address] [facility] [place] [address] Alexi Cummins DO [address] [facility] [address] [place], [place] [phone] Scheduled Orders Name Type Priority Associated Diagnoses [...] documented as of this encounter Care Teams Jeweler Apprentice Relationship Specialty Start Date End Date Brii Warren MD [address] [place], [place] [phone] PCP - General Family Medicine 03/25/23 [facility] [address] [place] [address] PCP - [facility] 03/17/25 [facility] [address] [place] [address] Nurse Practitioner Behavioral Health 10/12/24 documented as of this encounter
--- OUTSIDE RECORDS SUMMARY | 2025-05-25 20:20 | XMS_ITS | Encounter Summary ---
Author Organization [facility] Address [address] [place] [address] Care Team Providers Care Ceramic Coater Machine Name Role Phone Brii Warren MD Primary Care Provider [phone] Alexandra rBewster PMHNP-BC Unavailable [phone] Rachele Dillard DERRICK ENGINEER Unavailable Alexandra Brewster PMHNP-BC Unavailable Reason for Visit * Reason Comments Med Refill Encounter Details Date Type Department Care Team (Late st Contact Info) Description 05/09/2024 Refill [facility] [address] [place] [address] Brii Warren MD [address] [place] [address] Generalized anxiety disorder Social History [...] EDT Office Visit [facility] [address] [facility] [address] [place] [address] Alexandra Brewster, HNP-BC [address] [facility] [address] [place] [address] 11/22/2025 1:30 PM EST Office Visit [facility] [address] [place] [phone] Rachel Chang NP [address] [place] [address] 05/29/2026 11:00 AM EDT Office Visit [facility] [address] [place] [phone] Alexi Cummins DO [address] [place] [address] documented as of this encounter Visit Diagnoses Diagnosis Generalized anxiety disorder Generalized anxiety disorder documented in this encounter Additional Health Concerns Assessment Noted Time PHQ-9 Depression Total Score: 0 12/01/19 24 3:18 PM EST documented as of this encounter Care Teams Ceramic Coater Machine Relationship Specialty Start Date End Date Brii Warren MD [address] [place], [place] [phone] PCP - General Family Medicine 03/25/23 Rachele Dillard NP [address] [facility] [address] [place] [address] PCP - [facility] 02/15/2503/16 Alexandra Brewster PMHNP-BC [address] [address] PCP - [facility] 03/17/25 Alexandra Brewster PMHNP-BC [address] [phone] Nurse Practitioner Behavioral Health 10/12/24 documented as of this encounter
--- OUTSIDE RECORDS SUMMARY | 2025-05-25 20:20 | XMS_ITS | Clinical Summary ---
Author Organization [facility] Address [address] [place] [address] Care Team Providers Care Agent Broker Name Role Phone Brii Warren MD Primary Care Provider [phone] Alexandra Brewster PMHNP-BC Unavailable Alexandra Brewster PMHNP-BC Unavailable Allergies Active Allergy [...] :Morbid (severe) obesity due to excess calories ([facility]) CHEW 1 TABLET (81 MG) IN THE MORNING 90 tablet 1 03/21/20 Active propranolol (Inderal) 10 MG tabletIndications :Generalized [...] bedtime. 180 capsule 03/28/20 25 2024 Active atorvastatin (Lipitor) 10 MG tabletIndications :Mixed hyperlipidemia Take 1 tablet (10 mg) by mouth Daily 90 tablet 05/11/20 Active mirtazapine (Remeron) 7.5 MG tabletIndications :Generalized anxiety disorder Take 1 tablet (7.5 mg) by mouth at bedtime for 14 days 14 tablet 05/23/20 25 2024 Active pantoprazole (ProtoNix) 40 MG EC tabletIndications :Gastroesophageal reflux disease without esophagitis Take 1 tablet (40 mg) by mouth in the morning. Take before meals. Do not crush, chew, or split. 90 tablet 1 05/24/20 25 Active nystatin (Mycostatin) 345689 UNIT/GM powderIndications :Rash Apply topically 2 (two) times a day as needed for rash or itching 15 g 05/25/20 25 2025 Active atorvastatin (Lipitor) 10 MG tabletIndications :Mixed hyperlipidemia TAKE 1 TABLET (10 MG) BY MOUTH DAILY. 90 tablet 1 09/14/20 24 2024 Discontinued(R eorder) mirtazapine (Remeron) 7.5 MG tabletIndications :Generalized anxiety disorder Take 1 tablet (7.5 mg) by mouth at bedtime 90 tablet 03/28/20 25 2024 Discontinued pantoprazole (ProtoNix) 40 MG EC tabletIndications :Gastroesophageal reflux disease without esophagitis TAKE 1 TABLET (40 MG) BY MOUTH IN THE MORNING. TAKE BEFORE MEALS. DO NOT CRUSH, CHEW, OR SPLIT.. 90 tablet 04/04/20 25 2024 Discontinued(R eorder) mirtazapine (Remeron) 15 MG tabletIndications :Generalized anxiety disorder Take 1 tablet (15 mg) by mouth at bedtime 30 tablet 04/27/20 25 2024 Discontinued mirtazapine (Remeron) 15 MG tabletIndications :Generalized anxiety disorder TAKE 1 TABLET BY MOUTH AT BEDTIME 90 tablet 05/19/20 25 2024 Discontinued(D ose adjustment) Active Problems Problem Noted Date Diagnosed Date [...] 03/28/2025 Hemangioma 10/28/2023 03/28/2025 Solar degeneration 10/28/2023 5 Jaundice 09/25/2023 03/28/2025 Vertigo 10/07/2013 03/28/2025 Overview (10/28/2023): NO Neurontin Acne 01/08/2012 10/11/2024 Benign neoplasm of skin 01/08/201203/17 Overview (10/28/2023): ANGIOMA, UPPER BACK Encounters Date Type Department Care Team Description 05/25/2025 3:20 PM EDT Office Visit [facility] OB [address] [facility] [place] [phone] Alexi Cummins DO Well woman exam with routine gynecological exam; Postmenopausal state; Rash 05/25/2025 Results Follow-Up [facility] FM [address] [place] [address] Raisa Deshpande MA 05/24/2025 1:30 PM EDT Office Visit [facility] R FM [address] [place] [address] Rachele Dillard NP Irritable bowel syndrome, unspecified type (Primary Dx); Morbid (severe) obesity due to excess calories ([facility]); Vitamin D deficiency; Actinic keratosis; Family history of ovarian cancer; Generalized anxiety disorder ; History of malignant melanoma; History of TIA (transient ischemic attack); Gastroesophageal reflux disease without esophagitis; Medicare annual wellness visit, subsequent; Elevated LFTs; On statin therapy; Mixed hyperlipidemia ; Elevated glucose 05/24/2025 Travel 05/23/2025 2:30 PM EDT Office Visit [facility] CI BH [address] [facility] [address] [place] [address] Alexandra Brewster PMHNP-BC Generalized anxiety disorder ; History of TIA (transient ischemic attack) 05/23/2025 Bamboo flowsheet [facility] [address] [place] [address] [place] [phone] Alexandar Brewster PMHNP-BC 05/23/2025 Travel 05/19/2025 Refill [facility] [address] [place] [address] [place] [address] Alexandra Brewster PMHNP-BC Generalized anxiety disorder 05/18/2025 Clinisync Result Encounter NOMS External Department Unsolicited Alexi Cummins DO 05/17/2025 Travel 05/16/2025 Travel 05/11/[address] [facility] [address] [place] [address] Deb Camacho MA Mixed hyperlipidemia 04/27/2025 3:30 PM EDT Office Visit [facility] [address] [place] [address] [place] [address] Alexandra Brewster, PMHNP-BC Generalized anxiety disorder ; History of TIA (transient ischemic attack) 04/27/2025 Bamboo flowsheet [facility] [address] [place] [address] [place] [address] Alexandra Brewster PMHNP-BC 04/27/2025 Travel 04/24/2025 Travel 04/22/2025 Telephone [facility] [address] [place] [address] [place] [address] Alexandra Brewster PMHNP-BC Advice Only 04/03/[address] [facility] [address] [place] [address] Rachele Dillard NP Gastroesophageal reflux disease without esophagitis 03/28/2025 2:00 PM EDT Office Visit [facility] [address] [place] [address] [place] [address] Alexandra Brewster, PMHNP-BC Generalized anxiety disorder ; History of TIA (transient ischemic attack) 03/28/2025 Bamboo flowsheet [facility] [address] [facility] [address] [place] [address] Alexandra Brewster PMHNP-BC 03/28/2025 Travel 03/21/2025 Travel 03/20/[address] [facility] R [address] [place] [address] Maura Brito NP Morbid (severe) obesity due to excess calories ([facility]) from Last 3 Months Family History Medical History Relation Name Comments Dementia Father [place] Heart failure Maternal Grandfather Hassel Case Heart failure Maternal Grandmother Shelby Case Heart disease Mother Reeda Case Miscarriages / Stillbirths Mother Reeda Case Stroke Mother Reeda Case Cancer Sister 1 Sabine Cline Ovarian cancer Sister 1 Sabine Cline Cancer Sister 2 Sabine Cline Ovarian cancer Sister 2 Sabine Cline Relation Name Status Comments Father Chrisford Alive Maternal Grandfather Manel Case Alive Maternal Grandmother Shelby Case Alive Mother Maxia Case Alive Sister 1 Sabine Cline Alive Sister 2 Sabine Cline Alive Social History Tobacco Use [...] 05/17/2025 How often do you attend chur ch or latter-day services? More than 4 times per year 05/17/2025 Do you belong to any clubs o r organizations such as jew groups, unions, fraternal or athletic groups, or [...] Recorded Patient Health Questionnaire-2 Score 0 05/24/2025 [facility] ional [facility] - [...] any time in the past 12 m [facility], were you homeless or living in a detention (including now)? No 05/17/2025 Education Answer Date [...] Pressure 120/78 05/25/2025 3:34 PM EDT Pulse 80 05/24/2025 1:15 PM EDT Temperature 36.1 C (96.9 F) 09/28/2024 11:23 AM EST Respiratory Rate 18 05/24/2025 1:15 PM EDT Oxygen Saturation 98% 05/24/2025 1:15 PM EDT Inhaled Oxygen Concentration - - Weight 112 kg (246 lb 6.4 oz) 05/25/2025 3:34 PM EDT Height 165.1 cm (5' 5 ) 05/24/2025 1:15 PM EDT Body Mass Index 41 05/24/2025 1:15 PM EDT Plan of Treatment Upcoming Encounters Date Type Department Care Team (Late st Contact Info) Description 06/27/2025 1:30 PM EDT Office Visit [facility] CI [address] [facility] [address] [place] [address] Alexandra Brewster PMHNP-BC [address] [facility] [address] [place] [address] 11/22/2025 1:30 PM EST Office Visit [facility] FM [address] [place] [address] Rachel Chang NP [address] [place], [place] [phone] 05/29/2026 11:00 AM EDT Office Visit [facility] BCP OB [address] [facility] [place] [address] Alexi Cummins, DO [address] [facility] [place] [address] Health Maintenance Due Date Last Done Comments CT Colonography 1962 Colonoscopy 1962 FIT 1962 FOBT 1962 Sigmoidoscopy 1962 Pap Smear 11/13/2021 11/13/2018, 11/13/2018 Cervical Cancer Screening 11/13/2023 HPV/Cotest 11/13/2023 11/13/2018, 11/13/2018 Influenza Vaccine (#1) 2025 Mammogram 02/16/2026 02/16/2025, 02/0 07/2024, 10/21/2022, Additional history exists Medicare Annual Wellness (AWV) 05/24/2026 0 05/24/2025, 05/24/2025, 02/24/2024, Additional history exists Colorectal Cancer Screening 11/12/2026 FIT-DNA 11/12/2026 11/12/2023 Procedures Procedure Name Priority Date/Time Associated Diagnosis Comments HEMOGLOBIN A1C Routine 05/24/2025 1:59 PM EDT Elevated glucose LIPID PANEL Routine 05/24/2025 1:59 PM EDT Mixed hyperlipidemia COMPREHENSIVE METABOLIC PANEL Routine 05/24/2025 1:59 PM EDT Elevated LFTs CALCITRIOL(1,25 DI-OH VIT D) Routine 05/18/2025 11:27 AM EDT BI MAMMOGRAM SCREENING TOMOSYNTHESIS BILATERAL Routine 02/16/2025 12:32 PM EDT Screening mammogram for breast cancer LAB COLOGUARD COLON CANCER SCREEN Routine 11/12/2023 10:15 AM EST Screening for colon cancer from Last 3 Months or Most Recently Relevant to Health Maintenance Results * (ABNORMAL) Hemoglobin A1c (05/24/2025 1:59 [...] Performing Organization Information Site ID: QPT Name: [facility] Address: [address] [place] [phone] Director: Adolph Dave MD Rachele Dillard NP LAB BLOOD ORDERABLES Fi nal Result [facility] [...] LDL-C. Gautam FUNEZ et al. KAILA. 2013;310(19): 0991-4733 (http://education.[employer].BURLESQUICEOUS/faq/NET703) CHOL/HDLC RATIO 3.1 <5.0 (calc) [facility] NON [...] Performing Organization Information Site ID: QPT Name: [facility] Address: [address] [place] [address], [address] [place] [phone] Director: Adolph Dave MD us Rachele Dillard FITNESS ASSISTANT LAB BLOOD ORDERABLES Fi nal Result [facility]ST * (ABNORMAL) Comprehensive metabolic panel (05/24/2025 1:59 PM EDT) Pathologist [facility] Glucose 75 65 - 99 mg/dL QUE[facility] [...] Performing Organization Information Site ID: QPT Name: [email or web address] Address: [address] [place] [address], [address] [place] [address] Director: Adolph Dave MD Rachele Dillard FITNESS ASSISTANT LAB BLOOD ORDERABLES Fi nal Result [facility] * CALCITRIOL(1,25 DI-OH VIT D) (05/18/2025 11:27 AM EDT) CALCITRIOL(1,25 DI-OH VIT D) 31.5 24.8 - 81.5 pg/mL TB Comment: Performed at: [address] [id number] Bale Piler: Nadege Barillas MD, Phone: [phone] 05/18/2025 11:2 7 AM EDT 05/18/2025 11:30 AM EDT Narrative [facility] - 05/23/2025 12:08 PM EDT us Generic External Data Provider LAB BLOOD ORDERAB LES Final Result Performing Organization Address [facility] Co de Phone Number [facility] TB * Bilateral screening mammogram with tomosynthesis (02/16/2025 12:32 PM EDT) Anatomical Region Laterality Modality Breast Bilateral Mammography 02/17/2025 9:12 AM EDT Impressions 02/17/2025 9:25 AM EDT BI-RADS 1- NEGATIVE. ROUTINE FOLLOW-UP MAMMOGRAPHY IS SUGGESTED IN ONE YEAR. DENSITY: There are scattered areas of fibroglandular density. Board Certified Radiologists. Accredited by the ACR and FDA. MAMMOGRAPHY IS VERY IMPORTANT TO YOUR HEALTH. THE [place] [employer] SOCIET[employer] GUIDELINES RECOMMEND THAT WOMEN 40 [...] IS VERY IMPORTANT TO YOUR HEALTH. THE [place] CANCER SOCIETYGUIDELINES RECOMMEND THAT WOMEN 40 YEARS [...] SIGNED BY: David Fajardo DO Rachele Dillard FITNESS ASSISTANT IMG BI PROCEDURES Final Result * Cologuard?? colon cancer screening (11/12/2023 10:15 AM EST) NONINV COLON CA DNA+OCC BLD SCRN STL-IMP Negative Negative 11/15/2023 11:19 AM EST [facility] (CLIA #:[id number]) Comment: NEGATIVE TEST RESULT. A negative Cologuard [...] Mason et al, N Engl J Med 2014;370(14):3292-7431) The normal value (reference range) for this assay is negative. COLOGUARD RE-SCREENING RECOMMENDATION: Periodic colorectal cancer screening is an important part of preventive healthcare for asymptomatic individuals at average risk for colorectal cancer. Following a negative Cologuard result, the [place] Cancer Society and U.S. Multi-Society Task Force screening guidelines recommend a Cologuard re-screening interval of 3 years. References: [place] [employer] Guideline for Colorectal Cancer Screening: https://www.cancer.org/cancer/japxn-gsozuq-vmupqz/wtfheknhs-exfsvcybc-zndqtvw/ac s-rec ommendations.html.; Stewart CHEUNG, Kirit MOTTA, Kellie OCONNELL, Colorectal Cancer Screening: Recommendations for Physicians and Patients from the U.S. Multi-Society Task Force on Colorectal Cancer Screening , Am J Gastroenterology 2017; 112:6327-6458. TEST DESCRIPTION: Composite algorithmic analysis of stool [...] Portillo. et al, N Engl J Med 2014;370(14):0700-7740.) Cologuard may produce a false negative or false positive result (no colorectal cancer or precancerous polyp present at colonoscopy follow up). A negative Cologuard test result does not guarantee the absence of CRC or advanced adenoma (pre-cancer). The current Cologuard screening interval is every 3 years. ([place] Cancer Society and U.S. Multi-Society Task Force). Cologuard performance data in a 10,000 patient pivotal study using colonoscopy as the reference method can be accessed at the following location: www.Seriosity/results. Additional description of the Cologuard test process, warnings and precautions can be found at www.CalAmpoguard.com. Stool specimen (specimen) 11/12/2023 10:15 AM EST 11/13/2023 8:08 AM EST us Rachele A Hackenburg FITNESS ASSISTANT LAB MOLECULAR DIAGNOSTI CS ORDERABLES Final Result [facility] (CLIA #:[id number]) [place] [address], from Last 3 Months or Most Recently Relevant to Health Maintenance Insurance [employer] Care Teams Agent Broker Relationship Specialty Start Date End Date Brii Warren MD [address] [place] [address] PCP - General Family Medicine 03/25/23 Alexandra Brewster [facility] [address] [facility] [address] [place] [address] PCP - [facility] 03/17/25 Alexandra Brewster [facility] [address] [place] [address] [place] [address] Nurse Practitioner Behavioral Health 10/12/24
--- OUTSIDE RECORDS SUMMARY | 2025-05-25 20:20 | XMS_ITS | Clinical Summary ---
Author Organization [facility] Address [address] [place] [address] Care Team Providers Care Devops Solutions Architect Name Role Phone Unavailable Primary Care Provider [...]
--- OUTSIDE RECORDS SUMMARY | 2025-05-25 20:20 | XMS_ITS | Encounter Summary ---
Author Organization [facility] Address [address] [place] [address] Care Team Providers Care Compress Machine Operator Name Role Phone Brii Warren MD Primary Care Provider [phone] Alexandra Brewster PMHNP-BC Unavailable [phone] Alexandar Brewster PMHNP-BC Unavailable [phone] Encounter Details Date Type Department Care Team (Late st Contact Info) Description 05/18/2025 Clinisync Result Encounter NOMS External Department Unsolicited Alexi Cummins, DO [address] [facility] [place] [address] Social History Tobacco Use Types Packs/Day Years [...] How often do you attend chur or evangelical services? More than 4 times per year 05/17/2025 Do you belong to any clubs o r organizations such as baptist groups, unions, fraternal or athletic groups, or [...] Recorded Patient Health Questionnaire-2 Score 0 05/24/2025 [facility] of Occupat ional Health - Occupational Stress [...] any time in the past 12 m [facility], were you homeless or living in [...] 1:30 PM EDT Office Visit [facility] [address] [facility] [address] [place] [address] Alexandra Brewster, HNP- [address] [facility] [address] [place] [address] 11/22/2025 1:30 PM EST Office Visit [facility] FM [address] [place] [address] Rachel Chang, ОЛЕГ [address] [place] [address] 05/29/2026 11:00 AM EDT Office Visit [facility] BCP OB [address] [place] [phone] Alexi Cummins, DO [address] [place] [address] documented as of this encounter Procedures Procedure Name Priority Date/Time Associated Diagnosis Comments CALCITRIOL(1,25 DI-OH VIT D) Routine 05/18/2025 11:27 AM EDT documented in this encounter Results * CALCITRIOL(1,25 DI-OH VIT D) (05/18/2025 11:27 AM EDT) CALCITRIOL(1,25 DI-OH VIT D) 31.5 24.8 - 81.5 pg/mL TBH Comment: Performed at: [address] [id number] Manager Division: Nadege Barillas MD, Phone: [phone] 05/18/2025 11:2 7 AM EDT 05/18/2025 11:30 AM EDT Narrative [facility] - 05/23/2025 12:08 PM EDT us Generic External Data Provider LAB BLOOD ORDERAB LES Final Result [facility] documented in this encounter Visit Diagnoses Not on filedocumented in this encounter Additional Health Concerns Assessment Noted Time PHQ-9 Depression Total Score: 2 01/25/20 25 11:30 AM EDT documented as of this encounter Care Teams Compress Machine Operator Relationship Specialty Start Date End Date Brii Warren MD [address] [place] [address] PCP - General Family Medicine 03/25/23 [facility] [address] [facility] [address] [place] [address] PCP - [facility] 03/17/25 Alex[facility] Brew[facility] [address] [facility] 160 [place] [address] Nurse Practitioner Behavioral Health 10/12/24 documented as of this encounter
--- OUTSIDE RECORDS SUMMARY | 2025-05-25 20:20 | XMS_ITS | Encounter Summary ---
Author Organization [facility] Address [address] [place] [address] Care Team Providers Care Specialist Physicians Name Role Phone Brii Warren MD Primary Care Provider [phone] Alexandra Brew[facility] Unavailable [phone] Rachele Dillard DERMATOLOGY PHYSICIAN Unavailable [phone] Alexandra Brewster HNP-BC Unavailable Encounter Details Date Type Department Care Team (Late st Contact Info) Description 12/28/2024 Abstract [facility] OB [address] [place] [address] Alexi Cummins DO [address] [facility] [address] [place], [place] [id number] Social History Tobacco Use Types Packs/Day Years [...] Office Visit [facility] [address] [facility] [address] [place] [address] Alexandra Brewster, PMHNP-BC [address] [facility] [address] [place] [address] 11/22/2025 1:30 PM EST Office Visit [facility] FM [address] [place] [address] Rachel Chang NP [address] [place] [address] 05/29/2026 11:00 AM EDT Office Visit [facility] BCP OB [address] [place] [address] Alexi Cummins DO [address] [place] [address] documented as of this encounter Visit Diagnoses Not on filedocumented in this encounter Additional Health Concerns Assessment Noted Time PHQ-9 Depression Total Score: 20 025 3:37 PM EST documented as of this encounter Care Teams Specialist Physicians Relationship Specialty Start Date End Date Brii Warren MD [address] [place] [address] PCP - General Family Medicine 03/25/23 Rachele Dillard NP [address] [facility] 1 [place] [address] PCP - [place] [employer] 02/15/2503/16 Alexandra Brewster PMHNP-BC [address] [facility] [address] [place] [address] PCP - Mike Underwood 03/17/25 Alexandra Brewster PMHNP-BC [address] [facility] 160 [place] [address] Nurse Practitioner Behavioral Health 10/12/24 documented as of this encounter
--- OUTSIDE RECORDS SUMMARY | 2025-05-25 20:20 | XMS_ITS | Encounter Summary ---
Author Organization [facility] Address [address] [place] [address] Care Team Providers Care Network Services Project Manager Name Role Phone Brii Warren MD Primary Care Provider [phone] Alexandra Brewster PMHNP-BC Unavailable Rachele Dillard SUGARCANE RESEARCH TECHNICIAN Unavailable Alexandra Brewster PMHNP-BC Unavailable [phone] Reason for Visit * Reason Comments Med Refill Encounter Details Date Type Department Care Team (Late st Contact Info) Description 02/12/2024 Refill [facility] [address] [place] [facility] [address] Rachele Dillard SUGARCANE RESEARCH TECHNICIAN [address] [phone] Generalized anxiety disorder Social History Tobacco Use [...] EDT Office Visit [facility] CI BH [address] [facility] 160 [place] [address] Alexandra Brewster PMHNP- [address] [facility] [address] [place] [address] 11/22/2025 1:30 PM EST Office Visit [facility] FM [address] [place] [address] Rachel Chang NP [address] [place] [address] 05/29/2026 11:00 AM EDT Office Visit [facility] BCP OB [address] [place] [address] Alexi Cummins DO [address] [place] [address] documented as of this encounter Visit Diagnoses Diagnosis Generalized anxiety disorder Generalized anxiety disorder documented in this encounter Additional Health Concerns Assessment Noted Time PHQ-9 Depression Total Score: 0 12/01/19 24 3:18 PM EST documented as of this encounter Care Teams Network Services Project Manager Relationship Specialty Start Date End Date Brii Warren MD [address] [place], [place] [phone] PCP - General Family Medicine 03/25/23 Rachele Dillard NP [address] [place] [address] PCP - [place] [employer] 02/15/2503/16 [facility] [address] [address] PCP - [place] [employer] 03/17/25 [facility] [address] [address] Nurse Practitioner Behavioral Health 10/12/24 documented as of this encounter
--- OUTSIDE RECORDS SUMMARY | 2025-05-25 20:20 | XMS_ITS | Encounter Summary ---
Author Organization [facility] Address [address] [place] [address] Care Team Providers Care Home Visitor Home Base Head Start Name Role Phone Brii Warren MD Primary Care Provider [phone] Alexandra Brewster PMHNP-BC Unavailable [phone] Rachele Dillard UNDERWATER PHOTOGRAPHER Unavailable Alexandra Brewster PMHNP-BC Unavailable [phone] Reason for Visit * Reason Comments Med Refill Encounter Details Date Type Department Care Team (Late st Contact Info) Description 02/13/2024 Refill [facility] FM [address] [facility] [place] [address] Rachele Dillard UNDERWATER PHOTOGRAPHER [address] [facility] 1 [place] [phone] Morbid (severe) obesity due to excess calories ([facility]) Social History Tobacco Use Types Packs/Day Years [...] [address] [facility] [address] [place] [address] Alexandra Brewster, PMHNP- [address] [facility] [address] [place] [address] 11/22/2025 1:30 PM EST Office Visit [facility]NR FM [address] [place] [address] Rachel Chang NP [address] [place] [address] 05/29/2026 11:00 AM EDT Office Visit [facility] BCP OB [address] [facility] [place] [address] Alexi Cummins DO [address] [place] [address] documented as of this encounter Visit Diagnoses Diagnosis Morbid (severe) obesity due to excess calories ([facility]-HCC) documented in this encounter Additional Health Concerns Assessment Noted Time PHQ-9 Depression Total Score: 0 12/01/19 3:18 PM EST documented as of this encounter Care Teams Home Visitor Home Base Head Start Relationship Specialty Start Date End Date Brii Warren MD [address] [place] [address] PCP - General Family Medicine 03/25/23 Rachele Dillard NP [address] [facility] 1 [place] [address] PCP - [place] [employer] 02/15/2503/16 Alexandra Brewster PMHNP-BC 112 [facility] 160 [place] [address] PCP - [place] [employer] 03/17/25 Alexandra Brewster PMHNP-BC 112 [facility] 160 [place] [address] Nurse Practitioner Behavioral Health 10/12/24 documented as of this encounter
--- OUTSIDE RECORDS SUMMARY | 2025-05-25 20:20 | XMS_ITS | Encounter Summary ---
Author Organization [facility] Address [address] [place] [address] Care Team Providers Care Manager Commission Name Role Phone Brii Warren MD Primary Care Provider [phone] Alexandra Brewster PMHNP-BC Unavailable [phone] Alexandra Brewster PMHNP-BC Unavailable [phone] Reason for Visit * Reason Comments Med Change Request Encounter Details Date Type Department Care Team (Late st Contact Info) Description 05/19/2025 Refill [facility] [address] [place] [address] Alexandra Brewster PMHNP-BC [address] [place] [address] Generalized anxiety disorder Social History Tobacco Use [...] How often do you attend chur or denominational services? More than 4 times per year 05/17/2025 Do you belong to any clubs o r organizations such as faith groups, unions, fraternal or athletic groups, or [...] Recorded Patient Health Questionnaire-2 Score 0 01/24/2025 [facility] of Occupat ional Health - Occupational Stress [...] any time in the past 12 m [facility], were you homeless or living in [...] 06/27/2025 1:30 PM EDT Office Visit [facility] [address] [place] [address] Alexandra Brewster [facility]- 112 [facility] [address] [place] [address] 11/22/2025 1:30 PM EST Office Visit [facility] FNR FM [address] [facility] [place] [address] Rachel Chang NP [address] [facility] [place], [place] [address] 05/29/2026 11:00 AM EDT Office Visit [facility] BCP OB [address] [facility] [place] [address] Alexi Cummins DO [address] [facility] [address] [place], [place] [id number] documented as of this encounter Visit Diagnoses Diagnosis Generalized anxiety disorder Generalized anxiety disorder documented in this encounter Additional Health Concerns Assessment Noted Time PHQ-9 Depression Total Score: 2 01/25/20 11:30 AM EDT documented as of this encounter Care Teams Manager Commission Relationship Specialty Start Date End Date Brii Warren MD [address] [facility] [place] [address] PCP - General Family Medicine 03/25/23 Alexandra Brewster [facility]- 112 [facility] [address] [place] [address] PCP - [place] [employer] 03/17/25 Alexandra Brewster [facility]- 112 [facility] [address] [place] [address] Nurse Practitioner Behavioral Health 10/12/24 documented as of this encounter
--- OUTSIDE RECORDS SUMMARY | 2025-05-25 20:20 | XMS_ITS | Clinical Summary ---
Author Organization [facility] Address [address] [place] [address] Care Team Providers Care Repairer General Name Role Phone Unavailable Primary Care Provider [...] to the patient regarding the results. [employer] recommends annual mammograms for [...] (02/06/2021) CERVICAL SWAB / Unknown Chrissy Biggs REPAIRER GENERAL - CLASSIFICATION COUNSELOR PATHOLOGY/CYTOLOGY ORDKarena DAVIDSON Final Result * Human papillomavirus (HPV) DNA probe thin prep high risk (11/13/2018 9:45 AM EST) Pathologist [facility] HPV SOURCE CERVICAL MATERIAL 11/16/2018 9:46 AM EST [facility] HPV Sample .THIN PREP 11/16/2018 9:46 AM EST [facility] HPV, Genotype 16 Not Detected NOTDET 11/16/2018 3:11 PM EST [facility] HPV, Genotype 18 Not Detected NOTDET 11/16/2018 3:11 PM EST [facility] HPV, High Risk Other Not Detected NOTDET 11/16/2018 3:11 PM EST [facility] HPV, Interpretation 11/16/2018 3:11 PM EST [facility] Comment: This test amplifies and detects DNA [...] EST 11/16/2018 9:45 AM EST Sobia Browne REPAIRER GENERAL - [employer] FARMER HEMATOLOGY ORDERABLES Fi nal Result [facility] [address] [place] [address], [facility] [phone] [facility] [address] [place], [place] [address] [phone] * (ABNORMAL) Lipid panel - fasting (08/22/2015 5:46 AM EDT) Pathologist [facility] Cholesterol 190 <200 mg/dL 08/22/2015 6:59 AM EDT [facility] Comment: Cholesterol Guidelines: <200 [...] 246(H) <150 mg/dL 08/22/2015 6:59 AM EDT [facility] Comment: Triglyceride Guidelines: <150 Desirable 150-199 Borderline 200-499 High >499 Very high Based on AHA Guidelines for fasting triglyceride, August 2012. Performed at [facility] [address] [place] [address] ([phone] VLDL NOT REPORTED 1 - 30 mg/dL [facility] BLOOD SPECIMEN / Unknown 08/22/2015 5:46 AM EDT 08/22/2015 6:03 AM EDT Jim Haro MD CHEMISTRY ORDERABLES Fin al Result [facility] [address] [place], [place] [address] [phone] [facility] from Last 3 Months or Most Recently Relevant to Health Maintenance Insurance [facility] Advance Directives * Full Code (Latest Code Status on File) Date Activated Date Inactivated Comments 08/21/2015 6:55 PM 08/23/2015 4:44 PM
--- OUTSIDE RECORDS SUMMARY | 2025-05-25 20:20 | XMS_ITS | Encounter Summary ---
Author Organization [facility] Address [address] [place] [address] Care Team Providers Care Hose Operator Name Role Phone Brii Warren MD Primary Care Provider [phone] Alexandra Brewster PMHNP-BC Unavailable [phone] Rachele Dillard INDIVIDUAL PENSION ADVISER Unavailable [phone] Alexandra Brewster PMHNP-BC Unavailable Reason for Visit * Reason Comments Med Refill Encounter Details Date Type Department Care Team (Late st Contact Info) Description 05/16/2024 Refill [facility] FNR [address] [place] [address] Brii Warren MD [address] [place] [address] Morbid (severe) obesity due to excess calories ([facility]) Social History Tobacco Use Types Packs/Day Years [...] EDT Office Visit [facility] CI BH 112 [facility] 160 [place] [address] Alexandra Brewster PMHNP-BC [address] [facility] 160 [place] [address] 11/22/2025 1:30 PM EST Office Visit [facility] FNR FM [address] [place] [address] Rachel Chang NP [address] [place], [place] [address] 05/29/2026 11:00 AM EDT Office Visit [facility] BCP OB [address] [place] [address] Alexi Cummins, DO [address] [place] [address] documented as of this encounter Visit Diagnoses Diagnosis Morbid (severe) obesity due to excess calories (CMS-HCC) documented in this encounter Additional Health Concerns Assessment Noted Time PHQ-9 Depression Total Score: 0 12/01/19 24 3:18 PM EST documented as of this encounter Care Teams Hose Operator Relationship Specialty Start Date End Date Brii Warren MD [address] [place], [place] [address] PCP - General Family Medicine 03/25/23 Rachele Dillard NP [address] [facility] 1 [place] [address] PCP - [place] [employer] 02/15/2503/16 Alexandra Brewster PMHNP-BC 112 [facility] 160 [place] [address] PCP - [place] [employer] 03/17/25 Alexandra Brewster PMHNP-BC 112 [facility] 160 [place] [address] Nurse Practitioner Behavioral Health 10/12/24 documented as of this encounter
--- OUTSIDE RECORDS SUMMARY | 2025-05-25 20:20 | XMS_ITS | Encounter Summary ---
Author Organization [facility] Address [address] [place] [address] Care Team Providers Care Floor Worker Well Service Name Role Phone Brii Warren MD Primary Care Provider Alexandra Brewster PMHNP-BC Unavailable Rachele Dillard HISTORICAL RECORDS ADMINISTRATOR Unavailable [phone] Alexandra Brewster PMHNP-BC Unavailable Reason for Visit * Reason Comments Med Refill Encounter Details Date Type Department Care Team (Late st Contact Info) Description 08/04/2024 Refill [facility] FNR [address] [place] [address] Brii Warren MD [address] [place] [address] Generalized anxiety disorder Social History [...] Visit [facility] CI BH [address] [facility] 160 [place] [address] Alexandra Brewster, HNP-BC [address] [facility] 160 [place] [address] 11/22/2025 1:30 PM EST Office Visit [facility] FNR FM [address] [place] [address] Rachel Chang NP [address] [place] [address] 05/29/2026 11:00 AM EDT Office Visit [facility] BCP OB [address] [place] [address] Alexi Cummins DO [address] [place] [address] documented as of this encounter Visit Diagnoses Diagnosis Generalized anxiety disorder Generalized anxiety disorder documented in this encounter Additional Health Concerns Assessment Noted Time PHQ-9 Depression Total Score: 0 12/01/19 24 3:18 PM EST documented as of this encounter Care Teams Floor Worker Well Service Relationship Specialty Start Date End Date Brii Warren MD [address] [place], [place] [address] PCP - General Family Medicine 03/25/23 Rachele Dillard NP 1911 [facility] 1 [place] [address] PCP - [place] [employer] 02/15/2503/16 Alexandra Brewster PMHNP-BC [address] [address] PCP - [place] [employer] 03/17/25 Alexandra Brewster PMHNP-BC [address] [address] Nurse Practitioner Behavioral Health 10/12/24 documented as of this encounter
--- OUTSIDE RECORDS SUMMARY | 2025-05-25 20:20 | XMS_ITS | Encounter Summary ---
Author Organization [facility] Address [address] [place] [address] Care Team Providers Care Census Enumerator Name Role Phone Brii Warren MD Primary Care Provider Alexandra Brewster PMHNP-BC Unavailable [phone] Alexandra Brewster HNP-BC Unavailable + [phone] Encounter Details Date Type Department Care Team (Latest Contact Info) Description 05/23/2025 Travel Social History Tobacco Use Types Packs/Day [...] week 05/17/2025 How often do you attend [facility] or restoration services? More than 4 times per year 05/17/2025 Do you belong to any clubs o r organizations such as denominational groups, unions, fraternal or athletic groups, or [...] Recorded Patient Health Questionnaire-2 Score 0 05/24/2025 [facility] of Occupat ional Health - Occupational Stress [...] time in the past 12 m [facility], were you homeless or living in a usp (including now)? No 05/17/2025 Education Answer Date [...] 06/27/2025 1:30 PM EDT Office Visit [facility] [address] [facility] [address] [place] [address] Alexandra Brewster [facility] [address] [facility] [address] [place] [address] 11/22/2025 1:30 PM EST Office Visit [facility] [address] [place] [address] Rachel Chang, ОЛЕГ [address] [place], [place] [address] 05/29/2026 11:00 AM EDT Office Visit [facility] BCP OB [address] [facility] [place] [address] Alexi Cummins, DO [address] [facility] [place] [address] documented as of this encounter Visit Diagnoses Not on filedocumented in this encounter Additional Health Concerns Assessment Noted Time PHQ-9 Depression Total Score: 2 01/25/20 25 11:30 AM EDT documented as of this encounter Care Teams Census Enumerator Relationship Specialty Start Date End Date Brii Warren MD [address] [place], [place] [address] PCP - General Family Medicine 03/25/23 Alexandra Brewster PMHNP- [address] [address] PCP - [place] [employer] 03/17/25 Alexandra Brewster PMHNP- [address] [address] Nurse Practitioner Behavioral Health 10/12/24 documented as of this encounter
--- OUTSIDE RECORDS SUMMARY | 2025-05-25 20:20 | XMS_ITS | Encounter Summary ---
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 documented in this encounter Plan of Treatment Upcoming Encounters Date Type Department Care Team (Late st Contact Info) Description 06/27/2025 1:30 PM EDT Office Visit [facility] BH [address] [facility] 160 [place] [address] Alexandra Brewster PMHNP- [address] [facility] 160 [place] [address] 11/22/2025 1:30 PM EST Office Visit [facility] FNR FM [address] [place] [address] Rachel Chang NP [address] [place] [address] 05/29/2026 11:00 AM EDT Office Visit [facility] BCP OB [address] [facility] [place] [address] Alexi Cummins DO [address] [facility] [place] [address] documented as of this encounter Visit Diagnoses Not on filedocumented in this encounter Additional Health Concerns Assessment Noted Time PHQ-9 Depression Total Score: 20 025 3:37 PM EST documented as of this encounter Care Teams Ep Specialist Relationship Specialty Start Date End Date Brii Warren MD [address] [facility] [place] [address] PCP - General Family Medicine 03/25/23 Rachele Dillard NP 191 [facility] 1 [place] [address] PCP - [place] [employer] 02/15/2503/16 Alexandra Brewster PMHNP-BC 112 [facility] 160 [place] [address] PCP - [place] [employer] 03/17/25 Alexandra Brewster PMHNP-BC 112 [facility] 160 [place] [address] Nurse Practitioner Behavioral Health 10/12/24 documented as of this encounter
--- OUTSIDE RECORDS SUMMARY | 2025-05-25 20:20 | XMS_ITS | Encounter Summary ---
Author Organization [facility] Address [address] [place] [address] Care Team Providers Care Engineering Equipment Operator Name Role Phone Brii Warren MD Primary Care Provider [phone] Alexandra Brewster PMHNP-BC Unavailable [phone] Alexandra Brewster PMHNP-BC Unavailable [phone] Encounter Details Date Type Department Care Team (Late st Contact Info) Description 05/25/2025 Results Follow-Up [facility] FNR FM [address] [place] [address] Raisa Deshpande MA Social History Tobacco Use Types Packs/Day Years [...] How often do you attend chur or orthodox services? More than 4 times per year 05/17/2025 Do you belong to any clubs o r organizations such as latter day groups, unions, fraternal or athletic groups, or [...] Recorded Patient Health Questionnaire-2 Score 0 05/24/2025 [facility] of Occupat ional Health - Occupational Stress [...] any time in the past 12 m [facility], were you homeless or living in a jail (including now)? No 05/17/2025 Education Answer Date [...] Office Visit [facility] TY [address] [facility] [address] [place] [address] Alexandra Brewster, PMHNP-BC [address] [facility] [address] [place] [address] 11/22/2025 1:30 PM EST Office Visit [facility] FNR FM 1479 [facility] [place] [address] Rachel Chang NP 14[address] [facility] [place] [address] 05/29/2026 11:00 AM EDT Office Visit [facility] BCP OB [address] [facility] [place] [address] Alexi Cummins DO [address] [facility] [place] [address] documented as of this encounter Visit Diagnoses Not on filedocumented in this encounter Additional Health Concerns Assessment Noted Time PHQ-9 Depression Total Score: 0 05/24/20 1:00 PM EDT documented as of this encounter Care Teams Engineering Equipment Operator Relationship Specialty Start Date End Date Brii Warren MD 14[address] [facility] [place] [address] PCP - General Family Medicine 03/25/23 Alexandra Brewster [facility] [address] [place] [address] [place] [address] PCP - [place] [employer] 03/17/25 Alexandra Brewster PMHN- [address] [place] [address] [place] [address] Nurse Practitioner Behavioral Health 10/12/24 documented as of this encounter
--- OUTSIDE RECORDS SUMMARY | 2025-05-25 20:20 | XMS_ITS | Clinical Summary ---
Author Organization [employer] Address [id number] [place] [address] Care Team Providers Care Flattening Machine Operator Name Role Phone Brii Warren MD Primary Care Provider [phone] Allergies Active Allergy Reactions Criticality Noted Date [...] Not on file Insurance ANTHEM Care Teams Flattening Machine Operator Relationship Specialty Start Date End Date Brii Warren MD [address] [place] [address] PCP - General Family Medicine 10/22/23
--- OUTSIDE RECORDS SUMMARY | 2025-05-25 20:20 | XMS_ITS | Encounter Summary ---
Author Organization [facility] Address [address] [place] [address] Care Team Providers Care Circular Saw Filer Name Role Phone Brii Warren MD Primary Care Provider [phone] Alexandra Brewster PMHNP-BC Unavailable + [phone] Alexandra Brewster HNP-BC Unavailable + [phone] Encounter Details Date Type Department Care Team (Latest Contact Info) Description 05/24/2025 Travel Social History Tobacco Use Types Packs/Day [...] often do you attend [facility] or scientology services? More than 4 times per year 05/17/2025 Do you belong to any clubs o r organizations such as christianity groups, unions, fraternal or athletic groups, or [...] Recorded Patient Health Questionnaire-2 Score 0 05/24/2025 [facility] of Occupat ional Health - [...] any time in the past 12 m [facility], were you homeless or living [...] as of this encounter Functional Status * Over the past 2 weeks, how often have you been bothered by any of the following problems? Question Answer Date of Assessment Author Little interest or pleasure in doing things Not at all 05/24/2025 1:00 PM Rachele Morales NP Feeling down, depressed, or hopeless Not at all 05/24/2025 1:00 PM Vijay Morales cia, NP Patient Health Questionnaire-2 Score 0 05/24/2025 1:00 PM Rosanna Morales NP * Question Answer Date of Assessment Author Trouble falling or staying asleep, or sleeping too much Not at all 05/24/2025 1:00 PM EDT Rachele Huerta NP Feeling tired or having little energy Not at all 05/24/2025 1:00 PM EDT Vijay Dillard cia, NP Poor appetite or overeating Not at all 05/24/2025 1: 00 PM EDT Rachele Dillard NP Feeling bad about yourself - or that you are a failure or have let yourself or your family down Not at all 05/24/2025 1:00 PM EDT Vijay Dillard cia, NP Trouble concentrating on things, such as reading the newspaper or watching television Not at all 05/24/2025 1:00 PM DANAYT Vijay Dillard cia, NP Moving or speaking so slowly that other people could have noticed? Or the opposite - being so fidgety or restless that you have been moving around a lot more than usual. Not at all 05/24/2025 1:00 PM DANAYT Vijay Dillard cia, NP Thoughts that you would be better off or hurting yourself in some way Not at all 05/24/2025 1:00 PM DANAYT Phil Dillard NP Patient Health Questionnaire-9 Score 0 05/24/2025 1:00 PM EDT Rosanna Dillard NP documented as of this encounter Plan of Treatment Upcoming Encounters Date Type Department Care Team (Late st Contact Info) Description 06/27/2025 1:30 PM EDT Office Visit [facility] CI [address] [facility] 160 [place] [address] Alexandra Brewster, PMHNP-BC [address] [facility] 160 [place] [address] 11/22/2025 1:30 PM EST Office Visit [facility] FNR FM [address] [place] [address] Rachel Chang NP [address] [place] [address] 05/29/2026 11:00 AM EDT Office Visit [facility] BCP OB [address] [facility] [address] Alexi Cummins, [address] [facility] [place] [address] documented as of this encounter Visit Diagnoses Not on filedocumented in this encounter Additional Health Concerns Assessment Noted Time PHQ-9 Depression Total Score: 0 05/24/20 1:00 PM EDT documented as of this encounter Care Teams Circular Saw Filer Relationship Specialty Start Date End Date Brii Warren MD [address] [place] [address] PCP - General Family Medicine 03/25/23 Alexandra Brewster PMHNP- [address] [address] PCP - [place] [employer] 03/17/25 Alexandra Brewster PMHNP- [address] [address] Nurse Practitioner Behavioral Health 10/12/24 documented as of this encounter
--- OUTSIDE RECORDS SUMMARY | 2025-05-25 20:20 | XMS_ITS | Encounter Summary ---
Author Organization [facility] Address [address] [place] [address] Care Team Providers Care Band Log Mill And Carriage Operator Name Role Phone Brii Warren MD Primary Care Provider [phone] Alexandra Brewster PMHNP-BC Unavailable + [phone] Alexandra Brewster HNP-BC Unavailable + [phone] Encounter Details Date Type Department Care Team [...] week 05/17/2025 How often do you attend [facility] or gnosticist services? More than 4 times per year 05/17/2025 Do you belong to any clubs o r organizations such as spiritism groups, unions, fraternal or athletic groups, or [...] Recorded Patient Health Questionnaire-2 Score 0 01/24/2025 [facility] of Occupat ional Health - Occupational [...] any time in the past 12 m [facility], were you homeless or living in a longterm (including now)? No 05/17/2025 Education Answer Date [...] Visit [facility] CI BH [address] [facility] [address] [place] [address] Alexandra Brew[facility] [address] [facility] [address] [place] [address] 11/22/2025 1:30 PM EST Office Visit [facility]NR FM [address] [facility] [place] [address] Rachel Chang NP [address] [facility] [place] [address] 05/29/2026 11:00 AM EDT Office Visit [facility] BCP OB [address] [facility] [place] [address] Alexi Cummins DO [address] [facility] [place] [address] documented as of this encounter Visit Diagnoses Not on filedocumented in this encounter Additional Health Concerns Assessment Noted Time PHQ-9 Depression Total Score: 2 01/25/20 25 11:30 AM EDT documented as of this encounter Care Teams Band [employer] Mill And Carriage Operator Relationship Specialty Start Date End Date Brii Warren MD 14[address] [place] [address] PCP - General Family Medicine 03/25/23 Alexandra Brewster [facility]- [address] [facility] [address] [place] [address] PCP - [place] [employer] 03/17/25 Alexandra Brewster [facility] [address] [facility] [address] [place] [address] Nurse Practitioner Behavioral Health 10/12/24 documented as of this encounter
--- OUTSIDE RECORDS SUMMARY | 2025-05-25 20:20 | XMS_ITS | Encounter Summary ---
Author Organization [facility] Address [address] [place] [address] Care Team Providers Care Aviation Electronic Warfare Operator Name Role Phone Brii Warren MD Primary Care Provider [phone] Alexandra Brewster PMHNP-BC Unavailable [phone] Alexandra Brewster PMHNP-BC Unavailable Encounter Details Date Type Department Care Team (Late st Contact Info) Description 05/23/[address] Bamboo [address] [address] [place] [address] Alexandra Brewster PMHNP-BC [address] [place] [address] Social History Tobacco Use Types Packs/Day Years [...] How often do you attend chur or yazdanism services? More than 4 times per year 05/17/2025 Do you belong to any clubs o r organizations such as orthodox groups, unions, fraternal or athletic groups, or [...] Recorded Patient Health Questionnaire-2 Score 0 05/24/2025 [facility] of Occupat ional Health - Occupational Stress [...] any time in the past 12 m [facility], were you homeless or living in a snf (including now)? No 05/17/2025 Education Answer Date [...] Office Visit [facility] [address] [facility] [address] [place] [address] Alexandra Brewster PMHNP- [address] [facility] [address] [place] [address] 11/22/2025 1:30 PM EST Office Visit [facility] [address] [facility] [place] [address] Rachel Chang, MIXER OPERATOR VACUUM PAN SALT [address] [facility] [place], [place] [phone] 05/29/2026 11:00 AM EDT Office Visit [facility] [address] [facility] [place] [phone] Alexi Cummins DO [address] [facility] [address] [place], [place] [id number] documented as of this encounter Visit Diagnoses Not on filedocumented in this encounter Additional Health Concerns Assessment Noted Time PHQ-9 Depression Total Score: 2 01/25/20 25 11:30 AM EDT documented as of this encounter Care Teams Aviation Electronic Warfare Operator Relationship Specialty Start Date End Date Brii Warren MD [address] [facility] [place] [address] PCP - General Family Medicine 03/25/23 Alexandra Brewster, [facility] [address] [facility] [address] [place] [address] PCP - [facility] 03/17/25 Alexandra Brewster, [facility] [address] [facility] [address] [place] [address] Nurse Practitioner Behavioral Health 10/12/24 documented as of this encounter
--- OUTSIDE RECORDS SUMMARY | 2025-05-25 20:20 | XMS_ITS | Encounter Summary ---
Author Organization [facility] Address [address] [place] [address] Care Team Providers Care Government Relations Director Name Role Phone Brii Warren MD Primary Care Provider [phone] Alexandra Brewster PMHNP-BC Unavailable [phone] Alexandra Brewster HNP-BC Unavailable [phone] Encounter Details Date Type Department Care Team [...] week 05/17/2025 [facility] services? More than 4 times per year 05/17/2025 Do you belong to any clubs o r organizations such as sikhism groups, unions, fraternal or athletic groups, or [...] Recorded Patient Health Questionnaire-2 Score 0 01/24/2025 [facility] of Occupat ional Health [...] 06/27/2025 1:30 PM EDT Office Visit [facility] [address] [facility] [address] [place] [address] [facility] [address] [facility] [address] [place] [address] 11/22/2025 1:30 PM EST Office Visit [facility] [address] [place] [address] Rachel Chang, ОЛЕГ [address] [place], [place] [phone] 05/29/2026 11:00 AM EDT Office Visit [facility] [address] [facility] [phone] Alexi Cummins, DO [address] [facility] [place] [address] documented as of this encounter Visit Diagnoses Not on filedocumented in this encounter Additional Health Concerns Assessment Noted Time PHQ-9 Depression Total Score: 2 01/25/20 25 11:30 AM EDT documented as of this encounter Care Teams Government Relations Director Relationship Specialty Start Date End Date Brii Warren MD [address] [place], [place] [phone] PCP - General Family Medicine 03/25/23 Alexandra Brewster PMHNP- [address] [phone] PCP - [employer] 03/17/25 Alexandra Brewster PMHNP- [address] [phone] Nurse Practitioner Behavioral Health 10/12/24 documented as of this encounter
--- OUTSIDE RECORDS SUMMARY | 2025-05-25 20:21 | XMS_ITS | Encounter Summary ---
Author Organization [facility] Address [address] [place] [address] Care Team Providers Care Material Handler 2Nd Shift Name Role Phone Brii Warren MD Primary Care Provider Alexandra Brewster PMHNP-BC Unavailable Rachele Dillard RAILROAD EMERGENCY SERVICES MANAGER Unavailable Alexandra Brewster PMHNP-BC Unavailable Encounter Details Date Type Department Care Team (Late st Contact Info) Description 11/20/2023 Abstract [facility] [address] [place] [phone] Rachele Dillard, RAILROAD EMERGENCY SERVICES MANAGER [address] [phone] Social History Tobacco Use Types Packs/Day Years [...] [address] [facility] [address] [place] [address] Alexandra Brewster, [facility] [address] [facility] [address] [place] [address] 11/22/2025 1:30 PM EST Office Visit [facility] [address] [place] [phone] Rachel Chang NP [address] [place] [address] 05/29/2026 11:00 AM EDT Office Visit [facility] [address] [facility] [place] [phone] Alexi Cummins DO [address] [facility] [place] [address] documented as of this encounter Visit Diagnoses Not on filedocumented in this encounter Additional Health Concerns Assessment Noted Time PHQ-9 Depression Total Score: 4 10/28/20 23 2:45 PM EST documented as of this encounter Care Teams Material Handler 2Nd Shift Relationship Specialty Start Date End Date Brii Warren MD [address] [facility] [place] [address] PCP - General Family Medicine 03/25/23 Rachele Dillard NP [address] [facility] [address] [place] [phone] PCP - [place] [employer] 02/15/2503/16 Alexandra Brewster [facility]- [address] [facility] [address] [place] [address] PCP - [place] [employer] 03/17/25 Alexandra Brewster, PMHNP-BC [address] [phone] Nurse Practitioner Behavioral Health 10/12/24 documented as of this encounter
--- OUTSIDE RECORDS SUMMARY | 2025-05-25 20:21 | XMS_ITS | Encounter Summary ---
Author Organization [facility] Address [address] [place] [address] Care Team Providers Care Analytical Sciences Director Name Role Phone Jim Haro MD Primary Care Provider + Encounter Details Date Type Department Care Team (Late st Contact Info) Description 08/28/2015 FollowUp Telephone Encounter [facility] Case Management [address] [place] [address] Ayesha Lee RN Social History Tobacco Use [...] on filedocumented in this encounter Care Teams Analytical Sciences Director Relationship Specialty Start Date End Date Jim Haro MD [address] [place] [address] [place] [address] PCP - General Family Medicine 07/09/13 02/17/23 documented as of this encounter
[2025-05-29 14:07] LABS: Age Gdln ACOG Testing Note (.); IGP, Aptima HPV, rfx 16/18,45 Note (.)
== END 2025-05-25 20:17 | disposition home or self-care (01) ==
LOC: LAB 20:16
PROVIDERS: Visit Provider Obstetrics & Gynecology
DX: Z01.419 Encounter for gynecological examination (general) (routine) without abnormal findings (principal)
CPT/HCPCS: 87624; 88175

== ENCOUNTER 2025-06-06 10:07 | Emergency (ER) | payer MEDICARE, SELFPAY ==
--- OUTSIDE RECORDS SUMMARY | 2025-05-23 14:30 | XMS_ITS | Encounter Summary ---
Author Organization [facility] Address [address] [place] [address] Care Team Providers Care Transportation Security Screener Name Role Phone Brii Warren MD Primary Care Provider [phone] Alexandra Brewster PMHNP-BC Unavailable [phone] Alexandra Brewster PMHNP-BC Unavailable [phone] Reason for Visit * Reason Comments Med Management Follow-up Encounter Details Date Type Department Care Team (Late st Contact Info) Description 05/23/2025 2:30 PM EDT Office Visit [facility] [address] [place] [address] Alexandra Brewster PMHNP-BC [address] [place] [address] Generalized anxiety disorder ; History of TIA (transient ischemic attack) Social History Tobacco Use Types Packs/Day Years [...] week 05/17/2025 How often do you attend [facility] or mu-ism services? More than 4 times per year 05/17/2025 Do you belong to any clubs o r organizations such as congregation groups, unions, fraternal or athletic groups, or [...] Date Recorded Patient Health Questionnaire-2 Score 0 05/24/2025 [facility] [place] of Occupat ional Health - Occupational Stress [...] any time in the past 12 m onths, were you homeless or living in a mcc (including now)? No 05/17/2025 Education Answer Date [...] on file documented as of this encounter Last Filed Vital Signs Vital Sign Reading Time Taken Comments Blood Pressure 126/84 05/23/2025 2:25 PM EDT Pulse 76 05/23/2025 2:25 PM EDT Temperature - - Respiratory Rate - - Oxygen Saturation - - Inhaled Oxygen Concentration - - Weight 112 kg (246 lb) 05/23/2025 2:25 PM EDT Height - - Body Mass Index 40.94 10/04/2024 1:59 PM EST documented in this encounter Progress Notes * Alexandra Brewster, PMHNP-BC - 05/23/2025 2:30 PM EDT Images from the original note were not included. HPI: Luisana De La Torre is a 65 y.o. female with a history of Vitamin D deficiency, IBS and anxiety. Patient is here today for follow-up. She is here with her mother. At patient's last visit on 04/27/25, her Remeron was increased. She reports increased anxiety since the last appointment. She feels her anxiety has slowly been increasing since March. She states her evening prior to taking her Remeron is when she feels the best. She continues to drive as a coping mechanism. She denies any other changes. She continues to see counselor every 2 weeks. They have stopped EMDR therapy due to her increased anxiety, and are working on coping skills. SUBJECTIVE: PAST MEDICAL HISTORY: Past Medical History: Diagnosis Date Cervical insufficiency in , antepartum ([facility]) 1982 Fibrocystic breast 1992 KLAUDIA (generalized anxiety disorder) History of psychiatric hospitalization 2020 [facility] x2 History of psychiatric hospitalization 2021 [facility] Irregular menses 11/09 Menopause ovarian failure 2015 Obesity Panic attack 09/08 ([facility]) x3 TIA (transient ischemic attack) 2016 Vitamin D deficiency MEDICATIONS: Current Outpatient Medications Medication Instructions Aspirin Low Dose 81 MG chewable tablet CHEW 1 TABLET (81 MG) IN THE MORNING atorvastatin (LIPITOR) 10 mg, Oral, Daily cholecalciferol (VITAMIN D-3) 50 mcg, Oral, Daily DULoxetine (CYMBALTA) 30 mg, Oral, 2 times daily gabapentin (NEURONTIN) 200 mg, Oral, 3 times daily meclizine (ANTIVERT) 12.5 mg, Oral, 3 times daily PRN mirtazapine (REMERON) 7.5 mg, Oral, Nightly pantoprazole (PROTONIX) 40 mg, Oral, Daily before breakfast, Do not crush, chew, or split. propranolol (INDERAL) 20 mg, Oral, 2 times daily ALLERGIES: Allergies Allergen Reactions Milk-Related Compounds Alprazolam Buspar [Buspirone] Other Increased anxiety Hydroxyzine Tremors, fidgety Doxycycline Rash and GI intolerance Egg-Derived Products Nausea And Vomiting Sulfa Antibiotics Rash and GI intolerance Tetracyclines & Related Nausea And Vomiting and Rash SURGICAL HISTORY: Past Surgical History: Procedure Laterality Date BREAST BIOPSY Left [address] GUIDED TRANSVAGINAL TRANSRECTAL FLUID DRAIN 10/22/2023 CT GUIDED TRANSVAGINAL TRANSRECTAL FLUID DRAIN 10/22/2023 HYSTEROSCOPY W/ POLYPECTOMY 01/07/2025 with myosure FAMILY HISTORY: Family History Problem Relation Name Age of Onset Heart disease Mother Reeda Case Stroke Mother Reeda Case Miscarriages / Stillbirths Mother Reeda Case Dementia Father [place] Heart failure Maternal Grandfather Doug Case Heart failure Maternal Grandmother Shelby Case Ovarian cancer Sister Sabine Cline Cancer Sister Sabine Cline Cancer Sister Sabine Cline Ovarian cancer Sister Sabine Cline SOCIAL HISTORY: Social History Tobacco Use Smoking status: Never Smokeless tobacco: Never Vaping Use Vaping status: Never Used Substance Use Topics Alcohol use: Not Currently Comment: Caffine: 0 Drug use: Never Patient Care Team: Brii Warren MD as PCP - General (Family Medicine) ROSSY Choi as PCP - [place] ROSSY Adkins as Nurse Practitioner (Behavioral Health) PSYCHIATRIC REVIEW OF SYMPTOMS AND MENTAL STATUS EXAM ROS: Patient denies fatigue, malaise, night sweats, weight loss, weight gain, cough, SOB, palpitations, chest pain, insomnia, dysphagia, abdominal pain, N/V/D, pruritus, rash, headache, dizziness, seizures, tremors, headache. Appearance Appearance: Normal grooming and hygiene. Appears stated age. Dressed appropriately for weather. Behavior Calm, cooperative, pleasant. Good posture. Psychomotor Activity Fidgety Eye contact Good Speech Normal, clear, regular rate, rhythm and volume Affect Full range. Stable. Appropriate and congruent with mood. Mood Anxious Thought Process Organized, logical, and goal directed Thought Content: Denies suicidal and homicidal ideation. Perception: Denies auditory or visual hallucinations. No evidence of delusions. Denies derealization and depersonalization. Cognition Alert and attentive during visit Memory Immediate, recent and remote memory intact Insight Good. Acknowledges predominant symptoms of illness and need for treatment Judgement Good. Able to make reasonable life decisions. OBJECTIVE: Visit Vitals BP 126/84 (BP Location: Right arm, Patient Position: Sitting) Pulse 76 Wt 246 lb BMI 40.94 kg/m² OB Status No Periods Smoking Status Never BSA 2.27 m² Lab Results Component Value Date GLU 110 [...] 247 (H) 02/24/2024 ASSESSMENT AND PLAN: Impression: She had previous SLUMS examination completed with a score of 29, which indicates normalcognition functioning. She reports increased anxiety since last visit without any identifying triggers/stressors. She has tried higher doses of Duloxetine previously with side effects. We discussed recent medication change of Remeron and how this may be a contributing factor. She is agreeable to titrate off this medication and see how she feels after being off medication for several weeks. Assessment/Plan Diagnoses and all orders for this visit: Generalized anxiety disorder - mirtazapine (Remeron) 7.5 MG tablet; Take 1 tablet (7.5 mg) by mouth at bedtime for 14 days History of TIA (transient ischemic attack) Treatment Plan/Recommendations: - Continue Duloxetine 30 mg BID for anxiety, depression. - Continue Propranolol to 20 mg BID for tremors. - Continue Gabapentin 200 mg three times a day for anxiety. Consider stopping medication at future visit due to questionable effectiveness in improving patient's anxiety. - Decrease Mirtazapine to 7.5 mg daily for 2 weeks, then stop medication. - Continue counseling for additional mental health support and treatment. Encouraged her to increase frequency of counseling sessions to once a week due to increased anxiety. - RTC in 5 weeks. Discussed any medication changes and follow-up plan with patient. Encouraged patient to call office sooner if symptoms worsen or if any questions/concerns arise. Patient was seen Face to Face, Total time spent with patient was 25 minutes, which includes reviewing chart documents, previous notes/records, counseling and discussion with patient and/or coordination of care as described above. documented in this encounter Plan of Treatment Upcoming Encounters Date Type Department Care Team (Late st Contact Info) Description 06/07/2025 9:00 AM EDT Office Visit [facility] [address] [facility] [address] [place] [address] Alexandra Brewster PMHNP-BC [address] [facility] [address] [place] [address] 06/27/2025 1:30 PM EDT Office Visit [facility] [address] [facility] [address] [place] [address] Alexandra Brewster PMHNP-BC [address] [facility] [address] [place] [address] 11/22/2025 1:30 PM EST Office Visit [facility] [address] [place] [phone] Rachel Chang NP [address] [place] [address] 05/29/2026 11:00 AM EDT Office Visit [facility] [address] [address] Alexi Cummins DO [address] [place], [place] [id number] documented as of this encounter Visit Diagnoses Diagnosis Generalized anxiety disorder Generalized anxiety disorder History of TIA (transient ischemic attack) documented in this encounter Additional Health Concerns Assessment Noted Time PHQ-9 Depression Total Score: 2 01/25/20 25 11:30 AM EDT documented as of this encounter Care Teams Transportation Security Screener Relationship Specialty Start Date End Date Brii Warren MD [address] [place] [address] PCP - General Family Medicine 03/25/23 [facility] [address] [facility] [address] [place] [address] PCP - Mike [facility] 03/17/25 [facility] Brew[facility] [address] [facility] [address] [place] [address] Nurse Practitioner Behavioral Health 10/12/24 documented as of this encounter
--- OUTSIDE RECORDS SUMMARY | 2025-05-24 13:30 | XMS_ITS | Encounter Summary ---
Author Organization [facility] Address [address] [place] [address] Care Team Providers Care Electrical Tester Name Role Phone Brii Warren MD Primary Care Provider [phone] Alexandra Brewster PMHNP-BC Unavailable [phone] Alexandra Brewster PMHNP-BC Unavailable Reason for Visit * Reason Comments Annual Exam Encounter Details Date Type Department Care Team (Late st Contact Info) Description 05/24/2025 1:30 PM EDT Office Visit [facility] [address] [place] [phone] Rachele Dillard NOC ENGINEER [address] [facility] 1 [place] [phone] Irritable bowel syndrome, unspecified type (Primary Dx); [...] How often do you attend chur or jewish services? More than 4 times per year 05/17/2025 Do you belong to any clubs o r organizations such as shinto groups, unions, fraternal or athletic groups, or [...] Recorded Patient Health Questionnaire-2 Score 0 05/24/2025 [facility] of Occupat ional [facility] - Occupational Stress Questionnaire Answer Date [...] [facility] in the [facility] were you homeless or living in a half-way (including now)? No 05/17/2025 Education Answer Date [...] Wt 246 lb SpO2 98% BMI 40.94 kg/m² OB Status No Periods Smoking Status Never BSA 2.27 m² Physical Exam Vitals and nursing note reviewed. Constitutional: Appearance: Normal appearance. HENT: Head: Normocephalic and atraumatic. Right Ear: Hearing and tympanic membrane normal. Left Ear: Hearing and tympanic membrane normal. Nose: Nose normal. Right Turbinates: Not enlarged. Left Turbinates: Not enlarged. Right Sinus: No maxillary sinus tenderness or frontal sinus tenderness. Left Sinus: No maxillary sinus tenderness or frontal sinus tenderness. Mouth/Throat: Lips: Gervais. Mouth: Mucous membranes are moist. Pharynx: Oropharynx [...] Morbid (severe) obesity due to excess calories ([facility]-HCC) Check labs to r/o underlying cause. Reviewed BMI with patient today. Encouraged weight reduction. Discussed healthy eating habits. Limit caloric intake <1500kcal/day. Reviewed different diet options with patient including low calorie, reduced carbohydrate. Advised to investigate Weight Watchers as a possible diet plan. Recommended journaling food intake and exercise performance either using a simple paper/calendar system or downloading the [employer] Fitness Plan application to track calorie consumption, [...] independence. 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 Updated patient problem list and reviewed [...] 06/07/2025 9:00 AM EDT Office Visit [facility] [address] [facility] [address] [place] [address] Alexandra Brewster PMHNP-BC [address] [facility] [address] [place] [address] 06/27/2025 1:30 PM EDT Office Visit [facility] [address] [facility] [address] [place] [address] Alexandra Brewster PMHNP-BC [address] [facility] [address] [place] [address] 11/22/2025 1:30 PM EST Office Visit [facility] [address] [place] [phone] Rachel Chang, ОЛЕГ [address] [place], [place] [id number] 05/29/2026 11:00 AM EDT Office Visit [facility] OB [address] [facility] [place] [address] Alexi Cummins, DO [address] [facility] [place] [address] documented as of this encounter Procedures Procedure [...] Performing Organization Information Site ID: QPT Name: [facility] Address: [address] [place] [address], [address] [place] [phone] Director: Adolph Dave MD us Rachele Dillard NOC ENGINEER LAB BLOOD ORDERABLES Fi nal Result Performing Organization Address City/[facility]/ZIP Co de Phone Number [facility] * (ABNORMAL) Lipid panel (05/24/2025 1:59 [...] equation in the estimation of LDL-C. Gautam FUNEZ et al. KAILA. 2013;310(19): 2942-9711 (http://education.EngTechNow/faq/YCK079) CHOL/HDLC RATIO 3.1 <5.0 (calc) [facility] NON [...] Performing Organization Information Site ID: QPT Name: [facility] Address: [address] [place] [address], [address] [place] [phone] Director: Adolph Dave MD Rachele Dillard NOC ENGINEER LAB BLOOD ORDERABLES Fi nal Result Performing Organization Address City/[facility]/ZIP Co de Phone Number [facility] * (ABNORMAL) Comprehensive metabolic panel (05/24/2025 1:59 PM EDT) Glucose 75 65 - 99 mg/dL [facility] [...] Performing Organization Information Site ID: QPT Name: [facility] Address: [address] [place] [address], [address] [place] [phone] Director: Adolph Dave MD Rachele Dillard NOC ENGINEER LAB BLOOD ORDERABLES Fi nal Result [facility] documented in this encounter Visit Diagnoses Diagnosis Irritable bowel syndrome, unspecified type- Primary Morbid (severe) obesity due to excess calories ([facility]-HCC) Vitamin D deficiency Actinic keratosis Family history [...] documented as of this encounter Care Teams Electrical Tester Relationship Specialty Start Date End Date Brii Warren MD [address] [place] [address] PCP - General Family Medicine 03/25/23 Alexandra Brewster [facility] [address] [phone] PCP - [facility] 03/17/25 Alexandra Brewster [facility] [address] [phone] Nurse Practitioner Behavioral Health 10/12/24 documented as of this encounter
--- OUTSIDE RECORDS SUMMARY | 2025-05-25 15:20 | XMS_ITS | Encounter Summary ---
Author Organization [facility] Address [address] [place] [address] Care Team Providers Care Publicity Person Name Role Phone Brii Warren MD Primary Care Provider [phone] Alexandra Brewster PMHNP-BC Unavailable [phone] Alexandra Brewster PMHNP-BC Unavailable [phone] Reason for Visit * Reason Comments Well Women Visit Encounter Details Date Type Department Care Team (Late st Contact Info) Description 05/25/2025 3:20 PM EDT Office Visit [facility] [address] [place] [phone] Alexi Cummins, DO [address] [facility] [address] [place], [place] [phone] Well woman exam with routine gynecological exam; Postmenopausal state; Rash Social History Tobacco Use Types Packs/Day Years [...] How often do you attend chur or cheondoism services? More than 4 times per year [...] Recorded Patient Health Questionnaire-2 Score 0 05/24/2025 [facility] - Occupational Stress [...] any time in the past 12 m [facility], were you homeless or living in a chcf (including now)? No 05/17/2025 Education Answer Date [...] Sign Reading Time Taken Comments Blood Pressure 120/78 05/25/2025 3:34 PM EDT Pulse - - Temperature - - Respiratory Rate - - Oxygen Saturation - - Inhaled Oxygen Concentration - - Weight 112 kg (246 lb 6.4 oz) 05/25/2025 3:34 PM EDT Height - - Body Mass Index 41 05/24/2025 1:15 PM EDT documented in this encounter Progress Notes * Ana Mckinnon LPN - 05/25/2025 3:20 PM EDT Reason for Appointment: Patient ID: Luisana De La Torre is a 65 y.o. female who presents for Well Women Visit Patient presents today for Annual Exam. MEDICATIONS Current Outpatient Medications Medication Instructions Aspirin Low [...] (INDERAL) 20 mg, Oral, 2 times daily ALLERGIES Allergies Allergen Reactions Milk-Related Compounds Alprazolam Buspar [Buspirone] Other Increased anxiety Hydroxyzine Tremors, fidgety Doxycycline Rash and GI intolerance Egg-Derived Products Nausea And Vomiting Sulfa Antibiotics Rash and GI intolerance Tetracyclines & Related Nausea And Vomiting and Rash PROBLEMS Active Ambulatory Problems Diagnosis Date Noted Generalized anxiety disorder 09/25/2023 Morbid (severe) obesity due to excess calories ([facility]) 09/25/2023 Cervical stenosis (uterine cervix) 10/07/2013 Family history of ovarian cancer 08/14/2017 IBS (irritable bowel syndrome) 10/07/2013 Actinic keratosis 08/16/2013 History of malignant melanoma 04/04/2010 History of TIA (transient ischemic attack) 10/17/2024 Vitamin D deficiency 03/28/2025 Resolved Ambulatory Problems Diagnosis Date Noted Jaundice 09/25/2023 Vertigo 10/07/2013 Acne 01/08/2012 Benign neoplasm of skin 01/08/2012 Folliculitis 10/28/2023 Hemangioma 10/28/2023 Solar degeneration 10/28/2023 Past Medical History: Diagnosis Date Cervical insufficiency in , antepartum ([facility]) 1983 Fibrocystic breast 1993 [place]UDIA (generalized anxiety disorder) History of psychiatric hospitalization 2020 History of psychiatric hospitalization 2021 Irregular menses 11/09 Menopause ovarian failure 2015 Obesity Panic attack 09/08 ([facility]) TIA (transient ischemic attack) 2017 HISTORY PAST MEDICAL HISTORY SOCIAL HISTORY Past Medical History: Diagnosis Date Cervical insufficiency in , antepartum ([facility]) 1983 Fibrocystic breast 1993 KLAUDIA (generalized anxiety disorder) History of psychiatric hospitalization 2020 [facility] x2 History of psychiatric hospitalization 2021 [facility] Irregular menses 11/09 Menopause ovarian failure 2015 Obesity Panic attack 09/08 ([facility]) x3 TIA (transient ischemic attack) 2017 Vitamin D deficiency Social History Tobacco Use Smoking status: Never [...] Sabine Cline Ovarian cancer Sister Sabine Cline SURGICAL HISTORY Past Surgical History: Procedure Laterality Date BREAST BIOPSY Left [address] GUIDED TRANSVAGINAL TRANSRECTAL FLUID DRAIN 10/22/2023 CT GUIDED TRANSVAGINAL TRANSRECTAL FLUID DRAIN 10/22/2023 HYSTEROSCOPY W/ POLYPECTOMY 01/07/2025 with myosure REVIEW OF SYSTEMS Review of Systems: Review of Systems Constitutional: Negative. HENT: Negative. Eyes: Negative. Respiratory: Negative. Cardiovascular: Negative. Gastrointestinal: Negative. Genitourinary: Negative. Musculoskeletal: Negative. Skin: Negative. Neurological: Negative. All other systems reviewed and are negative. Hematological: Negative. Endocrine: Negative. Allergic/Immunologic: Negative. OBJECTIVE Objective: Physical Exam Constitutional: Appearance: Normal appearance. She is well-developed. Genitourinary: Vulva normal. Cardiovascular: Rate and Rhythm: Normal rate [...] nursing note reviewed. Exam conducted with a mattress specialist present. Vitals: Estimated body mass index is 41 kg/m² as calculated from the following: Height as of 05/24/25: 5' 5 . Weight as of this encounter: 246 lb 6.4 oz. BP: 120/78 No LMP recorded. (Menstrual status: No Periods). ASSESSMENT & PLAN ICD-10-CM 1. Well woman exam with routine gynecological exam Z01.419 THIN PREP TIS PAP AND HR HPV DNA 2. Postmenopausal state Z78.0 DEXA bone density Orders Placed This Encounter Procedures DEXA bone density Annual Wellness Exam: Patient presents today for routine annual exam. Patient states she has no current complaints. Patients vitals were reviewed and within normal limits. Growth and development is noted to be appropriate for age. No mental health concerns was expressed. Pap Smear: Speculum was inserted into the vagina and pap was obtained without difficulty. HPV testing was performed per age guideline. Patient was advised that pap results could take anywhere from 7 to 10 days to receive and our office will reach out to the patient with those once we have them. Patient can also view results via [employer]. I reinforced importance of condom use for STI prevention. Patient declined cultures to be performed with today's visit. Breast Exam: Upon examination, clinical breast exam was noted to be normal and screening mammogram was ordered and given to patient to have obtained. Patient was counseled on breast self-awareness, including the importance of knowing what is normal for her own breasts and promptly reporting any changes such as new lumps, skin dimpling, nipple discharge, or pain. Screening mammogram was recommended annually. Discussed signs and symptoms of breast cancer and when to seek medical attention. Answered all patient questions. DEXA Counseling: DEXA scan ordered and given to the patient to have performed for osteoporosis screening per guidelines. Patient counseled on bone health, including the importance of calcium and vitamin D intake, weight-bearing exercise, fall prevention, and avoiding tobacco and excessive alcohol. Discussed purposeof DEXA in assessing fracture risk and monitoring bone density. Patient advised results will be reviewed upon completion and next steps discussed as needed. Follow Up: Patient is to return to our office in one year for annual exam unless needed otherwise. Documented by Ana Mckinnon LPN on behalf of: Leanne Nelson, PAC documented in this encounter Plan of Treatment Upcoming Encounters Date Type Department Care Team (Late st Contact Info) Description 06/07/2025 9:00 AM EDT Office Visit [facility] [address] [facility] [address] [place] [address] Alexandra Brewster PMHNP-BC [address] [facility] [address] [place] [address] 06/27/2025 1:30 PM EDT Office Visit [facility] [address] [facility] [address] [place] [address] Alexandra Brewster PMHNP-BC [address] [facility] [address] [place] [address] 11/22/2025 1:30 PM EST Office Visit [facility] [address] [place] [phone] Rachel Chang, ОЛЕГ [address] [place] [address] 05/29/2026 11:00 AM EDT Office Visit [facility] [address] [facility] [place] [address] Alexi Cummins, [address] [facility] [address] [place], [place] [phone] Scheduled Orders Name Type Priority Associated Diagnoses Orde r Schedule DEXA bone density Imaging Routine Postmenopausal state Expected: 05/25/2025 (Approximate), Expires: 05/25/2026 THIN PREP TIS PAP AND HR HPV DNA Pathology and Cytology Routine Well woman exam with routine gynecological exam Ordered: 05/25/2025 documented as of this encounter Visit Diagnoses Diagnosis Well woman exam with routine gynecological exam Routine gynecological examination Postmenopausal state Asymptomatic postmenopausal status (age-related) (natural) Rash Rash and other nonspecific skin eruption documented in this encounter Additional Health Concerns Assessment Noted Time PHQ-9 Depression Total Score: 0 05/24/20 25 1:00 PM EDT documented as of this encounter Care Teams Publicity Person Relationship Specialty Start Date End Date Brii Warren MD [address] [place] [address] PCP - General Family Medicine 03/25/23 Alexandra Brewster PMHNP-BC [address] [address] [facility] 03/17/25 Alexandra Brewster PMHNP-BC [address] [address] Nurse Practitioner Behavioral Health 10/12/24 documented as of this encounter
[2025-06-06 10:13] VITALS: BP 129/79; PULSE 69; TEMP 37.3; O2SAT 98; BMI 39.9
--- OUTSIDE RECORDS SUMMARY | 2025-06-06 10:20 | XMS_ITS | Encounter Summary ---
Author Organization [facility] Address [address] [place] [address] Care Team Providers Care Psychiatric Social Worker Name Role Phone Brii Warren MD Primary Care Provider Alexandra Brewster PMHNP-BC Unavailable [phone] Rachele Dillard CRAB STEAMER Unavailable [phone] Alexandra Brewster PMHNP-BC Unavailable [phone] Reason for Visit * Reason Comments Med Refill Encounter Details Date Type Department Care Team (Late st Contact Info) Description 02/12/2024 Refill [facility] [address] [facility] [place] [phone] Rachele Dillard CRAB STEAMER [address] [phone] Generalized anxiety disorder Social History Tobacco Use [...] 06/07/2025 9:00 AM EDT Office Visit [facility] [address] [facility] [address] [place] [address] Alexandra Brewster PMHNP-BC [address] [facility] [address] [place] [address] 06/27/2025 1:30 PM EDT Office Visit [facility] [address] [facility] [address] [place] [address] Alexandra Brewster PMHNP-BC [address] [facility] [address] [place] [address] 11/22/2025 1:30 PM EST Office Visit [facility] [address] [place] [phone] Rachel Chang CRAB STEAMER [address] [place] [address] 05/29/2026 11:00 AM EDT Office Visit [facility] [address] [facility] [place] [address] Alexi Cummins DO [address] [facility] [place] [address] documented as of this encounter Visit Diagnoses Diagnosis Generalized anxiety disorder Generalized anxiety disorder documented in this encounter Additional Health Concerns Assessment Noted Time PHQ-9 Depression Total Score: 0 12/01/19 24 3:18 PM EST documented as of this encounter Care Teams Psychiatric Social Worker Relationship Specialty Start Date End Date Brii Warren MD [address] [place] [address] PCP - General Family Medicine 03/25/23 Rachele Dillard NP [address] [facility] 1 [place] [address] PCP - [place] [employer] 02/15/2503/16 Alexandra Brewster [facility] [address] [facility] 160 [place] [address] PCP - Mike [employer] 03/17/25 Alexandra Brewster PMHNPSUGAR [address] [facility] 160 [place] [address] Nurse Practitioner Behavioral Health 10/12/24 documented as of this encounter
--- OUTSIDE RECORDS SUMMARY | 2025-06-06 10:20 | XMS_ITS | Clinical Summary ---
Author Organization [facility] [employer] [facility] Address [id number] [place] [address] Care Team Providers Care Welding Robot Operator Name Role Phone Brii Warren MD Primary Care Provider [phone] Allergies Active Allergy Reactions Criticality Noted Date [...] Not on file Insurance ANTHEM Care Teams Welding Robot Operator Relationship Specialty Start Date End Date Brii Warren MD [address] [place] [address] PCP - General Family Medicine 10/22/23
--- OUTSIDE RECORDS SUMMARY | 2025-06-06 10:20 | XMS_ITS | Clinical Summary ---
Author Organization [facility] Address [address] [place] [address] Care Team Providers Care Technology Support Analyst Name Role Phone Brii Warren MD Primary Care Provider [phone] Alexandra Brewster PMHNP-BC Unavailable [phone] Alexandra Brewster PMHNP-BC Unavailable [phone] Allergies Active Allergy Reactions Criticality Noted Date [...] :Morbid (severe) obesity due to excess calories ([facility]) CHEW 1 TABLET (81 MG) IN THE [...] mouth Daily 90 tablet 05/11/20 25 Active pantoprazole (ProtoNix) 40 MG EC tabletIndications :Gastroesophageal reflux disease without esophagitis Take 1 tablet (40 mg) by mouth in the morning. Take before meals. Do not crush, chew, or split. 90 tablet 1 05/24/20 25 Active nystatin (Mycostatin) 457608 UNIT/GM powderIndications :Rash Apply topically 2 (two) times a day as needed for rash or itching 15 g 05/25/20 25 2025 Active atorvastatin (Lipitor) 10 MG tabletIndications :Mixed hyperlipidemia TAKE 1 TABLET (10 MG) BY MOUTH DAILY. 90 tablet 1 09/14/20 24 2024 Discontinued(R eorder) pantoprazole (ProtoNix) 40 MG EC tabletIndications :Gastroesophageal [...] tablet 05/19/20 25 2024 Discontinued(D ose adjustment) mirtazapine (Remeron) 7.5 MG tabletIndications :Generalized anxiety disorder Take 1 tablet (7.5 mg) by mouth at bedtime for 14 days 14 tablet 05/23/20 25 2024 Discontinued(S juan antonio effects) Active Problems Problem Noted Date Diagnosed Date [...] Encounters Date Type Department Care Team Description 06/06/2025 Telephone [facility] [address] [place] [address] Arelis Brooks Problems 05/31/[address] [facility] [address] [facility] [place] [address] Kenzie Cagle MA 05/30/2025 Telephone [facility] [address] [place] [address] Lauren Barr LPN Anxiety 05/25/2025 3:20 PM EDT Office Visit [facility] [address] [place] [address] Alexi Cummins DO Well woman exam with routine gynecological exam; Postmenopausal state; Rash 05/25/2025 Clinisync Result Encounter NOMS External Department Unsolicited Alexi Cummins DO 05/25/2025 Results Follow-Up [facility] [address] [place] [address] Raisa Deshpande MA 05/24/2025 1:30 PM EDT Office Visit [facility] [address] [place] [address] Rachele Dillard NP Irritable bowel syndrome, unspecified type (Primary Dx); Morbid (severe) obesity due to excess calories ([facility]); Vitamin D deficiency; Actinic keratosis; Family history of ovarian cancer; Generalized anxiety disorder ; History of malignant melanoma; History of TIA (transient ischemic attack); Gastroesophageal reflux disease without esophagitis; Medicare annual wellness visit, subsequent; Elevated LFTs; On statin therapy; Mixed hyperlipidemia ; Elevated glucose 05/24/2025 Travel 05/23/2025 2:30 PM EDT Office Visit [facility] [address] [place] [address] Alexandra Brewster, PMHNP- Generalized anxiety disorder ; History of TIA (transient ischemic attack) 05/23/2025 Bamboo flowsheet [facility] [address] [place] [address] Alexandra Brewster, PMHNP-BC 05/23/2025 Travel 05/19/2025 Refill [facility] [address] [place] [address] Alexandra Brewster, PMHNP-BC Generalized anxiety disorder 05/18/2025 Clinisync Result Encounter NOMS External Department Unsolicited Alexi Cummins DO 05/17/2025 Travel 05/16/2025 Travel 05/11/2025 Refill [facility] [address] [place] [facility] [address] Deb Camacho MA Mixed hyperlipidemia 04/27/2025 3:30 PM EDT Office Visit [facility] [address] [place] [address] Alexandra Brewster, PMHNP-BC Generalized anxiety disorder ; History of TIA (transient ischemic attack) 04/27/2025 Bamboo flowsheet [facility] [address] [place] [address] Alexandra Brewster, PMHNP-BC 04/27/2025 Travel 04/24/2025 Travel 04/22/2025 Telephone [facility] [address] [place] [address] Alexandra Brewster, PMHNP-BC Advice Only 04/03/2025 Refill [facility] [address] [facility] [place] [address] Rachele Dillard NP Gastroesophageal reflux disease without esophagitis 03/28/2025 2:00 PM EDT Office Visit [facility] [address] [place] [address] Alexandra Brewster, PMHNP-BC Generalized anxiety disorder ; History of TIA (transient ischemic attack) 03/28/2025 Bamboo flowsheet [facility] [address] [place] [address] Alexandra Brewster, PMHNP-BC 03/28/2025 Travel 03/21/2025 Travel 03/20/2025 Refill [facility] [address] [place] [address] Maura Brito NP Morbid (severe) obesity due to excess calories (CMS-HCC) from Last 3 Months Family History Medical History Relation Name Comments Dementia Father [place] Heart failure Maternal Grandfather Hassel Case Heart failure Maternal Grandmother Shelby Case Heart disease Mother Reeda Case Miscarriages / Stillbirths Mother Reeda Case Stroke Mother Reeda Case Cancer Sister 1 Sabine [place] Ovarian cancer Sister 1 Sabine [place] Cancer Sister 2 Sabine Son Ovarian cancer Sister 2 Sabine Son Relation Name Status Comments Father [place] Alive Maternal Grandfather Hassel Case Alive Maternal Grandmother Shelby Case Alive Mother Reeda Case Alive Sister 1 Sabine Son Alive Sister 2 Sabine Ibrahimyer Alive Social History Tobacco Use Types Packs/Day [...] often do you attend chur ch or adventist services? More than 4 times per year 05/17/2025 Do you belong to any clubs o r organizations such as taoism groups, unions, fraternal or athletic groups, or [...] Recorded Patient Health Questionnaire-2 Score 0 05/24/2025 [facility] - [...] time in the past [address] [facility], were you homeless or living in [...] 06/07/2025 9:00 AM EDT Office Visit [facility] [address] [place] [address] Alexandra Brewster, PMHNP-BC [address] [facility] [address] [place] [address] 06/27/2025 1:30 PM EDT Office Visit [facility] [address] [facility] [address] [place] [address] Alexandra Brewster, PMHNP-BC [address] [facility] [address] [place] [address] 11/22/2025 1:30 PM EST Office Visit [facility] [address] [place] [facility] [place] [address] Rachel Chang, ОЛЕГ [address] [place] [facility] [address] 05/29/2026 11:00 AM EDT Office Visit [facility] [address] [place] [address] Alexi Cummins DO [address] [place], [place] [phone] Health Maintenance Due Date Last Done Comments CT Colonography 1962 Colonoscopy 1962 FIT 1962 FOBT 1962 Sigmoidoscopy 1962 Influenza Vaccine (#1) 2025 Mammogram 02/16/2026 02/16/2025, 02/0 07/2024, 10/21/2022, Additional history exists Medicare Annual Wellness (AWV) 05/25/2026 0 05/25/2025, 05/24/2025, 05/24/2025, Additional history exists Colorectal Cancer Screening 11/12/2026 FIT-DNA 11/12/2026 11/12/2023 Cervical Cancer Screening 05/25/2030 HPV/Cotest 05/25/2030 11/13/2018, 11/13/2018 Pap Smear 05/25/2030 05/25/2025, 11/13/2018, 10/18 Procedures Procedure Name Priority Date/Time Associated Diagnosis Comments IGP,APTIMA HPV,AGE GDLN Routine 05/25/2025 3:21 PM EDT PAP SMEAR Routine 05/25/2025 12:00 AM EDT HEMOGLOBIN A1C Routine 05/24/2025 1:59 PM EDT [...] Recently Relevant to Health Maintenance Results * IGP,APTIMA HPV,AGE GDLN (05/25/2025 3:21 PM EDT) AGE GDLN ACOG TESTING Note . [facility] Comment: TESTS RESULT FLAG UNITS REF RANGE LAB Clinician Provided Cytology Information Source.............Cervix;Endocervix No. of containers..01 ThinPrep Vial Nneka MORTENSEN Sara... 30-65 FLAG LEGEND: L-Low Normal,H-High Normal,LL-Alert Low,HH-Alert High <-Panic Low,>-Panic High,A-Abnormal,AA-Critical Abnormal Performed at: 01 =[facility] [address] [place] [address] Azalea Hathaway MD, IGP, APTIMA HPV, RFX 16/18,45 Note . [facility] Comment: TESTS RESULT FLAG UNITS REF RANGE LAB DIAGNOSIS: 02 NEGATIVE FOR INTRAEPITHELIAL LESION OR MALIGNANCY. CELLULAR CHANGES ASSOCIATED WITH ATROPHY ARE PRESENT. Specimen adequacy: 02 Satisfactory for evaluation. Endocervical and/or squamous metaplastic cells (endocervical component) are present. Performed by: Jyoti Newton Medical Record Clerk . 02 Note: Note 02 The Pap smear is a screening test designed to aid in the detection of premalignant and malignant conditions of the uterine cervix. It is not a diagnostic procedure and should not be used as the sole means of detecting cervical cancer. Both false-positive and false-negative reports do occur. Test Methodology: Note 02 This liquid based ThinPrep(R) pap test was screened with the use of an image guided system. HPV Genotype Reflex Note 02 Criteria not met, HPV Genotype not performed. FLAG LEGEND: L-Low Normal,H-High Normal,LL-Alert Low,HH-Alert High <-Panic Low,>-Panic High,A-Abnormal,AA-Critical Abnormal Performed at: [address] [address] Azalea Hathaway MD, HPV APTIMA Negative Negative [facility] Comment: This nucleic acid amplification test detects fourteen high- risk HPV types (16,18,31,33,35,39,45,51,52,56,58,59,66,68) without differentiation. Performed at: =[facility] Lab[address] [id number] Communications Station Manager: Azalea Hathaway MD, Phone: [phone] Performed at: [address] [id number] Communications Station Manager: Azalea Hathaway MD, Phone: [phone] 05/25/2025 3:21 PM EDT 05/26/2025 6:18 AM EDT Narrative [facility] - 05/29/2025 2:07 PM EDT BRUSH-SPATULA CERVIX ENDOCERVIX [employer] DO LAB BLOOD ORDERABLES Final Resul t Performing Organization Address [facility] [[email or web address]] Co de Phone Number [facility] * Pap Smear (05/25/2025 12:00 AM EDT) Swab Cervical swab / Unknown [employer] DO LAB CYTOLOGY ORDERABLES Final Re sult EXTERNAL LAB * (ABNORMAL) Hemoglobin A1c (05/24/2025 1:59 PM [...] Performing Organization Information Site ID: QPT Name: [facility] Address: [address] [place] [address], [address] [place] [phone] Director: Adolph Dave MD Rachele Dillard NP LAB BLOOD ORDERABLES Fi nal Result [facility] * (ABNORMAL) Lipid panel (05/24/2025 1:59 PM EDT) [facility] CHOLESTEROL, TOTAL 135 <200 mg/dL [facility] HDL CHOLESTEROL 44(L) > OR = 50 mg/dL [facility] TRIGLYCERIDES 110 <150 mg/dL [facility] LDL CHOLESTEROL 71 mg/dL (calc) [facility] Comment: Reference range: <100 Desirable range <100 mg/dL for primary prevention; <70 mg/dL for patients with CHD or diabetic patients with > or = 2 CHD risk factors. LDL-C is now calculated using the Gautam-Vargas calculation, which is a validated novel method providing better accuracy than the Friedewald equation in the estimation of LDL-C. Gautam SS et al. KAILA. 2013;310(19): 7044-4770 (http://education.[employer].com/faq/GJG308) CHOL/HDLC RATIO 3.1 <5.0 (calc) [facility] NON [...] Performing Organization Information Site ID: QPT Name: [facility] Address: [address] [place] [address], [address] [place] [phone] Director: Adolph Dave MD us Rachele Dillard PATIENT SUPPORT PARTNER LAB BLOOD ORDERABLES Fi nal Result Performing Organization Address [facility]/ZIP Co de Phone Number [facility] * (ABNORMAL) Comprehensive metabolic panel (05/24/2025 1:59 PM EDT) [facility] Glucose 75 65 - 99 mg/dL [facility] [...] Performing Organization Information Site ID: QPT Name: [facility] Address: [address] [facility], [address] [place] [phone] Director: Adolph Dave MD us Rachele Dillard PATIENT SUPPORT PARTNER LAB BLOOD ORDERABLES Fi nal Result [facility] * CALCITRIOL(1,25 DI-OH VIT D) (05/18/2025 11:27 AM EDT) CALCITRIOL(1,25 DI-OH VIT D) 31.5 24.8 - 81.5 pg/mL [facility] Comment: Performed at: - [address] [id number] Communications Station Manager: Nadege Barillas MD, Phone: [phone] 05/18/2025 11:2 7 AM EDT 05/18/2025 11:30 AM EDT Narrative [facility] - 05/23/2025 12:08 PM EDT us Generic External Data Provider LAB BLOOD ORDERAB LES Final Result [facility] * Bilateral screening mammogram with tomosynthesis (02/16/2025 12:32 PM EDT) Anatomical Region Laterality Modality Breast Bilateral Mammography 02/17/2025 9:12 AM EDT Impressions 02/17/2025 9:25 AM EDT BI-RADS 1- NEGATIVE. ROUTINE FOLLOW-UP MAMMOGRAPHY IS SUGGESTED IN ONE YEAR. DENSITY: There are scattered areas of fibroglandular density. Board Certified Radiologists. Accredited by the ACR and FDA. MAMMOGRAPHY IS VERY IMPORTANT TO YOUR HEALTH. THE [place] [employer] SOCIET[employer] GUIDELINES RECOMMEND THAT WOMEN 40 [...] VIEWS. ELECTRONICALLY SIGNED BY: David Fajardo DO Narrative 02/17/2025 9:25 AM EDT BI MAMMOGRAM SCREENING [...] IS VERY IMPORTANT TO YOUR HEALTH. THE [place] CANCER SOCIETYGUIDELINES RECOMMEND THAT WOMEN 40 YEARS [...] SIGNED BY: David Fajardo DO Rachele Dillard PATIENT SUPPORT PARTNER IMG BI PROCEDURES Final Result * Cologuard® colon cancer screening (11/12/2023 10:15 AM EST) NONINV COLON CA DNA+OCC BLD SCRN STL-IMP Negative Negative 11/15/2023 11:19 AM EST [facility] (CLIA #:[id number]) Comment: NEGATIVE TEST RESULT. A negative Cologuard [...] Mason et al, N Engl J Med 2014;370(14):1867-5566) The normal value (reference range) for this assay is negative. COLOGUARD RE-SCREENING RECOMMENDATION: Periodic colorectal cancer screening is an important part of preventive healthcare for asymptomatic individuals at average risk for colorectal cancer. Following a negative Cologuard result, the [place] Cancer Society and U.S. Multi-Society Task Force screening guidelines recommend a Cologuard re-screening interval of 3 years. References: [place] Cancer Society Guideline for Colorectal Cancer Screening: https://www.cancer.org/cancer/uoqdj-cmynyf-mjyilh/uoytsrphv-fwneotqdj-dxdupsb/ac s-rec ommendations.html.; Stewart DK, Kirit CR, Kellie OchoaK, Colorectal Cancer Screening: Recommendations for Physicians and Patients from the U.S. Multi-Society Task Force on Colorectal Cancer Screening , Am J Gastroenterology 2017; 112:0187-7409. TEST DESCRIPTION: Composite algorithmic analysis of stool [...] Portillo. et al, N Engl J Med 2014;370(14):7424-2030.) Cologuard may produce a false negative or false positive result (no colorectal cancer or precancerous polyp present at colonoscopy follow up). A negative Cologuard test result does not guarantee the absence of CRC or advanced adenoma (pre-cancer). The current Cologuard screening interval is every 3 years. ([place] Cancer Society and U.S. Multi-Society Task Force). Cologuard performance data in a 10,000 patient pivotal study using colonoscopy as the reference method can be accessed at the following location: www.[employer]/results. Additional description of the Cologuard test process, warnings and precautions can be found at www.[employer].com. Stool specimen (specimen) 11/12/2023 10:15 AM EST 11/13/2023 8:08 AM EST us Rachele Dillard NP LAB MOLECULAR DIAGNOSTI CS ORDERABLES Final Result [facility] (CLIA #:[id number]) [place] [address], from Last 3 Months or Most Recently Relevant [place] [address] [facility] MEDICARE ADVANTAGE Care Teams Technology Support Analyst Relationship Specialty Start Date End Date Brii Warren MD [address] [place] [address] PCP - General Family Medicine 03/25/23 Alexandra Brewster PMHNP- [address] [facility] [address] [place] [address] PCP - [facility] 03/17/25 Alexandra Brewster PMHNP- [address] [facility] [address] [place] [address] Nurse Practitioner Behavioral Health 10/12/24
--- OUTSIDE RECORDS SUMMARY | 2025-06-06 10:21 | XMS_ITS | Encounter Summary ---
Author Organization [facility] Address [address] [place] [address] Care Team Providers Care Import/Export Agent Name Role Phone Brii Warren MD Primary Care Provider [phone] Alexandra Brewster PMHNP-BC Unavailable [phone] Alexandra Brewster HNP-BC Unavailable [phone] Encounter Details Date Type Department Care Team [...] week 05/17/2025 How often do you attend [facility] or orthodoxy services? More than 4 times per year [...] Recorded Patient Health Questionnaire-2 Score 0 05/24/2025 [facility] - [...] any time in the past 12 m [facility], were you homeless or living in a long-term (including now)? No 05/17/2025 Education Answer Date [...] [facility] [address] [place] [address] Alexandra Brewster [facility]- [address] [facility] [address] [place] [address] 06/27/2025 1:30 PM EDT Office Visit [facility] [address] [facility] [address] [place] [phone] Alexandra Brewster [facility]- [address] [facility] [address] [place] [address] 11/22/2025 1:30 PM EST Office Visit [facility] [address] [facility] [address] Rachel Chang NP [address] [facility] [place] [address] 05/29/2026 11:00 AM EDT Office Visit [facility] OB [address] [facility] [place] [address] Alexi Cummins DO [address] [facility] [address] [place], [place] [address] documented as of this encounter Visit Diagnoses Not on filedocumented in this encounter Additional Health Concerns Assessment Noted Time PHQ-9 Depression Total Score: 2 01/25/20 25 11:30 AM EDT documented as of this encounter Care Teams Import/Export Agent Relationship Specialty Start Date End Date Brii Warren MD [address] [facility] [place] [address] PCP - General Family Medicine 03/25/23 Alexandra Brewster [facility]- [address] [facility] [address] [place] [address] PCP - [employer] 03/17/25 Alexandra Brewster [facility]- [address] [facility] [address] [place] [address] Nurse Practitioner Behavioral Health 10/12/24 documented as of this encounter
--- OUTSIDE RECORDS SUMMARY | 2025-06-06 10:21 | XMS_ITS | Encounter Summary ---
Author Organization [facility] Address [address] [place] [address] Care Team Providers Care Noc Technician Name Role Phone Brii Warren MD Primary Care Provider Alexandra Brewster [facility] Un[facility] Rachele Dillard OUTBOUND SALES CONSULTANT Unavailable [phone] Alexandra Brewster HNP-BC Unavailable Encounter Details Date Type Department Care Team (Late st Contact Info) Description 12/28/2024 Abstract [facility] OB [address] [place] [address] Alexi Cummins DO [address] [facility] [address] [place], [place] [phone] Social History Tobacco Use Types Packs/Day Years [...] 9:00 AM EDT Office Visit [facility] CI [address] [facility] [address] [place] [address] Alexandra Brewster, HNP-BC [address] [facility] [address] [place] [address] 06/27/2025 1:30 PM EDT Office Visit [facility] BH [address] [facility] [address] [place] [address] Alexandra Brewster HNP-BC [address] [facility] [address] [place] [address] 11/22/2025 1:30 PM EST Office Visit [facility] FM [address] [place] [address] Rachel Chang NP [address] [place] [address] 05/29/2026 11:00 AM EDT Office Visit [facility] OB [address] [facility] [place] [address] Alexi Cummins DO [address] [facility] [place] [address] documented as of this encounter Visit Diagnoses Not on filedocumented in this encounter Additional Health Concerns Assessment Noted Time PHQ-9 Depression Total Score: 20 025 3:37 PM EST documented as of this encounter Care Teams Noc Technician Relationship Specialty Start Date End Date Brii Warren MD [address] [place], [place] [phone] PCP - General Family Medicine 03/25/23 Rachele Dillard NP [address] [facility] [address] [place] [address] PCP - [place] [employer] 02/15/2503/16 Alexandra Brewster PMHNP- [address] [facility] [address] [place] [address] PCP - [employer] 03/17/25 Alexandra Brewster PMHNP-BC [address] [facility] [address] [place] [address] Nurse Practitioner Behavioral Health 10/12/24 documented as of this encounter
--- OUTSIDE RECORDS SUMMARY | 2025-06-06 10:21 | XMS_ITS | Encounter Summary ---
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 documented in this encounter Plan of Treatment Upcoming Encounters Date Type Department Care Team (Late st Contact Info) Description 06/07/2025 9:00 AM EDT Office Visit [facility] [address] [facility] [address] [place] [address] Alexandra Brewster, HNP-BC [address] [facility] [address] [place] [address] 06/27/2025 1:30 PM EDT Office Visit [facility] [address] [facility] [address] [place] [address] Alexandra Brewster HNP-BC [address] [facility] [address] [place] [address] 11/22/2025 1:30 PM EST Office Visit [facility] FM [address] [place] [address] Rachel Chang NP [address] [place] [address] 05/29/2026 11:00 AM EDT Office Visit [facility] OB [address] [place] [address] [place] [address] Alexi Cummins, [address] [place] [address] documented as of this encounter Visit Diagnoses Not on filedocumented in this encounter Additional Health Concerns Assessment Noted Time PHQ-9 Depression Total Score: 20 025 3:37 PM EST documented as of this encounter Care Teams Metal Patternmaker Relationship Specialty Start Date End Date Brii Warren MD [address] [place], [place] [phone] PCP - General Family Medicine 03/25/23 Rachele Dillard NP [address] [facility] 1 [place] [address] PCP - [place] [employer] 02/15/2503/16 Alexandra Brewster PMHNP- [address] [facility] [address] [place] [address] PCP - [employer] 03/17/25 Alexandra Brewster PMHNP-SUGAR [address] [facility] [address] [place] [address] Nurse Practitioner Behavioral Health 10/12/24 documented as of this encounter
--- OUTSIDE RECORDS SUMMARY | 2025-06-06 10:21 | XMS_ITS | Encounter Summary ---
Author Organization [facility] Address [address] [place] [address] Care Team Providers Care Er Physician Name Role Phone Brii Warren MD Primary Care Provider [phone] Alexandra Brewster PMHNP-BC Unavailable [phone] Alexandra Brewster PMHNP-BC Unavailable [phone] Reason for Visit * Reason Onset Date Comments Problems 06/06/2025 Encounter Details Date Type Department Care Team (Late st Contact Info) Description 06/06/2025 Telephone [facility] [address] [place] [address] ToddArelis Problems Social History Tobacco Use Types Packs/Day Years [...] How often do you attend chur or mu-ism services? More than 4 times per year 05/17/2025 Do you belong to any clubs o r organizations such as pentecostal groups, unions, fraternal or athletic groups, or [...] Recorded Patient Health Questionnaire-2 Score 0 05/24/2025 [facility] [place] of Occupat ional Health - Occupational Stress [...] any time in the past 12 m [facility], were you homeless or living in a halfway (including now)? No 05/17/2025 Education Answer Date [...] encounter Miscellaneous Notes * Telephone Encounter - Arelislianne Brooks - 06/06/2025 9:15 AM EDT Voicemail from patient: This is Luisana De La Torre birthday [id number]. My phone number is [phone] desperately need to speak to Lauren. I talked to her last week, we went off the remeron. I have had just a hellacious weekend. I am getting no relief, my anxiety is out of control. Sweat is pouring off of me. Ineed to know what to do if I can come see Alexandra or if I just need to go somewhere. I don't know what to do, but I need help. Please call me [phone], thank you. I called patient back to let her know that Lauren is out of the office all week and that Alexandra is out of the office for today, I offered patient the 9am spot for tomorrow to see Alexandra, gave patient the 988 crisis hotline number and also advised patient to visit the nearest emergency room if shefeels as if she is having a mental health crisis. Patient agreed to go to the ER and scheduled an appointment for Thursday 06/07. documented in this encounter Plan of Treatment Upcoming Encounters Date Type Department Care Team (Late st Contact Info) Description 06/07/2025 9:00 AM EDT Office Visit [facility] [address] [facility] [address] [place] [address] Alexandra Brewster PMHNP-BC [address] [facility] [address] [place] [address] 06/27/2025 1:30 PM EDT Office Visit [facility] [address] [facility] [address] [place] [address] Alexandra Brewster PMHNP-BC [address] [facility] [address] [place] [address] 11/22/2025 1:30 PM EST Office Visit [facility] [address] [place] [address] Rachel Chang NP [address] [place], [place] [phone] 05/29/2026 11:00 AM EDT Office Visit [facility] B[facility] OB [address] [place] [address] [place] [address] Alexi Cummins, DO [address] [facility] [place] [address] documented as of this encounter Visit Diagnoses Not on filedocumented in this encounter Additional Health Concerns Assessment Noted Time PHQ-9 Depression Total Score: 0 05/24/20 25 1:00 PM EDT documented as of this encounter Care Teams Er Physician Relationship Specialty Start Date End Date Brii Warren MD [address] [place], [place] [address] PCP - General Family Medicine 03/25/23 Alexandra Brewster [facility] [address] [facility] [address] [place] [address] [facility] 03/17/25 Alexandra Brewster [facility] [address] [facility] [address] [place] [address] Nurse Practitioner Behavioral Health 10/12/24 documented as of this encounter
--- OUTSIDE RECORDS SUMMARY | 2025-06-06 10:21 | XMS_ITS | Encounter Summary ---
Author Organization [facility] Address [address] [place] [address] Care Team Providers Care Quantitative Analyst Marketing Name Role Phone Brii Warren MD Primary Care Provider [phone] Alexandra Brewster PMHNP-BC Unavailable [phone] Alexandra Brewster PMHNP-BC Unavailable [phone] Encounter Details Date Type Department Care Team (Late st Contact Info) Description 05/23/[address] [facility] [address] [place] [address] Alexandra Brewster PMHNP-BC [address] [place] [address] Social History Tobacco Use Types [...] How often do you attend chur or methodist services? More than 4 times [...] Recorded Patient Health Questionnaire-2 Score 0 05/24/2025 [facility] [place] of Occupat ional Health - Occupational Stress [...] time in the past 12 m [facility], were you homeless or living in a [...] 06/07/2025 9:00 AM EDT Office Visit [facility] 112 [facility] 160 [place] [address] Alexandra Brewster PMHNP- [address] [facility] [address] [place] [address] 06/27/2025 1:30 PM EDT Office Visit [facility] CI BH [address] [facility] [address] [place] [address] Alexandra Brewster, [facility] [address] [facility] [place] [place] [address] 11/22/2025 1:30 PM EST Office Visit [facility] FM [address] [place] [address] Rachel Chang, ОЛЕГ [address] [facility] [place] [address] 05/29/2026 11:00 AM EDT Office Visit [facility] OB [address] [facility] [place] [address] Alexi Cummins DO [address] [facility] [place] [address] documented as of this encounter Visit Diagnoses Not on filedocumented in this encounter Additional Health Concerns Assessment Noted Time PHQ-9 Depression Total Score: 2 01/25/20 25 11:30 AM EDT documented as of this encounter Care Teams Quantitative Analyst Marketing Relationship Specialty Start Date End Date Brii Warren MD [address] [facility] [place] [address] PCP - General Family Medicine 03/25/23 Alexandra Brewster, [facility] [address] [facility] [place] [address] PCP - [place] [employer] 03/17/25 Alexandra Brewster [facility] [address] [facility] [place] [address] Nurse Practitioner Behavioral Health 10/12/24 documented as of this encounter
--- OUTSIDE RECORDS SUMMARY | 2025-06-06 10:21 | XMS_ITS | Encounter Summary ---
Author Organization [facility] Address [address] [place] [address] Care Team Providers Care Automotive Electrician Name Role Phone Brii Warren MD Primary Care Provider Alexandra Brewster PMHNP-BC Unavailable [phone] Alexandra Brewster PMHNP-BC Unavailable [phone] Encounter Details Date Type Department Care Team (Late st Contact Info) Description 05/18/2025 Clinisync Result Encounter [facility] External Department Unsolicited Alexi Cummins, DO [address] [facility] [place] [address] Social History Tobacco Use Types [...] How often do you attend chur or mormon services? More than 4 times per year 05/17/2025 Do you belong to any clubs o r organizations such as advent groups, unions, fraternal or athletic groups, or [...] Recorded Patient Health Questionnaire-2 Score 0 05/24/2025 [facility] [place] of Occupat ional Health - Occupational Stress [...] in the past 12 m [facility], were you homeless or living in a nursing home (including now)? No 05/17/2025 Education Answer [...] 06/07/2025 9:00 AM EDT Office Visit [facility] 112 [facility] 160 [place] [address] Alexandra Brewster HNP- 112 [facility] 160 [place] [address] 06/27/2025 1:30 PM EDT Office Visit [facility] [address] [facility] 160 [place] [address] Alexandra Brewster, PMHNP-BC [address] [facility] [address] [place] [address] 11/22/2025 1:30 PM EST Office Visit [facility] [address] [place] [address] Rachel Chang NP [address] [facility] [place], [place] [address] 05/29/2026 11:00 AM EDT Office Visit [facility] OB [address] [facility] [place] [address] Alexi Cummins, DO [address] [facility] [address] [place], [place] [address] documented as of this encounter Procedures Procedure Name Priority Date/Time Associated Diagnosis Comments CALCITRIOL(1,25 DI-OH VIT D) Routine 05/18/2025 11:27 AM EDT documented in this encounter Results * CALCITRIOL(1,25 DI-OH VIT D) (05/18/2025 11:27 AM EDT) CALCITRIOL(1,25 DI-OH VIT D) 31.5 24.8 - 81.5 pg/mL TB Comment: Performed at: - [facility] [id number] Spine Nurse: Nadege Barillas MD, Phone: [phone] 05/18/2025 11:2 7 AM EDT 05/18/2025 11:30 AM EDT Narrative [facility] - 05/23/2025 12:08 PM EDT us Generic External Data Provider LAB BLOOD ORDERAB LES Final Result [facility] documented in this encounter Visit Diagnoses Not on filedocumented in this encounter Additional Health Concerns Assessment Noted Time PHQ-9 Depression Total Score: 2 01/25/20 25 11:30 AM EDT documented as of this encounter Care Teams Automotive Electrician Relationship Specialty Start Date End Date Brii Warren MD [address] [place] [address] PCP - General Family Medicine 03/25/23 Alexandra Brewster PMHNP- [address] [address] PCP - [place] Yasmine 03/17/25 Alexandra Brewster PMHNP-BC [address] [address] Nurse Practitioner Behavioral Health 10/12/24 documented as of this encounter
--- OUTSIDE RECORDS SUMMARY | 2025-06-06 10:21 | XMS_ITS | Clinical Summary ---
Author Organization [facility] Address [address] [facility] [address] [facility], [address] [place] [address] Care Team Providers Care Bottle Feeder Name Role Phone Unavailable Primary Care Provider [...] 11/13/2018, Additional history exists COVID-19 Vaccine ( season) 2024 Breast cancer screen 10/21/2024 10/21/2022, [...] to the patient regarding the results. [employer] recommends annual mammograms for [...] (02/06/2021) CERVICAL SWAB / Unknown Chrissy Biggs PHARMACY OPERATIONS SPECIALIST - LEAD SPRINKLER PATHOLOGY/CYTOLOGY LISA DAVIDSON Final Result * Human papillomavirus (HPV) DNA probe thin prep high risk (11/13/2018 9:45 AM EST) HPV SOURCE CERVICAL MATERIAL 11/16/2018 9:46 AM EST [facility] HPV Sample .THIN PREP 11/16/2018 9:46 AM EST [facility] HPV, Genotype 16 Not Detected NOTDET 11/16/2018 3:11 PM EST [facility] HPV, Genotype 18 Not Detected NOTDET 11/16/2018 3:11 PM EST [facility] HPV, High Risk Other Not Detected NOTDET 11/16/2018 3:11 PM EST [facility] HPV, Interpretation 11/16/2018 3:11 PM EST [facility] Comment: This test amplifies and detects DNA [...] EST 11/16/2018 9:45 AM EST Sobia Browne PHARMACY OPERATIONS SPECIALIST - DRAIN LAYER HEMATOLOGY ORDERABLES Fi nal Result [facility] [address] [place] [address], [facility] [phone] [facility] [address] [place] [address], [facility] [phone] * (ABNORMAL) Lipid panel - fasting (08/22/2015 5:46 AM EDT) Cholesterol 190 <200 mg/dL 08/22/2015 6:59 AM EDT [facility] [[email or web address] LAB Comment: Cholesterol Guidelines: <200 Desirable 200-240 [...] 246(H) <150 mg/dL 08/22/2015 6:59 AM EDT PN LAB Comment: Triglyceride Guidelines: <150 Desirable 150-199 Borderline 200-499 High >499 Very high Based on AHA Guidelines for fasting triglyceride, August 2012. Performed at [facility] [address] [place], [place] [id number] ([phone] VLDL NOT REPORTED 1 - 30 mg/dL [facility] BLOOD SPECIMEN / Unknown 08/22/2015 5:46 AM EDT 08/22/2015 6:03 AM EDT Jim Haro MD CHEMISTRY ORDERABLES Fin al Result [facility] [address] [place] [address], [facility] [phone] [facility] [[email or web address] LAB from Last 3 Months or Most Recently Relevant to Health Maintenance Insurance [place] Advance Directives * Full Code (Latest Code Status on File) Date Activated Date Inactivated Comments 08/21/2015 6:55 PM 08/23/2015 4:44 PM
--- OUTSIDE RECORDS SUMMARY | 2025-06-06 10:21 | XMS_ITS | Encounter Summary ---
Author Organization [facility] Address [address] [place] [address] Care Team Providers Care Program Medical Director Name Role Phone Brii Warren MD Primary Care Provider [phone] Alexandra Brewster PMHNP-BC Unavailable Rachele Dillard WORKING FOREMAN Unavailable [phone] Alexandra Brewster PMHNP-BC Unavailable Reason for Visit * Reason Comments Med Refill Encounter Details Date Type Department Care Team (Late st Contact Info) Description 05/09/2024 Refill [facility] [address] [place] [address] Brii Warren MD [address] [place] [address] Generalized anxiety disorder Social History [...] [facility] [address] [facility] [address] [place] [address] Alexandra Brewster PMHNP-BC [address] [facility] [address] [place] [address] 06/27/2025 1:30 PM EDT Office Visit [facility] [address] [facility] [address] [place] [address] Alexandra Brewster PMHNP-BC [address] [facility] [address] [place] [address] 11/22/2025 1:30 PM EST Office Visit [facility] FM [address] [place] [address] Rachel Chang WORKING FOREMAN [address] [place] [address] 05/29/2026 11:00 AM EDT Office Visit [facility] OB [address] [place] [address] Alexi Cummins DO [address] [facility] [place] [address] documented as of this encounter Visit Diagnoses Diagnosis Generalized anxiety disorder Generalized anxiety disorder documented in this encounter Additional Health Concerns Assessment Noted Time PHQ-9 Depression Total Score: 0 12/01/19 24 3:18 PM EST documented as of this encounter Care Teams Program Medical Director Relationship Specialty Start Date End Date Brii Warren MD [address] [place] [address] PCP - General Family Medicine 03/25/23 Rachele Dillard NP 1911 [facility] 1 [place] [address] PCP - [place] Commercial 02/15/2503/16 Alexandra Brewster [facility] 112 [facility] 160 [place] [address] PCP - [place] Commercial 03/17/25 [facility] Brew[facility] [address] [address] Nurse Practitioner Behavioral Health 10/12/24 documented as of this encounter
--- OUTSIDE RECORDS SUMMARY | 2025-06-06 10:21 | XMS_ITS | Encounter Summary ---
Author Organization [facility] Address [address] [place] [address] Care Team Providers Care Driller'S Assistant Name Role Phone Brii Warren MD Primary Care Provider [phone] Alexandra Brewster PMHNP-BC Unavailable [phone] Rachele Dillard CITY CARRIER ASSISTANT Unavailable [phone] Alexandra Brewster PMHNP-BC Unavailable Reason for Visit * Reason Comments Med Refill Encounter Details Date Type Department Care Team (Late st Contact Info) Description 08/04/2024 Refill [facility] [address] [place] [address] Brii Warren MD [address] [place] [address] Generalized anxiety disorder Social History [...] 06/07/2025 9:00 AM EDT Office Visit [facility] [address] [facility] [address] [place] [address] Alexandra Brewster PMHNP-BC [address] [facility] [address] [place] [address] 06/27/2025 1:30 PM EDT Office Visit [facility] CI BH [address] [facility] [address] [place] [address] Alexandra Brewster PMHNP-BC [address] [facility] [address] [place] [address] 11/22/2025 1:30 PM EST Office Visit [facility] FM [address] [place] [address] Rachel Chang CITY CARRIER ASSISTANT [address] [place] [address] 05/29/2026 11:00 AM EDT Office Visit [facility] OB [address] [facility] [place] [address] Alexi Cummins DO [address] [facility] [place] [address] documented as of this encounter Visit Diagnoses Diagnosis Generalized anxiety disorder Generalized anxiety disorder documented in this encounter Additional Health Concerns Assessment Noted Time PHQ-9 Depression Total Score: 0 12/01/19 24 3:18 PM EST documented as of this encounter Care Teams Driller'S Assistant Relationship Specialty Start Date End Date Brii Warren MD [address] [place] [address] PCP - General Family Medicine 03/25/23 Rachele Dillard NP 1911 [facility] 1 [place] [address] PCP - [place] Commercial 02/15/2503/16 Alexandra Brewster [facility] [address] [facility] 160 [place] [address] PCP - [place] Commercial 03/17/25 Alexandra Brewster [facility] [address] [address] Nurse Practitioner Behavioral Health 10/12/24 documented as of this encounter
--- OUTSIDE RECORDS SUMMARY | 2025-06-06 10:21 | XMS_ITS | Encounter Summary ---
Author Organization [facility] Address [address] [place] [address] Care Team Providers Care Metal Caster Name Role Phone Brii Warren MD Primary Care Provider [phone] Alexandra Brewster PMHNP-BC Unavailable Rachele Dillard CARBON SEQUESTRATION PLANT MANAGER Unavailable Alexandra Brewster PMHNP-BC Unavailable Encounter Details Date Type Department Care Team (Late st Contact Info) Description 11/20/2023 Abstract [facility] FM [address] [place] [address] Rachele Dillard, CARBON SEQUESTRATION PLANT MANAGER [address] [phone] Social History Tobacco Use Types Packs/Day Years [...] [address] [facility] [address] [place] [address] BrewsterJacqueline elainedith, HNP-BC [address] [facility] [address] [place] [address] 06/27/2025 1:30 PM EDT Office Visit [facility] BH [address] [facility] [address] [place] [address] Alexandra Brewster, PMHNP-BC [address] [facility] [address] [place] [address] 11/22/2025 1:30 PM EST Office Visit [facility] FM [address] [place] [address] Rachel Chang NP [address] [place] [address] 05/29/2026 11:00 AM EDT Office Visit [facility] BCP [address] [place] [address] Alexi Cummins DO [address] [place] [address] documented as of this encounter Visit Diagnoses Not on filedocumented in this encounter Additional Health Concerns Assessment Noted Time PHQ-9 Depression Total Score: 4 10/28/20 23 2:45 PM EST documented as of this encounter Care Teams Metal Caster Relationship Specialty Start Date End Date Brii Warren MD [address] [place] [address] PCP - General Family Medicine 03/25/23 Rachele Dillard NP 1911 [facility] 1 [place] [address] PCP - [place] Commercial 02/15/2503/16 Alexandra Brewster PMHNP-BC [address] [place] [address] PCP - [place] Commercial 03/17/25 Alexandra Brewster PMHNP-BC [address] [place] [address] Nurse Practitioner Behavioral Health 10/12/24 documented as of this encounter
--- OUTSIDE RECORDS SUMMARY | 2025-06-06 10:21 | XMS_ITS | Encounter Summary ---
Author Organization [facility] Address [address] [facility], [address] [place] [address] Care Team Providers Care Hand Braille Transcriber Name Role Phone Jim Haro MD Primary Care Provider + Encounter Details Date Type Department Care Team (Late st Contact Info) Description 08/28/2015 FollowUp Telephone Encounter [facility] Case Management [address] [place] [address] Ayesha Lee RN Social History Tobacco Use [...] on filedocumented in this encounter Care Teams Hand Braille Transcriber Relationship Specialty Start Date End Date Jim Haro MD [address] [place] [address] PCP - General Family Medicine 07/09/13 02/17/23 documented as of this encounter
--- OUTSIDE RECORDS SUMMARY | 2025-06-06 10:21 | XMS_ITS | Encounter Summary ---
Author Organization [facility] Address [address] [place] [address] Care Team Providers Care Facing Machine Operator Name Role Phone Brii Warren MD Primary Care Provider Alexandra Brewster PMHNP-BC Unavailable Rachele Dillard CORPORATE GENERAL MANAGER Unavailable Alexandra Brewster PMHNP-BC Unavailable Reason for Visit * Reason Comments Med Refill Encounter Details Date Type Department Care Team (Late st Contact Info) Description 02/13/2024 Refill [facility] FM [address] [facility] [place] [address] Rachele Dillard CORPORATE GENERAL MANAGER [address] [facility] 1 [place] [address] Morbid (severe) obesity due to excess calories ([facility]-H[facility]) Social History Tobacco Use Types Packs/Day [...] Visit [facility] [address] [facility] 160 [place] [address] Alexandra Brewster PMHNP-BC [address] [facility] [address] [place] [address] 06/27/2025 1:30 PM EDT Office Visit [facility] [address] [place] [address] [place] [address] Alexandra Brewster PMHNP-BC [address] [facility] [address] [place] [address] 11/22/2025 1:30 PM EST Office Visit [facility] FM [address] [place] [facility] [address] Rachel Chang, ОЛЕГ [address] [place] [address] 05/29/2026 11:00 AM EDT Office Visit [facility] BCP OB [address] [facility] [place] [address] Alexi Cummins, DO [address] [facility] [place] [address] documented as of this encounter Visit Diagnoses Diagnosis Morbid (severe) obesity due to excess calories (CMS-HCC) documented in this encounter Additional Health Concerns Assessment Noted Time PHQ-9 Depression Total Score: 0 12/01/19 24 3:18 PM EST documented as of this encounter Care Teams Facing Machine Operator Relationship Specialty Start Date End Date Brii Warren MD 14[address] [facility] [place] [place], [place] [address] PCP - General Family Medicine 03/25/23 Rachlee Dillard NP 1912 [facility] 1 [place] [address] PCP - [place] Commercial 02/15/2503/16 Alexandra Brewster [facility]- [address] [facility] 160 [place] [address] PCP - [place] Commercial 03/17/25 Alexandra Brewster RACHID- [address] [facility] 160 [place] [address] Nurse Practitioner Behavioral Health 10/12/24 documented as of this encounter
--- OUTSIDE RECORDS SUMMARY | 2025-06-06 10:21 | XMS_ITS | Clinical Summary ---
Author Organization [facility] Address [address] [place] [address] Care Team Providers Care Order Administrator Name Role Phone Unavailable Primary Care Provider [...]
--- OUTSIDE RECORDS SUMMARY | 2025-06-06 10:21 | XMS_ITS | Encounter Summary ---
Author Organization [facility] Address [address] [place] [address] Care Team Providers Care Well Flow Operator Name Role Phone Brii Warren MD Primary Care Provider [phone] Alexandra Brewster PMHNP-BC Unavailable [phone] Rachele Dillard VENDING MANAGER Unavailable [phone] Alexandra Brewster PMHNP-BC Unavailable [phone] Reason for Visit * Reason Comments Med Refill Encounter Details Date Type Department Care Team (Late st Contact Info) Description 05/16/2024 Refill [facility] FNR [address] [place] [address] Brii Warren MD [address] [place] [address] Morbid (severe) obesity due to excess calories ([facility]) Social History Tobacco Use Types Packs/Day [...] Visit [facility] CI BH [address] [facility] [address] [place] [address] Alexandra Brewster PMHNP-BC [address] [facility] [address] [place] [address] 06/27/2025 1:30 PM EDT Office Visit [facility] BH [address] [facility] [address] [place] [address] Alexandra Brewster PMHNP-BC [address] [facility] [address] [place] [address] 11/22/2025 1:30 PM EST Office Visit [facility] FNR FM [address] [place] [address] Rachel Chang, ОЛЕГ [address] [place] [address] 05/29/2026 11:00 AM EDT Office Visit [facility] BCP OB [address] [facility] [place] [address] Alexi Cummins DO [address] [facility] [place] [address] documented as of this encounter Visit Diagnoses Diagnosis Morbid (severe) obesity due to excess calories ([facility]-HCC) documented in this encounter Additional Health Concerns Assessment Noted Time PHQ-9 Depression Total Score: 0 12/01/19 24 3:18 PM EST documented as of this encounter Care Teams Well Flow Operator Relationship Specialty Start Date End Date Brii Warren MD [address] [place] [address] PCP - General Family Medicine 03/25/23 Rachele Dillard NP [address] [facility] 1 [place] [address] PCP - [place] Commercial 02/15/2503/16 Alexandra Brewster [facility] 112 [facility] 160 [place] [address] PCP - Mike Commercial 03/17/25 Alexandra Brewster PMHNPSUGAR [address] [address] Nurse Practitioner Behavioral Health 10/12/24 documented as of this encounter
--- OUTSIDE RECORDS SUMMARY | 2025-06-06 10:21 | XMS_ITS | Encounter Summary ---
Author Organization [facility] Address [address] [place] [address] Care Team Providers Care Rn Internship Name Role Phone Brii Warren MD Primary Care Provider Alexandra Brewster PMHNP-BC Unavailable [phone] Alexandra Brewster PMHNP-BC Unavailable [phone] Encounter Details Date Type Department Care Team (Late st Contact Info) Description 05/25/2025 Clinisync Result Encounter N[facility]S External Department Unsolicited Alexi Cummins, DO [address] [facility] [place] [address] Social History Tobacco Use Types [...] How often do you attend chur or druze services? More than 4 times per year 05/17/2025 Do you belong to any clubs o r organizations such as taoist groups, unions, fraternal or athletic groups, or [...] Recorded Patient Health Questionnaire-2 Score 0 05/24/2025 [facility] [place] of Occupat ional Health - Occupational Stress [...] 06/07/2025 9:00 AM EDT Office Visit [facility] 112 [facility] [address] [place] [address] Alexandra Brewster HNP- [address] [facility] [address] [place] [address] 06/27/2025 1:30 PM EDT Office Visit [facility] CI BH [address] [facility] [address] [place] [address] Ney Alexandra, PMHNP-BC [address] [facility] [address] [place] [address] 11/22/2025 1:30 PM EST Office Visit [facility] FNR FM [address] [facility] [place] [address] Rachel Chang, PROGRAM PROFESSIONAL [address] [facility] [place], [place] [address] 05/29/2026 11:00 AM EDT Office Visit [facility] BCP OB [address] [facility] [place] [address] Alexi Cummins, DO [address] [facility] [address] [place], [place] [address] documented as of this encounter Procedures Procedure Name Priority Date/Time Associated Diagnosis Comments IGP,APTIMA HPV,AGE GDLN Routine 05/25/2025 3:21 PM EDT documented in this encounter Results * IGP,APTIMA HPV,AGE GDLN (05/25/2025 3:21 PM EDT) AGE GDLN ACOG TESTING Note . [facility] Comment: TESTS RESULT FLAG UNITS REF RANGE LAB Clinician Provided Cytology Information Source.............Cervix;Endocervix No. of containers..01 ThinPrep Vial Age Algo ACOG Sara... 30-65 01 FLAG LEGEND: L-Low Normal,H-High Normal,LL-Alert Low,HH-Alert High <-Panic Low,>-Panic High,A-Abnormal,AA-Critical Abnormal Performed at: 01 =G [address] [place] [address] Azalea Hathaway MD, IGP, APTIMA HPV, RFX 16/18,45 Note . [facility] Comment: TESTS RESULT FLAG UNITS REF RANGE LAB DIAGNOSIS: 02 NEGATIVE FOR INTRAEPITHELIAL LESION OR MALIGNANCY. CELLULAR CHANGES ASSOCIATED WITH ATROPHY ARE PRESENT. Specimen adequacy: 02 Satisfactory for evaluation. Endocervical and/or squamous metaplastic cells (endocervical component) are present. Performed by: Jyoti Newton Rim Buster . 02 Note: Note 02 The Pap [...] <-Panic Low,>-Panic High,A-Abnormal,AA-Critical Abnormal Performed at: [address] [address] Azalea Hathaway MD, HPV APTIMA Negative Negative TB Comment: This nucleic acid amplification test detects fourteen high- risk HPV types (16,18,31,33,35,39,45,51,52,56,58,59,66,68) without differentiation. Performed at: =[address] [id number] Supervisor Sterile Processing: Azalea Hathaway MD, Phone: [phone] Performed at: [address] [id number] Supervisor Sterile Processing: Azalea Hathaway MD, Phone: [phone] 05/25/2025 3:21 PM EDT 05/26/2025 6:18 AM EDT Narrative ANALISA - 05/29/2025 2:07 PM EDT BRUSH-SPATULA CERVIX ENDOCERVIX us Alexi Wolfo DO LAB BLOOD ORDERABLES Final Resul t [facility] documented in this encounter Visit Diagnoses Not on filedocumented in this encounter Additional Health Concerns Assessment Noted Time PHQ-9 Depression Total Score: 0 05/24/20 25 1:00 PM EDT documented as of this encounter Care Teams Rn Internship Relationship Specialty Start Date End Date Brii Warren MD [address] [place] [address] PCP - General Family Medicine 03/25/23 Alexandra Brewster PMHNP- [address] [facility] [address] [place] [address] PCP - Mike Underwood 03/17/25 Alexandra Brewster, [facility]- [address] [facility] [address] [place] [address] Nurse Practitioner Behavioral Health 10/12/24 documented as of this encounter
--- OUTSIDE RECORDS SUMMARY | 2025-06-06 10:21 | XMS_ITS | Encounter Summary ---
Author Organization [facility] Address [address] [place] [address] Care Team Providers Care Insurance Healthcare Consultant Name Role Phone Brii Warren MD Primary Care Provider [phone] Alexandra Brewster PMHNP-BC Unavailable [phone] Alexandra Brewster PMHNP-BC Unavailable [phone] Encounter Details Date Type Department Care Team (Late st Contact Info) Description 05/31/2025 Orders Only [facility] BCP OB [address] [place] [address] Gurjit [place], [place] [address] [facility] [place] [address] Social History Tobacco Use Types Packs/Day Years [...] week 05/17/2025 How often do you attend [facility] or tenriism services? More than 4 times per year 05/17/2025 Do you belong to any clubs o r organizations such as tenriism groups, unions, fraternal or athletic groups, or [...] Recorded Patient Health Questionnaire-2 Score 0 05/24/2025 [facility] [place] of Occupat ional Health - Occupational Stress [...] any time in the past 12 m [facility], were you homeless or living in [...] Office Visit NOMS [facility] 112 [facility] [address] [place] [address] Alexandra Brewster PMHNP- 112 [facility] [address] [place] [address] 06/27/2025 1:30 PM EDT Office Visit [facility] CI BH [address] [facility] [address] [place] [address] Alexandra Brewster PMHNPSUGAR [address] [facility] [address] [place] [address] 11/22/2025 1:30 PM EST Office Visit [facility] FNR FM [address] [place] [facility] [place] [address] Rachel Chang NP [address] [facility] [place], [place] [address] 05/29/2026 11:00 AM EDT Office Visit [facility] BCP OB [address] [place] [address] Alexi Cummins DO [address] [facility] [place] [address] documented as of this encounter Procedures Procedure Name Priority Date/Time Associated Diagnosis Comments PAP SMEAR Routine 05/25/2025 12:00 AM EDT documented in this encounter Results * Pap Smear (05/25/2025 12:00 AM EDT) Swab Cervical swab / Unknown Alexi Cummins DO LAB CYTOLOGY ORDERABLES Final Re sult EXTERNAL LAB documented in this encounter Visit Diagnoses Not on filedocumented in this encounter Additional Health Concerns Assessment Noted Time PHQ-9 Depression Total Score: 0 05/24/20 25 1:00 PM EDT documented as of this encounter Care Teams Insurance Healthcare Consultant Relationship Specialty Start Date End Date Brii Warren MD 14[address] [facility] [place], [place] [address] PCP - General Family Medicine 03/25/23 [facility] [address] [facility] [address] [place] [address] PCP - Mike Underwood 03/17/25 Alexandra Brewster, [facility]- [address] [facility] [address] [place] [address] Nurse Practitioner Behavioral Health 10/12/24 documented as of this encounter
--- OUTSIDE RECORDS SUMMARY | 2025-06-06 10:21 | XMS_ITS | Encounter Summary ---
Author Organization [facility] Address [address] [place] [address] Care Team Providers Care Automobile Accessories Installer Name Role Phone Brii Warren MD Primary Care Provider [phone] Alexandra Brewster PMHNP-BC Unavailable [phone] Alexandra Brewster PMHNP-BC Unavailable [phone] Encounter Details Date Type Department Care Team (Late st Contact Info) Description 05/25/2025 Results Follow-Up [facility] FNR FM [address] [place] [address] Raisa Deshpande MA Social History [...] How often do you attend chur or jehovah's witness services? More than 4 times per year 05/17/2025 Do you belong to any clubs o r organizations such as yazidi groups, unions, fraternal or athletic groups, or [...] Recorded Patient Health Questionnaire-2 Score 0 05/24/2025 [facility] [place] of Occupat ional Health - Occupational Stress [...] any time in the past 12 m [facility], were you homeless or living in a fci (including now)? No 05/17/2025 Education Answer Date [...] Office Visit NOMS TY [address] [facility] [address] [place] [address] Alexandra Brewster, PMHNP-BC 112 [facility] [address] [place] [address] 06/27/2025 1:30 PM EDT Office Visit [facility] CI BH [address] [facility] [address] [place] [address] Alexandra Brewster [facility] [address] [facility] [address] [place] [address] 11/22/2025 1:30 PM EST Office Visit [facility] FNR FM [address] [facility] [place] [address] Rachel Chang NP [address] [facility] [place] [address] 05/29/2026 11:00 AM EDT Office Visit [facility] BCP OB [address] [place] [address] Alexi Cummins DO [address] [facility] [place] [address] documented as of this encounter Visit Diagnoses Not on filedocumented in this encounter Additional Health Concerns Assessment Noted Time PHQ-9 Depression Total Score: 0 05/24/20 1:00 PM EDT documented as of this encounter Care Teams Automobile Accessories Installer Relationship Specialty Start Date End Date Brii Warren MD [address] [facility] [place] [address] PCP - General Family Medicine 03/25/23 Alexandra Brewster [facility]- [address] [facility] [address] [place] [address] PCP - [place] Commercial 03/17/25 Alexandra Brewster [facility]- [address] [facility] [address] [place] [address] Nurse Practitioner Behavioral Health 10/12/24 documented as of this encounter
--- OUTSIDE RECORDS SUMMARY | 2025-06-06 10:21 | XMS_ITS | Encounter Summary ---
Author Organization [facility] Address [address] [place] [address] Care Team Providers Care Porcelain Enamel Sprayer Name Role Phone Brii Warren MD Primary Care Provider [phone] Alexandra Brewster PMHNP-BC Unavailable [phone] Alexandra Brewster HNP-BC Unavailable [phone] Encounter Details Date Type Department Care Team [...] week 05/17/2025 How often do you attend [facility] or tenriism services? More than 4 times per year 05/17/2025 Do you belong to any clubs o r organizations such as zoroastrianism groups, unions, fraternal or athletic groups, or [...] Recorded Patient Health Questionnaire-2 Score 0 05/24/2025 [facility] of Occupat ional Health - Occupational [...] way Not at all 05/24/2025 1:00 PM EDT Phil Dillard NP Patient Health Questionnaire-9 Score 0 05/24/2025 1:00 PM EDT Rosanna Dillard NP documented as of this encounter Plan of Treatment Upcoming Encounters Date Type Department Care Team (Late st Contact Info) Description 06/07/2025 9:00 AM EDT Office Visit [facility] [address] [facility] [address] [place] [address] Alexandra Brewster, PMHNP-BC [address] [facility] [address] [place] [address] 06/27/2025 1:30 PM EDT Office Visit N[facility] [address] [facility] [address] [place] [address] Alexandra Brewster, PMHNP-BC [address] [facility] [address] [place] [address] 11/22/2025 1:30 PM EST Office Visit [facility] FNR FM 1479 [facility] [place] [address] Rachel Chang NP 14[address] [facility] [place] [address] 05/29/2026 11:00 AM EDT Office Visit [facility] BCP OB [address] [place] [address] Alexi Cummins DO [address] [facility] [place] [address] documented as of this encounter Visit Diagnoses Not on filedocumented in this encounter Additional Health Concerns Assessment Noted Time PHQ-9 Depression Total Score: 0 05/24/20 1:00 PM EDT documented as of this encounter Care Teams Porcelain Enamel Sprayer Relationship Specialty Start Date End Date Brii Warren MD [address] [facility] [place], [place] [address] PCP - General Family Medicine 03/25/23 Alexandra Brewster [facility]- [address] [facility] [address] [place] [address] PCP - [facility] 03/17/25 Alexandra Brewster [facility] [address] [facility] [address] [place] [address] Nurse Practitioner Behavioral Health 10/12/24 documented as of this encounter
--- OUTSIDE RECORDS SUMMARY | 2025-06-06 10:21 | XMS_ITS | Encounter Summary ---
Author Organization [facility] Address [address] [place] [address] Care Team Providers Care Printed Circuit Board Designer Name Role Phone Brii Warren MD Primary Care Provider [phone] Alexandra Brewster PMHNP-BC Unavailable [phone] Alexandra Brewster PMHNP-BC Unavailable [phone] Reason for Visit * Reason Onset Date Comments Anxiety 05/30/2025 Encounter Details Date Type Department Care Team (Late st Contact Info) Description 05/30/2025 Telephone [facility] [address] [place] [address] [place] [address] Lauren Barr LPN Anxiety Social History Tobacco Use Types Packs/Day Years [...] How often do you attend chur or tenriism services? More than 4 times [...] Patient Health Questionnaire-2 Score 0 05/24/2025 [facility] [place] of Occupat ional Health - Occupational Stress [...] encounter Miscellaneous Notes * Telephone Encounter - Lauren Barr LPN - 05/30/2025 11:58 AM EDT Spoke to patient informed of Merediths recommendations. Patient reports that she is seeing her counselor weekly. Lesly also states that she can only correlate the increased anxiety to the Remeron that has been the only medication added since the new year and coming to this office. That since increasing to the 15 mg her anxiety worsened and she just can not live like that anymore. She would like to stop it and see if her anxiety gets better to rule out that it is causing it. Informed her that I would update Alexandra and to call the office if symptoms worsen with being off of it. Patient voiced understanding and said she would call with an update * Telephone Encounter - ROSSY Choi - 05/30/2025 10:30 AM EDT Does she want to be off Remeron? We can stop it at this point. However if she feels her anxiety is worse since titrating down on Remeron, we can continue 7.5 mg dose for another 1-2 weeks. I would recommend she call her counselor weekly and call her to talk about this. I don't want to make any moremedication changes given her history of adverse side effects. * Telephone Encounter - Lauren Barr LPN - 05/30/2025 10:18 AM EDT Patient called with concerns of increased anxiety that has worsened more since tapering off of the Remeron it has been on week since beginning the taper of 7.5 mg. Reports tingling sensation all over, anxiety in stomach, sweats, none of coping skills are working, can not drive which usually helps with it and its not, reports being on the verge of having panic attacks. Reports having 2 full blown panic attacks. Reports sleep is okay. After supper before taking Remeron she starts to feel relief she thinks bc its getting out of her system after taking it anxiety kicks back in. Having racing thoughts, having akathisia, feels like energy in her body that she can not get rid of. Advised I would seek Merediths recommendations and call aher back. She asked if I promised. I reassured her I would. documented in this encounter Plan of Treatment Upcoming Encounters Date Type Department Care Team (Late st Contact Info) Description 06/07/2025 9:00 AM EDT Office Visit [facility] CI [address] [facility] [address] [place] [address] Alexandra Brewster PMHNP- [address] [facility] [address] [place] [address] 06/27/2025 1:30 PM EDT Office Visit [facility] CI BH [address] [facility] [address] [place] [address] Alexandra Brewster [facility]- [address] [facility] [address] [place] [address] 11/22/2025 1:30 PM EST Office Visit [facility] FNR FM [address] [facility] [place] [address] Rachel Chang, WELLNESS INSTRUCTOR [address] [facility] [place] [address] 05/29/2026 11:00 AM EDT Office Visit [facility] BCP OB [address] [facility] [place] [address] Alexi Cumimns DO [address] [facility] [place] [address] documented as of this encounter Visit Diagnoses Not on filedocumented in this encounter Additional Health Concerns Assessment Noted Time PHQ-9 Depression Total Score: 0 05/24/20 25 1:00 PM EDT documented as of this encounter Care Teams Printed Circuit Board Designer Relationship Specialty Start Date End Date Brii Warren MD [address] [facility] [address] PCP - General Family Medicine 03/25/23 Alexandra Brewster [facility] [address] [facility] [address] [place] [address] PCP - [place] Commercial 03/17/25 Alexandra Brewster PMHNP-SUGAR 112 [facility] [place] [address] Nurse Practitioner Behavioral Health 10/12/24 documented as of this encounter
--- NOTE | 2025-06-06 10:59 | ECG_ITS ---
The [facility] Test Date: 2025-06-06 Pat Name: LISA MARTINEZ Department: Room: - Gender: Female Cleaner Laboratory Equipment: : 1960 Requested By: 1860 Order Number: [id number] Reading MD: MARCY BACA M.D. Measurements Intervals [place] Rate: 61 P: 38 TX: 136 QRS: 46 QRSD: 74 T: 37 QT: 388 QTc: 391 Interpretive Statements 1100 Sinus rhythm 8102 Low QRS voltage in chest leads 9120 atypical ECG Compared to ECG 12/27/2024 15:01:33 Low QRS voltage now present ST (T wave) deviation no longer present Electronically Signed On 06-06-2025 18:30:40 EDT by MARCY BACA M.D.
[2025-06-06 11:27] LABS: Hematocrit 45.8 % (36.0-48.0); Hemoglobin 14.9 g/dL (12.0-16.0); Immature Granulocytes Abs Auto 0.02 10^3/uL (0.00-0.03); Immature Granulocytes Pct Auto 0.2 % (0.0-0.5); Lymphocytes Absolute Auto 1.7 10^3/uL (1.2-3.8); Mean Corpuscular HGB Conc 32.5 g/dL (29.9-35.2); Mean Corpuscular Hemoglobin 31.0 pg (26.7-34.0); Mean Corpuscular Volume 95.4 fL (81.0-99.0); Platelet Count 278 10^3/uL (150-450); Red Blood Count 4.80 10^6/uL (4.20-5.40); White Blood Count 9.3 10^3/uL (4.0-11.0)
[2025-06-06] MEDS: LORAZEPAM 1 MG TABLET PO (11:30)
[2025-06-06 11:37] LABS: Anion Gap 11.5; Blood Urea Nitrogen 12.0 mg/dL (7.0-18.0); Calcium 9.3 mg/dL (8.5-10.1); Carbon Dioxide 29.5 mmol/L (21.0-32.0); Chloride 105 mmol/L (98-107); Estimated GFR (African America >60 (>=60 mL/min/1.73m^2); Estimated GFR (Non-African Ame >60 (>=60 mL/min/1.73m^2); Glucose 94 mg/dL (74-106); Potassium 4.0 mmol/L (3.5-5.1); Sodium 142 mmol/L (136-145)
[2025-06-06 12:05] LABS: Glucose Urine UA NEGATIVE (NEGATIVE)
--- NOTE | 2025-06-06 12:06 | ED.GENADUL1 ---
HPI HPI - General Adult General Chief complaint: Anxiety Stated complaint: ANXIETY, PANIC ATTACKS SINCE FRIDAY Time Seen by Provider: 06/06/25 10:47 Source: patient Mode of arrival: walk-in Limitations: no limitations History of Present Illness HPI narrative: 65-year-old female to the emergency department chief complaint of anxiety. Patient reports that she has had near daily panic attacks and anxiety since 2019. She is under the care of [facility] for this. She currently takes several medications. She has been taking these every day. They had started her on some Remeron however they believe this may have been causing her anxiety and it was discontinued. She had a family member in March and has been doing worse since that time. She called the office today to let them know that she was not doing well and was having panic attacks. Her provider was not in the office so they referred her to the emergency department for her chronic anxiety. Related Data Home Medications �Medication �Instructions �Recorded �Confirmed aspirin 81 mg chewable tablet 1 tab PO DAILY 12/27/24 06/06/25 atorvastatin 10 mg tablet 10 mg PO DAILY 12/27/24 06/06/25 duloxetine 30 mg capsule,delayed 30 mg PO BID 12/27/24 06/06/25 release gabapentin 100 mg capsule 200 mg PO Q8H 12/27/24 06/06/25 mirtazapine 7.5 mg tablet 7.5 mg PO QPM 12/27/24 01/07/25 pantoprazole 40 mg tablet,delayed 40 mg PO DAILY 12/27/24 06/06/25 release propranolol 20 mg tablet 20 mg PO Q12H 12/27/24 06/06/25 cholecalciferol (vitamin D3) 50 50 mcg PO DAILY 06/06/25 06/06/25 mcg (2,000 unit) tablet Previous Rx's �Medication �Instructions �Recorded lorazepam 1 mg tablet (Ativan) 1 mg PO TID PRN anxiety 1 day #3 06/06/25 tabs Allergies Allergy/AdvReac Type Severity Reaction Status Date / Time alprazolam Allergy Vomiting Verified 06/06/25 10:12 doxycycline Allergy Hives Verified 06/06/25 10:12 egg Allergy intolerance Verified 06/06/25 10:12 hydroxyzine Allergy Anxiety Verified 06/06/25 10:12 milk Allergy GI upset Verified 06/06/25 10:12 Sulfa (Sulfonamide Allergy Hives Verified 06/06/25 10:12 Antibiotics) tetracycline Allergy Hives Verified 06/06/25 10:12 Review of Systems ROS Status of ROS 10 or more systems reviewed and unremarkable except as noted in history and below [facility] Medical History (Updated 06/06/25 @ 12:11 by Sukhjinder Oliva MD) History of psychiatric hospitalization �Z86.59 - Personal history of other mental and behavioral disorders (ICD-10) Acne �L70.9 - Acne, unspecified (ICD-10) Solar degeneration �L57.8 - Other skin changes due to chronic exposure to nonionizing radiation (ICD-10) Hemangioma �D18.00 - Hemangioma unspecified site (ICD-10) Folliculitis �L73.9 - Follicular disorder, unspecified (ICD-10) PONV (postoperative nausea and vomiting) �R11.2 - Nausea with vomiting, unspecified (ICD-10) �Z98.890 - Other specified postprocedural states (ICD-10) Actinic keratosis �L57.0 - Actinic keratosis (ICD-10) Vertigo �R42 - Dizziness and giddiness (ICD-10) Cervical stenosis (uterine cervix) �N88.2 - Stricture and stenosis of cervix uteri (ICD-10) Melanoma �C43.9 - Malignant melanoma of skin, unspecified (ICD-10) Back pain �M54.9 - Dorsalgia, unspecified (ICD-10) Low iron �E61.1 - Iron deficiency (ICD-10) PTSD (post-traumatic stress disorder) �F43.10 - Post-traumatic stress disorder, unspecified (ICD-10) Depression �F32.A - Depression, unspecified (ICD-10) Panic attacks �F41.0 - Panic disorder [episodic paroxysmal anxiety] (ICD-10) Anxiety �F41.9 - Anxiety disorder, unspecified (ICD-10) Transient ischemic attack (2023) �G45.9 - Transient cerebral ischemic attack, unspecified (ICD-10) Migraine �G43.909 - Migraine, unspecified, not intractable, without status migrainosus (ICD-10) Restless leg �G25.81 - Restless legs syndrome (ICD-10) High cholesterol �E78.00 - Pure hypercholesterolemia, unspecified (ICD-10) Postmenopausal bleeding �N95.0 - Postmenopausal bleeding (ICD-10) IBS (irritable bowel syndrome) �K58.9 - Irritable bowel syndrome, unspecified (ICD-10) Nausea �R11.0 - Nausea (ICD-10) GERD (gastroesophageal reflux disease) �K21.9 - Gastro-esophageal reflux disease without esophagitis (ICD-10) Tremor �R25.1 - Tremor, unspecified (ICD-10) Surgical History (Updated 12/27/24 @ 14:46 by Nicky Mandel NP) History of breast biopsy �Z98.890 - Other specified postprocedural states (ICD-10) Family History (Updated 12/27/24 @ 14:46 by Nicky Mandel NP) Other Family history of coronary artery disease Family history of ovarian cancer Family history of stroke Social History (Updated 12/27/24 @ 14:41 by Nicky Mandel NP) Within the past year, how often did you have a drink containing alcohol: never Score interpretation: A score less than 3 is consistent with normal alcohol consumption. Smoking status: Never smoker Non-prescribed substance use: denies use Previous occupational history: Retired Highest level of school completed/degree received: some college, no degree Little interest or pleasure in doing things: more than half the days Feeling down, depressed, or hopeless: nearly every day Exam Narrative Exam Narrative: VITALS: I have reviewed the triage vital signs. GENERAL: Well developed, well appearing anxious female. at the bedside NEURO: Alert and oriented. Moves all extremities. Face is symmetric and expressive. EYES: PERRL. No scleral icterus or conjunctival injection. No discharge. HENT: Normocephalic, atraumatic. Hearing is grossly intact. Nares grossly patent and without discharge. Mucous membranes moist. NECK: No JVD. Patient moves neck without restriction. CARDIO: Rhythm regular. Normal rate. No murmur, rub, or gallop. Pulses equal bilaterally in the upper and lower extremity. No lower extremity edema. PULM: Lungs clear to auscultation in all [place]. No wheezes, rales, or rhonchi. No conversational dyspnea. No splinting, stridor, or accessory muscle use. GI/: Abdomen is soft and non-tender. Normoactive bowel sounds. EXTREMITIES: Symmetric muscle bulk. No joint swelling. No clubbing, cyanosis, or deformity. SKIN: Warm and dry. Normal turgor. No rash or lesions appreciated. PSYCH: Anxious Constitutional Vital Signs, click to edit/add: Last Vital Signs Temp 99.2 F 06/06/25 10:13 Pulse 69 06/06/25 10:13 Resp 20 06/06/25 10:13 BP 129/79 06/06/25 10:13 Pulse Ox 98 06/06/25 10:13 O2 Del Method Room Air 06/06/25 10:13 Course Vital Signs Vital signs: Vital Signs Temperature 99.2 F 06/06/25 10:13 Pulse Rate 69 06/06/25 10:13 Respiratory Rate 20 06/06/25 10:13 Blood Pressure 129/79 06/06/25 10:13 Pulse Oximetry 98 06/06/25 10:13 Oxygen Delivery Method Room Air 06/06/25 10:13 Temperature 99.2 F 06/06/25 10:13 Pulse Rate 69 06/06/25 10:13 Respiratory Rate 20 06/06/25 10:13 Blood Pressure 129/79 06/06/25 10:13 Pulse Oximetry 98 06/06/25 10:13 Oxygen Delivery Method Room Air 06/06/25 10:13 Medical Decision Making MDM Narrative Medical decision making narrative: 65-year-old female with chronic anxiety to the emergency department with chief complaint of anxiety. Vital stable, the patient is afebrile. She reports worsening course over the last few months. She is set to follow-up at 9 AM tomorrow with her behavioral health provider. She reports symptoms were severe this morning prompting her to call the office. They referred her to the emergency department. Lab work is unremarkable. Discussed with the patient. I do not have much to offer her for her chronic anxiety in the emergency department. She is already on an extensive outpatient regimen managed actively by psychiatry. She has follow-up tomorrow. We discussed a short course of Ativan. 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 Patient and her discussed and due to the severity of her symptoms they agreed to a 1 day course of Ativan to bridge them to see their provider tomorrow to come up with a better plan. Return precautions were discussed. All questions were answered. The patient was discharged home. Medical Records Medical records reviewed: Yes I reviewed the patient's medical records Lab Data Lab results reviewed: Yes I reviewed the patient's lab results Labs: Lab Results 07/21/25 07/21/25 Range/Units 11:18 11:58 WBC 9.3 (4.0-11.0) 10^3/uL RBC 4.80 (4.20-5.40) 10^6/uL Hgb 14.9 (12.0-16.0) g/dL Hct 45.8 (36.0-48.0) % MCV 95.4 (81.0-99.0) fL MCH 31.0 (26.7-34.0) pg MCHC 32.5 (29.9-35.2) g/dL RDW 13.2 (11.0-15.0) % Plt Count 278 (150-450) 10^3/uL MPV 10.0 (9.5-13.5) fL Neut % (Auto) 74.7 (43.0-75.0) % Lymph % (Auto) 17.9 L (20.5-60.0) % [place] % (Auto) 5.8 (1.7-12.0) % Eos % (Auto) 0.6 L (0.9-7.0) % Baso % (Auto) 0.8 (0.2-2.0) % Neut # (Auto) 6.9 H (1.4-6.5) 10^3/uL Lymph # (Auto) 1.7 (1.2-3.8) 10^3/uL [place] # (Auto) 0.5 (0.3-0.8) 10^3/uL Eos # (Auto) 0.1 (0.0-0.7) 10^3/uL Baso # (Auto) 0.1 (0.0-0.1) 10^3/uL Abs Immat Gran (auto) 0.02 (0.00-0.03) 10^3/uL Imm/Tot Granulo (auto) 0.2 (0.0-0.5) % Sodium 142 (136-145) mmol/L Potassium 4.0 (3.5-5.1) mmol/L Chloride 105 (98-107) mmol/L Carbon Dioxide 29.5 (21.0-32.0) mmol/L Anion Gap 11.5 BUN 12.0 (7.0-18.0) mg/dL Creatinine 0.88 (0.55-1.02) mg/dL Est GFR ( Amer) >60 (>=60 mL/min/1.73m^2) Est GFR (Non-Af Amer) >60 (>=60 mL/min/1.73m^2) BUN/Creatinine Ratio 13.6 Glucose 94 (74-106) mg/dL Calcium 9.3 (8.5-10.1) mg/dL Troponin I High Sens 4.9 (4.0-51.3) pg/mL Urine Color Lt. yellow (YELLOW) Urine Clarity Clear (CLEAR) Urine pH 7.5 (5.0-9.0) Ur Specific [place] 1.010 (1.005-1.025) Urine Protein Negative (NEG/TRACE) mg/dL Urine Glucose (UA) Negative (NEGATIVE) mg/dL Urine Ketones Negative (NEGATIVE) mg/dL Urine Occult Blood Negative (NEGATIVE) Urine Nitrite Negative (NEGATIVE) Urine Bilirubin Negative (NEGATIVE) Urine Urobilinogen 0.2 (0.2-1.0) EU/dL Ur Leukocyte Esterase Negative (NEGATIVE) Urine RBC 0-2 (0-2) #/HPF Urine WBC None seen (NONE SEEN) #/HPF Ur Squamous Epith Cells Few A (NONE/RARE) #/LPF Urine Crystals None seen (None Seen) #/HPF Urine Bacteria Trace A (NONE SEEN) #/HPF Urine Casts None seen (NONE SEEN) #/LPF Urine Mucus None seen (NONE SEEN) Ur Culture Indicated? No ECG Data Attestation: I personally reviewed and interpreted this ECG as follows: (Normal sinus rhythm at a rate of 61. No STEMI. Normal QTc at 391.) Discharge Plan Discharge Chief Complaint: Anxiety Clinical Impression: Anxiety, Panic disorder Patient Disposition: Home, Self-Care Time of Disposition Decision: 12:10 Condition: Good Mode of Transportation: Private Vehicle Prescriptions / Home Meds: New lorazepam [Ativan] 1 mg tablet 1 mg PO TID PRN (Reason: anxiety) 1 Days Qty: 3 0RF No Action aspirin 81 mg tablet,chewable 1 tab PO DAILY atorvastatin 10 mg tablet 10 mg PO DAILY duloxetine 30 mg capsule,delayed release(DR/EC) 30 mg PO BID gabapentin 100 mg capsule 200 mg PO Q8H mirtazapine 7.5 mg tablet 7.5 mg PO QPM pantoprazole 40 mg tablet,delayed release (DR/EC) 40 mg PO DAILY propranolol 20 mg tablet 20 mg PO Q12H cholecalciferol (vitamin D3) 50 mcg (2,000 unit) tablet 50 mcg PO DAILY Print Language: Egyptian Instructions: Anxiety (ED), Panic Attack (ED) Additional Instructions: Call the office of your primary care doctor to arrange for follow-up within the above-stated timeframe. Your ED visit was focused on your acute issue and does not replace primary care. You should review your labs, imaging, and diagnoses from this ED visit with your primary care physician. There may be non-emergent/ incidental findings that need further evaluation. You should review your vital signs including blood pressure with your PCP. If you were prescribed medications you should discuss possible side-effects and drug interactions with your pharmacist. Call 911 or go to the nearest Emergency Department if you develop any new or worsening symptoms. Referrals: NELLY FLOWERS [Primary Care Provider, Unknown] - 1 week
[2025-06-06 12:22] LABS: Cast Seen? NONE SEEN #/LPF (NONE SEEN); Crystals Seen? None Seen #/HPF (None Seen); Urine Culture Indicated NO
[2025-06-06 12:29] VITALS: BP 134/77; PULSE 68; O2SAT 97
== END 2025-06-06 12:29 | disposition home or self-care (01) ==
PROVIDERS: Emergency Provider Student in an Organized Health Care Education/Training Program; PCP Nurse Practitioner Family
DX: F41.9 Anxiety disorder, unspecified (principal); F41.0 Panic disorder [episodic paroxysmal anxiety]; Z79.899 Other long term (current) drug therapy
CPT/HCPCS: 36415; 80048; 81001; 84484; 85025; 93005; 99284